=== PATIENT | female | born 1945 | race Caucasian/White ===

== ENCOUNTER 2017-10-28 14:18 | Inpatient (IN) ==
--- NOTE | 2017-10-28 14:34 | Emergency Department Report ---
Abdominal Pain HPI - General Stated Complaint: Abdominal pain Time Seen by Provider: 10/28/17 14:34 Source: patient Mode of arrival: ambulatory Limitations: no limitations - History of Present Illness HPI narrative: Patient is a 72-year-old female, presents from the urgent care for abdominal pain 4 days. Patient originally started having epigastric abdominal pain with radiation up into her chest, has had emesis in the last 24 hours no bowel movement in the last 4 days. Patient denies any fevers or chills, did present to urgent care who called EMS to have patient brought to the ER for evaluation. - Related Data Home Medications Medication Instructions Recorded Confirmed Albuterol HFA Inhaler [Ventolin 2 puff INH Q6H PRN 10/28/17 10/28/17 Hfa 90 mcg/actuation] DiphenhydrAMINE [Benadryl] 25 mg PO Q4H PRN 10/28/17 10/28/17 Losartan [Cozaar] 25 mg PO BID 10/28/17 10/28/17 MethIMAzole [Tapazole] 2.5 mg PO DAILY 10/28/17 10/28/17 Ranitidine [Zantac] 150 mg PO BID 10/28/17 10/28/17 guaiFENesin [Mucinex] 600 mg PO Q12H PRN 10/28/17 10/28/17 Allergies Allergy/AdvReac Type Severity Reaction Status Date / Time clindamycin Allergy Severe Hives Verified 10/28/17 14:37 meperidine [From Demerol] Allergy nausea, Verified 10/28/17 14:37 paranoia Review of Systems Constitutional: Denies: fever, chills, weakness Eyes: Denies: eye pain, eye discharge ENT: Denies: throat pain, dental pain, hearing loss Cardiovascular: Denies: chest pain, palpitations, dyspnea on exertion Respiratory: Denies: cough, dyspnea, wheezes Gastrointestinal: Reports: abdominal pain, nausea, vomiting, constipation Genitourinary: Denies: dysuria, frequency Neurological: Denies: headache Psychiatric: Denies: anxiety, depression Endocrine: Denies: fatigue, heat or cold intolerance Hematological/Lymphatic: Denies: easy bleeding, easy bruising Allergic/Immunologic: Denies: facial swelling, urticaria PFSH Patient Stated Medical History Hearing Loss Yes Other HEENT Yes: WEARS GLASSES Hypertension Yes: R/T RENAL ARTERY BLOCKAGE Gastroesophageal Reflux Yes Disease Clinic Medical History (Last Reviewed 03/21/17 @ 14:33 by VENANCIO Landry ) History of Crohn's disease (Chronic Medical) Anxiety (Chronic Medical) Migraine (Chronic Medical) GERD (gastroesophageal reflux disease) (Chronic Medical) Chronic abdominal pain (Chronic Medical) Dyslipidemia (Chronic Medical) Hypertension (Chronic Medical) Family History: Family History (Last Reviewed 03/21/17 @ 14:33 by VENANCIO Landry) Father No problems noted. Mother No problems noted. - Social History Smoking status: Former smoker Alcohol intake frequency: does not drink Physical Exam - Limitations Limitations: no limitations - General General appearance: alert, in no apparent distress - Head Head exam: normocephalic - ENT ENT exam: Present: normal oropharynx, mucous membranes moist, TM's normal bilaterally - Neck Neck exam: Present: trachea midline. Absent: tenderness - Chest Chest inspection: Present: symmetric chest wall rise. Absent: tenderness, rash - Respiratory Respiratory exam: Present: normal lung sounds bilaterally. Absent: respiratory distress, wheezes, stridor - Cardiovascular Cardiovascular exam: Present: regular rate, normal rhythm, normal heart sounds - Abdominal Exam Abdominal exam: Present: soft, distention, tenderness (mild diffuse tenderness) , diminished bowel sounds. Absent: normal bowel sounds - Back Exam Back exam: Present: full ROM - Skin Skin exam: Present: warm, dry - Neurological Exam Neurological exam: Present: alert, oriented X3 - Psychiatric Psychiatric exam: Present: normal affect, normal mood Abdominal Pain - [facility] Narrative Medical decision making narrative: Discuss case with Dr. Nixon, general surgery, he would recommend hospitalist admit, steroids, antibiotics, consult him if needed Discuss case with Dr. Duckworth, she will admit - Differential Diagnosis Differential diagnosis: Likely: abdominal pain, acute appendicitis, calculus of kidney, constipation, diverticulitis, endometriosis, gastroenteritis, pancreatitis, small bowel obstruction - Medical Records Attestation: I reviewed the patient's medical records. - Lab Data Attestation: I reviewed the patient's lab results. Result diagrams: 10/29/17 04:11 10/29/17 04:11 - Radiology Data Attestation: I reviewed the patient's radiology results. Long segment functional small bowel obstruction due to inflammation, question Crohn's Disposition Clinical Impression: functional bowel obstruction Disposition: 02 To [facility] [place] Condition: Stable - Seen By: physician
[2017-10-28] MEDS ORDERED: NS 1,000 ML IV ONE (14:40)
[2017-10-28] MEDS ORDERED: FentaNYL 100 MCG/2 ML INJECTION IVP ONE (14:40)
[2017-10-28] MEDS ORDERED: ONDANSETRON 4 MG/2 ML INJECTION IVP ONE ×2 (14:40→16:39)
[2017-10-28] MEDS ORDERED: IOHEXOL 300mg/ml 75ml INJECTION ONE (15:42)
[2017-10-28] MEDS ORDERED: SALINE FLUSH 10ml SYRINGE ONE (15:42)
--- NOTE | 2017-10-28 16:11 | CT Scan Report ---
Indication: diffuse abdominal pain tympanic rule out obstruction PROCEDURE: CT abdomen pelvis w con: Encounter: Initial Comparison: 11/09/2014 Findings: There is moderate dilation of the small bowel with a decompressed large bowel suggesting small bowel obstruction. There is moderate thickening and edema of the distal terminal ileum which is circumferential and long segment suggesting Crohn's disease. There is also moderate distal colonic diverticulosis without definite diverticulitis. There is no free perforation or peridiverticular abscess. There is a small amount of free fluid around the liver extending along the right paracolic gutter into the pelvic cul-de-sac. The included portions of the lung bases are mildly emphysematous. No pleural effusion. Heart size is normal. No pericardial effusion. The liver, spleen, kidneys, pancreas, and adrenal glands are normal. Incidental note is made of a retroaortic left renal vein. The gallbladder is thin walled and nondistended, without stones. The abdominal aorta is nonaneurysmal, with dense circumferential calcific atherosclerotic disease. There is no retroperitoneal or mesenteric adenopathy. CT PELVIS: The urinary bladder is not distended. No definite pelvic sidewall adenopathy.. IMPRESSION: Multiple functional small bowel obstruction with long segment circumferential distal small bowel thickening suggesting Crohn's disease or other enteritis. Moderate free fluid which is probably sympathetic. No definite free perforation or abscess. Moderate distal colonic diverticulosis without definite diverticulitis.. .
[2017-10-28] MEDS: METOCLOPRAMIDE 10mg/2ml INJECTION IVP PRN (17:56)
--- NOTE | 2017-10-28 18:15 | History & Physical Report ---
History of Present Illness Date: 10/28/17 Chief complaint: nausea, vomiting, abd pain HPI: "Stfefi" is a 72 yo female patient of MADAI Gage who presents to the ED due to abd pain, n/v. She states her last nl BM was 6 days ago. 3 days ago she started having abd pain which she thought was r/t constipation. She started a "natural" cleansing medication for constipation (not a stimulant laxative) when her abd pain started and took it daily x 3 days resulted in a loose stool yesterday evening. She had an "explosive diarrheal" stool today. She vomited today and noted corn in the emesis which concerned her b/c she ate the corn 4 days ago. In ED, her CT abd showed multiple functional small bowel obstruction with long segment circumferential distal small bowel thickening suggesting Crohn's disease or other enteritis. She does have Crohn's listed on her problem list with her PCP, but she reports she had had multiple colonoscopies (last one was "awhile ago") and never was treated for Crohn's. States she saw a GI doctor who diagnosed her with H. Pylori and this was treated. She had 2 doses of Zofran in the ER w/ little relief. She had Fentanyl with improvement in sxs. She doesn't like narcotics b/c she feels they make her nausea worse. She is declining NG tube at this point, but understands if she isn't improving, it will need to be inserted. Pain is currently 10/10. Last Fentanyl was over several hours ago. Review of Systems All systems PM: 10-point ROS was reviewed, no additional remarkable complaints except (n/v/abd pain) Past Medical History Medical History: Medical History (Last Reviewed 03/21/17 @ 14:33 by VENANCIO Landry) History of Crohn's disease (Chronic) Anxiety (Chronic) Migraine (Chronic) GERD (gastroesophageal reflux disease) (Chronic) Chronic abdominal pain (Chronic) Dyslipidemia (Chronic) Hypertension (Chronic) Medical History Updates: Hyperthyroidism Surgical History: RA iodine ablation for hyperthyroidism 07/18. cataract surgery. breast augmentation. L shoulder surgery. heart cath 2006. hyst Family History: Family History Father No problems noted. Mother No problems noted. Family History: As Above - Social History Smoking status: Former smoker (>50 yrs ago) Substance use type: does not use Alcohol intake frequency: does not drink Housing: house Household members: none Current occupational status: retired Previous occupational history: [employer] Social history: PCP - MADAI Gage Dr - Endo Medications Allergies Allergy/AdvReac Type Severity Reaction Status Date / Time clindamycin Allergy Severe Hives Verified 10/28/17 14:37 meperidine [From Demerol] Allergy nausea, Verified 10/28/17 14:37 paranoia Exam Vital Signs: Temperature 98.7 F 10/28/17 17:24 Pulse Rate 85 10/28/17 17:41 Respiratory Rate 16 10/28/17 17:41 Blood Pressure 162/83 H 10/28/17 17:24 Pulse Oximetry 93 10/28/17 17:41 Height/Weight/BMI: Height 1.55 m Weight 46.9 kg Body Mass Index 19.5 - Constitutional Present: no acute distress, mild distress (in pain, vomiting), well nourished, well developed - Routine HEENT Exam Head: Present: normocephalic, atraumatic Eye: Present: EOMI, PERRL ENT: Present: mucous membranes moist, oropharynx clear - Routine Neck Exam Present: supple. Absent: lymphadenopathy - Routine Respiratory Exam Present: CTA bilaterally. Absent: wheezes - Routine Cardiovascular Exam Present: RRR, no murmur - Routine Abdominal Exam Present: normoactive bowel sounds, tenderness (diffuse), distended - Routine Extremities Exam Present: no edema, normal capillary refill - Routine Skin Exam Present: dry, warm - Routine Neurological Exam Present: alert, oriented X3, CN II-XII intact - Routine Psychiatric Exam Present: normal affect, cooperative Results - Labs CBC & Chem 7: 10/28/17 14:57 10/28/17 14:57 - Imaging and Cardiology CT scan - abdomen Additional comments: IMPRESSION: Multiple functional small bowel obstruction with long segment circumferential distal small bowel thickening suggesting Crohn's disease or other enteritis. Moderate free fluid which is probably sympathetic. No definite free perforation or abscess. Moderate distal colonic diverticulosis without definite diverticulitis.. Assessment and Plan Assessment and Plan: Assessment Abdominal pain, n/v - Crohn's vs other enteritis/SBO (colonoscopy 2010 - diverticular disease, EGD 2014 - gastritis/+H pylori) Leukocytosis - POA Hyponatremia - POA History of Crohn's disease (no definitive dx per pt) Hyperthyroidism - RA iodine ablation 07/18 (Follows with Dr. Bianchi) Anxiety Migraine GERD Dyslipidemia Hypertension Diverticulosis with recurrent diverticulitis H/o gastritis/+h pylori Plan Admit, IP. Stay expected to exceed 2 overnights for tx of enteritis and resolution of SBO. Consult Dr. Nixon. NPO. NG tube. (Pt declines at present. If n/v/pain persists despite current pain/nausea tx, will proceed.) IVF's - 1L bolused in ER. Continue NS at 125cc/hr. This should address her hyponatremia as well. Repeat labs in am to follow blood counts and electrolytes. Protonix IV for GERD and GI ppx. Lovenox for VTE ppx. Full code. PCP - MADAI Gage 10/28/2017-8:10 PM-I examined the patient independently. I reviewed this chart, the patient history, and the DEPORTATION OFFICER's/PA's documented findings as above. We discussed and formulated the assessment and plan as above with the additions below.-Dr. Duckworth The patient was seen earlier this evening in her room. She had vomiting earlier today and again around 6 PM. The vomiting at 6 PM was a small amount. She states she has abdominal distention but it's not as bad as it was earlier today. She has some moderate abdominal pain. She denies any shortness of breath. On exam she is alert and oriented and in no acute distress. Chest is clear to auscultation. Cardiovascular reveals a regular rate and rhythm. Abdomen is distended with positive bowel sounds. Scattered tympany is noted. Abdomen is tender throughout. Extremities are free of edema. CT scan was reviewed with results as above. Impression and plan Small bowel obstruction, possibly secondary to Crohn's versus other enteritis. Reviewed films with Dr. Nixon. The patient was started on Zosyn and IV steroids. We'll make her nothing by mouth. Will give IV fluids. Dr. Nixon was consulted and will see the patient in the morning. NG was attempted, but the patient complained of pain and pushed the nurse away who was attempting to place it. The patient is refusing another attempt at this point. May need a PICC line and initiation of TPN in the next 1-2 days if not improving. Antiemetics for nausea DVT Prophylaxis: Lovenox GI Prophylaxis: Protonix Resuscitation Status: Full Code - Physician Narrative Physician: Madyson Duckworth MD Narrative: Date: 10/28/17 Time: 1753 Hospital Course Summary Disclaimer: The visit summary below is not to be considered part of the above Progress Note. Hospital Course: 10/28/17 Admit, IP. Stay expected to exceed 2 overnights for tx of enteritis and resolution of SBO. Consult Dr. Nixon. NPO. NG tube. (Pt declines at present. If n/v/pain persists despite current pain/nausea tx, will proceed.) IVF's - 1L bolused in ER. Continue NS at 125cc/hr. This should address her hyponatremia as well. Repeat labs in am to follow blood counts and electrolytes. Protonix IV for GERD and GI ppx. Lovenox for VTE ppx. Full code. PCP - MADAI Gage
[2017-10-28] MEDS: METHYLPREDNISOLONE SOD SUCC 40mg/ml INJECTION IVP SCH (18:18)
[2017-10-28] MEDS: FentaNYL 100 MCG/2 ML INJECTION IVP PRN (18:18)
[2017-10-28] MEDS: PIPERACILLIN/TAZOBACTAM 3.375 GM in NS 100 ML IV SCH (18:29)
[2017-10-28] MEDS: NS FLUSH BAG 500ml IV PRN (18:30)
[2017-10-28] MEDS: SALINE FLUSH 10ml SYRINGE IVF PRN (18:31)
[2017-10-28] MEDS ORDERED: MORPHINE SULFATE 4mg INJECTION IVP PRN (18:43)
[2017-10-28] MEDS: PANTOPRAZOLE 40 MG INJECTION IVP SCH (20:56)
[2017-10-28] MEDS: NS 1,000 ML IV SCH (20:57)
[2017-10-29] MEDS: PIPERACILLIN/TAZOBACTAM 3.375 GM in NS 100 ML IV SCH ×4 (00:11→17:50)
[2017-10-29] MEDS: METHYLPREDNISOLONE SOD SUCC 40mg/ml INJECTION IVP SCH ×3 (00:12→17:30)
[2017-10-29] MEDS: SALINE FLUSH 10ml SYRINGE IVF PRN (00:12)
[2017-10-29] MEDS: METOPROLOL 5mg/5ml INJECTION IVP PRN (01:01)
[2017-10-29] MEDS: NS 1,000 ML IV SCH ×4 (06:15→18:48)
[2017-10-29] MEDS: ENOXAPARIN 40 MG/0.4 ML INJECTION SQ SCH (09:26)
[2017-10-29] MEDS: PANTOPRAZOLE 40 MG INJECTION IVP SCH ×2 (09:27→21:26)
--- NOTE | 2017-10-29 12:30 | Progress Note ---
- Date 10/29/17 Subjective: Patient is seen in follow-up of abdominal pain likely to be related to enteritis and possible small bowel obstruction. She reports she is feeling much better today. She has had no further bowel movements since the loose bowel movement that she had prior to admission. She has had no further vomiting since I saw her during admission. She states her pain is now at 4/10. She states she slept very well last night. She is passing some gas. No belching. Attempt was made at inserting the NG tube last evening, but she could not tolerate this. No chest pain, shortness of breath, fever or chills. Objective Vital signs: Temperature 95.2 F L 10/29/17 07:58 Pulse Rate 75 10/29/17 07:58 Respiratory Rate 16 10/29/17 07:58 Blood Pressure 146/82 H 10/29/17 07:58 Pulse Oximetry 91 10/29/17 07:58 Height/Weight/BMI: Height 1.55 m Weight 46.5 kg Body Mass Index 19.5 - Constitutional Present: no acute distress, well nourished, well developed - Routine HEENT Exam Head: Present: normocephalic, atraumatic - Routine Respiratory Exam Present: CTA bilaterally. Absent: wheezes - Routine Cardiovascular Exam Present: RRR, no murmur - Routine Abdominal Exam Present: soft, normoactive bowel sounds, tenderness (mildly tender diffusely), non distended (mild distention) - Routine Extremities Exam Present: no edema, normal capillary refill - Routine Skin Exam Present: dry, warm - Routine Neurological Exam Present: alert, oriented X3 - Routine Lymphatic Exam Lymphatic: Absent: adenopathy - Routine Psychiatric Exam Present: normal affect, cooperative Results - Labs CBC & Chem 7: 10/29/17 04:11 10/29/17 04:11 Assessment and Plan Assessment and Plan: Assessment Abdominal pain, n/v - Crohn's vs other enteritis/SBO (colonoscopy 2010 - diverticular disease, EGD 2014 - gastritis/+H pylori) Leukocytosis - POA-improving Hyponatremia - POA-resolved History of Crohn's disease (no definitive dx per pt) Hyperthyroidism - RA iodine ablation 07/18 (Follows with Dr. Bianchi) Anxiety Migraine GERD Dyslipidemia Hypertension Diverticulosis with recurrent diverticulitis H/o gastritis/+h pylori Plan Patient's pain is less. Leukocytosis improved from 18.7--> 14.5. Continues on Zosyn and Solumedrol. Consider decreasing Solumedrol dose later today. Remains NPO. IVF's running at 125cc's/hr. Electrolytes stable. Hyponatremia resolved 130-->136. Continue IV pain meds and antiemetics PRN. (Hasn't required since 1800 last shereen. ) Continue IV pantoprazole for GI ppx/GERD. 10/29/2017-5:20 PM-I examined the patient independently. I reviewed this chart, the patient history, and the SENIOR GIS ANALYST's/PA's documented findings as above. We discussed and formulated the assessment and plan as above with the additions below.-Dr. Duckworth The patient was seen this afternoon in her room. She states she is feeling at her. She has less abdominal pain and distention. She has been passing some gas today. She had some occasional hiccups. She no longer has any nausea and has not had any vomiting since 6 PM yesterday. She is breathing without difficulties. On exam she is alert and in no acute distress. Chest is clear to auscultation. Cardiovascular reveals a regular rate and rhythm. Abdomen is soft with positive bowel sounds. She has moderate distention but less so than yesterday. She does have some mild tenderness throughout, but not as bad as yesterday. No rebound or guarding. Extremities are free of edema. Skin is warm and dry and without rashes. KUB today on my read shows continued air-filled loops of small bowel Impression and plan Small bowel obstruction, possibly secondary to Crohn's disease-continue nothing by mouth status, Solu-Medrol, Zosyn. Decrease IV fluids. Increase activity as tolerated. IV Tylenol as needed for pain. Patient states there is family history of allergy to morphine and she does not want to try this. The patient appears to be improving despite inability to place NG tube yesterday. We'll reevaluate tomorrow. If not improving, may need TPN. Obtain two-view abdomen x-ray tomorrow with upright DVT Prophylaxis: Lovenox GI Prophylaxis: Protonix Resuscitation Status: Full Code - Physician Narrative Narrative: Date: 10/29/17 Time: 1227 Hospital Course Summary Disclaimer: The visit summary below is not to be considered part of the above Progress Note. Hospital Course: 10/28/17 Admit, IP. Stay expected to exceed 2 overnights for tx of enteritis and resolution of SBO. Consult Dr. Nixon. Zosyn and Solumedrol for tx of enteritis. NPO. NG tube. (Pt declines at present. If n/v/pain persists despite current pain/nausea tx, will proceed.) IVF's - 1L bolused in ER. Continue NS at 125cc/hr. This should address her hyponatremia as well. Repeat labs in am to follow blood counts and electrolytes. Protonix IV for GERD and GI ppx. Lovenox for VTE ppx. Full code. PCP - MADAI Gage 10/29/17 Patient's pain is less. Leukocytosis improved from 18.7--> 14.5. Continues on Zosyn and Solumedrol. Consider decreasing Solumedrol dose later today. Remains NPO. IVF's running at 125cc's/hr. Electrolytes stable. Hyponatremia resolved 130-->136. Continue IV pain meds and antiemetics PRN. (Hasn't required since 1799 last shereen. ) Continue IV pantoprazole for GI ppx/GERD.
[2017-10-29] MEDS: ACETAMINOPHEN IV 1,000 MG/100 ML VIAL IV PRN (16:24)
[2017-10-30] MEDS: NS 1,000 ML IV SCH ×2 (01:01→02:20)
[2017-10-30] MEDS: PIPERACILLIN/TAZOBACTAM 3.375 GM in NS 100 ML IV SCH ×4 (05:29→17:03)
[2017-10-30] MEDS ORDERED: LR 1,000 ML IV SCH (07:30)
[2017-10-30] MEDS: ENOXAPARIN 40 MG/0.4 ML INJECTION SQ SCH (09:27)
[2017-10-30] MEDS: METHYLPREDNISOLONE SOD SUCC 40mg/ml INJECTION IVP SCH ×3 (09:28→16:24)
[2017-10-30] MEDS: PANTOPRAZOLE 40 MG INJECTION IVP SCH ×2 (09:28→22:05)
[2017-10-30] MEDS ORDERED: TPN - PHARMACY CONSULT MC ONE (14:04)
[2017-10-30] MEDS ORDERED: PPN - PHARMACY CONSULT MC ONE (14:07)
--- NOTE | 2017-10-30 14:14 | Progress Note ---
- Date 10/30/17 Subjective: Patient was seen this afternoon in her room. Several of her children were present. She states she had a small bowel movement this morning, and her abdomen feels a little more bloated and uncomfortable since that time. She denies any nausea currently. She has not had any vomiting since the evening of admission. She denies any chest pain or shortness of breath. She thinks she might have had some heartburn last night. She denies any palpitations or lightheadedness. Objective Vital signs: Temperature 96.9 F 10/30/17 07:00 Pulse Rate 75 10/30/17 07:00 Respiratory Rate 18 10/30/17 07:00 Blood Pressure 141/76 H 10/30/17 07:00 Pulse Oximetry 94 10/30/17 07:00 Height/Weight/BMI: Height 1.55 m Weight 47.3 kg Body Mass Index 19.5 Comments: GEN-alert, oriented, no acute distress HEENT-sclera anicteric, oropharynx is moist NECK-supple CV-regular rate and rhythm CHEST-clear to auscultation bilaterally ABD-soft, mild to moderate distention, mild tenderness throughout, no rebound or guarding, positive bowel sounds, positive tympany -no Escobar EXT-no edema NEURO-no focal deficits SKIN-warm and dry Results - Labs CBC & Chem 7: 10/30/17 04:28 10/30/17 04:28 Labs: Calcium, phosphorus, magnesium are all normal - Impressions Abdominal x-rays on my read showed no significant change. She still has dilated loops of small bowel. Some air-fluid levels are present. Assessment and Plan Assessment and Plan: Assessment Abdominal pain, n/v - Crohn's vs other enteritis/SBO (colonoscopy 2010 - diverticular disease, EGD 2014 - gastritis/+H pylori) Leukocytosis - POA Hyponatremia - POA-resolved History of Crohn's disease (no definitive dx per pt) Hyperthyroidism - RA iodine ablation 07/18 (Follows with Dr. Bianchi) Anxiety Migraine GERD Dyslipidemia Hypertension Diverticulosis with recurrent diverticulitis H/o gastritis/+h pylori Mild metabolic acidosis Plan Patient did have a small bowel movement this morning. No significant flatus. Abdomen feels a little more distended, full and uncomfortable today. She appears in no distress and has not required any pain medication since receiving IV acetaminophen yesterday afternoon. She has not had any nausea or vomiting. She does not have an NG in place. NG placement was attempted on the evening of admission but was difficult, and the patient refused further attempts. We'll continue Solu-Medrol for possible Crohn's disease. Continue Zosyn for now. Discussed with Dr. Nixon, he will see the patient later today. Abdominal films look about the same today. We'll start IV nutrition. Discussed with the pharmacist today, we do not have any TPN. Will start PPN today. Will adjust IV fluid rate when PPN started Abdominal films tomorrow a.m. Repeat CBC and renal panel tomorrow. Discussed with patient, her family, her nurse, pharmacy, and Dr. Nixon. DVT Prophylaxis: Lovenox GI Prophylaxis: Protonix Resuscitation Status: Full Code - Physician Narrative Narrative: Date: 10/30/17 Time: 1411 Hospital Course Summary Disclaimer: The visit summary below is not to be considered part of the above Progress Note. Hospital Course: 10/28/17 Admit, IP. Stay expected to exceed 2 overnights for tx of enteritis and resolution of SBO. Consult Dr. Nixon. Zosyn and Solumedrol for tx of enteritis. NPO. NG tube. (Pt declines at present. If n/v/pain persists despite current pain/nausea tx, will proceed.) IVF's - 1L bolused in ER. Continue NS at 125cc/hr. This should address her hyponatremia as well. Repeat labs in am to follow blood counts and electrolytes. Protonix IV for GERD and GI ppx. Lovenox for VTE ppx. Full code. PCP - MADAI Gage 10/29/17 Patient's pain is less. Leukocytosis improved from 18.7--> 14.5. Continues on Zosyn and Solumedrol. Consider decreasing Solumedrol dose later today. Remains NPO. IVF's running at 125cc's/hr. Electrolytes stable. Hyponatremia resolved 130-->136. Continue IV pain meds and antiemetics PRN. (Hasn't required since 1800 last shereen. ) Continue IV pantoprazole for GI ppx/GERD.
--- NOTE | 2017-10-30 14:45 | Pharmacy Consult-TPN/PPN ---
Pharmacy Consult-TPN/PPN - Laboratory Information Chemistry Turbidity < 20 (0-20) 10/30/17 04:28 Sodium 138 MEQ/L (136-146) 10/30/17 04:28 Potassium 3.7 MEQ/L (3.6-5) 10/30/17 04:28 Chloride 110 MEQ/L (98-107) H D 10/30/17 04:28 Carbon Dioxide 20 MEQ/L (22-30) L 10/30/17 04:28 Anion Gap 8 meq/L (5-15) 10/30/17 04:28 BUN 15.0 MG/DL (7-17) D 10/30/17 04:28 Creatinine 0.7 mg/dL (0.7-1.2) 10/30/17 04:28 GFR Calculation 82 10/30/17 04:28 BUN/Creatinine Ratio 21 RATIO (6-26) 10/30/17 04:28 Glucose 97 MG/DL (65-110) 10/30/17 04:28 Calculated Osmolality 267 MOSM/KG (261-280) 10/30/17 04:28 Calcium 8.2 MG/DL (8.4-10.2) L D 10/30/17 04:28 Phosphorus 3.9 MG/DL (2.5-4.5) 10/30/17 04:28 Magnesium 1.9 MG/DL (1.6-2.3) 10/30/17 04:28 Total Bilirubin 1.00 MG/DL (0.20-1.30) 10/28/17 14:57 Icterus Index < 2 (0-7) 10/30/17 04:28 AST 23 U/L (14-36) 10/28/17 14:57 ALT 13 U/L (1-35) 10/28/17 14:57 Alkaline Phosphatase 91 U/L (38-126) 10/28/17 14:57 C-Reactive Protein 162.3 mg/L (0-9) H 10/28/17 14:57 Total Protein 7.8 g/dL (6.3-8.2) 10/28/17 14:57 Albumin 3.2 g/dL (3.5-5.0) L 10/30/17 04:28 Globulin 3.0 G/DL (2.4-3.6) 10/28/17 14:57 Albumin/Globulin Ratio 1.6 RATIO (1.1-2.2) 10/28/17 14:57 Lipase 53 U/L (23-300) 10/28/17 14:57 Specimen Hemolysis < 15 (0-25) 10/30/17 04:28 Intake and Output 10/29/17 10/30/17 10/31/17 06:59 06:59 06:59 Intake Total 1300.000 / 2300.000 2946.667 / 2946.667 433.333 / 433.333 Output Total 950 / 950 500 / 500 200 / 200 Balance 350.000 / 6620.196 6372.667 / 2446.667 233.333 / 233.333 Weight 46.9 kg 46.5 kg 47.3 kg Intake: IV 1300.000 / 9795.296 1008.667 / 2946.667 433.333 / 433.333 Acetaminophen IV 1,000 mg In 100 / 100 100 ml @ 400 mls/hr IV Q8H PRN Rx#:[id number] Ns 1,000 ml @ 100 mls/hr IV . 1000.000 / 1099.629 2735.667 / 2446.667 333.333 / 333.333 Q10H [facility] Rx#:[id number] Piperacillin/Tazobactam 3.375 300 / 300 400 / 400 100 / 100 gm In Ns 100 ml @ 200 mls/hr IV Q6H [facility] Rx#:[id number] Oral 0 / 0 Output: Urine 900 / 900 500 / 500 200 / 200 Emesis 50 / 50 Other: Urine Appearance Clear Clear Clear Urine Color Yellow Yellow Yellow Urine Odor Normal Normal Normal Emesis Description Digested Food PPN DAY 1: Will start PPN via peripheral line this afternoon TRA 100ml/hr. Will dc the LR when PPN is started. Will start with Standard PPN Formula as follows: Amino Acids 8.5% 1000 mL Dextrose 10% 1000 mL Electrolytes: Conc: Total/bag: Sodium 35 mEq/L 70 mEq Potassium 30 mEq/L 60 mEq Magnesium 5 mEq/L 10 mEq Calcium 4.5 mEq/L 9 mEq Acetate 70 mEq/L 140 mEq Chloride 39 mEq/L 78 mEq Phosphate 15 mmol/L 30 mmol Multiple Vitamins 10ml Multi-Trace Elements 1ml Will add Fat Emulsion 20% 500ml, one bag daily, starting tomorrow afternoon, to prevent EFAD and add additional calories. This will give approximately 1400 kcal per day. BMP, Mag ordered for morning. Will watch blood sugars as well. Thank you.
[2017-10-30] MEDS: [UNRECOGNIZED DRUG - OTHER] IV SCH (15:54)
[2017-10-30] MEDS: CLINIMIX E IV SCH (15:54)
[2017-10-30] MEDS: ACETAMINOPHEN IV 1,000 MG/100 ML VIAL IV PRN (16:24)
[2017-10-31] MEDS: PIPERACILLIN/TAZOBACTAM 3.375 GM in NS 100 ML IV SCH ×6 (00:25→23:54)
[2017-10-31] MEDS: METHYLPREDNISOLONE SOD SUCC 40mg/ml INJECTION IVP SCH ×3 (01:11→17:08)
--- NOTE | 2017-10-31 09:43 | Pharmacy Consult-TPN/PPN ---
Pharmacy Consult-TPN/PPN - Laboratory Information Chemistry Turbidity < 20 (0-20) 10/31/17 03:50 Sodium 138 MEQ/L (136-146) 10/31/17 03:50 Potassium 4.0 MEQ/L (3.6-5) 10/31/17 03:50 Chloride 107 MEQ/L (98-107) 10/31/17 03:50 Carbon Dioxide 24 MEQ/L (22-30) 10/31/17 03:50 Anion Gap 7 meq/L (5-15) 10/31/17 03:50 BUN 24.0 MG/DL (7-17) H D 10/31/17 03:50 Creatinine 0.8 mg/dL (0.7-1.2) 10/31/17 03:50 GFR Calculation 71 10/31/17 03:50 BUN/Creatinine Ratio 30 RATIO (6-26) H 10/31/17 03:50 Glucose 111 MG/DL (65-110) H 10/31/17 03:50 Calculated Osmolality 271 MOSM/KG (261-280) 10/31/17 03:50 Calcium 8.3 MG/DL (8.4-10.2) L 10/31/17 03:50 Phosphorus 3.6 MG/DL (2.5-4.5) 10/31/17 03:50 Magnesium 2.1 MG/DL (1.6-2.3) 10/31/17 03:50 Total Bilirubin 1.00 MG/DL (0.20-1.30) 10/28/17 14:57 Icterus Index < 2 (0-7) 10/31/17 03:50 AST 23 U/L (14-36) 10/28/17 14:57 ALT 13 U/L (1-35) 10/28/17 14:57 Alkaline Phosphatase 91 U/L (38-126) 10/28/17 14:57 C-Reactive Protein 162.3 mg/L (0-9) H 10/28/17 14:57 Total Protein 7.8 g/dL (6.3-8.2) 10/28/17 14:57 Albumin 3.2 g/dL (3.5-5.0) L 10/31/17 03:50 Globulin 3.0 G/DL (2.4-3.6) 10/28/17 14:57 Albumin/Globulin Ratio 1.6 RATIO (1.1-2.2) 10/28/17 14:57 Lipase 53 U/L (23-300) 10/28/17 14:57 Specimen Hemolysis < 15 (0-25) 10/31/17 03:50 Intake and Output 10/30/17 10/31/17 11/01/17 06:59 06:59 06:59 Intake Total 2946.667 / 2946.667 1410.000 / 1410.000 Output Total 500 / 500 975 / 975 Balance 2446.667 / 2446.667 435.000 / 435.000 Weight 46.5 kg 47.3 kg 48 kg Intake: IV 2946.667 / 2946.667 1410.000 / 1410.000 Acetaminophen IV 1,000 mg In 100 / 100 100 / 100 100 ml @ 400 mls/hr IV Q8H PRN Rx#:[id number] Lr 1,000 ml @ 100 mls/hr IV . 576.667 / 576.667 Q10H [facility] Rx#:[id number] Ns 1,000 ml @ 100 mls/hr IV . 2446.667 / 2446.667 333.333 / 333.333 Q10H [facility] Rx#:[id number] Piperacillin/Tazobactam 3.375 400 / 400 400 / 400 gm In Ns 100 ml @ 200 mls/hr IV Q6H [facility] Rx#:[id number] Output: Urine 500 / 500 975 / 975 Other: Urine Appearance Clear Clear Urine Color Yellow Yellow Urine Odor Normal Normal Stool Color Brown Stool Consistency Loose Size of Bowel Movement Small # Voids 1 # Bowel Movements 1 DAY 2 PPN: PPN started yesterday afternoon TRA 100ml/hr. Electrolytes continue stable and within reasonable range. Glucose OK. Will continue present formula. Recheck panel in morning. Thank you
[2017-10-31] MEDS: ENOXAPARIN 40 MG/0.4 ML INJECTION SQ SCH (09:49)
[2017-10-31] MEDS: PANTOPRAZOLE 40 MG INJECTION IVP SCH ×2 (09:49→20:20)
[2017-10-31] MEDS: NS FLUSH BAG 500ml IV PRN ×2 (09:50→17:08)
--- NOTE | 2017-10-31 09:56 | Progress Note ---
- Date 10/31/17 Subjective: She was seen this morning in her room. She states she's having more abdominal discomfort today than she did yesterday. She had 2 small bowel movements this morning but is not really passing gas. She denies any nausea or vomiting. She states her abdomen feels a little more distended and she notices it's harder to take a deep breath. She denies any chest pain. She states her hands and feet feel swollen but there is no visible edema. She has some generalized achiness. She think she would feel better if she got up out of bed more often. TPN was ordered yesterday, but none is available due to a shortage. She was then started on PPN and a peripheral IV site and this caused severe burning. She had a midline placed and PPN was restarted without difficulties. Objective Vital signs: Temperature 96.4 F L 10/31/17 07:00 Pulse Rate 70 10/31/17 07:00 Respiratory Rate 16 10/31/17 07:00 Blood Pressure 141/89 H 10/31/17 07:00 Pulse Oximetry 92 10/31/17 07:00 Height/Weight/BMI: Height 1.55 m Weight 48 kg Body Mass Index 19.5 Comments: Afebrile, systolic blood pressures in the 140s, O2 sat 92% on room air, heart rate 70 GEN-alert, oriented, no acute distress HEENT-sclera anicteric, oropharynx is moist NECK-supple CV-regular rate and rhythm CHEST-clear to auscultation bilaterally ABD-soft, distended, positive bowel sounds, tender, especially over the left mid abdomen, no rebound or guarding -no Escobar EXT-no visible edema NEURO-no focal deficits SKIN-warm and dry, no rashes Results - Labs CBC & Chem 7: 10/31/17 03:50 10/31/17 03:50 - Impressions Abdominal x-rays on my read are unchanged from yesterday. Still with dilated loops of small bowel with multiple air-fluid levels on upright Assessment and Plan Assessment and Plan: Assessment Small bowel obstruction Abdominal pain, n/v - Crohn's vs other enteritis/SBO (colonoscopy 2010 - diverticular disease, EGD 2014 - gastritis/+H pylori) Leukocytosis - POA-now likely secondary to steroids Hyponatremia - POA-resolved ?History of Crohn's disease (no definitive dx per pt) Hyperthyroidism - RA iodine ablation 07/18 (Follows with Dr. Bianchi)- methimazole is on hold while she is nothing by mouth Anxiety Migraine GERD Dyslipidemia Hypertension -fair blood pressure control off of losartan while nothing by mouth Diverticulosis with history of recurrent diverticulitis H/o gastritis/+h pylori Mild metabolic acidosis-resolved Plan Patient continues to have abdominal discomfort, distention, and continued dilated loops of small bowel on abdominal x-rays. Pain is tolerable. She had 2 small bowel movements this morning. IV Tylenol does help her pain. Continue with IV Solu-Medrol for suspected Crohn's. Continue Zosyn for now. White count is elevated, at this point likely secondary to steroids. The patient has remained afebrile. Regarding nutrition, TPN is not available due to a shortage, PPN was started yesterday and is being given in the midline since she had pain with infusion in a peripheral site. CBC, CMP, and phosphorus tomorrow Repeat C-reactive protein today We'll discuss today with Dr. Nixon DVT Prophylaxis: Lovenox GI Prophylaxis: Protonix Resuscitation Status: Full Code - Physician Narrative Narrative: Date: 10/31/17 Time: 0952 Hospital Course Summary Disclaimer: The visit summary below is not to be considered part of the above Progress Note. Hospital Course: 10/28/17 Admit, IP. Stay expected to exceed 2 overnights for tx of enteritis and resolution of SBO. Consult Dr. Nixon. Zosyn and Solumedrol for tx of enteritis. NPO. NG tube. (Pt declines at present. If n/v/pain persists despite current pain/nausea tx, will proceed.) IVF's - 1L bolused in ER. Continue NS at 125cc/hr. This should address her hyponatremia as well. Repeat labs in am to follow blood counts and electrolytes. Protonix IV for GERD and GI ppx. Lovenox for VTE ppx. Full code. PCP - MADAI Gage 10/29/17 Patient's pain is less. Leukocytosis improved from 18.7--> 14.5. Continues on Zosyn and Solumedrol. Consider decreasing Solumedrol dose later today. Remains NPO. IVF's running at 125cc's/hr. Electrolytes stable. Hyponatremia resolved 130-->136. Continue IV pain meds and antiemetics PRN. (Hasn't required since 1799 last [facility]. ) Continue IV pantoprazole for GI ppx/GERD.
[2017-10-31] MEDS: ACETAMINOPHEN IV 1,000 MG/100 ML VIAL IV PRN ×2 (10:03→18:27)
--- NOTE | 2017-10-31 11:12 | XRay Report ---
Indication: sbo PROCEDURE: XR abdomen 2V: Encounter: Initial Comparison: CT abdomen dated October 28, 2017 and radiographs dated October 30, 2017 Findings: Gas-filled dilated small bowel loops measuring up to 4.6 cm in diameter with air-fluid levels. The overall degree of small bowel dilatation is not significantly changed. Small pleural effusions. Lower lobe fibrosis or scarring. Scattered areas of colonic gas. Impression: Continued dilatation of small bowel suspicious for small bowel obstruction. .
--- NOTE | 2017-10-31 11:15 | XRay Report ---
Indication: sbo, ?crohns PROCEDURE: XR abdomen 2V: Encounter: Initial Comparison: October 29, 2017 Findings: Dilated small bowel loops in the left abdomen measuring up to 4.5 cm in diameter with air-fluid levels. This is similar to the prior exam. Scattered colonic gas present. Small pleural effusions. No free air identified. Impression: Continued dilatation of small bowel suspicious for a small bowel obstruction. .
--- NOTE | 2017-10-31 11:23 | XRay Report ---
Indication: sbo follow up PROCEDURE: XR KUB: Encounter: Initial Comparison: CT abdomen dated October 28, 2017 Findings: Dilated gas-filled small bowel loops in the left abdomen measuring up to 3.7 cm in diameter with a few scattered foci of colonic gas. Lower lobe pleural effusions. Impression: Continued small bowel dilatation suspicious for a small bowel obstruction. .
[2017-10-31] MEDS: [UNRECOGNIZED DRUG - OTHER] IV SCH (12:46)
[2017-10-31] MEDS: CLINIMIX E IV SCH (12:46)
[2017-10-31] MEDS: FAT EMULSION 20% 500 ML IV SCH (16:01)
[2017-10-31] MEDS: METOPROLOL 5mg/5ml INJECTION IVP PRN (23:54)
[2017-11-01] MEDS: METHYLPREDNISOLONE SOD SUCC 40mg/ml INJECTION IVP SCH ×3 (00:45→17:04)
[2017-11-01] MEDS ORDERED: FUROSEMIDE 20 MG/2 ML INJECTION IVP ONE (03:40)
[2017-11-01] MEDS ORDERED: AMLODIPINE 5 MG TABLET PO ONE (03:41)
[2017-11-01] MEDS: ACETAMINOPHEN IV 1,000 MG/100 ML VIAL IV PRN ×2 (04:10→22:37)
[2017-11-01] MEDS: PIPERACILLIN/TAZOBACTAM 3.375 GM in NS 100 ML IV SCH ×4 (04:47→23:33)
[2017-11-01] MEDS: METOPROLOL 5mg/5ml INJECTION IVP PRN (05:53)
[2017-11-01] MEDS: METOCLOPRAMIDE 10mg/2ml INJECTION IVP PRN (06:46)
[2017-11-01] MEDS: POTASSIUM CHLORIDE PREMIX 10 MEQ/100 ML BAG IV SCH ×2 (07:49→08:51)
--- NOTE | 2017-11-01 08:29 | XRay Report ---
Indication: sbo PROCEDURE: XR abdomen 2V: Encounter: Initial Comparison: October 31, 2017 Findings: Small pleural effusions. Bilateral breast implants. Dilated gas-filled small bowel loops are again seen in the left abdomen measuring up to 4 cm in diameter, decreased from 4.6 cm previously. There is scattered colonic gas present distally to the level of the rectum. Impression: Slight improvement in the obstructive bowel gas pattern. .
[2017-11-01] MEDS: ENOXAPARIN 40 MG/0.4 ML INJECTION SQ SCH (08:33)
[2017-11-01] MEDS: PANTOPRAZOLE 40 MG INJECTION IVP SCH ×2 (08:33→21:19)
[2017-11-01] MEDS: [UNRECOGNIZED DRUG - OTHER] IV SCH (08:52)
[2017-11-01] MEDS: CLINIMIX E IV SCH (08:52)
--- NOTE | 2017-11-01 10:22 | Pharmacy Consult-TPN/PPN ---
Pharmacy Consult-TPN/PPN - Laboratory Information Chemistry Turbidity < 20 (0-20) 11/01/17 03:35 Sodium 138 MEQ/L (136-146) 11/01/17 03:35 Potassium 3.5 MEQ/L (3.6-5) L 11/01/17 03:35 Chloride 100 MEQ/L (98-107) D 11/01/17 03:35 Carbon Dioxide 26 MEQ/L (22-30) 11/01/17 03:35 Anion Gap 12 meq/L (5-15) 11/01/17 03:35 BUN 19.0 MG/DL (7-17) H 11/01/17 03:35 Creatinine 0.7 mg/dL (0.7-1.2) 11/01/17 03:35 GFR Calculation 82 11/01/17 03:35 BUN/Creatinine Ratio 27 RATIO (6-26) H 11/01/17 03:35 Glucose 120 MG/DL (65-110) H 11/01/17 03:35 Calculated Osmolality 269 MOSM/KG (261-280) 11/01/17 03:35 Calcium 8.5 MG/DL (8.4-10.2) 11/01/17 03:35 Phosphorus 2.6 MG/DL (2.5-4.5) 11/01/17 03:35 Magnesium 2.1 MG/DL (1.6-2.3) 10/31/17 03:50 Total Bilirubin 0.50 MG/DL (0.20-1.30) 11/01/17 03:35 Conjugated Bilirubin 0.00 mg/dL (0.00-0.30) 11/01/17 03:35 Unconjugated Bilirubin 0.30 mg/dL (0.00-1.1) 11/01/17 03:35 Icterus Index < 2 (0-7) 11/01/17 03:35 AST 25 U/L (14-36) 11/01/17 03:35 ALT 14 U/L (1-35) 11/01/17 03:35 Alkaline Phosphatase 46 U/L (38-126) 11/01/17 03:35 C-Reactive Protein 34.5 mg/L (0-9) H 10/31/17 03:50 Total Protein 6.5 g/dL (6.3-8.2) 11/01/17 03:35 Albumin 3.9 g/dL (3.5-5.0) 11/01/17 03:35 Globulin 2.6 G/DL (2.4-3.6) 11/01/17 03:35 Albumin/Globulin Ratio 1.5 RATIO (1.1-2.2) 11/01/17 03:35 Lipase 53 U/L (23-300) 10/28/17 14:57 Specimen Hemolysis < 15 (0-25) 11/01/17 03:35 Intake and Output 10/31/17 11/01/17 11/02/17 06:59 06:59 06:59 Intake Total 1410.000 / 6542.924 8544 / 3211 2210 / 2210 Output Total 975 / 975 6275 / 6275 800 / 800 Balance 435.000 / 435.000 -3064 / -3064 1410 / 1410 Weight 47.3 kg 48 kg 47.6 kg Intake: IV 1410.000 / 9293.982 2515 / 3211 2210 / 2210 Acetaminophen IV 1,000 mg In 100 / 100 300 / 300 100 ml @ 400 mls/hr IV Q8H PRN Rx#:[id number] Fat Emulsion 20% 500 ml @ 125 500 / 500 mls/hr IV 1600 [facility] Rx#: [id number] Lr 1,000 ml @ 100 mls/hr IV . 576.667 / 576.667 Q10H [facility] Rx#:[id number] Multi-Vit Infusion 10 ml Multi 2010 -Trace Elements 1 ml In Ppn - Standard Formula 2,000 ml @ 100 mls/hr IV .Q20H7M [facility] Rx#: [id number] Ns 1,000 ml @ 100 mls/hr IV . 333.333 / 333.333 Q10H [facility] Rx#:[id number] Piperacillin/Tazobactam 3.375 400 / 400 400 / 400 gm In Ns 100 ml @ 200 mls/hr IV Q6H [facility] Rx#:[id number] Potassium Chloride Premix 10 200 / 200 meq In 100 ml @ 100 mls/hr IV Q1H [facility] Rx#:[id number] Output: Urine 975 / 975 6275 / 6275 800 / 800 Other: Urine Appearance Clear Clear Clear Urine Color Yellow Pale Yellow Urine Odor Normal Normal Normal Stool Characteristics Seedy Stool Color Brown Brown Green Stool Consistency Soft Soft Size of Bowel Movement Moderate Small # Voids 1 1 # Bowel Movements 1 1 # Unmeasured Emesis Episodes 1 - Consult Information PPN CONSULT: Day 3 72 yr old female 5'1" 47.6 kg admitted with a functional small bowel obstruction. She has been on the Peripheral Parenteral Nutrition Formula 4.25% Amino Acids and 5% Dextrose at a rate of 100 ml/hr with 500 ml 20% Lipids daily. This combination provides her with 1408 non-protein kcal. Today's electrolytes were all within normal limits except her Potassium which had dropped from 4.0 to 3.5. She was bolused this morning with 20 mEq KCL. We will add an additional 20 mEq KCL to her next bag. With the rate running at 100 ml/hr, her total amount of KCL per 24 hours that she will receive will now be 96 mEq. Pharmacy will continue to monitor the PPN and adjust the electrolytes as needed. Thank you. Nita Arteaga, PharmD Documented note in OM.
[2017-11-01] MEDS: ONDANSETRON 4 MG/2 ML INJECTION IVP PRN (10:31)
[2017-11-01] MEDS: SALINE FLUSH 10ml SYRINGE IVF PRN ×4 (11:12→22:39)
[2017-11-01] MEDS: SORE THROAT SPRAY 20ml PO PRN (12:04)
--- NOTE | 2017-11-01 12:31 | XRay Report ---
Indication: VERIFICATION OF NG TUBE PLACEMENT PROCEDURE: XR abdomen 1V: Encounter: Initial Comparison: November 01, 2017 at 0730 Findings/ Impression: New nasogastric tube in place with the tip projecting over the body of the stomach. The side port projects over the cardia region. Small pleural effusions. Dilated small bowel loops are again noted measuring up to 4 cm in diameter. .
[2017-11-01] MEDS: FAT EMULSION 20% 500 ML IV SCH (15:41)
--- NOTE | 2017-11-01 16:21 | Progress Note ---
- Date 11/01/17 Subjective: Steffi has been seen multiple times throughout the day. Earlier she complained of increased abdominal pain and distention and agreed to try and attempt placement of the NG again. She tolerated the procedure much better today after receiving ativan 0.5mg IV x 1 dose and throat spray. The NG was successfully placed and is currently on low suction. She is currently resting in bed and reports that she thinks she is feeling a little better but continues to have pain. She was seen and evaluated by Dr. Nixon at which point she disclosed that her father and 2 of her cousins had all had lymphoma of the ileum. Following her conversation with Dr. Nixon which her family was present for, she is more open to the idea of surgery, possibly tomorrow as she has not been responding to treatment as expected. Labs today revealed slowly trending up WBC (17.1) with 4% bands. She remains afebrile. Mild hypokalemia noted which was corrected with KCl 20 mEq IV. Objective Vital signs: Temperature 97.2 F 11/01/17 07:46 Pulse Rate 75 11/01/17 11:31 Respiratory Rate 16 11/01/17 12:03 Blood Pressure 162/90 H 11/01/17 11:31 Pulse Oximetry 87 L 11/01/17 11:31 Height/Weight/BMI: Height 5 ft 1 in Weight 104 lb 15.04 oz Body Mass Index 19.8 Comments: Patient is resting in bed and in no apparent distress. Awakes easily with soft touch and voice. - Constitutional Present: no acute distress, well nourished, well developed, thin, cooperative - Routine HEENT Exam Head: Present: normocephalic, atraumatic Eye: Present: PERRL. Absent: conjunctival icterus ENT: Present: mucous membranes dry Comments: NG tube in place and actively draining on low suction. - Routine Respiratory Exam Present: CTA bilaterally. Absent: respiratory distress, wheezes - Routine Cardiovascular Exam Present: RRR, S1, S2 - Routine Abdominal Exam Present: soft, tenderness (generalized), distended. Absent: guarding - Routine Extremities Exam Present: no edema, non tender, full ROM, pulses intact - Routine Back/Spine/Pelvis Exam Back/Spine: Present: full ROM. Absent: vertebral tenderness - Routine Musculoskeletal Exam Musculoskeletal: Present: no clubbing or cyanosis, moving extremities well - Routine Skin Exam Present: intact, dry, warm Comments: Afebrile. - Routine Neurological Exam Present: alert, oriented X3, moving all extremities, hearing grossly intact, normal speech - Routine Lymphatic Exam Lymphatic: Absent: lymphedema - Routine Psychiatric Exam Present: cooperative Results - Labs CBC & Chem 7: 11/01/17 03:35 11/01/17 03:35 Assessment and Plan Assessment and Plan: Assessment Small bowel obstruction Abdominal pain, n/v - Crohn's vs other enteritis/SBO (colonoscopy 2010 - diverticular disease, EGD 2014 - gastritis/+H pylori) Leukocytosis - POA-now likely secondary to steroids Hyponatremia - POA-resolved ?History of Crohn's disease (no definitive dx per pt) Hyperthyroidism - RA iodine ablation 07/18 (Follows with Dr. Bianchi)- methimazole is on hold while she is nothing by mouth Anxiety Migraine GERD Dyslipidemia Hypertension -fair blood pressure control off of losartan while nothing by mouth Diverticulosis with history of recurrent diverticulitis H/o gastritis/+h pylori Mild metabolic acidosis-resolved Plan - 11/01/17 Patient continues to have abdominal discomfort, distention, and continued dilated loops of small bowel on abdominal x-rays. Patient agreed to attempt placement of NG tube again which was successful. Will continue NG tube with low suction. Maintain NPO status. Patient disclosed her father and 2 cousins had a history of lymphoma of the ileum while discussing treatment options with Dr. Nixon. Patient is now more open to idea of surgical intervention if needed. Will re- evaluate pain and distention in AM with possible surgery tomorrow afternoon. Will hold lovenox in AM in anticipation of surgery tomorrow, 11/02/17. Continue with IV Solu-Medrol for suspected Crohn's. Continue Zosyn for now. White count is trending up, at this point likely secondary to steroids. The patient has remained afebrile. PPN was started 10/30/17 and is being given in the midline since she had pain with infusion in a peripheral site. CBC, CMP, and phosphorus tomorrow CRP trending down. Discussed with Dr. Nixon, family and Dr. Duckworth. 11/01/2017-8 PM-I examined the patient independently. I reviewed this chart, the patient history, and the DROP PRESS HAND's/PA's documented findings as above. We discussed and formulated the assessment and plan as above with the additions below.-Dr. Duckworth Patient was seen earlier this evening. She was having increasing abdominal pain and nausea earlier today. She did have an NG tube placed and that is relieving her nausea. She continues to have some abdominal pain. She denies any flatus or BM today. On exam she is alert and oriented and in no acute distress. Chest is clear to auscultation. Cardiovascular reveals a regular rate and rhythm. Abdomen is soft , distended, and moderately tender. No rebound or guarding. Bowel sounds are hypoactive. Extremities are free of edema. Impression and plan Small bowel obstruction which does not appear to be improving with medical management. Positive family history of lymphoma and the terminal ileum. Discussed with Dr. Nixon earlier today, he plans for surgery tomorrow unless the patient should improved markedly overnight. Discussed with the patient, and she is in agreement for surgery tomorrow if she has not improved. Regarding elevated blood pressure-when necessary hydralazine is ordered. DVT Prophylaxis: Lovenox Resuscitation Status: Full Code - Time spent with patient Time with patient PN: 35 minutes - Physician Narrative Physician: Madyson Duckworth MD Narrative: Date: 11/01/17 Time: 1615 Hospital Course Summary Disclaimer: The visit summary below is not to be considered part of the above Progress Note. Hospital Course: 10/28/17 Admit, IP. Stay expected to exceed 2 overnights for tx of enteritis and resolution of SBO. Consult Dr. Nixon. Zosyn and Solumedrol for tx of enteritis. NPO. NG tube. (Pt declines at present. If n/v/pain persists despite current pain/nausea tx, will proceed.) IVF's - 1L bolused in ER. Continue NS at 125cc/hr. This should address her hyponatremia as well. Repeat labs in am to follow blood counts and electrolytes. Protonix IV for GERD and GI ppx. Lovenox for VTE ppx. Full code. PCP - MADAI Gage 10/29/17 Patient's pain is less. Leukocytosis improved from 18.7--> 14.5. Continues on Zosyn and Solumedrol. Consider decreasing Solumedrol dose later today. Remains NPO. IVF's running at 125cc's/hr. Electrolytes stable. Hyponatremia resolved 130-->136. Continue IV pain meds and antiemetics PRN. (Hasn't required since 1799 last [facility]. ) Continue IV pantoprazole for GI ppx/GERD. Plan - 11/01/17 Patient continues to have abdominal discomfort, distention, and continued dilated loops of small bowel on abdominal x-rays. Patient agreed to attempt placement of NG tube again which was successful. Will continue NG tube with low suction. Maintain NPO status. Patient disclosed her father and 2 cousins had a history of lymphoma of the ileum while discussing treatment options with Dr. Nixon. Patient is now more open to idea of surgical intervention if needed. Will re- evaluate pain and distention in AM with possible surgery tomorrow afternoon. Will hold lovenox in AM in anticipation of surgery tomorrow, 11/02/17. Continue with IV Solu-Medrol for suspected Crohn's. Continue Zosyn for now. White count is trending up, at this point likely secondary to steroids. The patient has remained afebrile. PPN was started 10/30/17 and is being given in the midline since she had pain with infusion in a peripheral site. CBC, CMP, and phosphorus tomorrow CRP trending down. Discussed with Dr. Nixon, family and Dr. Duckworth.
[2017-11-01] MEDS: HYDRALAZINE 20 MG/ML INJECTION IVP PRN (21:20)
[2017-11-01] MEDS: NS FLUSH BAG 500ml IV PRN (22:43)
[2017-11-02] MEDS: SALINE FLUSH 10ml SYRINGE IVF PRN ×5 (00:44→20:55)
[2017-11-02] MEDS: METHYLPREDNISOLONE SOD SUCC 40mg/ml INJECTION IVP SCH ×3 (00:44→18:36)
[2017-11-02] MEDS: FentaNYL 100 MCG/2 ML INJECTION IVP PRN (01:07)
[2017-11-02] MEDS ORDERED: [UNRECOGNIZED DRUG - OTHER] IV SCH (05:00)
[2017-11-02] MEDS ORDERED: CLINIMIX E IV SCH (05:00)
[2017-11-02] MEDS: CLINIMIX E IV SCH (05:09)
[2017-11-02] MEDS: [UNRECOGNIZED DRUG - OTHER] IV SCH (05:09)
[2017-11-02] MEDS: PIPERACILLIN/TAZOBACTAM 3.375 GM in NS 100 ML IV SCH ×3 (05:10→17:05)
[2017-11-02] MEDS: POTASSIUM CHLORIDE PREMIX 10 MEQ/100 ML BAG IV SCH ×2 (09:18→12:29)
[2017-11-02] MEDS: PANTOPRAZOLE 40 MG INJECTION IVP SCH ×2 (09:19→20:55)
--- NOTE | 2017-11-02 11:06 | Progress Note ---
- Date 11/02/17 Subjective: Steffi is seen today while resting in bed. No family is present on exam. She reports that she is feeling a little better but continues to complain of abdominal distention and some nausea with pain. NG continues to be in place and on suction. She admits to being tired of not feeling well and eager for improvement. She states she has a few very small bowel movements over the night but no significant improvement. She remains afebrile. Blood pressure has been elevated. Leukocytosis trending down today at 12.8 with 6% bands. New hyponatremia (Na 135) with hypokalemia (3.4) and hyperglycemia (Glu 143) and mild hypomagnesium at 2.4. CRP increased from 34.5 on 10/31/17 to 87.4 today. Persistent hypokalemia despite pharmacy making some adjustments to her PPN yesterday and increasing the potassium in addition to the patient receiving an additional KCl 20 mEq IV yesterday morning. Additional KCl 20 mEq IV given again this morning. Anticipate surgical intervention later this afternoon with Dr. Nixon as discussed yesterday if no significant clinical improvement. Objective Vital signs: Temperature 97.8 F 11/02/17 07:27 Pulse Rate 74 11/02/17 07:27 Respiratory Rate 20 11/02/17 07:27 Blood Pressure 152/87 H 11/02/17 07:27 Pulse Oximetry 89 L 11/02/17 07:27 Height/Weight/BMI: Height 5 ft 1 in Weight 105 lb 13.15 oz Body Mass Index 19.8 Comments: Resting in bed, wash cloth on her forehead. - Constitutional Present: no acute distress, well nourished, well developed, cooperative Comments: Appears not to feel well but non-toxic appearing. - Routine HEENT Exam Head: Present: normocephalic, atraumatic Eye: Present: PERRL. Absent: conjunctival icterus ENT: Present: mucous membranes dry Comments: NG in place. - Routine Respiratory Exam Present: decreased breath sounds, CTA bilaterally. Absent: respiratory distress , wheezes - Routine Cardiovascular Exam Present: RRR, S1, S2 - Routine Abdominal Exam Present: soft, normoactive bowel sounds, tenderness, distended - Routine Extremities Exam Present: no edema, full ROM, pulses intact - Routine Back/Spine/Pelvis Exam Back/Spine: Present: full ROM. Absent: vertebral tenderness - Routine Musculoskeletal Exam Musculoskeletal: Present: no clubbing or cyanosis, moving extremities well - Routine Skin Exam Present: intact, dry, warm Comments: Afebrile. - Routine Neurological Exam Present: alert, oriented X3, moving all extremities, hearing grossly intact, normal speech - Routine Lymphatic Exam Lymphatic: Absent: lymphedema - Routine Psychiatric Exam Present: cooperative Results - Labs CBC & Chem 7: 11/02/17 03:55 11/02/17 03:55 Assessment and Plan Assessment and Plan: Assessment Small bowel obstruction Abdominal pain, n/v - Crohn's vs other enteritis/SBO (colonoscopy 2010 - diverticular disease, EGD 2014 - gastritis/+H pylori) Leukocytosis - POA-now likely secondary to steroids Hyponatremia - POA-resolved ?History of Crohn's disease (no definitive dx per pt) Hyperthyroidism - RA iodine ablation 07/18 (Follows with Dr. Bianchi)- methimazole is on hold while she is nothing by mouth Anxiety Migraine GERD Dyslipidemia Hypertension -fair blood pressure control off of losartan while nothing by mouth Diverticulosis with history of recurrent diverticulitis H/o gastritis/+h pylori Mild metabolic acidosis-resolved Plan - 11/02/17 Patient continues to have abdominal discomfort and distention. See by Dr. Nixon yesterday and probable surgical intervention today at 1430. Will continue NG tube with low suction. Maintain NPO status. Lovenox held this morning in preparation for anticipated surgery. Continue with IV Solu-Medrol for suspected Crohn's. Continue Zosyn for now. WBC trending down. Patient remains afebrile. New hyponatremia (Na 135) with hypokalemia (K 3.4). Pharmacy managing PPN. Patient given KCl 20 mEq IV yesterday in addition to additional KCl added to PPN per pharmacy. Will given additional KCl 20 mEq IV today and continue to monitor closely. PPN was started 10/30/17 and is being given in the midline since she had pain with infusion in a peripheral site. Mag slightly decreased at 2.4. Will discuss with pharmacy. CRP trending up - 34.5 on 10/31/17 -->87.4 today. Continue to monitor. Blood pressure remains elevated. Hydralazine IV PRN. Recheck CBC, CMP, and phosphorus in AM. 11/02/2017-9 PM-I examined the patient independently. I reviewed this chart, the patient history, and the [employer] INSTRU[employer]'s/PA's documented findings as above. We discussed and formulated the assessment and plan as above with the additions below.-Dr. Duckworth The patient was seen earlier today prior to surgery. She is continuing to have abdominal pain. She was not passing any flatus. She continued have tympany on exam. Chest was clear to auscultation. Cardiovascular reveals a regular rate and rhythm. Abdomen was soft, moderately distended, tender throughout, hypoactive bowel sounds. Extremities are free of edema. I was with the patient and her family when Dr. Massey discussed with them risks and benefits of proceeding with surgery. The patient did decide for surgery today. Dr. Massey did notified me that she was found to have an incarcerated internal hernia. This was taken down and she did not require a bowel resection. Per Dr. Nixon, no signs of Crohn's disease were seen. He also did not feel any thickening of the bowel as one might expect with lymphoma. Impression and plan Small bowel obstruction secondary to incarcerated internal hernia. The patient did well with surgery. Plan is to have NG to remain in place to low intermittent suction. Continue when necessary hydralazine for elevated blood pressure. Continue PPN for nutrition. Resume home meds when patient able to take by mouth. Potassium 20 mEq IV given for hypokalemia. DVT Prophylaxis: SCD's GI Prophylaxis: Protonix Resuscitation Status: Full Code - Time spent with patient Time with patient PN: 25 minutes - Physician Narrative Physician: Madyson Duckworth MD Narrative: Date: 11/02/17 Time: 1100 Hospital Course Summary Disclaimer: The visit summary below is not to be considered part of the above Progress Note. Hospital Course: 10/28/17 Admit, IP. Stay expected to exceed 2 overnights for tx of enteritis and resolution of SBO. Consult Dr. Nixon. Zosyn and Solumedrol for tx of enteritis. NPO. NG tube. (Pt declines at present. If n/v/pain persists despite current pain/nausea tx, will proceed.) IVF's - 1L bolused in ER. Continue NS at 125cc/hr. This should address her hyponatremia as well. Repeat labs in am to follow blood counts and electrolytes. Protonix IV for GERD and GI ppx. Lovenox for VTE ppx. Full code. PCP - MADAI Gage 10/29/17 Patient's pain is less. Leukocytosis improved from 18.7--> 14.5. Continues on Zosyn and Solumedrol. Consider decreasing Solumedrol dose later today. Remains NPO. IVF's running at 125cc's/hr. Electrolytes stable. Hyponatremia resolved 130-->136. Continue IV pain meds and antiemetics PRN. (Hasn't required since 1799 last shereen. ) Continue IV pantoprazole for GI ppx/GERD. Plan - 11/01/17 Patient continues to have abdominal discomfort, distention, and continued dilated loops of small bowel on abdominal x-rays. Patient agreed to attempt placement of NG tube again which was successful. Will continue NG tube with low suction. Maintain NPO status. Patient disclosed her father and 2 cousins had a history of lymphoma of the ileum while discussing treatment options with Dr. Nixon. Patient is now more open to idea of surgical intervention if needed. Will re- evaluate pain and distention in AM with possible surgery tomorrow afternoon. Will hold lovenox in AM in anticipation of surgery tomorrow, 11/02/17. Continue with IV Solu-Medrol for suspected Crohn's. Continue Zosyn for now. White count is trending up, at this point likely secondary to steroids. The patient has remained afebrile. PPN was started 10/30/17 and is being given in the midline since she had pain with infusion in a peripheral site. CBC, CMP, and phosphorus tomorrow CRP trending down. Discussed with Dr. Nixon, family and Dr. Duckworth. Plan - 11/02/17 Patient continues to have abdominal discomfort and distention. See by Dr. Nixon yesterday and probable surgical intervention today at 1430. Will continue NG tube with low suction. Maintain NPO status. Lovenox held this morning in preparation for anticipated surgery. Continue with IV Solu-Medrol for suspected Crohn's. Continue Zosyn for now. WBC trending down. Patient remains afebrile. New hyponatremia (Na 135) with hypokalemia (K 3.4). Pharmacy managing PPN. Patient given KCl 20 mEq IV yesterday in addition to additional KCl added to PPN per pharmacy. Will given additional KCl 20 mEq IV today and continue to monitor closely. PPN was started 10/30/17 and is being given in the midline since she had pain with infusion in a peripheral site. Mag slightly decreased at 2.4. Will discuss with pharmacy. CRP trending up - 34.5 on 10/31/17 -->87.4 today. Continue to monitor. Blood pressure remains elevated. Hydralazine IV PRN. Recheck CBC, CMP, and phosphorus in AM.
--- NOTE | 2017-11-02 12:46 | XRay Report ---
Indication: post picc insertion check placement PROCEDURE: XR chest post-procedure 1V: Encounter: Initial Comparison: March 21, 2017 Findings: Nasogastric tube in place with the side port projecting over the body of the stomach. New right PICC line in place with the tip projecting over the lower SVC. Bilateral breast implants obscuring portions of the lung bases. Emphysema. No pneumothorax. Possible trace left effusion. No focal pneumonia. Heart size and mediastinal contours are stable. Dilated small bowel loops again noted measuring up to 4.8 cm in diameter. Impression: Tubes and lines as above. .
[2017-11-02] MEDS ORDERED: LIDOCAINE 1% (10mg/ml) 30ml SDV INJ ONE (13:28)
[2017-11-02] MEDS ORDERED: BUPIVACAINE 0.25%/EPI 1:200,000 30ml SDV ONE (13:28)
--- NOTE | 2017-11-02 13:56 | Consultation ---
DATE OF CONSULTATION 10/29/2017 CONSULTING PHYSICIAN Haseeb Nixon MD REQUESTING PHYSICIAN Dr. Madyson Duckworth REASON FOR CONSULTATION Small bowel obstruction, question Crohn's disease. IMPRESSION 1. Terminal ileitis - possibly related to Crohn's based on CT findings of a long segment stricture. 2. Acute small bowel obstruction secondary to #1. RECOMMENDATIONS 1. NG tube decompression had been recommended but the patient had not tolerated placement of the NG tube. 2. IV antibiotics and IV steroids since this is possibly a Crohn's flare. 3. Following discussion of the situation with the patient, she wanted to proceed with conservative management if possible. 4. I explained that given the acute inflammation, I did not feel that current colonoscopy with biopsies of the terminal ileum was indicated due to risk of perforation. She also is not in any condition to tolerate the bowel prep currently. HISTORY OF PRESENT ILLNESS Steffi is a 72-year-old female who was admitted to the hospital yesterday after a CT scan in the ER had shown a small bowel obstruction with a long segment circumferential distal small bowel thickening suggesting Crohn's disease. Her chart indicates a history of Crohn's disease as a diagnosis, however the patient reports that she has not had any treatment for her Crohn's or special monitoring. She has not been having bowel movements like normal. Her last normal bowel movement was about a week ago and she typically has three to four bowel movements a day. About four days ago she developed some abdominal pain and she thought this was related to constipation so she used a "natural colon cleansing medication to see if this would alter any of her situation. After three days of use, she did have some stool and some of her diarrhea was "explosive". She had had some vomiting on the day of admission and had noted corn that she had eaten on Wednesday. The pain was significant enough to go to the emergency department. Her pain was up to 10/10 in severity. She does try to avoid artificial ingredients in her diet. PAST MEDICAL HISTORY 1. Crohn's disease - listed in the EMR but patient denies treatment. 2. Anxiety. 3. Migraine headaches. 4. Gastroesophageal reflux disease. 5. Gastritis with prior H. pylori infection. 6. Chronic abdominal pain. 7. Dyslipidemia. 8. Hypertension. 9. 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 PAST SURGICAL HISTORY 1. Bilateral cataract extractions in December and January of 2017. 2. Breast augmentation 3. Left shoulder surgery with an open repair for a skiing injury. 4. Heart catheterization - 2006. 5. Vaginal hysterectomy with unilateral salpingo-oophorectomy - 1975 (patient retains one ovary). 6. Colonoscopy - 2010 by a fisherman helper in [place]. 7. Esophagogastroduodenoscopy - [address] Jack Gotti. Endoscopy showed gastritis and a positive H. pylori infection. ALLERGIES CLINDAMYCIN and DEMEROL. MEDICATIONS The patient's current medications were reviewed. See the medical record. She is on IV Zosyn and steroids. SOCIAL HISTORY The patient is a former smoker but quit over 50 years ago. She does not drink alcohol or use illicit drugs. She is retired. FAMILY HISTORY Her parents are both but no significant medical problems were noted. REVIEW OF SYSTEMS 10-point review of systems was negative except for History of Present Illness and the following. GENERAL: She reports some chills. HEENT: She reports some blurry vision. NEUROLOGIC: She reports some headaches. RESPIRATORY: She reports a cough. CARDIOVASCULAR: She reports that her heart rate has been irregular since after her thyroid ablation and adjustment of her metoprolol. GASTROINTESTINAL: She denies any blood in her stools. MUSCULOSKELETAL: She reports neck and shoulder pain. ENDOCRINE: She did have hyperthyroidism but had radioactive iodine ablation on 08/15/2017. PHYSICAL EXAMINATION VITAL SIGNS: Temperature 97.9, pulse 67, blood pressure 143/80, respiratory rate 16, oxygen saturation 92% on room air. GENERAL: The patient is awake and alert, in no acute distress. HEENT: Sclerae clear. Extraocular muscles intact. NECK: Supple with a midline trachea. No lymphadenopathy or thyromegaly are noted. HEART: Regular rate and rhythm. LUNGS: Clear to auscultation bilaterally. ABDOMEN: Soft, tender with varying levels of tenderness in different quadrants. Her abdomen is soft and there is no guarding or rebound noted. Her abdomen is slightly distended. No masses are noted. EXTREMITIES: No clubbing, cyanosis or edema. NEURO: Cranial nerves II-XII are grossly intact. PSYCHIATRIC: Normal mood and affect. LABORATORY DATA White blood cell count is 14.5 down from 18.[address] scan of the abdomen and pelvis was personally reviewed with the radiology report. See the EMR. PATIENT EDUCATION The plan for conservative management with IV antibiotics and IV steroids was discussed with the patient. She was in agreement with medical management and wanted to avoid surgery unless it was "life-threatening". ANGELICA
[2017-11-02] MEDS: LR 1,000 ML IV SCH ×2 (14:04→16:25)
--- NOTE | 2017-11-02 14:06 | Anesthesia Preoperative Report ---
Anesthesia Preoperative Record - Date and Time Date: 11/02/17 Preoperative Diagnosis: functional small bowel obstruction NPO Since Date: 11/01/17 NPO Since Time: 00:00 Allergies/Adverse Reactions: Allergies Allergy/AdvReac Type Severity Reaction Status Date / Time clindamycin Allergy Severe Hallucinati Verified 10/29/17 07:43 ng meperidine [From Demerol] Allergy nausea, Verified 10/28/17 14:37 paranoia morphine AdvReac Confusion Verified 10/29/17 07:43 - Vital Signs Vital Signs: Temperature 97.7 F 11/02/17 13:50 Pulse Rate 74 11/02/17 13:52 Respiratory Rate 15 11/02/17 13:50 Blood Pressure 178/96 H 11/02/17 13:50 Pulse Oximetry 91 11/02/17 13:50 Height and Weight: Height 1.55 m Weight 48 kg Body Mass Index 19.8 - Medications Inpatient Medications: Current Medications Enoxaparin Sodium (Lovenox) 40 mg SQ DAILY [facility] Last Admin: 11/01/17 08:33 Dose: 40 mg Fentanyl (Fentanyl) 25 mcg IVP Q30M PRN PRN Reason: Pain Last Admin: 11/02/17 01:07 Dose: 25 mcg Hydralazine HCl (Apresoline) 5 mg IVP Q6H PRN PRN Reason: elevated blood pressure Last Admin: 11/01/17 21:20 Dose: 5 mg Piperacillin Sod/Tazobactam (Sod 3.375 gm/ Sodium Chloride) 100 mls @ 200 mls/ hr IV Q6H [facility] Last Infusion: 11/02/17 13:36 Dose: Infused Acetaminophen (Ofirmev 1 Gm) 1,000 mg in 100 mls @ 400 mls/hr IV Q8H PRN Last Infusion: 11/01/17 23:15 Dose: Infused Fat Emulsion Intravenous (Intralipid 20%) 500 mls @ 125 mls/hr IV 1600 JUDI Last Infusion: 11/01/17 19:41 Dose: Infused Potassium Chloride 20 meq/Multivitamins/Minerals 10 ml/Chromium/Copper/Manganese /Zinc 1 ml/ Amino Acids/Electrolytes/Dextrose 2,021 mls @ 100 mls/hr IV .[id number] [facility] PRN Reason: Protocol Stop: 11/03/17 00:59 Last Infusion: 11/02/17 13:38 Dose: 0 mls/hr Potassium Chloride 40 meq/Multivitamins/Minerals 10 ml/Chromium/Copper/Manganese /Zinc 1 ml/ Amino Acids/Electrolytes/Dextrose 2,031 mls @ 100 mls/hr IV .[id number] JUDI PRN Reason: Protocol Lactated Ringer's (Lactated Ringers) 1,000 mls @ 30 mls/hr IV .Q24H [facility] Last Admin: 11/02/17 14:04 Dose: 30 mls/hr Lorazepam (Ativan Inj) 0.5 mg IVP O PRN Last Admin: 11/01/17 12:03 Dose: 0.5 mg Methylprednisolone Sodium Succinate (Solu-Medrol) 80 mg IVP Q8HR JUDI Last Admin: 11/02/17 09:18 Dose: 80 mg Metoclopramide HCl (Reglan) 10 mg IVP Q6H PRN PRN Reason: Nausea Last Admin: 11/01/17 06:46 Dose: 10 mg Ondansetron HCl (Zofran) 4 mg IVP Q6H PRN PRN Reason: Nausea &/or vomiting Last Admin: 11/01/17 10:31 Dose: 4 mg Pantoprazole Sodium (Protonix Iv) 40 mg IVP BID [facility] Last Admin: 11/02/17 09:19 Dose: 40 mg Sodium Chloride (Iv Flush) 10 - 80 ml IVF PRN PRN PRN Reason: Flushing Last Admin: 11/02/17 13:06 Dose: 20 ml Sodium Chloride (Normal Saline) 500 ml IV PRN PRN PRN Reason: FLUSH Last Admin: 11/01/17 22:43 Dose: 500 ml Throat Lozenges (Chloraseptic Sheldon) 3 spray PO Q2H PRN Last Admin: 11/01/17 12:04 Dose: 3 spray Home Medications: Home Medications Medication Instructions Recorded Confirmed Type Albuterol HFA Inhaler [Ventolin 2 puff INH Q6H PRN 10/28/17 10/28/17 History Hfa 90 mcg/actuation] DiphenhydrAMINE [Benadryl] 25 mg PO Q4H PRN 10/28/17 10/28/17 History Losartan [Cozaar] 25 mg PO BID 10/28/17 10/28/17 History MethIMAzole [Tapazole] 2.5 mg PO DAILY 10/28/17 10/28/17 History Ranitidine [Zantac] 150 mg PO BID 10/28/17 10/28/17 History guaiFENesin [Mucinex] 600 mg PO Q12H PRN 10/28/17 10/28/17 History Is Patient on Beta Ronaldo?: No - Medical History Respiratory: Reports: Pneumonia (july 2016), Other (chronic cough) DENIES: Sleep Apnea Cardiovascular: Reports: Hypertension (R/T RENAL ARTERY BLOCKAGE) Gastrointestional: Reports: Gastroesophageal Reflux Disease, Hiatal Hernia Neuro/Musculoskeletal: Reports: Depression Renal/Endocrine: Reports: Thyroid Disease (thyroid ablation) - Surgical History HEENT Surgeries: Reports: Ear Surgery (cataracts bilateral), Tonsillectomy Cardiac Surgeries/Treatments: Reports: Cardiac Catheterization (2006), Other (r/ t right renal artery blockage) DENIES: Pacemaker GI Surgery/Treatments: Reports: Cholecystectomy Musculoskeletal Surgery/Tx: Reports: Other (L SHOULDER) Reproductive Surgery/Treatment: Reports: Breast Augmentation/Reduction, Hysterectomy DENIES: Mastectomy Anesthesia Reactions: None Hx Family Anesthesia Reaction: No History of Motion Sickness: No - Social History Smoking Status: Former smoker Hx Chewing Tobacco Use: No Second Hand Exposure: No Substance Use Type: does not use Alcohol Intake Frequency: does not drink - Pertinent Findings Laboratory: CBC and BMP 11/02/17 03:55 11/02/17 03:55 BMP 11/02/17 03:55 Sodium 135 L Potassium 3.4 L Chloride 95 L Carbon Dioxide 30 BUN 23.0 H Creatinine 0.5 L D Glucose 143 H Calcium 8.6 Liver Function 11/02/17 Range/Units 03:55 Albumin 3.6 (3.5-5.0) g/dL EKG: Sinus Rhythm - Physical Exam Respiratory Exam: Present: lungs clear, bilateral breath sounds equal Cardiovascular Exam: Present: regular rate and rhythm - Airway Assessment Mallampati Score: II TMD: 3 Fingerbreadths Neck Extension: fair Overall Assessment: no airway concerns - ASA ASA Score: 3 - Plan Anesthesia: General Inhalation Gases - Discussion Discussion: Discussed risks/options/alternatives of anesthesia and questions answered. Patient consents. Nursing pain assessment noted. Present for Discussion: family member Attestation Statement: Prior to the delivery of any anesthetic medication, I examined the patient, developed the plan, obtained the patient's consent and discussed the risk and benefits of the procedure with the patient/guardian. - Additional Information Seen by Anesthesia: Yes
[2017-11-02] MEDS ORDERED: LIDOCAINE 2% (100mg/5mL) 5ml PF SDV ONE (14:11)
[2017-11-02] MEDS ORDERED: SUCCINYLCHOLINE 20mg/mL 10mL INJECTION ONE (14:11)
[2017-11-02] MEDS ORDERED: ROCURONIUM 50 MG/5 ML INJECTION IVP ONE ×2 (14:11→16:06)
[2017-11-02] MEDS ORDERED: PROPOFOL 20 ML ONE (14:11)
[2017-11-02] MEDS ORDERED: FentaNYL 250 MCG/5 ML INJECTION ONE ×2 (14:15→14:59)
[2017-11-02] MEDS ORDERED: ONDANSETRON 4 MG/2 ML INJECTION ONE (14:33)
[2017-11-02] MEDS ORDERED: DEXAMETHASONE 4 MG/ML INJECTION ONE (14:33)
[2017-11-02] MEDS ORDERED: EPHEDRINE 50mg/ml INJECTION ONE (14:36)
[2017-11-02] MEDS ORDERED: SCOPOLAMINE 1mg/3 days PATCH (Eq. 1.5 Patch) TD SCH (15:07)
[2017-11-02] MEDS ORDERED: METOPROLOL 5mg/5ml INJECTION IVP ONE (15:25)
[2017-11-02] MEDS ORDERED: SUGAMMADEX 200mg/2ml INJECTION IVP ONE (16:07)
[2017-11-02] MEDS ORDERED: DiphenhydrAMINE 50 MG/ML INJECTION ONE (16:16)
--- NOTE | 2017-11-02 16:20 | Progress Note ---
DATE OF VISIT 10/30/2017 REASON FOR VISIT Follow abdominal pain and bowel obstruction. SUBJECTIVE Steffi is feeling about the same today but feels like she is a little more bloated and uncomfortable despite having a small bowel movement this morning. She has not had any nausea or vomiting. OBJECTIVE VITAL SIGNS: Temperature 96.7, pulse 66, blood pressure 146/72, respiratory rate 18, oxygen saturation 91% on room air. GENERAL: The patient is awake and alert, in no acute distress. ABDOMEN: Soft, tender mostly in the left upper quadrant with no guarding or rebound noted. Her abdomen is slightly distended. LABORATORY DATA White blood cell count increased slightly to 15.6 with 90% neutrophils and 1% bands. IMPRESSION 1. Small bowel obstruction related to terminal ileitis. 2. Terminal ileitis of uncertain etiology. This could be related to Crohn's disease. PLAN 1. Continue IV steroids and antibiotics. 2. Continue to follow serial abdominal exams. She seems like she is stable at this point in time and could avoid an operation. ANGELICA
--- NOTE | 2017-11-02 16:25 | Progress Note ---
DATE OF VISIT 10/31/2017 REASON FOR VISIT Follow bowel obstruction. SUBJECTIVE Steffi is having progressively more abdominal discomfort. She has gotten some relief with IV Tylenol but is trying to avoid narcotics as much as possible. She did have two small bowel movements but has not passed any significant flatus. She was started on TPN but required placement of a midline. OBJECTIVE VITAL SIGNS: Temperature 96.0, pulse 57, blood pressure 169/92, respiratory rate 20, oxygen saturation 92% on room air. GENERAL: The patient is awake and alert. She is in no acute distress. ABDOMEN: Soft, tender mostly in the left upper quadrant but some diffuse tenderness. She does not have any guarding or rebound. Her abdomen is soft. She is somewhat more distended. LABORATORY DATA White blood cell count is down to 14.9. Differential is stable. IMAGING KUB continues to show dilated small bowel loops throughout the abdomen. Images were personally reviewed by me. IMPRESSION 1. Small bowel obstruction related to stricture of the terminal ileum from unknown ileitis. 2. Terminal ileitis of uncertain etiology. PLAN 1. Continue IV antibiotics and IV steroids. 2. I did discuss with Steffi that an NG tube may help her with any feelings of nausea and might relieve some of her abdominal discomfort. When she is miserable enough she may allow for a repeat attempt at NG tube placement. 3. Continue parenteral nutrition. MTDD
--- NOTE | 2017-11-02 16:44 | General Surgery Procedure Note ---
Date of Procedure: 11/02/17 Surgeon: Tiffani Lube Worker: Alia Anesthesia: General Inhalation Gases ASA Score: 3 Postoperative Diagnosis: Incarcerated internal hernia, SBO secondary to incarcerated internal hernia Procedure: Ex lap, release of incarcerated internal hernia by adhesiolysis
[2017-11-02] MEDS ORDERED: SALINE FLUSH 10ml SYRINGE ONE (16:49)
[2017-11-02] MEDS ORDERED: NALOXONE 0.4 MG/ML INJECTION ONE (16:50)
[2017-11-02] MEDS ORDERED: LABETALOL 100mg/20ml INJECTION IVP ONE (17:06)
--- NOTE | 2017-11-02 17:30 | Anesthesia Procedure Note ---
Peripheral Nerve Blockade - Procedure Physician: Madyson Duckworth MD Date: 11/02/17 Discussion: Discussed risks/options/alternatives of anesthesia and questions answered. Patient consents. Nursing pain assessment noted. Block Start: 17:08 Block Stop: 17:11 Block Employed: Transverse Abdominus Plane-Right Indication: Post-Operative Pain Approach: Right Side Confirmed Position: Supine Patient: Consent, Risks/Benefits Discussed, Informed IV Sedation: No (post anesthetic) Sedation: Awake Initial Vital Signs: Temperature 98.8 F 10/28/17 14:25 Temperature Source Oral 10/28/17 14:25 Sepsis Recent Fever Within 48 Hours No 10/28/17 14:25 Sepsis Suspicion of Infection No 10/28/17 14:25 Sepsis New/Unexplained Change in Mental Status No 10/28/17 14:25 Sepsis Score/Level No Definite Risk 10/28/17 14:25 Sepsis Action Taken by Nursing No Action 10/28/17 14:25 Pulse Rate 95 10/28/17 14:25 Pulse Rhythm 10/28/17 14:25 Respiratory Rate 20 10/28/17 14:25 Blood Pressure 155/66 H 10/28/17 14:25 Blood Pressure Mean 95 10/28/17 14:25 Pulse Oximetry 95 10/28/17 14:25 Oxygen Delivery Method 10/28/17 14:25 Post Vital Signs: Temperature 97.4 F 11/02/17 16:52 Pulse Rate 74 11/02/17 13:52 Respiratory Rate 15 11/02/17 13:50 Blood Pressure 178/96 H 11/02/17 13:50 Pulse Oximetry 91 11/02/17 13:50 Prep: Chlorhexadine/ETOH, Sterile Technique Ultrasound Used?: Yes - Nerve Simulator Paresthesia/Pain: None - Injectate Ropivacaine (%): 0.2 Ropivacaine (mL): 20 Was Epi 1:200,000 Used?: No Injection: Injection made incrementally with constant monitoring and aspiration every 5 ml
--- NOTE | 2017-11-02 17:31 | Anesthesia Procedure Note ---
Peripheral Nerve Blockade - Procedure Physician: Madyson Duckworth MD Date: 11/02/17 Discussion: Discussed risks/options/alternatives of anesthesia and questions answered. Patient consents. Nursing pain assessment noted. Block Start: 17:15 Block Stop: 17:17 Block Employed: Transverse Abdominus Plane-Right Indication: Post-Operative Pain Approach: Left Side Confirmed Position: Supine Patient: Consent, Risks/Benefits Discussed, Informed IV Sedation: No (post anesthetic) Sedation: Awake Initial Vital Signs: Temperature 98.8 F 10/28/17 14:25 Temperature Source Oral 10/28/17 14:25 Sepsis Recent Fever Within 48 Hours No 10/28/17 14:25 Sepsis Suspicion of Infection No 10/28/17 14:25 Sepsis New/Unexplained Change in Mental Status No 10/28/17 14:25 Sepsis Score/Level No Definite Risk 10/28/17 14:25 Sepsis Action Taken by Nursing No Action 10/28/17 14:25 Pulse Rate 95 10/28/17 14:25 Pulse Rhythm 10/28/17 14:25 Respiratory Rate 20 10/28/17 14:25 Blood Pressure 155/66 H 10/28/17 14:25 Blood Pressure Mean 95 10/28/17 14:25 Pulse Oximetry 95 10/28/17 14:25 Oxygen Delivery Method 10/28/17 14:25 Post Vital Signs: Temperature 97.4 F 11/02/17 16:52 Pulse Rate 74 11/02/17 13:52 Respiratory Rate 15 11/02/17 13:50 Blood Pressure 178/96 H 11/02/17 13:50 Pulse Oximetry 91 11/02/17 13:50 Prep: Chlorhexadine/ETOH, Sterile Technique Ultrasound Used?: Yes - Nerve Simulator Muscle Response: No Paresthesia/Pain: None - Injectate Ropivacaine (%): 0.2 Ropivacaine (mL): 20 Was Epi 1:200,000 Used?: No Injection: Injection made incrementally with constant monitoring and aspiration every 5 ml
[2017-11-02] MEDS ORDERED: HYDROMORPHONE 2 MG/ML INJECTION IVP PRN ×2 (17:32→18:35)
--- NOTE | 2017-11-02 17:56 | Progress Note ---
DATE OF VISIT 11/01/2017 REASON FOR VISIT Follow bowel obstruction. LULI Kapadia is continuing to have worsening of her abdominal pain. She had had some vomiting and was miserable enough to request an NG tube placement. Her NG tube has been put in and she has had a little bit of relief from her nausea. Her nausea had previously been uncontrolled despite multiple medications. OBJECTIVE VITAL SIGNS: Afebrile with stable vitals on room air. GENERAL: The patient is awake and alert. She is in mild distress. She did have some dry heaves during evaluation. ABDOMEN: Soft, tender in the upper abdomen more than lower abdomen and more so on the left than on the right. LABORATORY DATA White blood cell count has increased to 17.1. IMAGING KUB and upright shows ongoing distention of dilated gas-filled loops which has decreased from 4.6 cm to 4 cm in diameter. IMPRESSION 1. Small bowel obstruction secondary to terminal ileitis. 2. Terminal ileitis of uncertain etiology - possibly related to Crohn's but the patient also mentioned a family history of lymphoma of the terminal ileum in her father and two cousins. PLAN 1. I did discuss the case with Dr. Cody Vincent briefly by telephone. Given the small bowel obstruction which is not resolving he felt that operative intervention may be required if the patient does not improve clinically in the near future. He also felt that with her more advanced age a surgical intervention even for the diagnosis of Crohn's may be beneficial to eliminate the majority of her disease burden. He explained that even if nonoperative management was successful that she may have a difficult road of medical management to try to get back to appropriate bowel function. 2. I did discuss the situation with the patient, her two sons, and her daughter. I explained the situation and her clinical progression instead of improvement. I explained that we may need to consider operative intervention with resection of the terminal ileum. I told her that this may actually be her quickest road to recovery instead of medical management alone since she has not seen dramatic increase with her steroids. The patient was willing to proceed with an operation tomorrow if she had not had significant clinical improvement. 3. Continue NG tube decompression to see if this will help with her nausea. 4. Continue IV steroids and IV antibiotics. 5. Continue PPN for nutrition. PATIENT EDUCATION An extensive amount of time was spent discussing the diagnosis of potential Crohn's disease. The patient had also mentioned the possibility of lymphoma of the ileum based on her family history in her father and two cousins. The details, risks, benefits, and alternatives of exploratory laparotomy with bowel resection were discussed with the patient and her family. The discussion included but was not limited to bleeding, infection, abscess formation, recurrence of Crohn's, anastomotic leak, possible need for an ostomy, and complications of anesthesia. Seventy minutes of [id number] time were spent with the patient and her family to address their numerous questions, concerns, and details of the procedure. Well over 50% of the time was spent for counseling and coordination of care. ANGELICA
--- NOTE | 2017-11-02 18:35 | Anesthesia Postoperative Note ---
- Date and Time Date: 11/02/17 Time: 18:33 - Status Patient Participated in Evaluation: Patient Participated in Person Vital Signs: Temperature 97.4 F 11/02/17 16:52 Pulse Rate 61 11/02/17 18:20 Respiratory Rate 10 11/02/17 18:20 Blood Pressure 165/89 H 11/02/17 18:20 Pulse Oximetry 95 11/02/17 18:20 Respiratory Function: Airway Patent, Regular Respirations Cardiovascular Function: Regular Pulse Mental Status: Alert and Oriented Pain Intensity: 0 Hydration: IV Infusing Complications During Recover: None Apparent Post Anesthesia Care Notes: Remains on oxygen at 3L/NC with SaO2 > 92%. - Follow-Up Instructions Instructions: Per Surgeon
[2017-11-02] MEDS: FAT EMULSION 20% 500 ML IV SCH (18:53)
[2017-11-03] MEDS: CLINIMIX E IV SCH ×2 (01:44→22:00)
[2017-11-03] MEDS: [UNRECOGNIZED DRUG - OTHER] IV SCH ×2 (01:44→22:00)
[2017-11-03] MEDS: FentaNYL 100 MCG/2 ML INJECTION IVP PRN ×3 (01:53→11:49)
[2017-11-03] MEDS: SALINE FLUSH 10ml SYRINGE IVF PRN ×3 (04:08→22:00)
[2017-11-03] MEDS: ENOXAPARIN 40 MG/0.4 ML INJECTION SQ SCH (09:22)
[2017-11-03] MEDS: PANTOPRAZOLE 40 MG INJECTION IVP SCH ×2 (09:22→20:19)
--- NOTE | 2017-11-03 10:44 | Progress Note ---
- Date 11/03/17 Subjective: Patient is Day #1 s/p exp lap, release of incarcerated internal hernia by adhesiolysis by Dr. Nixon. She c/o being very weak. Her pain in 8-01/10. No nausea. Feels very bloated. Has passed a little gas this am. She is very agitated that she has been in the hospital for this long. Just wants to improve and not have pain. Objective Vital signs: Temperature 97.8 F 11/03/17 07:35 Pulse Rate 82 11/03/17 07:35 Respiratory Rate 18 11/03/17 07:35 Blood Pressure 148/87 H 11/03/17 07:35 Pulse Oximetry 95 11/03/17 10:22 Height/Weight/BMI: Height 1.55 m Weight 49 kg Body Mass Index 19.8 - Constitutional Present: no acute distress, well developed, thin - Routine HEENT Exam Head: Present: normocephalic, atraumatic - Routine Respiratory Exam Present: CTA bilaterally. Absent: wheezes - Routine Cardiovascular Exam Present: RRR, no murmur - Routine Abdominal Exam Present: soft, tenderness (diffusely tender with soft palpation), non distended. Absent: normoactive bowel sounds (hypoactive BS's are present) - Routine Extremities Exam Present: no edema, normal capillary refill - Routine Skin Exam Present: dry, warm - Routine Neurological Exam Present: alert, oriented X3 - Routine Lymphatic Exam Lymphatic: Absent: adenopathy - Routine Psychiatric Exam Present: normal affect, cooperative, agitated Results - Labs CBC & Chem 7: 11/03/17 04:04 11/03/17 04:04 Microbiology Results: Microbiology 11/02/17 15:12 Peritoneal Fluid Gram Stain - Final 11/02/17 15:12 Peritoneal Fluid Body Fluid Culture - Preliminary Culture Initiated - Results Pending Assessment and Plan Assessment and Plan: Assessment Small bowel obstruction - release of incarcerated internal hernia by adhesiolysis by Dr. Bryant 11/02/17 Abdominal pain, n/v secondary to SBO (colonoscopy 2010 -diverticular disease, EGD 2014 - gastritis/+H pylori) Leukocytosis - POA-now likely secondary to steroids/post op Hyponatremia - POA Hyperthyroidism - RA iodine ablation 07/18 (Follows with Dr. Bianchi)- methimazole is on hold while she is nothing by mouth Anxiety Migraine GERD Dyslipidemia Hypertension -fair blood pressure control off of losartan while nothing by mouth Diverticulosis with history of recurrent diverticulitis H/o gastritis/+h pylori Mild metabolic acidosis-resolved Plan - POD #1 S/p release of incarcerated internal hernia by adhesiolysis by Dr. Nixon NG tube with low suction. Continues NPO. IV Solu-Medrol and Zosyn were DC'd yesterday following surgery as there was no evidence of Crohn's. WBC up today - likely post-op elevation. LFT's just slightly elevated. Na 133. Will follow. Continues on PPN (started 10/30/17). Blood noted in llanos - check UA. PT/OT consults DVT Prophylaxis: SCD's, Lovenox GI Prophylaxis: Protonix Resuscitation Status: Full Code - Physician Narrative Physician: Bettie Collins MD Narrative: Date: 11/03/17 Time: 1640 I have independently evaluated and examined this patient. I reviewed the chart, the patient's history, and the CIRCUIT BOARD ASSEMBLER/PA's documented findings as above. We discussed and formulated the assessment and plan as above with additions as below: Mrs. Tafoya was seen with her sons at bedside. She complained of abdominal discomfort but denied dyspnea or fever. Remains on 3 L supplemental oxygen. She expressed concern about pain medications due to prior intolerance of morphine and Demerol. NAD, alert; respirations nonlabored, regular cardiac rhythm Abdomen soft, NG present PICC right upper extremity, midline left upper extremity Peritoneal fluid obtained surgically with moderate growth gram-negative rods, light growth gram-positive cocci and light growth yeast Antibiotics discontinued yesterday-resume ceftriaxone with Diflucan pending identification of organisms. Minor elevation in transaminases noted, monitor. Discussed with Dr. Ramirez. Preop chest x-ray unremarkable by my review. Patient was on methylprednisolone 80 mg IV every 8 hours x 5 days preoperatively , discontinued yesterday. Hospital Course Summary Disclaimer: The visit summary below is not to be considered part of the above Progress Note. Hospital Course: 10/28/17 Admit, IP. Stay expected to exceed 2 overnights for tx of enteritis and resolution of SBO. Consult Dr. Nixon. Zosyn and Solumedrol for tx of enteritis. NPO. NG tube. (Pt declines at present. If n/v/pain persists despite current pain/nausea tx, will proceed.) IVF's - 1L bolused in ER. Continue NS at 125cc/hr. This should address her hyponatremia as well. Repeat labs in am to follow blood counts and electrolytes. Protonix IV for GERD and GI ppx. Lovenox for VTE ppx. Full code. PCP - MADAI Gage 10/29/17 Patient's pain is less. Leukocytosis improved from 18.7--> 14.5. Continues on Zosyn and Solumedrol. Consider decreasing Solumedrol dose later today. Remains NPO. IVF's running at 125cc's/hr. Electrolytes stable. Hyponatremia resolved 130-->136. Continue IV pain meds and antiemetics PRN. (Hasn't required since 1799 last shereen. ) Continue IV pantoprazole for GI ppx/GERD. 10/31/17 Patient continues to have abdominal discomfort, distention, and continued dilated loops of small bowel on abdominal x-rays. Pain is tolerable. She had 2 small bowel movements this morning. IV Tylenol does help her pain. Continue with IV Solu-Medrol for suspected Crohn's. Continue Zosyn for now. White count is elevated, at this point likely secondary to steroids. The patient has remained afebrile. Regarding nutrition, TPN is not available due to a shortage, PPN was started yesterday and is being given in the midline since she had pain with infusion in a peripheral site. CBC, CMP, and phosphorus tomorrow Repeat C-reactive protein today We'll discuss today with Dr. Nixon 11/01/17 Patient continues to have abdominal discomfort, distention, and continued dilated loops of small bowel on abdominal x-rays. Patient agreed to attempt placement of NG tube again which was successful. Will continue NG tube with low suction. Maintain NPO status. Patient disclosed her father and 2 cousins had a history of lymphoma of the ileum while discussing treatment options with Dr. Nixon. Patient is now more open to idea of surgical intervention if needed. Will re- evaluate pain and distention in AM with possible surgery tomorrow afternoon. Will hold lovenox in AM in anticipation of surgery tomorrow, 11/02/17. Continue with IV Solu-Medrol for suspected Crohn's. Continue Zosyn for now. White count is trending up, at this point likely secondary to steroids. The patient has remained afebrile. PPN was started 10/30/17 and is being given in the midline since she had pain with infusion in a peripheral site. CBC, CMP, and phosphorus tomorrow CRP trending down. Discussed with Dr. Nixon, family and Dr. Duckworth. 11/02/17 Patient continues to have abdominal discomfort and distention. See by Dr. Nixon yesterday and probable surgical intervention today at 1430. Will continue NG tube with low suction. Maintain NPO status. Lovenox held this morning in preparation for anticipated surgery. Continue with IV Solu-Medrol for suspected Crohn's. Continue Zosyn for now. WBC trending down. Patient remains afebrile. New hyponatremia (Na 135) with hypokalemia (K 3.4). Pharmacy managing PPN. Patient given KCl 20 mEq IV yesterday in addition to additional KCl added to PPN per pharmacy. Will given additional KCl 20 mEq IV today and continue to monitor closely. PPN was started 10/30/17 and is being given in the midline since she had pain with infusion in a peripheral site. Mag slightly decreased at 2.4. Will discuss with pharmacy. CRP trending up - 34.5 on 10/31/17 -->87.4 today. Continue to monitor. Blood pressure remains elevated. Hydralazine IV PRN. Recheck CBC, CMP, and phosphorus in AM. 11/03/17 POD #1 S/p release of incarcerated internal hernia by adhesiolysis by Dr. Nixon NG tube with low suction. Continues NPO. IV Solu-Medrol and Zosyn were DC'd yesterday following surgery as there was no evidence of Crohn's. WBC up today - likely post-op elevation. LFT's just slightly elevated. Na 133. Will follow. Continues on PPN (started 10/30/17). Blood noted in llanos - check UA. PT/OT consults
[2017-11-03] MEDS: METOCLOPRAMIDE 10mg/2ml INJECTION IVP PRN (12:55)
[2017-11-03] MEDS: KETOROLAC 15 MG/ML INJECTION IVP PRN ×2 (13:20→20:26)
[2017-11-03] MEDS ORDERED: ONDANSETRON 4 MG/2 ML INJECTION IVP PRN (13:34)
--- NOTE | 2017-11-03 14:08 | Progress Note ---
DATE OF SERVICE 11/03/2017 FINDINGS Mrs. Tafoya was seen today on rounds. She was accompanied with her family. The patient was stating that she was having a fair amount of incisional discomfort. Pain was not severe when she "laid still." Pain was made worse with movement. PHYSICAL EXAM VITAL SIGNS: Afebrile, normotensive. Please refer to EMR for detail if needed. CHEST: Clear to auscultation bilaterally. HEART: Regular rate and rhythm. Normal S1 and S2 without gallops, murmurs or clicks. ABDOMEN: Palpation along the left lateral and right lateral abdominal wall did not elicit any discomfort. Palpation along her prior midline incision, of course, did result in a component of discomfort. There was no evidence for involuntary guarding or rebound. Her dressing overlying her incision was clean, dry and intact. LABORATORY/RADIOGRAPHIC EVALUATION The patient had a CBC today and her hemoglobin is stable at 15.2. White count was elevated 21.6, most likely a result of stress from surgery. CMP was obtained and found to be without marked abnormalities. BUN was slightly elevated at 30.0. AST and ALT were slightly elevated at 46 and 42, respectively. ASSESSMENT 72-year-old female with small bowel obstruction secondary to adhesion. Postop day #1 status post exploratory laparotomy with lysis of adhesions. PLAN Will continue with current care. Will go ahead and add Zofran to her antiemetic regimen. I encouraged the patient to ambulate slightly within the room and to try to sit up into a chair today. Will otherwise continue with ongoing care. Hopefully over the next 24 to 48 hours the patient's bowel activity will begin to resume and we can DC her NG and begin her on some enteral nutrition. Hopefully her incisional pain will also begin to improve over the next 24 hours. ANGELICA
[2017-11-03] MEDS: FAT EMULSION 20% 500 ML IV SCH (15:59)
--- NOTE | 2017-11-03 17:10 | Operative Note ---
DATE OF OPERATION 11/02/2017 SURGEON Haseeb Nixon MD NANNY CAREGIVER Amor Rojo MD PREOPERATIVE DIAGNOSIS Small bowel obstruction secondary to possible Crohn's stricture of the ileum. POSTOPERATIVE DIAGNOSES 1. Incarcerated internal hernia due to an omental adhesion to the anterior pelvis. 2. Small bowel obstruction secondary to incarcerated internal hernia. PROCEDURE Exploratory laparotomy with release of incarcerated internal hernia by adhesiolysis. ANESTHESIA General. ASA Class 3 INDICATIONS The patient is a 72-year-old female who was admitted to the hospital on 2017 with a bowel obstruction. CT scan had shown a possible long segment of thickened ileum consistent with Crohn's disease. The patient had been treated with IV antibiotics and IV steroids and was failing to progress. Exploration was recommended to her. FINDINGS The distal end of the terminal ileum was normal and was not inflamed. There appeared to be an internal hernia that had formed from adhesions of the inferior end of the omentum to the anterior pelvis. There was a segment of inflammation involving two bowel loops as well as the serosa of the sigmoid colon and the mesentery. This was in the region of the omental adhesion. The bowel proximal to this was thickened but appeared viable. No palpable mass was noted within the ileum. Contents were able to be milked through the ileum into the ascending colon without difficulty after takedown of the adhesions forming the internal hernia. The transverse colon was quite redundant and the right colon and cecum were highly mobile. There was no gross evidence of perforation of the bowel. Cultures of some of the fluid had been taken and Gram stain showed no organisms. There was no creeping fat of the mesentery of the small bowel to indicate Crohn's disease. DESCRIPTION OF PROCEDURE After informed consent was obtained the patient was taken to the operating room and placed in the supine position. General anesthesia was administered by the anesthesia team. The patient's abdomen was then prepped and draped in the usual sterile fashion. An incision was made in the mid abdomen and curved around to the left of the umbilicus. The subcutaneous tissue was divided with cautery. The base of the umbilicus was divided with cautery. The fascia in the midline was divided using cautery and once a small window in the peritoneum was made a hemostat was inserted originally and overlying fascia was divided with cautery. A finger was then inserted and was used to protect the underlying bowel as the inferior end of the incision was opened with cautery. The abdomen was explored and a large amount of serous but nonpurulent fluid was present in the abdomen. An James O Wound Protector was placed in case of the need of a bowel resection. The abdomen was explored and the adhesion of the omentum to the anterior pelvis in the region of the vaginal cuff was noted. The peritoneum was divided with cautery. The omentum was then divided with clamps and 0-Vicryl ties. Once the omental adhesion was taken down the irritated areas of small bowel and sigmoid colon were noted. Given the appearance of the sigmoid colon, a sample was taken of the fluid in the abdomen and a STAT Gram stain was obtained which was negative for organisms. Small bowel was run from the ligament of Treitz and then back from the ligament of Treitz to the terminal ileum. In the area of inflammation of the terminal ileum the contents of the bowel proximally were milked into the ascending colon without difficulty or evidence of stricture. No mass was noted by palpation. Given that the bowel appeared viable and there was no stricture or evidence of inflammatory bowel disease, it was felt that no bowel resection was necessary. Hemostasis within the pelvis was achieved with electrocautery and 0-Vicryl ties. After hemostasis was assured the pelvis was irrigated and suctioned free of fluid to confirm hemostasis. The colon and small bowel were returned to their usual anatomic position. The patient's NG-tube had been advanced slightly into the stomach. The fascia was then closed with a running #1 PDS suture. The knot of the PDS suture was secured in the subcutaneous layer with a 3-0 Vicryl stitch. The base of the umbilicus was secured to the fascia with a 3-0 Vicryl stitch. Tonya were used to close the skin. The patient tolerated the procedure well. ANGELICA
[2017-11-03] MEDS: CEFTRIAXONE 1 G in NS 100 ML IV SCH (17:43)
[2017-11-03] MEDS: NS FLUSH BAG 500ml IV PRN (17:43)
[2017-11-03] MEDS: FLUCONAZOLE PB 200 MG/100 ML BAG IV SCH (18:18)
[2017-11-03] MEDS ORDERED: MULTI-VIT INFUSION 10 ML, MULTI-TRACE ELEMENTS 1 ML in PPN - STANDARD FORMULA 2,000 ML IV SCH (21:20)
[2017-11-04] MEDS: SALINE FLUSH 10ml SYRINGE IVF PRN ×3 (03:09→18:24)
[2017-11-04] MEDS: KETOROLAC 15 MG/ML INJECTION IVP PRN ×3 (03:09→18:02)
--- NOTE | 2017-11-04 09:34 | Pharmacy Consult-TPN/PPN ---
Pharmacy Consult-TPN/PPN - Laboratory Information Chemistry Turbidity < 20 (0-20) 11/04/17 04:13 Sodium 133 MEQ/L (136-146) L 11/04/17 04:13 Potassium 4.7 MEQ/L (3.6-5) 11/04/17 04:13 Chloride 98 MEQ/L (98-107) 11/04/17 04:13 Carbon Dioxide 29 MEQ/L (22-30) 11/04/17 04:13 Anion Gap 6 meq/L (5-15) 11/04/17 04:13 BUN 24.0 MG/DL (7-17) H 11/04/17 04:13 Creatinine 0.5 mg/dL (0.7-1.2) L 11/04/17 04:13 GFR Calculation 122 11/04/17 04:13 BUN/Creatinine Ratio 48 RATIO (6-26) H 11/04/17 04:13 Glucose 102 MG/DL (65-110) 11/04/17 04:13 Glucometer 110 mg/dL (65-110) 11/02/17 14:05 Calculated Osmolality 260 MOSM/KG (261-280) L 11/04/17 04:13 Calcium 8.1 MG/DL (8.4-10.2) L 11/04/17 04:13 Phosphorus 3.3 MG/DL (2.5-4.5) 11/03/17 04:04 Magnesium 2.3 MG/DL (1.6-2.3) 11/03/17 04:04 Total Bilirubin 0.30 MG/DL (0.20-1.30) 11/04/17 04:13 Conjugated Bilirubin 0.00 mg/dL (0.00-0.30) 11/01/17 03:35 Unconjugated Bilirubin 0.30 mg/dL (0.00-1.1) 11/01/17 03:35 Icterus Index < 2 (0-7) 11/04/17 04:13 AST 28 U/L (14-36) 11/04/17 04:13 ALT 29 U/L (1-35) 11/04/17 04:13 Alkaline Phosphatase 56 U/L (38-126) D 11/04/17 04:13 C-Reactive Protein 87.4 mg/L (0-9) H 11/02/17 03:55 Total Protein 5.2 g/dL (6.3-8.2) L 11/04/17 04:13 Albumin 2.9 g/dL (3.5-5.0) L 11/04/17 04:13 Globulin 2.3 G/DL (2.4-3.6) L 11/04/17 04:13 Albumin/Globulin Ratio 1.3 RATIO (1.1-2.2) 11/04/17 04:13 Lipase 53 U/L (23-300) 10/28/17 14:57 Specimen Hemolysis < 15 (0-25) 11/04/17 04:13 Intake and Output 11/03/17 11/04/17 11/05/17 06:59 06:59 06:59 Intake Total 4033.333 / 4033.333 2803.333 / 2803.333 Output Total 1150 / 1150 1999 / 1999 Balance 2883.333 / 2883.333 803.333 / 803.333 Weight 48 kg 49 kg Intake: IV 4033.333 / 4033.333 2723.333 / 2723.333 Ceftriaxone 1 g In Ns 100 ml @ 100 / 100 200 mls/hr IV Q24H [facility] Rx#: [id number] Fat Emulsion 20% 500 ml @ 125 500 / 500 500 / 500 mls/hr IV 1600 [facility] Rx#: [id number] Fluconazole Pb 200 mg In 100 ml 100 / 100 @ 100 mls/hr IV Q24H [facility] Rx#: [id number] Lr 1,000 ml @ 30 mls/hr IV . 1600 / 1600 Q24H [facility] Rx#:[id number] Piperacillin/Tazobactam 3.375 200 / 200 gm In Ns 100 ml @ 200 mls/hr IV Q6H [facility] Rx#:[id number] Potassium Chloride Inj 40 meq 1533.333 / 2252.761 1397.333 / 2023.333 Multi-Vit Infusion 10 ml Multi -Trace Elements 1 ml In Ppn - Standard Formula 2,000 ml @ 100 mls/hr IV .[id number] [facility] Rx#: [id number] Potassium Chloride Premix 10 200.000 / 200.000 meq In 100 ml @ 100 mls/hr IV Q1H [facility] Rx#:[id number] Oral 80 / 80 Output: Urine 750 / 750 Urine Amount (Catheter) 50 / 50 1750 / 1750 Gastric Drainage 350 / 350 250 / 250 Right Nare 350 / 350 250 / 250 Other: Urine Appearance Cloudy Small Blood Clots Urine Color Dark Yellow Yellow Urine Odor Normal Normal - Consult Information PPN CONSULT: Day 5 72 yr old female 5'1" 49 kg admitted with a functional small bowel obstruction. She has been on the Peripheral Parenteral Nutrition Formula 4.25% Amino Acids and 5% Dextrose at a rate of 100 ml/hr with 500 ml 20% Lipids daily. This combination provided her with 1408 non-protein kcal. Today's electrolytes were all within normal limits except her Sodium level has remained at 133 for the past 2 days which could be due to the amount of fluid she has been receiving. Her Serum Osmolality has decreased to 260 from 263 yesterday. She has been receiving the PPN at 100 ml/hr since October 30. She is also receiving Lipids 20% 500 ml for additional calories. We will decrease her PPN to 82 ml/hr starting with the next bag this afternoon. At 82 ml/hr she will receive 2 liters of PPN. Her total non-protein calories will now be 340 kcal from dextrose and 900 kcal from lipids giving a total of 1240 non-protein kcal/24 hrs. Pharmacy will continue to monitor the PPN and adjust the electrolytes as needed. Thank you. Nita Arteaga, PharmD
[2017-11-04] MEDS: ENOXAPARIN 40 MG/0.4 ML INJECTION SQ SCH (09:51)
[2017-11-04] MEDS: PANTOPRAZOLE 40 MG INJECTION IVP SCH ×2 (09:52→20:25)
--- NOTE | 2017-11-04 11:52 | Progress Note ---
- Date 11/04/17 Subjective: Steffi is seen this morning, POD #2, while resting in bed with her son at the bedside. She appears fatigued but reports that she is feeling better today. Her pain is better controlled and states that it was 4/10 with movement and ambulation. She was able to participate briefly with physical therapy and walked about 6 steps total. She denies any fevers, chills, chest pain, shortness of breath, nausea, vomiting. No bowel movements since surgery. She continues to have the NG with continuous suction and has been requiring oxygen which she does not use at home. WBC trending down and bandemia improving. Persistent mild hyponatremia. LFTs improved. Peritoneal culture revealed E.coli, some gram positive cocci and yeast with sensitives pending. She remains afebrile. Objective Vital signs: Temperature 96.1 F L 11/04/17 08:26 Pulse Rate 72 11/04/17 08:26 Respiratory Rate 16 11/04/17 08:26 Blood Pressure 152/87 H 11/04/17 08:26 Pulse Oximetry 93 11/04/17 10:28 Height/Weight/BMI: Height 5 ft 1 in Weight 108 lb 0.424 oz Body Mass Index 19.8 Comments: Resting in bed with family present. - Constitutional Present: no acute distress, well nourished, well developed, thin, cooperative - Routine HEENT Exam Head: Present: normocephalic, atraumatic Eye: Present: PERRL. Absent: conjunctival icterus ENT: Present: mucous membranes dry - Routine Respiratory Exam Present: decreased breath sounds, crackles. Absent: respiratory distress, wheezes Comments: Bibasilar crackles without respiratory distress, dyspnea or cough. - Routine Cardiovascular Exam Present: RRR, S1, S2 - Routine Abdominal Exam Present: soft, normoactive bowel sounds, tenderness, distended - Routine Extremities Exam Present: no edema, full ROM, pulses intact - Routine Back/Spine/Pelvis Exam Back/Spine: Absent: vertebral tenderness Comments: Limited ROM due to abdominal incisional pain with movement. - Routine Skin Exam Present: dry, warm Comments: Afebrile. Abdominal bandage clean, dry and intact. - Routine Neurological Exam Present: alert, oriented X3, moving all extremities, hearing grossly intact, normal speech - Routine Lymphatic Exam Lymphatic: Absent: lymphedema - Routine Psychiatric Exam Present: cooperative Results - Labs CBC & Chem 7: 11/04/17 04:13 11/04/17 04:13 Microbiology Results: Microbiology 11/02/17 15:12 Peritoneal Fluid Gram Stain - Final 11/02/17 15:12 Peritoneal Fluid Body Fluid Culture - Preliminary Escherichia coli Gram Positive Cocci Yeast Assessment and Plan (1) SBO (small bowel obstruction) Current visit: Yes Status: Acute Assessment and Plan: Assessment Small bowel obstruction - release of incarcerated internal hernia by adhesiolysis by Dr. Bryant 11/02/17 Abdominal pain, n/v secondary to SBO (colonoscopy 2010 -diverticular disease, EGD 2014 - gastritis/+H pylori) Leukocytosis - POA-now likely secondary to steroids/post op Hyponatremia - POA Hyperthyroidism - RA iodine ablation 07/18 (Follows with Dr. Bianchi)- methimazole is on hold while she is nothing by mouth Anxiety Migraine GERD Dyslipidemia Hypertension -fair blood pressure control off of losartan while nothing by mouth Diverticulosis with history of recurrent diverticulitis H/o gastritis/+h pylori Mild metabolic acidosis-resolved Plan - POD #2 S/p release of incarcerated internal hernia by adhesiolysis by Dr. Nixon - 11/02/17. NG tube with low suction. Continues NPO. Hopeful bowels will begin moving and NG can be removed in the near future with slow initiation of oral intake. No BM at time of exam. WBC trending down. Bandemia improving. Remains afebrile. LFTs returned to normal range. Continue to monitor closely. Persistent hyponatremia (Na 133). Continue to monitor. Continues on PPN (started 10/30/17). Hopeful to start oral intake in the near future. Surgery managing. UA unremarkable. Will discontinue Llanos and monitor patient closely. Encourage participation with therapies to build strength and functional mobility. Encourage ambulation as able with assistance. Peritoneal culture revealed E.coli, few gram positive cocci and yeast. Rocephin and Diflucan initiated 11/03/17 for coverage. Monitor sensitivities and adjust therapies as indicated. IV Solu-Medrol and Zosyn were DC'd 11/02/17 following surgery as there was no evidence of Crohn's. Patient was on methylprednisolone 80 mg IV every 8 hours x 5 days preoperatively. Continue supplemental oxygen as needed to maintain SAO2 >90%, weaning as able. Encourage IS. Recheck labs in AM to monitor blood counts, electrolytes and renal function. Continue PPN per pharmacy for nutrition. DVT Prophylaxis: SCD's, Lovenox GI Prophylaxis: Protonix Resuscitation Status: Full Code - Time spent with patient Time with patient PN: 30 minutes - Physician Narrative Physician: Bettie Collins MD Narrative: Date: 11/04/17 Time: 1740 I have independently evaluated and examined this patient. I reviewed the chart, the patient's history, and the [employer]/PA's documented findings as above. We discussed and formulated the assessment and plan as above with additions as below: Mrs. Tafoya was seen with multiple family members at bedside earlier this afternoon. She reported feeling significantly improved and denied nausea, vomiting, or significant abdominal pain today. NG had been clamped for 6 hours at the time of my assessment. Tolerating sips and chips. Patient walked 3 times today and is greatly encouraged by progress she's made in the past 24 hours. NAD, alert, respirations nonlabored Abdomen soft, minimally tender, active bowel sounds present. Liver enzymes improving, persistent leukocytosis although improved. Given good tolerance of having and she clamped will resume losartan and methimazole. Continue ceftriaxone for presence of Escherichia coli in peritoneal fluid. Hospital Course Summary Disclaimer: The visit summary below is not to be considered part of the above Progress Note. Hospital Course: 10/28/17 Admit, IP. Stay expected to exceed 2 overnights for tx of enteritis and resolution of SBO. Consult Dr. Nixon. Zosyn and Solumedrol for tx of enteritis. NPO. NG tube. (Pt declines at present. If n/v/pain persists despite current pain/nausea tx, will proceed.) IVF's - 1L bolused in ER. Continue NS at 125cc/hr. This should address her hyponatremia as well. Repeat labs in am to follow blood counts and electrolytes. Protonix IV for GERD and GI ppx. Lovenox for VTE ppx. Full code. PCP - MADAI Gage 10/29/17 Patient's pain is less. Leukocytosis improved from 18.7--> 14.5. Continues on Zosyn and Solumedrol. Consider decreasing Solumedrol dose later today. Remains NPO. IVF's running at 125cc's/hr. Electrolytes stable. Hyponatremia resolved 130-->136. Continue IV pain meds and antiemetics PRN. (Hasn't required since 1800 last shereen. ) Continue IV pantoprazole for GI ppx/GERD. 10/31/17 Patient continues to have abdominal discomfort, distention, and continued dilated loops of small bowel on abdominal x-rays. Pain is tolerable. She had 2 small bowel movements this morning. IV Tylenol does help her pain. Continue with IV Solu-Medrol for suspected Crohn's. Continue Zosyn for now. White count is elevated, at this point likely secondary to steroids. The patient has remained afebrile. Regarding nutrition, TPN is not available due to a shortage, PPN was started yesterday and is being given in the midline since she had pain with infusion in a peripheral site. CBC, CMP, and phosphorus tomorrow Repeat C-reactive protein today We'll discuss today with Dr. Nixon 11/01/17 Patient continues to have abdominal discomfort, distention, and continued dilated loops of small bowel on abdominal x-rays. Patient agreed to attempt placement of NG tube again which was successful. Will continue NG tube with low suction. Maintain NPO status. Patient disclosed her father and 2 cousins had a history of lymphoma of the ileum while discussing treatment options with Dr. Nixon. Patient is now more open to idea of surgical intervention if needed. Will re- evaluate pain and distention in AM with possible surgery tomorrow afternoon. Will hold lovenox in AM in anticipation of surgery tomorrow, 11/02/17. Continue with IV Solu-Medrol for suspected Crohn's. Continue Zosyn for now. White count is trending up, at this point likely secondary to steroids. The patient has remained afebrile. PPN was started 10/30/17 and is being given in the midline since she had pain with infusion in a peripheral site. CBC, CMP, and phosphorus tomorrow CRP trending down. Discussed with Dr. Nixon, family and Dr. Duckworth. 11/02/17 Patient continues to have abdominal discomfort and distention. See by Dr. Nixon yesterday and probable surgical intervention today at 1430. Will continue NG tube with low suction. Maintain NPO status. Lovenox held this morning in preparation for anticipated surgery. Continue with IV Solu-Medrol for suspected Crohn's. Continue Zosyn for now. WBC trending down. Patient remains afebrile. New hyponatremia (Na 135) with hypokalemia (K 3.4). Pharmacy managing PPN. Patient given KCl 20 mEq IV yesterday in addition to additional KCl added to PPN per pharmacy. Will given additional KCl 20 mEq IV today and continue to monitor closely. PPN was started 10/30/17 and is being given in the midline since she had pain with infusion in a peripheral site. Mag slightly decreased at 2.4. Will discuss with pharmacy. CRP trending up - 34.5 on 10/31/17 -->87.4 today. Continue to monitor. Blood pressure remains elevated. Hydralazine IV PRN. Recheck CBC, CMP, and phosphorus in AM. 11/03/17 POD #1 S/p release of incarcerated internal hernia by adhesiolysis by Dr. Nixon NG tube with low suction. Continues NPO. IV Solu-Medrol and Zosyn were DC'd yesterday following surgery as there was no evidence of Crohn's. WBC up today - likely post-op elevation. LFT's just slightly elevated. Na 133. Will follow. Continues on PPN (started 10/30/17). Blood noted in llanos - check UA. PT/OT consults 11/04/17 POD #2 S/p release of incarcerated internal hernia by adhesiolysis by Dr. Nixon - 11/02/17. NG tube with low suction--> clamps later in the day with good tolerance. Continues NPO. Hopeful bowels will begin moving and NG can be removed in the near future with slow initiation of oral intake. No BM at time of exam. WBC trending down. Bandemia improving. Remains afebrile. LFTs returned to normal range. Continue to monitor closely. Persistent hyponatremia (Na 133). Continue to monitor. Continues on PPN (started 10/30/17). Hopeful to start oral intake in the near future. Surgery managing. UA unremarkable. Will discontinue Llanos and monitor patient closely. Encourage participation with therapies to build strength and functional mobility. Encourage ambulation as able with assistance. Peritoneal culture revealed E.coli, few gram positive cocci and yeast. Rocephin and Diflucan initiated 11/03/17 for coverage. Monitor sensitivities and adjust therapies as indicated. IV Solu-Medrol and Zosyn were DC'd 11/02/17 following surgery as there was no evidence of Crohn's. Patient was on methylprednisolone 80 mg IV every 8 hours x 5 days preoperatively. Continue supplemental oxygen as needed to maintain SAO2 >90%, weaning as able. Encourage IS. Recheck labs in AM to monitor blood counts, electrolytes and renal function. Continue PPN per pharmacy for nutrition.
[2017-11-04] MEDS ORDERED: AMINO ACIDS IV SCH (17:00)
[2017-11-04] MEDS ORDERED: DEXTROSE IV SCH (17:00)
[2017-11-04] MEDS ORDERED: [UNRECOGNIZED DRUG - OTHER] IV SCH (17:00)
[2017-11-04] MEDS: FAT EMULSION 20% 500 ML IV SCH (18:24)
[2017-11-04] MEDS: FLUCONAZOLE PB 200 MG/100 ML BAG IV SCH (18:24)
[2017-11-04] MEDS: CEFTRIAXONE 1 G in NS 100 ML IV SCH (19:38)
--- NOTE | 2017-11-04 20:02 | Progress Note ---
DATE OF SERVICE 11/04/2017 FINDINGS Mrs. Tafoya was seen this evening on rounds. She was sitting up in the chair and states that she is feeling significantly better than yesterday. Her incisional pain is markedly improved. She has had her NG clamped the majority of the afternoon and denies any nausea. PHYSICAL EXAM VITAL SIGNS: Afebrile, normotensive. Please refer to EMR. CHEST: Clear to auscultation bilaterally. HEART: Regular rate and rhythm. Normal S1 and S2 without gallops, murmurs or clicks. ABDOMEN: Palpation of the abdomen reveals it to be soft with only minimal incisional tenderness being present. No evidence for guarding or rebound noted. LABORATORY/RADIOGRAPHIC EVALUATION The patient had a CBC today and her white count has improved slightly to 18, 000. The patient has previously received steroids which could be contributing to her leukocytosis. CMP was obtained today and found to be without marked abnormalities. BUN is improving at 24.0. Creatinine remains stable at 0.5. ASSESSMENT 72-year-old female status post exploratory laparotomy with lysis of adhesions secondary to small-bowel obstruction. Patient doing well. PLAN Will go ahead and discontinue NG. Will begin on clear liquids. I am pleased with the patients progress at this time. Will continue to follow closely. ANGELICA
[2017-11-04] MEDS: HYDRALAZINE 20 MG/ML INJECTION IVP PRN (20:23)
[2017-11-04] MEDS: LOSARTAN 50 MG TABLET PO SCH (20:25)
[2017-11-05] MEDS: ONDANSETRON 4 MG/2 ML INJECTION IVP PRN ×2 (02:55→22:00)
--- NOTE | 2017-11-05 09:24 | Progress Note ---
- Date 11/05/17 Subjective: Patient is seen this am resting in bed. States she received dilaudid overnight and it made her feel nauseous, dizzy and gave her a h/a. She still has some nausea and h/a. Dizziness is better. She has been up to walk this am already. Rates her abd pain 6/10. Feels more bloated. Passing gas and belching. NG tube removed last evening. No CP, SOA, f/c. Requiring less O2. Objective Vital signs: Temperature 96.6 F L 11/05/17 07:38 Pulse Rate 72 11/05/17 07:38 Respiratory Rate 24 11/05/17 07:38 Blood Pressure 158/89 H 11/05/17 07:38 Pulse Oximetry 90 11/05/17 07:42 Height/Weight/BMI: Height 1.55 m Weight 100.4 kg Body Mass Index 19.8 - Constitutional Present: no acute distress, well nourished, well developed - Routine HEENT Exam Head: Present: normocephalic, atraumatic - Routine Respiratory Exam Present: decreased breath sounds, CTA bilaterally (anteriorly). Absent: wheezes - Routine Cardiovascular Exam Present: RRR, no murmur - Routine Abdominal Exam Present: soft, tenderness (diffuse), distended. Absent: normoactive bowel sounds (BS's are hypoactive) - Routine Extremities Exam Present: no edema, normal capillary refill - Routine Skin Exam Present: dry, warm - Routine Neurological Exam Present: alert, oriented X3 - Routine Lymphatic Exam Lymphatic: Absent: adenopathy - Routine Psychiatric Exam Present: normal affect, cooperative, depressed Results - Labs CBC & Chem 7: 11/05/17 07:06 11/05/17 07:06 Microbiology Results: Microbiology 11/02/17 15:12 Peritoneal Fluid Gram Stain - Final 11/02/17 15:12 Peritoneal Fluid Body Fluid Culture - Preliminary Escherichia coli Gram Positive Cocci Yeast Assessment and Plan (1) SBO (small bowel obstruction) Current visit: Yes Status: Acute Assessment and Plan: Assessment Small bowel obstruction - release of incarcerated internal hernia by adhesiolysis by Dr. Bryant 11/02/17 Abdominal pain, n/v secondary to SBO (colonoscopy 2010 -diverticular disease, EGD 2014 - gastritis/+H pylori) Leukocytosis - POA Hyponatremia - POA Hyperthyroidism - RA iodine ablation 07/18 (Follows with Dr. Bianchi) Anxiety Migraine GERD Dyslipidemia Hypertension Diverticulosis with history of recurrent diverticulitis H/o gastritis/+h pylori Mild metabolic acidosis-resolved Plan - POD #3 NG tube removed last night. Advanced to clear liquids -not wanting to take in much po d/t abd bloating/no appetite. Continue PPN per pharmacy for nutrition. Received dilaudid last night and had nausea, headache and dizziness. Headache and nausea persisting. Will give Tylenol po and Reglan now. Use Toradol and/or Tylenol for pain and avoid narcs if possible. Persistent hyponatremia (Na 131). Continue to monitor. 02 requirement down to 1L from 3L. Using IS. Ambulating. Day #3 of Rocephin and Diflucan for peritoneal culture w/ E.coli, few gram positive cocci and yeast. WBC 18.8-->22.4. Afebrile. IV Solu-Medrol and Zosyn were DC'd 11/02/17 following surgery as there was no evidence of Crohn's. Patient was on methylprednisolone 80 mg IV every 8 hours x 5 days preoperatively. Home Losartan and methimazole resumed last night. DVT Prophylaxis: Lovenox GI Prophylaxis: Protonix Resuscitation Status: Full Code - Physician Narrative Physician: Bettie Collins MD Narrative: Date: 11/05/17 Time: 1999 I have independently evaluated and examined this patient. I reviewed the chart, the patient's history, and the PHYSICAL THERAPIST CENTER MANAGER/PA's documented findings as above. We discussed and formulated the assessment and plan as above with additions as below: Mrs. Tafoya reported that her abdomen is uncomfortable but not painful; she is full with very small volume of liquids however has taken in about 650 mL of clear liquids today. NAD, respirations nonlabored with good airflow, clear breath sounds Abdomen is soft him a moderately distended, minimally tender with active bowel sounds present Persistent leukocytosis with slight elevation in white count today. If recurrent fever or further climb in WBC will proceed with CT abdomen/pelvis. Discussed with Dr. Ramirez. No sensitivities available yet for Escherichia coli in peritoneal fluid. Hospital Course Summary Disclaimer: The visit summary below is not to be considered part of the above Progress Note. Hospital Course: 10/28/17 Admit, IP. Stay expected to exceed 2 overnights for tx of enteritis and resolution of SBO. Consult Dr. Nixon. Zosyn and Solumedrol for tx of enteritis. NPO. NG tube. (Pt declines at present. If n/v/pain persists despite current pain/nausea tx, will proceed.) IVF's - 1L bolused in ER. Continue NS at 125cc/hr. This should address her hyponatremia as well. Repeat labs in am to follow blood counts and electrolytes. Protonix IV for GERD and GI ppx. Lovenox for VTE ppx. Full code. PCP - MADAI Gage 10/29/17 Patient's pain is less. Leukocytosis improved from 18.7--> 14.5. Continues on Zosyn and Solumedrol. Consider decreasing Solumedrol dose later today. Remains NPO. IVF's running at 125cc's/hr. Electrolytes stable. Hyponatremia resolved 130-->136. Continue IV pain meds and antiemetics PRN. (Hasn't required since 1799 last [facility]. ) Continue IV pantoprazole for GI ppx/GERD. 10/30/17 Patient did have a small bowel movement this morning. No significant flatus. Abdomen feels a little more distended, full and uncomfortable today. She appears in no distress and has not required any pain medication since receiving IV acetaminophen yesterday afternoon. She has not had any nausea or vomiting. She does not have an NG in place. NG placement was attempted on the evening of admission but was difficult, and the patient refused further attempts. We'll continue Solu-Medrol for possible Crohn's disease. Continue Zosyn for now. Discussed with Dr. Nixon, he will see the patient later today. Abdominal films look about the same today. We'll start IV nutrition. Discussed with the pharmacist today, we do not have any TPN. Will start PPN today. 10/31/17 Patient continues to have abdominal discomfort, distention, and continued dilated loops of small bowel on abdominal x-rays. Pain is tolerable. She had 2 small bowel movements this morning. IV Tylenol does help her pain. Continue with IV Solu-Medrol for suspected Crohn's. Continue Zosyn for now. White count is elevated, at this point likely secondary to steroids. The patient has remained afebrile. Regarding nutrition, TPN is not available due to a shortage, PPN was started yesterday and is being given in the midline since she had pain with infusion in a peripheral site. CBC, CMP, and phosphorus tomorrow Repeat C-reactive protein today We'll discuss today with Dr. Nixon 11/01/17 Patient continues to have abdominal discomfort, distention, and continued dilated loops of small bowel on abdominal x-rays. Patient agreed to attempt placement of NG tube again which was successful. Will continue NG tube with low suction. Maintain NPO status. Patient disclosed her father and 2 cousins had a history of lymphoma of the ileum while discussing treatment options with Dr. Nixon. Patient is now more open to idea of surgical intervention if needed. Will re- evaluate pain and distention in AM with possible surgery tomorrow afternoon. Will hold lovenox in AM in anticipation of surgery tomorrow, 11/02/17. Continue with IV Solu-Medrol for suspected Crohn's. Continue Zosyn for now. White count is trending up, at this point likely secondary to steroids. The patient has remained afebrile. PPN was started 10/30/17 and is being given in the midline since she had pain with infusion in a peripheral site. CBC, CMP, and phosphorus tomorrow CRP trending down. Discussed with Dr. Nixon, family and Dr. Duckworth. 11/02/17 Patient continues to have abdominal discomfort and distention. See by Dr. Nixon yesterday and probable surgical intervention today at 1430. Will continue NG tube with low suction. Maintain NPO status. Lovenox held this morning in preparation for anticipated surgery. Continue with IV Solu-Medrol for suspected Crohn's. Continue Zosyn for now. WBC trending down. Patient remains afebrile. New hyponatremia (Na 135) with hypokalemia (K 3.4). Pharmacy managing PPN. Patient given KCl 20 mEq IV yesterday in addition to additional KCl added to PPN per pharmacy. Will given additional KCl 20 mEq IV today and continue to monitor closely. PPN was started 10/30/17 and is being given in the midline since she had pain with infusion in a peripheral site. Mag slightly decreased at 2.4. Will discuss with pharmacy. CRP trending up - 34.5 on 10/31/17 -->87.4 today. Continue to monitor. 11/03/17 POD #1 S/p release of incarcerated internal hernia by adhesiolysis by Dr. Nixon NG tube with low suction. Continues NPO. IV Solu-Medrol and Zosyn were DC'd yesterday following surgery as there was no evidence of Crohn's. WBC up today - likely post-op elevation. LFT's just slightly elevated. Na 133. Will follow. Continues on PPN (started 10/30/17). Blood noted in llanos - check UA. Peritoneal culture revealed E.coli, few gram positive cocci and yeast. Rocephin and Diflucan initiated. 11/04/17 POD #2 NG tube with low suction--> clamps later in the day with good tolerance. Continues NPO. Hopeful bowels will begin moving and NG can be removed in the near future with slow initiation of oral intake. No BM at time of exam. WBC trending down. Bandemia improving. Remains afebrile. LFTs returned to normal range. Continue to monitor closely. Persistent hyponatremia (Na 133). Continue to monitor. Continues on PPN (started 10/30/17). Hopeful to start oral intake in the near future. Surgery managing. UA unremarkable. Will discontinue Llanos and monitor patient closely. 11/05/17 POD #3 NG tube removed last night. Advanced to clear liquids -not wanting to take in much po d/t abd bloating/no appetite. Continue PPN per pharmacy for nutrition. Received dilaudid last night and had nausea, headache and dizziness. Headache and nausea persisting. Will give Tylenol po and Reglan now. Use Toradol and/or Tylenol for pain and avoid narcs if possible. Persistent hyponatremia (Na 131). Continue to monitor. 02 requirement down to 1L from 3L. Using IS. Ambulating. Day #3 of Rocephin and Diflucan for peritoneal culture w/ E.coli, few gram positive cocci and yeast. WBC 18.8-->22.4. Afebrile. Home Losartan and methimazole resumed last night.
[2017-11-05] MEDS: ENOXAPARIN 40 MG/0.4 ML INJECTION SQ SCH (09:38)
[2017-11-05] MEDS: LOSARTAN 50 MG TABLET PO SCH ×2 (09:38→20:19)
[2017-11-05] MEDS: ACETAMINOPHEN 325 MG TABLET PO PRN ×2 (09:39→18:36)
[2017-11-05] MEDS: METHIMAZOLE 5 MG TABLET PO SCH (09:39)
[2017-11-05] MEDS: PANTOPRAZOLE 40 MG INJECTION IVP SCH ×2 (09:42→20:19)
[2017-11-05] MEDS: KETOROLAC 15 MG/ML INJECTION IVP PRN ×3 (09:43→21:48)
[2017-11-05] MEDS: METOCLOPRAMIDE 10mg/2ml INJECTION IVP PRN (09:43)
[2017-11-05] MEDS ORDERED: BISACODYL 10 MG SUPPOSITORY RECTALLY ONE (10:00)
--- NOTE | 2017-11-05 10:42 | General Surgery Progress Note ---
Subjective Narrative: She had a smear of BM this morning, some nausea during the night and feels that the abd is more tense this morning. Not hungry, she is on clears, NG removed last evening. - Vital Signs Last Vital Signs Temp 96.6 F L 11/05/17 07:38 Pulse 72 11/05/17 07:38 Resp 24 11/05/17 07:38 BP 158/89 H 11/05/17 07:38 Pulse Ox 90 11/05/17 07:42 - Laboratory Result Diagrams: 11/05/17 07:06 11/05/17 07:06 - Microbiogy Microbiology 11/02/17 15:12 Peritoneal Fluid Gram Stain - Final 11/02/17 15:12 Peritoneal Fluid Body Fluid Culture - Preliminary Escherichia coli Gram Positive Cocci Yeast - Abnormal Exam Abdominal: firm (slightly) - Normal Exam General: awake, alert, oriented Cardiovascular: regular rate Respiratory: clear bilaterally, no labored breathing Abdominal: BS normo active x4 (gurgling), appropriately tender, incision(s) ( dressing removed, dried blood on dressing, no oozing, erythema, ecchymosis, karlie in tact.) Psychiatric: normal affect Assessment and Plan (1) SBO (small bowel obstruction) Current Visit: Yes Status: Acute (2) Anxiety Current Visit: No Status: Chronic (3) History of Crohn's disease Current Visit: No Status: Chronic Plan: 11/05/2017 POD #4 lysis of adhesive band causing SBO. Incision is looking good, will dress lightly, hold off on shower for another 2- 3 days. WBC up a little today at 22.4 (18.8 yesterday) She is on Rocephin daily. Barely tolerating clears, some nausea last night, smear of a stool this morning. Will try suppository to encourage bowels, there are gurgling BS. Continue TPN, daily labs Hospital Course Summary Disclaimer: The visit summary below is not to be considered part of the above Progress Note. Hospital Course: 10/28/17 Admit, IP. Stay expected to exceed 2 overnights for tx of enteritis and resolution of SBO. Consult Dr. Nixon. Zosyn and Solumedrol for tx of enteritis. NPO. NG tube. (Pt declines at present. If n/v/pain persists despite current pain/nausea tx, will proceed.) IVF's - 1L bolused in ER. Continue NS at 125cc/hr. This should address her hyponatremia as well. Repeat labs in am to follow blood counts and electrolytes. Protonix IV for GERD and GI ppx. Lovenox for VTE ppx. Full code. PCP - MADAI Gage 10/29/17 Patient's pain is less. Leukocytosis improved from 18.7--> 14.5. Continues on Zosyn and Solumedrol. Consider decreasing Solumedrol dose later today. Remains NPO. IVF's running at 125cc's/hr. Electrolytes stable. Hyponatremia resolved 130-->136. Continue IV pain meds and antiemetics PRN. (Hasn't required since 1799 last [facility]. ) Continue IV pantoprazole for GI ppx/GERD. 10/30/17 Patient did have a small bowel movement this morning. No significant flatus. Abdomen feels a little more distended, full and uncomfortable today. She appears in no distress and has not required any pain medication since receiving IV acetaminophen yesterday afternoon. She has not had any nausea or vomiting. She does not have an NG in place. NG placement was attempted on the evening of admission but was difficult, and the patient refused further attempts. We'll continue Solu-Medrol for possible Crohn's disease. Continue Zosyn for now. Discussed with Dr. Nixon, he will see the patient later today. Abdominal films look about the same today. We'll start IV nutrition. Discussed with the pharmacist today, we do not have any TPN. Will start PPN today. 10/31/17 Patient continues to have abdominal discomfort, distention, and continued dilated loops of small bowel on abdominal x-rays. Pain is tolerable. She had 2 small bowel movements this morning. IV Tylenol does help her pain. Continue with IV Solu-Medrol for suspected Crohn's. Continue Zosyn for now. White count is elevated, at this point likely secondary to steroids. The patient has remained afebrile. Regarding nutrition, TPN is not available due to a shortage, PPN was started yesterday and is being given in the midline since she had pain with infusion in a peripheral site. CBC, CMP, and phosphorus tomorrow Repeat C-reactive protein today We'll discuss today with Dr. Nixon 11/01/17 Patient continues to have abdominal discomfort, distention, and continued dilated loops of small bowel on abdominal x-rays. Patient agreed to attempt placement of NG tube again which was successful. Will continue NG tube with low suction. Maintain NPO status. Patient disclosed her father and 2 cousins had a history of lymphoma of the ileum while discussing treatment options with Dr. Nixno. Patient is now more open to idea of surgical intervention if needed. Will re- evaluate pain and distention in AM with possible surgery tomorrow afternoon. Will hold lovenox in AM in anticipation of surgery tomorrow, 11/02/17. Continue with IV Solu-Medrol for suspected Crohn's. Continue Zosyn for now. White count is trending up, at this point likely secondary to steroids. The patient has remained afebrile. PPN was started 10/30/17 and is being given in the midline since she had pain with infusion in a peripheral site. CBC, CMP, and phosphorus tomorrow CRP trending down. Discussed with Dr. Nixon, family and Dr. Duckworth. 11/02/17 Patient continues to have abdominal discomfort and distention. See by Dr. Nixon yesterday and probable surgical intervention today at 1430. Will continue NG tube with low suction. Maintain NPO status. Lovenox held this morning in preparation for anticipated surgery. Continue with IV Solu-Medrol for suspected Crohn's. Continue Zosyn for now. WBC trending down. Patient remains afebrile. New hyponatremia (Na 135) with hypokalemia (K 3.4). Pharmacy managing PPN. Patient given KCl 20 mEq IV yesterday in addition to additional KCl added to PPN per pharmacy. Will given additional KCl 20 mEq IV today and continue to monitor closely. PPN was started 10/30/17 and is being given in the midline since she had pain with infusion in a peripheral site. Mag slightly decreased at 2.4. Will discuss with pharmacy. CRP trending up - 34.5 on 10/31/17 -->87.4 today. Continue to monitor. 11/03/17 POD #1 S/p release of incarcerated internal hernia by adhesiolysis by Dr. Nixon NG tube with low suction. Continues NPO. IV Solu-Medrol and Zosyn were DC'd yesterday following surgery as there was no evidence of Crohn's. WBC up today - likely post-op elevation. LFT's just slightly elevated. Na 133. Will follow. Continues on PPN (started 10/30/17). Blood noted in llanos - check UA. Peritoneal culture revealed E.coli, few gram positive cocci and yeast. Rocephin and Diflucan initiated. 11/04/17 POD #2 NG tube with low suction--> clamps later in the day with good tolerance. Continues NPO. Hopeful bowels will begin moving and NG can be removed in the near future with slow initiation of oral intake. No BM at time of exam. WBC trending down. Bandemia improving. Remains afebrile. LFTs returned to normal range. Continue to monitor closely. Persistent hyponatremia (Na 133). Continue to monitor. Continues on PPN (started 10/30/17). Hopeful to start oral intake in the near future. Surgery managing. UA unremarkable. Will discontinue Llanos and monitor patient closely. 11/05/17 POD #3 NG tube removed last night. Advanced to clear liquids -not wanting to take in much po d/t abd bloating/no appetite. Continue PPN per pharmacy for nutrition. Received dilaudid last night and had nausea, headache and dizziness. Headache and nausea persisting. Will give Tylenol po and Reglan now. Use Toradol and/or Tylenol for pain and avoid narcs if possible. Persistent hyponatremia (Na 131). Continue to monitor. 02 requirement down to 1L from 3L. Using IS. Ambulating. Day #3 of Rocephin and Diflucan for peritoneal culture w/ E.coli, few gram positive cocci and yeast. WBC 18.8-->22.4. Afebrile. Home Losartan and methimazole resumed last night. 11/05/2017 POD #4 lysis of adhesive band causing SBO. Incision is looking good, will dress lightly, hold off on shower for another 2- 3 days. WBC up a little today at 22.4 (18.8 yesterday) She is on Rocephin Diflucan daily. Barely tolerating clears, some nausea last night, smear of a stool this morning. Will try suppository to encourage bowels, there are gurgling BS. Continue TPN, daily labs
[2017-11-05] MEDS ORDERED: ROPIVACAINE 0.2% (2mg/ml) 20ml INJ SQ ONE (11:09)
[2017-11-05] MEDS ORDERED: SCOPOLAMINE PATCH REMOVAL TD SCH (15:06)
[2017-11-05] MEDS: HYDRALAZINE 20 MG/ML INJECTION IVP PRN ×2 (15:48→23:19)
[2017-11-05] MEDS: SODIUM PHOSPHATE IV SCH (15:58)
[2017-11-05] MEDS: MULTI VIT INFUSION IV SCH (15:58)
[2017-11-05] MEDS: FAT EMULSION 20% 500 ML IV SCH (15:58)
[2017-11-05] MEDS: MULTI TRACE ELEMENTS IV SCH (15:58)
[2017-11-05] MEDS: [UNRECOGNIZED DRUG - OTHER] IV SCH (15:58)
[2017-11-05] MEDS: FLUCONAZOLE PB 200 MG/100 ML BAG IV SCH (17:01)
[2017-11-05] MEDS: SALINE FLUSH 10ml SYRINGE IVF PRN ×3 (17:01→22:00)
[2017-11-05] MEDS: NS FLUSH BAG 500ml IV PRN (17:01)
[2017-11-05] MEDS: CEFTRIAXONE 1 G in NS 100 ML IV SCH (18:32)
--- NOTE | 2017-11-05 18:44 | Progress Note ---
DATE OF SERVICE 11/05/2017 FINDINGS Mrs. Tafoya was seen this afternoon on rounds. The patient states that she is feeling "better than yesterday." She states that she did have a "formed bowel movement this afternoon." She does state that she has been somewhat "belchy" in nature. PHYSICAL EXAM VITAL SIGNS: Afebrile, normotensive. Last recorded vitals include temperature 96.6, pulse 76, respirations 16, blood pressure 171/95. CHEST: Clear to auscultation bilaterally. HEART: Regular rate and rhythm. Normal S1 and S2 without gallops, murmurs or clicks. ABDOMEN: Visualization of the abdomen does not reveal it to be significantly distended in nature. Palpation of the abdomen revealed it to be soft with only minimal incisional tenderness being present. LABORATORY/RADIOGRAPHIC EVALUATION The patient had a CBC today and her white count has increased to 22,000 which is concerning. Does have a slight left shift with 76% neutrophils. Hemoglobin is stable at 13.4. BMP obtained and found to be without marked abnormalities. Sodium is slightly low at 131. Chloride slightly low at 97. ASSESSMENT 72-year-old female status post exploratory laparotomy with lysis of adhesions secondary to small-bowel obstruction. Patient with increasing leukocytosis of unknown etiology. Patient with positive cultures from peritoneal fluid revealing E-coli and Jeimy albicans. PLAN The patient is on current antibiotics which should cover the organisms found within her peritoneal fluid. She is on Diflucan and Rocephin. I am somewhat surprised in the fact that she had a positive culture from her peritoneal cavity as a result of a bowel obstruction from an omental adhesion. Will repeat lab work tomorrow. If it remains have a leukocytosis may proceed with repeat CT scan to rule out possible forming abscess. Clinically the patient is improving. Will keep the patient on clear liquids at this time. Continue to follow closely. ANGELICA
[2017-11-06] MEDS ORDERED: HYDRALAZINE 20 MG/ML INJECTION IVP ONE (00:50)
[2017-11-06] MEDS ORDERED: HYDRALAZINE 20 MG/ML INJECTION IVP PRN (00:52)
[2017-11-06] MEDS: SALINE FLUSH 10ml SYRINGE IVF PRN ×3 (02:03→21:39)
[2017-11-06] MEDS: METOCLOPRAMIDE 10mg/2ml INJECTION IVP PRN ×2 (02:03→21:39)
[2017-11-06] MEDS: KETOROLAC 15 MG/ML INJECTION IVP PRN ×3 (05:06→18:41)
[2017-11-06] MEDS: METHIMAZOLE 5 MG TABLET PO SCH (10:20)
[2017-11-06] MEDS: LOSARTAN 50 MG TABLET PO SCH ×2 (10:20→22:14)
[2017-11-06] MEDS: ENOXAPARIN 40 MG/0.4 ML INJECTION SQ SCH (10:20)
[2017-11-06] MEDS: PANTOPRAZOLE 40 MG INJECTION IVP SCH ×2 (10:21→21:39)
--- NOTE | 2017-11-06 10:25 | Progress Note ---
- Date 11/06/17 Subjective: Steffi is not feeling well. She continues to have abdominal pain and severe indigestion with nausea. Her nausea worsened ever since the NG tube was discontinued. She frequently belches. Her last bowel movement was a small one yesterday. She was unable to sleep last night because of her indigestion. She has noticed increased bloating today. She denies feeling dizzy or particularly weak. She states that her bloating makes it difficult to breathe. She has noticed mottling to her lower extremities. Objective Vital signs: Temperature 98.1 F 11/06/17 08:03 Pulse Rate 88 11/06/17 08:03 Respiratory Rate 16 11/06/17 08:03 Blood Pressure 145/71 H 11/06/17 08:03 Pulse Oximetry 93 11/06/17 08:03 Height/Weight/BMI: Height 1.55 m Weight 50.3 kg Body Mass Index 19.8 - Constitutional Present: no acute distress, well nourished, well developed, thin - Routine HEENT Exam Head: Present: normocephalic Eye: Present: PERRL. Absent: conjunctival icterus, scleral injection ENT: Present: mucous membranes moist, oropharynx clear - Routine Respiratory Exam Present: CTA bilaterally - Routine Cardiovascular Exam Present: RRR, S1, S2 - Routine Abdominal Exam Present: tenderness (mild), distended. Absent: normoactive bowel sounds ( hypoactive) - Routine Extremities Exam Present: edema (trace BLE) - Routine Back/Spine/Pelvis Exam Back/Spine: Present: full ROM - Routine Musculoskeletal Exam Musculoskeletal: Present: moving extremities well - Routine Skin Exam Present: intact, dry, warm Comments: mottling to legs, extending to proximal thighs/inguinal crease Results - Labs CBC & Chem 7: 11/06/17 05:00 11/06/17 05:00 Microbiology Results: Microbiology 11/02/17 15:12 Peritoneal Fluid Gram Stain - Final 11/02/17 15:12 Peritoneal Fluid Body Fluid Culture - Preliminary Escherichia coli Jeimy albicans Assessment and Plan (1) SBO (small bowel obstruction) Current visit: Yes Status: Acute Assessment and Plan: Assessment Small bowel obstruction - release of incarcerated internal hernia by adhesiolysis by Dr. Bryant 11/02/17 Abdominal pain, n/v secondary to SBO (colonoscopy 2010 -diverticular disease, EGD 2015 - gastritis/+H pylori) Leukocytosis - POA Hyponatremia - POA Hyperthyroidism - RA iodine ablation 07/18 (Follows with Dr. Bianchi) Anxiety Migraine GERD Dyslipidemia Hypertension Diverticulosis with history of recurrent diverticulitis H/o gastritis/+h pylori Mild metabolic acidosis-resolved Plan - POD #4 White count continues to trend up, currently at 23.3. Bands have also increased to 9%. She has having increased abdominal symptoms with indigestion, nausea and bloating. Discussed with Dr. Collins. Will obtain CT abdomen and pelvis with IV contrast. Expand Antibiotics to Zosyn. Continue Diflucan. Peritoneal fluid culture showed moderate growth of Escherichia coli and light growth of Jeimy albicans. Continue PPN. Hyponatremia persists, stable at 131. Patient is off oxygen this morning. She is afebrile and hemodynamically stable. DVT Prophylaxis: Lovenox GI Prophylaxis: Protonix Resuscitation Status: Full Code - Physician Narrative Physician: Bettie Collins MD Narrative: Date: 11/06/17 Time: 2149 I have independently evaluated and examined this patient. I reviewed the chart, the patient's history, and the LODGING MANAGER/PA's documented findings as above. We discussed and formulated the assessment and plan as above with additions as below: Mrs. Tafoya reported being uncomfortable with increasing nausea but no emesis ( although dry heaves described overnight) and decreasing flatus compared to yesterday. She remains afebrile but white count has climbed slightly higher to 23.3. Uncomfortable appearing female, no icterus Abdomen is moderately distended, soft, diffusely tender but perhaps greatest in the left upper quadrant sparse bowel sounds Respirations nonlabored, breath sounds clear Late in the day Peritoneal fluid reported out with Pseudomonas in addition to previously described Escherichia coli; antibiotics had been expanded to Zosyn earlier to allow anaerobic coverage and this will also allow Pseudomonas coverage. CT abdomen/pelvis reviewed by myself and discussed with Dr. [id number] levels, no abscess, appendix upper normal size with appendicolith present; bladder appeared distended in some views prompting placement of Llanos catheter with return of approximately 400 mL urine initially. Small pleural effusions on CT with adjacent atelectasis versus infiltrates. Continue to monitor closely; no respiratory symptoms to suggest pneumonia at this time. NG replaced when patient reevaluated this afternoon and results of CT discussed with patient/son because she described increasing nausea and increased generalized discomfort. Hospital Course Summary Disclaimer: The visit summary below is not to be considered part of the above Progress Note. Hospital Course: 10/28/17 Admit, IP. Stay expected to exceed 2 overnights for tx of enteritis and resolution of SBO. Consult Dr. Nixon. Zosyn and Solumedrol for tx of enteritis. NPO. NG tube. (Pt declines at present. If n/v/pain persists despite current pain/nausea tx, will proceed.) IVF's - 1L bolused in ER. Continue NS at 125cc/hr. This should address her hyponatremia as well. Repeat labs in am to follow blood counts and electrolytes. Protonix IV for GERD and GI ppx. Lovenox for VTE ppx. Full code. PCP - MADAI Gage 10/29/17 Patient's pain is less. Leukocytosis improved from 18.7--> 14.5. Continues on Zosyn and Solumedrol. Consider decreasing Solumedrol dose later today. Remains NPO. IVF's running at 125cc's/hr. Electrolytes stable. Hyponatremia resolved 130-->136. Continue IV pain meds and antiemetics PRN. (Hasn't required since 1799 last shereen. ) Continue IV pantoprazole for GI ppx/GERD. 10/30/17 Patient did have a small bowel movement this morning. No significant flatus. Abdomen feels a little more distended, full and uncomfortable today. She appears in no distress and has not required any pain medication since receiving IV acetaminophen yesterday afternoon. She has not had any nausea or vomiting. She does not have an NG in place. NG placement was attempted on the evening of admission but was difficult, and the patient refused further attempts. We'll continue Solu-Medrol for possible Crohn's disease. Continue Zosyn for now. Discussed with Dr. Nixon, he will see the patient later today. Abdominal films look about the same today. We'll start IV nutrition. Discussed with the pharmacist today, we do not have any TPN. Will start PPN today. 10/31/17 Patient continues to have abdominal discomfort, distention, and continued dilated loops of small bowel on abdominal x-rays. Pain is tolerable. She had 2 small bowel movements this morning. IV Tylenol does help her pain. Continue with IV Solu-Medrol for suspected Crohn's. Continue Zosyn for now. White count is elevated, at this point likely secondary to steroids. The patient has remained afebrile. Regarding nutrition, TPN is not available due to a shortage, PPN was started yesterday and is being given in the midline since she had pain with infusion in a peripheral site. CBC, CMP, and phosphorus tomorrow Repeat C-reactive protein today We'll discuss today with Dr. Nixon 11/01/17 Patient continues to have abdominal discomfort, distention, and continued dilated loops of small bowel on abdominal x-rays. Patient agreed to attempt placement of NG tube again which was successful. Will continue NG tube with low suction. Maintain NPO status. Patient disclosed her father and 2 cousins had a history of lymphoma of the ileum while discussing treatment options with Dr. Nixon. Patient is now more open to idea of surgical intervention if needed. Will re- evaluate pain and distention in AM with possible surgery tomorrow afternoon. Will hold lovenox in AM in anticipation of surgery tomorrow, 11/02/17. Continue with IV Solu-Medrol for suspected Crohn's. Continue Zosyn for now. White count is trending up, at this point likely secondary to steroids. The patient has remained afebrile. PPN was started 10/30/17 and is being given in the midline since she had pain with infusion in a peripheral site. CBC, CMP, and phosphorus tomorrow CRP trending down. Discussed with Dr. Nixon, family and Dr. Duckworth. 11/02/17 Patient continues to have abdominal discomfort and distention. See by Dr. Nixon yesterday and probable surgical intervention today at 1430. Will continue NG tube with low suction. Maintain NPO status. Lovenox held this morning in preparation for anticipated surgery. Continue with IV Solu-Medrol for suspected Crohn's. Continue Zosyn for now. WBC trending down. Patient remains afebrile. New hyponatremia (Na 135) with hypokalemia (K 3.4). Pharmacy managing PPN. Patient given KCl 20 mEq IV yesterday in addition to additional KCl added to PPN per pharmacy. Will given additional KCl 20 mEq IV today and continue to monitor closely. PPN was started 10/30/17 and is being given in the midline since she had pain with infusion in a peripheral site. Mag slightly decreased at 2.4. Will discuss with pharmacy. CRP trending up - 34.5 on 10/31/17 -->87.4 today. Continue to monitor. 11/03/17 POD #1 S/p release of incarcerated internal hernia by adhesiolysis by Dr. Nixon NG tube with low suction. Continues NPO. IV Solu-Medrol and Zosyn were DC'd yesterday following surgery as there was no evidence of Crohn's. WBC up today - likely post-op elevation. LFT's just slightly elevated. Na 133. Will follow. Continues on PPN (started 10/30/17). Blood noted in llanos - check UA. Peritoneal culture revealed E.coli, few gram positive cocci and yeast. Rocephin and Diflucan initiated. 11/04/17 POD #2 NG tube with low suction--> clamps later in the day with good tolerance. Continues NPO. Hopeful bowels will begin moving and NG can be removed in the near future with slow initiation of oral intake. No BM at time of exam. WBC trending down. Bandemia improving. Remains afebrile. LFTs returned to normal range. Continue to monitor closely. Persistent hyponatremia (Na 133). Continue to monitor. Continues on PPN (started 10/30/17). Hopeful to start oral intake in the near future. Surgery managing. UA unremarkable. Will discontinue Llanos and monitor patient closely. 11/05/17 POD #3 NG tube removed last night. Advanced to clear liquids -not wanting to take in much po d/t abd bloating/no appetite. Continue PPN per pharmacy for nutrition. Received dilaudid last night and had nausea, headache and dizziness. Headache and nausea persisting. Will give Tylenol po and Reglan now. Use Toradol and/or Tylenol for pain and avoid narcs if possible. Persistent hyponatremia (Na 131). Continue to monitor. 02 requirement down to 1L from 3L. Using IS. Ambulating. Day #3 of Rocephin and Diflucan for peritoneal culture w/ E.coli, few gram positive cocci and yeast. WBC 18.8-->22.4. Afebrile. Home Losartan and methimazole resumed last night. 11/06/17 POD #4 White count continues to trend up, currently at 23.3. Bands have also increased to 9%. She has having increased abdominal symptoms with indigestion, nausea and bloating. Discussed with Dr. Collins. Will obtain CT abdomen and pelvis with IV contrast. Expand Antibiotics to Zosyn. Continue Diflucan. Peritoneal fluid culture showed moderate growth of Escherichia coli and light growth of Jeimy albicans. Continue PPN. Hyponatremia persists, stable at 131. Patient is off oxygen this morning. She is afebrile and hemodynamically stable. NG replaced due to recurrent GI symptoms and CT findings suggesting ileus but no abscess.
[2017-11-06] MEDS ORDERED: IOHEXOL 300mg/ml 100ml INJECTION ONE (10:30)
[2017-11-06] MEDS ORDERED: SALINE FLUSH 10ml SYRINGE ONE (10:42)
[2017-11-06] MEDS: PIPERACILLIN/TAZOBACTAM 3.375 GM in D5W 100 ML IV SCH ×3 (11:31→22:14)
[2017-11-06] MEDS: NS FLUSH BAG 500ml IV PRN (11:32)
--- NOTE | 2017-11-06 11:32 | Progress Note ---
DATE OF SERVICE 11/06/2017 FINDINGS Mrs. Tafoya was seen this morning. She states that she is feeling a little worse. She states that her abdomen is beginning to some "swell up again." She describes a component of some abdominal discomfort radiating in towards her back. She has felt nauseated but has not had emesis. PHYSICAL EXAM VITAL SIGNS: Afebrile, normotensive. Last recorded vitals include temperature 98.1, pulse 88, respirations 16, blood pressure 145/71, SAO2 93% room air. CHEST: Clear to auscultation bilaterally. HEART: Regular rate and rhythm. Normal S1 and S2 without gallops, murmurs or clicks. ABDOMEN: Midline incision is clean, dry and intact. Her abdomen does appear slightly more distended today in nature. Abdomen is tympanic in nature upon percussion. The patient has some slight voluntary guarding with firm palpation but was without evidence for involuntary guarding or rebound tenderness, i.e., she does not have peritoneal signs. LABORATORY/RADIOGRAPHIC EVALUATION The patient had a CBC today and her white count remains elevated at 23,000. Does have now an increasing left shift with 81% neutrophils and 9% bands. BMP obtained and found to be without marked abnormalities. ASSESSMENT 72-year-old female status post exploratory laparotomy with lysis of adhesions secondary to small bowel obstruction. Patient with ongoing leukocytosis and increasing bandemia of uncertain etiology. PLAN Will go ahead and perform CT scan of abdomen and pelvis with IV contrast. Clinically it does appear the patient is suffering from an ileus. May need to replace her NG. Hopefully CT scan does not reveal any evidence for a developing abscess. I also spoke with hospitalist and will broaden antibiotic coverage from Rocephin to Zosyn. Will also continue Diflucan as finding of Jeimy albicans in culture results. Await CT scan results and proceed accordingly. ANGELICA
[2017-11-06] MEDS: ACETAMINOPHEN 325 MG TABLET PO PRN (14:02)
[2017-11-06] MEDS: [UNRECOGNIZED DRUG - OTHER] IV SCH (15:38)
[2017-11-06] MEDS: MULTI VIT INFUSION IV SCH (15:38)
[2017-11-06] MEDS: SODIUM PHOSPHATE IV SCH (15:38)
[2017-11-06] MEDS: MULTI TRACE ELEMENTS IV SCH (15:38)
[2017-11-06] MEDS: FAT EMULSION 20% 500 ML IV SCH (15:45)
[2017-11-06] MEDS: FLUCONAZOLE PB 200 MG/100 ML BAG IV SCH (17:15)
[2017-11-07] MEDS: KETOROLAC 15 MG/ML INJECTION IVP PRN ×4 (02:08→21:33)
[2017-11-07] MEDS: PIPERACILLIN/TAZOBACTAM 3.375 GM in D5W 100 ML IV SCH ×3 (04:20→16:23)
[2017-11-07] MEDS: SALINE FLUSH 10ml SYRINGE IVF PRN ×4 (08:03→21:33)
[2017-11-07] MEDS: METOCLOPRAMIDE 10mg/2ml INJECTION IVP PRN (08:04)
[2017-11-07] MEDS: PANTOPRAZOLE 40 MG INJECTION IVP SCH ×2 (08:05→21:34)
[2017-11-07] MEDS: ENOXAPARIN 40 MG/0.4 ML INJECTION SQ SCH (08:05)
[2017-11-07] MEDS: LOSARTAN 50 MG TABLET PO SCH ×2 (08:05→21:33)
[2017-11-07] MEDS: METHIMAZOLE 5 MG TABLET PO SCH (08:06)
[2017-11-07] MEDS ORDERED: MULTI VIT INFUSION IV SCH ×2 (08:30→16:00)
[2017-11-07] MEDS ORDERED: [UNRECOGNIZED DRUG - OTHER] IV SCH ×2 (08:30→16:00)
[2017-11-07] MEDS ORDERED: MULTI TRACE ELEMENTS IV SCH ×2 (08:30→16:00)
[2017-11-07] MEDS ORDERED: SODIUM CHLORIDE IV SCH ×2 (08:30→16:00)
--- NOTE | 2017-11-07 08:32 | Pharmacy Consult-TPN/PPN ---
Pharmacy Consult-TPN/PPN - Laboratory Information Chemistry Turbidity < 20 (0-20) 11/07/17 04:19 Sodium 131 MEQ/L (136-146) L 11/07/17 04:19 Potassium 4.5 MEQ/L (3.6-5) 11/07/17 04:19 Chloride 96 MEQ/L (98-107) L 11/07/17 04:19 Carbon Dioxide 27 MEQ/L (22-30) 11/07/17 04:19 Anion Gap 8 meq/L (5-15) 11/07/17 04:19 BUN 22.0 MG/DL (7-17) H 11/07/17 04:19 Creatinine 0.6 mg/dL (0.7-1.2) L 11/07/17 04:19 GFR Calculation 99 11/07/17 04:19 BUN/Creatinine Ratio 37 RATIO (6-26) H 11/07/17 04:19 Glucose 92 MG/DL (65-110) 11/07/17 04:19 Glucometer 110 mg/dL (65-110) 11/02/17 14:05 Calculated Osmolality 256 MOSM/KG (261-280) L 11/07/17 04:19 Calcium 8.1 MG/DL (8.4-10.2) L 11/07/17 04:19 Magnesium 2.2 MG/DL (1.6-2.3) 11/05/17 07:06 Phosphorus 3.9 MG/DL (2.5-4.5) 11/07/17 04:19 Total Bilirubin 0.30 MG/DL (0.20-1.30) 11/04/17 04:13 Conjugated Bilirubin 0.00 mg/dL (0.00-0.30) 11/01/17 03:35 Unconjugated Bilirubin 0.30 mg/dL (0.00-1.1) 11/01/17 03:35 AST 28 U/L (14-36) 11/04/17 04:13 Icterus Index < 2 (0-7) 11/07/17 04:19 ALT 29 U/L (1-35) 11/04/17 04:13 Alkaline Phosphatase 56 U/L (38-126) D 11/04/17 04:13 C-Reactive Protein 83.3 mg/L (0-9) H 11/07/17 04:19 Total Protein 5.2 g/dL (6.3-8.2) L 11/04/17 04:13 Albumin 2.9 g/dL (3.5-5.0) L 11/04/17 04:13 Globulin 2.3 G/DL (2.4-3.6) L 11/04/17 04:13 Albumin/Globulin Ratio 1.3 RATIO (1.1-2.2) 11/04/17 04:13 Lipase 53 U/L (23-300) 10/28/17 14:57 Specimen Hemolysis < 15 (0-25) 11/07/17 04:19 Intake and Output 11/06/17 11/07/17 11/08/17 06:59 06:59 06:59 Intake Total 4800.300 / 4800.300 2407.467 / 2407.467 120 / 120 Output Total 1850 / 1850 1825 / 1825 Balance 2950.300 / 2950.300 582.467 / 582.467 120 / 120 Weight 50 kg 50.3 kg 51.6 kg Intake: IV 3500.300 / 3500.300 1907.467 / 1907.467 Ceftriaxone 1 g In Ns 100 ml @ 100 / 100 200 mls/hr IV Q24H [facility] Rx#: [id number] Fat Emulsion 20% 500 ml @ 125 500.000 / 500.000 500 / 500 mls/hr IV 1600 [facility]I Rx#: [id number] Fluconazole Pb 200 mg In 100 ml 100 / 100 100 / 100 @ 100 mls/hr IV Q24H [facility] Rx#: [id number] Multi-Vit Infusion 10 ml Multi 1767.1 / 1767.1 -Trace Elements 1 ml In Ppn - Standard Formula 2,000 ml @ 82 mls/hr IV .Q24H [facility] Rx#: [id number] Multi-Vit Infusion 10 ml Multi 1033.200 / 1033.200 907.467 / 907.467 -Trace Elements 1 ml SODIUM PHOSPHATE (mEq) 20 meq In Ppn - Standard Formula 2,000 ml @ 82 mls/hr IV .Q24H [facility] Rx#: [id number] Piperacillin/Tazobactam 3.375 400 / 400 gm In D5w 100 ml @ 200 mls/hr IV Q6H [facility] Rx#:[id number] Oral 1300 / 1300 500 / 500 120 / 120 Output: Urine 1600 / 1600 Stool 250 / 250 Urine Amount (Catheter) 1625 / 1625 Gastric Drainage 200 / 200 Right Nare 200 / 200 Other: Urine Appearance Clear Clear Cloudy Urine Color Dark Yellow Dark Yellow Urine Odor Normal Normal Stool Color Brown Stool Consistency Soft Formed Size of Bowel Movement Smear # Voids 1 # Bowel Movements 1 - Consult Information We will continue standard PPN with the following changes: remove sodium phosphate from formula, and add 40mEq of NaCl. Noted a significant increase in serum phosphorous while serum sodium and chloride are low. We will continue to monitor. Thanks
--- NOTE | 2017-11-07 10:41 | XRay Report ---
Indication: NG PLACEMENT PROCEDURE: XR KUB: Encounter: Initial Comparison: November 01, 2017 Findings: Nasogastric tube remains in place with the tip projecting over the body of the stomach and the side port near the GE junction. Small left effusion with basilar airspace disease. Midline surgical karlie. There is generalized small and large bowel gas compatible with a postoperative ileus. Impression: Findings as above. .
--- NOTE | 2017-11-07 10:53 | CT Scan Report ---
Indication: r/o abscess PROCEDURE: CT abdomen pelvis w con: Encounter: Initial Comparison: October 28, 2017 Technique: Axial CT images were performed through the abdomen and pelvis after the administration of intravenous contrast. Coronal and sagittal two-dimensional reformats. Automated Exposure Control and Iterative Reconstruction dose reducing techniques were utilized. Contrast: Omnipaque 300 67 mL Findings: Bilateral breast implants. Small pleural effusions with lower lobe compressive atelectasis. Small volume ascites. The liver shows mild periportal edema without focal mass or bile duct dilatation. The spleen, pancreas and adrenal glands are within normal limits. Kidneys are normal. Arterial atherosclerotic plaque. Bladder shows nondependent gas probably related to recent instrumentation. Small amount of free pelvic fluid. Extensive sigmoid diverticulosis without evidence of acute diverticulitis. Persistent small bowel wall thickening in the small bowel in the pelvis, however the fecalization has resolved. Dilated small bowel loops remain up to 3.5 cm in diameter. No free intraperitoneal air identified. The appendix is mildly thickened and fluid-filled the diameter of 8 mm. No rim-enhancing abscess appreciated. Impression: 1. Postoperative changes with evidence of an improving partial small bowel obstruction and a residual postoperative ileus. No rim-enhancing abscess identified. 2. Continued wall thickening and inflammation within the distal ileum raising concern for inflammatory bowel disease versus bowel ischemia or enteritis. 3. Mildly enlarged fluid-filled appendix probably reactive to the postoperative and inflammatory small bowel changes rather than a superimposed acute appendicitis. There is a preliminary report by [employer]. .
[2017-11-07] MEDS: FAT EMULSION 20% 500 ML IV SCH (15:14)
--- NOTE | 2017-11-07 16:22 | Progress Note ---
- Date 11/07/17 Subjective: Mrs. Tafoya reports feeling slightly improved today after and she was placed although she continues to have some nausea and experienced some reflux. She's no longer experiencing dry heaves and has not vomited. She is passing flatus but continues to have abdominal discomfort primarily in the right upper quadrant. She denied dyspnea, chest pain, or palpitations. She is ambulating frequently and has experienced no lightheadedness. Objective Vital signs: Temperature 98.1 F 11/07/17 16:17 Pulse Rate 80 11/07/17 16:17 Respiratory Rate 18 11/07/17 16:17 Blood Pressure 145/84 H 11/07/17 16:17 Pulse Oximetry 90 -RA 11/07/17 16:17 I/O 2407/1825 NAD, alert Conjunctiva clear, sclera anicteric Respirations nonlabored, good airflow, breath sounds clear Regular rhythm, S1-S2 Abdomen soft, moderately distended, mild tenderness to palpation LUQ> LLQ, RLQ, no peritoneal signs, bowel sounds active Extremities without edema, ambulates unassisted Height/Weight/BMI: Height 1.55 m Weight 51.6 kg Body Mass Index 19.8 Results - Labs CBC & Chem 7: 11/07/17 04:19 11/07/17 04:19 Labs: S82 B4 L6 M4 E3 CRP 83.3 Microbiology Results: Microbiology 11/02/17 15:12 Peritoneal Fluid Gram Stain - Final 11/02/17 15:12 Peritoneal Fluid Body Fluid Culture - Preliminary Escherichia coli-pansensitive Jeimy albicans Pseudomonas aeruginosa Assessment and Plan (1) SBO (small bowel obstruction) Current visit: Yes Status: Acute Assessment and Plan: Assessment Small bowel obstruction - release of incarcerated internal hernia by adhesiolysis by Dr. Bryant 11/02/17 Abdominal pain, n/v secondary to SBO (colonoscopy 2010 -diverticular disease, EGD 2014 - gastritis/+H pylori) Leukocytosis - POA Hyponatremia - POA Hyperthyroidism - RA iodine ablation 07/18 (Follows with Dr. Bianchi) Anxiety Migraine GERD Dyslipidemia Hypertension Diverticulosis with history of recurrent diverticulitis H/o gastritis/+h pylori Mild metabolic acidosis-resolved Plan - POD #5 White count remains elevated but slightly lower than yesterday with decreased percent bands. Afebrile. More comfortable overall following replacement of NG; continues to have active bowel sounds and pass gas. Repeat flat/upright KUBs in a.m. Continue Zosyn, serous fluid described intraoperatively in excess of what was anticipated prompting decision to send sample for culture. Continue Diflucan for culture finding of probable Jeimy. Blood pressure stable. Remains on low-dose methimazole after radioactive iodine ablation in July; will clarify with Endo if appropriate to recheck thyroid levels. Hemoglobin stable as are electrolytes although sodium remains borderline low. Discussed with Dr. Ramirez, family updated, x-rays ordered for a.m. DVT Prophylaxis: SCD's, Lovenox GI Prophylaxis: Protonix Resuscitation Status: Full Code - Physician Narrative Narrative: Date: 11/07/17 Time: 1619 Hospital Course Summary Disclaimer: The visit summary below is not to be considered part of the above Progress Note. Hospital Course: 10/28/17 Admit, IP. Stay expected to exceed 2 overnights for tx of enteritis and resolution of SBO. Consult Dr. Nixon. Zosyn and Solumedrol for tx of enteritis. NPO. NG tube. (Pt declines at present. If n/v/pain persists despite current pain/nausea tx, will proceed.) IVF's - 1L bolused in ER. Continue NS at 125cc/hr. This should address her hyponatremia as well. Repeat labs in am to follow blood counts and electrolytes. Protonix IV for GERD and GI ppx. Lovenox for VTE ppx. Full code. PCP - MADAI Gage 10/29/17 Patient's pain is less. Leukocytosis improved from 18.7--> 14.5. Continues on Zosyn and Solumedrol. Consider decreasing Solumedrol dose later today. Remains NPO. IVF's running at 125cc's/hr. Electrolytes stable. Hyponatremia resolved 130-->136. Continue IV pain meds and antiemetics PRN. (Hasn't required since 1799 last [facility]. ) Continue IV pantoprazole for GI ppx/GERD. 10/30/17 Patient did have a small bowel movement this morning. No significant flatus. Abdomen feels a little more distended, full and uncomfortable today. She appears in no distress and has not required any pain medication since receiving IV acetaminophen yesterday afternoon. She has not had any nausea or vomiting. She does not have an NG in place. NG placement was attempted on the evening of admission but was difficult, and the patient refused further attempts. We'll continue Solu-Medrol for possible Crohn's disease. Continue Zosyn for now. Discussed with Dr. Nixon, he will see the patient later today. Abdominal films look about the same today. We'll start IV nutrition. Discussed with the pharmacist today, we do not have any TPN. Will start PPN today. 10/31/17 Patient continues to have abdominal discomfort, distention, and continued dilated loops of small bowel on abdominal x-rays. Pain is tolerable. She had 2 small bowel movements this morning. IV Tylenol does help her pain. Continue with IV Solu-Medrol for suspected Crohn's. Continue Zosyn for now. White count is elevated, at this point likely secondary to steroids. The patient has remained afebrile. Regarding nutrition, TPN is not available due to a shortage, PPN was started yesterday and is being given in the midline since she had pain with infusion in a peripheral site. CBC, CMP, and phosphorus tomorrow Repeat C-reactive protein today We'll discuss today with Dr. Nixon 11/01/17 Patient continues to have abdominal discomfort, distention, and continued dilated loops of small bowel on abdominal x-rays. Patient agreed to attempt placement of NG tube again which was successful. Will continue NG tube with low suction. Maintain NPO status. Patient disclosed her father and 2 cousins had a history of lymphoma of the ileum while discussing treatment options with Dr. Nixon. Patient is now more open to idea of surgical intervention if needed. Will re- evaluate pain and distention in AM with possible surgery tomorrow afternoon. Will hold lovenox in AM in anticipation of surgery tomorrow, 11/02/17. Continue with IV Solu-Medrol for suspected Crohn's. Continue Zosyn for now. White count is trending up, at this point likely secondary to steroids. The patient has remained afebrile. PPN was started 10/30/17 and is being given in the midline since she had pain with infusion in a peripheral site. CBC, CMP, and phosphorus tomorrow CRP trending down. Discussed with Dr. Nixon, family and Dr. Duckworth. 11/02/17 Patient continues to have abdominal discomfort and distention. See by Dr. Nixon yesterday and probable surgical intervention today at 1430. Will continue NG tube with low suction. Maintain NPO status. Lovenox held this morning in preparation for anticipated surgery. Continue with IV Solu-Medrol for suspected Crohn's. Continue Zosyn for now. WBC trending down. Patient remains afebrile. New hyponatremia (Na 135) with hypokalemia (K 3.4). Pharmacy managing PPN. Patient given KCl 20 mEq IV yesterday in addition to additional KCl added to PPN per pharmacy. Will given additional KCl 20 mEq IV today and continue to monitor closely. PPN was started 10/30/17 and is being given in the midline since she had pain with infusion in a peripheral site. Mag slightly decreased at 2.4. Will discuss with pharmacy. CRP trending up - 34.5 on 10/31/17 -->87.4 today. Continue to monitor. 11/03/17 POD #1 S/p release of incarcerated internal hernia by adhesiolysis by Dr. Nixon NG tube with low suction. Continues NPO. IV Solu-Medrol and Zosyn were DC'd yesterday following surgery as there was no evidence of Crohn's. WBC up today - likely post-op elevation. LFT's just slightly elevated. Na 133. Will follow. Continues on PPN (started 10/30/17). Blood noted in llanos - check UA. Peritoneal culture revealed E.coli, few gram positive cocci and yeast. Rocephin and Diflucan initiated. 11/04/17 POD #2 NG tube with low suction--> clamps later in the day with good tolerance. Continues NPO. Hopeful bowels will begin moving and NG can be removed in the near future with slow initiation of oral intake. No BM at time of exam. WBC trending down. Bandemia improving. Remains afebrile. LFTs returned to normal range. Continue to monitor closely. Persistent hyponatremia (Na 133). Continue to monitor. Continues on PPN (started 10/30/17). Hopeful to start oral intake in the near future. Surgery managing. UA unremarkable. Will discontinue Llanos and monitor patient closely. 7/6/18 POD #3 NG tube removed last night. Advanced to clear liquids -not wanting to take in much po d/t abd bloating/no appetite. Continue PPN per pharmacy for nutrition. Received dilaudid last night and had nausea, headache and dizziness. Headache and nausea persisting. Will give Tylenol po and Reglan now. Use Toradol and/or Tylenol for pain and avoid narcs if possible. Persistent hyponatremia (Na 131). Continue to monitor. 02 requirement down to 1L from 3L. Using IS. Ambulating. Day #3 of Rocephin and Diflucan for peritoneal culture w/ E.coli, few gram positive cocci and yeast. WBC 18.8-->22.4. Afebrile. Home Losartan and methimazole resumed last night. 7 POD #4 White count continues to trend up, currently at 23.3. Bands have also increased to 9%. She has having increased abdominal symptoms with indigestion, nausea and bloating. Discussed with Dr. Collins. Will obtain CT abdomen and pelvis with IV contrast. Expand Antibiotics to Zosyn. Continue Diflucan. Peritoneal fluid culture showed moderate growth of Escherichia coli and light growth of Jeimy albicans. Continue PPN. Hyponatremia persists, stable at 131. Patient is off oxygen this morning. She is afebrile and hemodynamically stable. NG replaced due to recurrent GI symptoms and CT findings suggesting ileus but no abscess. 11/07/17 POD #5 White count remains elevated but slightly lower than yesterday with decreased percent bands. Afebrile. More comfortable overall following replacement of NG; continues to have active bowel sounds and pass gas. Repeat flat/upright KUBs in a.m. Continue Zosyn, serous fluid described intraoperatively in excess of what was anticipated prompting decision to send sample for culture. Continue Diflucan for culture finding of probable Jeimy. Blood pressure stable. Remains on low-dose methimazole after radioactive iodine ablation in July; will clarify with Endo if appropriate to recheck thyroid levels. Hemoglobin stable as are electrolytes although sodium remains borderline low.
[2017-11-07] MEDS: ACETAMINOPHEN 325 MG TABLET PO PRN (17:15)
[2017-11-07] MEDS: FLUCONAZOLE PB 200 MG/100 ML BAG IV SCH (17:47)
[2017-11-07] MEDS: FentaNYL 100 MCG/2 ML INJECTION IVP PRN (23:03)
[2017-11-08] MEDS: PIPERACILLIN/TAZOBACTAM 3.375 GM in D5W 100 ML IV SCH ×3 (00:07→10:33)
[2017-11-08] MEDS: LOSARTAN 50 MG TABLET PO SCH ×3 (01:47→20:56)
[2017-11-08] MEDS: KETOROLAC 15 MG/ML INJECTION IVP PRN ×3 (04:16→18:42)
[2017-11-08] MEDS: SALINE FLUSH 10ml SYRINGE IVF PRN (05:20)
--- NOTE | 2017-11-08 08:10 | XRay Report ---
EXAM: XR KUB HISTORY: eval ng tube placement COMPARISON: Prior examination dated 11/06/2017 FINDINGS: An enteric tube has been placed, the enteric tube is folded upon itself in the body of the stomach with the tip in the region of the stomach fundus. There is diffuse gaseous distention of small and large bowel loops all which extends into the region of the rectum. Surgical clips are seen along the abdominal wall midline. There is no evidence of organomegaly or unusual calcifications. The flank margins are clear. The psoas muscle margins are well visualized. The osseous structures show mild to moderate degenerative changes in the lumbar spine. There is artifact from bilateral breast implants over the lower aspect of the thorax. There is a small left pleural effusion with subsegmental atelectasis and/or infiltrate at the left lung base. IMPRESSION: 1. An enteric tube has been placed which is folded upon itself in the body of the stomach, the tip of the enteric tube projected over the stomach fundus. 2. Generalized ileus pattern of gaseous distention of small and large bowel loops which may represent postoperative ileus. 3. Midline surgical skin karlie. 4. Small left pleural effusion with subsegmental atelectasis and/or infiltrate at the left lung base. .
[2017-11-08] MEDS ORDERED: AZITHROMYCIN IV 250 MG in NS 100 ML IV SCH (08:45)
[2017-11-08] MEDS ORDERED: METOCLOPRAMIDE 10mg/2ml INJECTION IVP PRN (08:45)
--- NOTE | 2017-11-08 09:07 | Progress Note ---
- Date 11/08/17 Subjective: Patient is seen sitting up on the side of the bed working with OT this am. She had a rough night - had to have her NG tube removed b/c if wasn't functioning correctly and a new one put down. This morning she reports she is very weak. She is concerned that she won't be able to do the things that everyone wants her to do to be able to go home. She continues to feel very uncomfortable in her abdomen and is very distended. She has not yet had a bowel movement since before surgery. She does fill she's passing gas. No fever or chills, no chest pain or shortness of breath. Objective Vital signs: Temperature 97.0 F 11/08/17 07:19 Pulse Rate 74 11/08/17 07:19 Respiratory Rate 16 11/08/17 07:19 Blood Pressure 150/85 H 11/08/17 07:19 Pulse Oximetry 94 11/08/17 07:19 Height/Weight/BMI: Height 1.55 m Weight 53 kg Body Mass Index 19.8 - Constitutional Present: mild distress, well nourished, well developed - Routine HEENT Exam Head: Present: normocephalic, atraumatic - Routine Respiratory Exam Present: CTA bilaterally. Absent: wheezes - Routine Cardiovascular Exam Present: RRR, no murmur - Routine Abdominal Exam Present: tenderness (diffuse), distended. Absent: normoactive bowel sounds ( hypoactive bowel sounds) - Routine Extremities Exam Present: no edema, normal capillary refill - Routine Skin Exam Present: dry, warm - Routine Neurological Exam Present: alert, oriented X3 - Routine Lymphatic Exam Lymphatic: Absent: adenopathy - Routine Psychiatric Exam Present: normal affect, cooperative Results - Labs CBC & Chem 7: 11/08/17 04:18 11/08/17 04:18 Microbiology Results: Microbiology 11/02/17 15:12 Peritoneal Fluid Gram Stain - Final 11/02/17 15:12 Peritoneal Fluid Body Fluid Culture - Final Escherichia coli Jeimy albicans Pseudomonas aeruginosa Other Tamie Observed Assessment and Plan (1) SBO (small bowel obstruction) Current visit: Yes Status: Acute Assessment and Plan: Assessment Small bowel obstruction - release of incarcerated internal hernia by adhesiolysis by Dr. Bryant 11/02/17 Abdominal pain, n/v secondary to SBO (colonoscopy 2010 -diverticular disease, EGD 2014 - gastritis/+H pylori) Leukocytosis - POA Hyponatremia - POA Hyperthyroidism - RA iodine ablation 07/18 (Follows with Dr. Bianchi) Anxiety Migraine GERD Dyslipidemia Hypertension Diverticulosis with history of recurrent diverticulitis H/o gastritis/+h pylori Mild metabolic acidosis-resolved Plan -POD #6 Replacement of NG overnight; continues to have active bowel sounds and passing gas, no BM since prior to surgery. KUB films pending this am. White count remains elevated. Dc Zosyn and start Meropenem for serous fluid described intraoperatively in excess of what was anticipated. E coli and pseudomonas cultured. DARCIE's are now resulted showing lower DARCIE w/ Meropenem compared to Zosyn. Continue Diflucan for culture finding of probable Jeimy. Blood pressure stable. Remains on low-dose methimazole after radioactive iodine ablation in July. Hemoglobin stable as are electrolytes although sodium remains low 131-->130. Continues on PPN and clear liquids. DVT Prophylaxis: SCD's, Lovenox GI Prophylaxis: Protonix Resuscitation Status: Full Code - Physician Narrative Physician: Bettie Collins MD Narrative: Date: 11/08/17 Time: 1430 I have independently evaluated and examined this patient. I reviewed the chart, the patient's history, and the GUN MECH[employer]IC/PA's documented findings as above. We discussed and formulated the assessment and plan as above with additions as below: Mrs. Tafoya reports increased abdominal distention and pain overnight slightly improved after NG was replaced with standard NG tube; 130 mL out NG yesterday. Decreasing flatus, Dulcolax suppository tried earlier today with no results at the time patient was seen about 2 hours after suppository administered. NAD, alert, discouraged Abdomen soft, moderately distended, mild diffuse tenderness Flat/upright KUB reviewed by myself-multiple air-fluid levels with increased distention compared to film yesterday. White count slightly improved; sensitivities on Pseudomonas noted. Continue supportive care, will discuss with Dr. Ramirez when available. Hospital Course Summary Disclaimer: The visit summary below is not to be considered part of the above Progress Note. Hospital Course: 10/28/17 Admit, IP. Stay expected to exceed 2 overnights for tx of enteritis and resolution of SBO. Consult Dr. Nixon. Zosyn and Solumedrol for tx of enteritis. NPO. NG tube. (Pt declines at present. If n/v/pain persists despite current pain/nausea tx, will proceed.) IVF's - 1L bolused in ER. Continue NS at 125cc/hr. This should address her hyponatremia as well. Repeat labs in am to follow blood counts and electrolytes. Protonix IV for GERD and GI ppx. Lovenox for VTE ppx. Full code. PCP - MADAI Ggae 10/29/17 Patient's pain is less. Leukocytosis improved from 18.7--> 14.5. Continues on Zosyn and Solumedrol. Consider decreasing Solumedrol dose later today. Remains NPO. IVF's running at 125cc's/hr. Electrolytes stable. Hyponatremia resolved 130-->136. Continue IV pain meds and antiemetics PRN. (Hasn't required since 1800 last [facility]. ) Continue IV pantoprazole for GI ppx/GERD. 10/30/17 Patient did have a small bowel movement this morning. No significant flatus. Abdomen feels a little more distended, full and uncomfortable today. She appears in no distress and has not required any pain medication since receiving IV acetaminophen yesterday afternoon. She has not had any nausea or vomiting. She does not have an NG in place. NG placement was attempted on the evening of admission but was difficult, and the patient refused further attempts. We'll continue Solu-Medrol for possible Crohn's disease. Continue Zosyn for now. Discussed with Dr. Nixon, he will see the patient later today. Abdominal films look about the same today. We'll start IV nutrition. Discussed with the pharmacist today, we do not have any TPN. Will start PPN today. 10/31/17 Patient continues to have abdominal discomfort, distention, and continued dilated loops of small bowel on abdominal x-rays. Pain is tolerable. She had 2 small bowel movements this morning. IV Tylenol does help her pain. Continue with IV Solu-Medrol for suspected Crohn's. Continue Zosyn for now. White count is elevated, at this point likely secondary to steroids. The patient has remained afebrile. Regarding nutrition, TPN is not available due to a shortage, PPN was started yesterday and is being given in the midline since she had pain with infusion in a peripheral site. CBC, CMP, and phosphorus tomorrow Repeat C-reactive protein today We'll discuss today with Dr. Nixon 11/01/17 Patient continues to have abdominal discomfort, distention, and continued dilated loops of small bowel on abdominal x-rays. Patient agreed to attempt placement of NG tube again which was successful. Will continue NG tube with low suction. Maintain NPO status. Patient disclosed her father and 2 cousins had a history of lymphoma of the ileum while discussing treatment options with Dr. Nixon. Patient is now more open to idea of surgical intervention if needed. Will re- evaluate pain and distention in AM with possible surgery tomorrow afternoon. Will hold lovenox in AM in anticipation of surgery tomorrow, 11/02/17. Continue with IV Solu-Medrol for suspected Crohn's. Continue Zosyn for now. White count is trending up, at this point likely secondary to steroids. The patient has remained afebrile. PPN was started 10/30/17 and is being given in the midline since she had pain with infusion in a peripheral site. CBC, CMP, and phosphorus tomorrow CRP trending down. Discussed with Dr. Nixon, family and Dr. Duckworth. 11/02/17 Patient continues to have abdominal discomfort and distention. See by Dr. Nixon yesterday and probable surgical intervention today at 1430. Will continue NG tube with low suction. Maintain NPO status. Lovenox held this morning in preparation for anticipated surgery. Continue with IV Solu-Medrol for suspected Crohn's. Continue Zosyn for now. WBC trending down. Patient remains afebrile. New hyponatremia (Na 135) with hypokalemia (K 3.4). Pharmacy managing PPN. Patient given KCl 20 mEq IV yesterday in addition to additional KCl added to PPN per pharmacy. Will given additional KCl 20 mEq IV today and continue to monitor closely. PPN was started 10/30/17 and is being given in the midline since she had pain with infusion in a peripheral site. Mag slightly decreased at 2.4. Will discuss with pharmacy. CRP trending up - 34.5 on 10/31/17 -->87.4 today. Continue to monitor. 11/03/17 POD #1 S/p release of incarcerated internal hernia by adhesiolysis by Dr. Nixon NG tube with low suction. Continues NPO. IV Solu-Medrol and Zosyn were DC'd yesterday following surgery as there was no evidence of Crohn's. WBC up today - likely post-op elevation. LFT's just slightly elevated. Na 133. Will follow. Continues on PPN (started 10/30/17). Blood noted in llanos - check UA. Peritoneal culture revealed E.coli, few gram positive cocci and yeast. Rocephin and Diflucan initiated. 11/04/17 POD #2 NG tube with low suction--> clamps later in the day with good tolerance. Continues NPO. Hopeful bowels will begin moving and NG can be removed in the near future with slow initiation of oral intake. No BM at time of exam. WBC trending down. Bandemia improving. Remains afebrile. LFTs returned to normal range. Continue to monitor closely. Persistent hyponatremia (Na 133). Continue to monitor. Continues on PPN (started 10/30/17). Hopeful to start oral intake in the near future. Surgery managing. UA unremarkable. Will discontinue Llanos and monitor patient closely. 11/05/17 POD #3 NG tube removed last night. Advanced to clear liquids -not wanting to take in much po d/t abd bloating/no appetite. Continue PPN per pharmacy for nutrition. Received dilaudid last night and had nausea, headache and dizziness. Headache and nausea persisting. Will give Tylenol po and Reglan now. Use Toradol and/or Tylenol for pain and avoid narcs if possible. Persistent hyponatremia (Na 131). Continue to monitor. 02 requirement down to 1L from 3L. Using IS. Ambulating. Day #3 of Rocephin and Diflucan for peritoneal culture w/ E.coli, few gram positive cocci and yeast. WBC 18.8-->22.4. Afebrile. Home Losartan and methimazole resumed last night. 11/06/17 POD #4 White count continues to trend up, currently at 23.3. Bands have also increased to 9%. She has having increased abdominal symptoms with indigestion, nausea and bloating. Discussed with Dr. Collins. Will obtain CT abdomen and pelvis with IV contrast. Expand Antibiotics to Zosyn. Continue Diflucan. Peritoneal fluid culture showed moderate growth of Escherichia coli and light growth of Jeimy albicans. Continue PPN. Hyponatremia persists, stable at 131. Patient is off oxygen this morning. She is afebrile and hemodynamically stable. NG replaced due to recurrent GI symptoms and CT findings suggesting ileus but no abscess. 7 POD #5 White count remains elevated but slightly lower than yesterday with decreased percent bands. Afebrile. More comfortable overall following replacement of NG; continues to have active bowel sounds and pass gas. Repeat flat/upright KUBs in a.m. Continue Zosyn, serous fluid described intraoperatively in excess of what was anticipated prompting decision to send sample for culture. Continue Diflucan for culture finding of probable Jeimy. Blood pressure stable. Remains on low-dose methimazole after radioactive iodine ablation in July; will clarify with Endo if appropriate to recheck thyroid levels. Hemoglobin stable as are electrolytes although sodium remains borderline low. 11/08/17 POD #6 Replacement of NG overnight; continues to have active bowel sounds and passing gas, no BM since prior to surgery. KUB films pending this am. White count remains elevated. Dc Zosyn and start Meropenem for serous fluid described intraoperatively in excess of what was anticipated. E coli and pseudomonas cultured. DARCIE's are now resulted showing lower DARCIE w/ Meropenem compared to Zosyn. Continue Diflucan for culture finding of probable Jeimy. Sodium remains low 131-->130. Continues on PPN and clear liquids.
[2017-11-08] MEDS: PANTOPRAZOLE 40 MG INJECTION IVP SCH ×2 (09:10→20:55)
[2017-11-08] MEDS: METHIMAZOLE 5 MG TABLET PO SCH (09:10)
[2017-11-08] MEDS: ENOXAPARIN 40 MG/0.4 ML INJECTION SQ SCH (09:11)
--- NOTE | 2017-11-08 09:29 | Progress Note ---
DATE 11/07/2017 FINDINGS Ms. Tafoya was seen this morning on rounds. She does state the NG was replaced yesterday resulting in some improvement of her abdominal distention and discomfort. Patient denies severe pain this morning but states that she feels a little "uncomfortable" and distended. OBJECTIVE VITALS: Afebrile. Normotensive. Please refer to EMR. ABDOMEN: Visualization of the abdomen does reveal it to be slightly more distended. Her incision is clean, dry and intact. Palpation throughout the entire abdomen did not reveal any distinct localized discomfort. She had some mild discomfort throughout her abdomen but no evidence for guarding or rebound. Firm palpation within the right lower quadrant did not elicit any severe pain. LABORATORY/RADIOGRAPHIC EVALUATION Repeat CBC was obtained today and her white count remains elevated at 22,000. Bandemia is slightly improved from 9% to 4%. Neutrophils are still elevated at 82%. BMP obtained and found to be without marked abnormalities. Still has a component of hypochloremia and hyponatremia. Radiographically, the patient had a CT scan of her abdomen and pelvis. There was no evidence for an intraabdominal abscess. I did review the CT scan personally. One can see a fair amount of air within her colon which I believe is more consistent with that of an ileus than that of mechanical obstruction. There was still some continued wall thickening and inflammation seen within the distal ileum raising concern for inflammatory bowel disease versus bowel ischemia or enteritis. Our radiologist felt that there was not evidence for acute appendicitis but rather some inflammatory changes postoperatively and from the local inflammation from the small bowel. ASSESSMENT 72-year-old female status post exploratory laparotomy secondary to small bowel obstruction from omental adhesion. Patient without acute surgical abdomen from a clinical standpoint, i.e., no evidence for peritonitis. Radiographically has evidence for ileus. PLAN Would recommend continuing ongoing broad-spectrum antibiotics given her positive culture from the peritoneal fluid. I do not feel that we are dealing with an acute surgical emergency. Continue with NG suction for postoperative ileus. Will continue to follow closely. ANGELICA
[2017-11-08] MEDS: METOCLOPRAMIDE 10mg/2ml INJECTION IVP SCH ×3 (09:46→20:55)
[2017-11-08] MEDS: AZITHROMYCIN IV 250 MG in NS 250 ML IV SCH (09:47)
--- NOTE | 2017-11-08 09:55 | XRay Report ---
EXAM: XR KUB w upright HISTORY: SBO/probable postop ileus COMPARISON: Prior examination dated 11/07/2017 FINDINGS: Again visualized is an enteric tube in place, which is no longer folded upon itself, the tip of the enteric two is in the mid body of the stomach. There has been interval worsening of the gaseous dilatation of the small bowel loops now demonstrating a maximum caliber of 5.3 cm (previously maximum small bowel caliber was approximately 3.6 cm). There are associated differential air-fluid levels with associated air-fluid levels involving the dilated small bowel loops on the upright view. A large bowel loops remain normal caliber and gas is seen throughout the colon to the level of the rectum. No free air or free fluid is identified. There is no evidence of organomegaly or unusual calcifications. The psoas muscle margins are well visualized. The osseous structures are stable. Midline surgical skin karlie are again visualized. There is no other significant interval change. IMPRESSION: 1.. Interval worsening of the bowel gas pattern with disproportionate prominence of the caliber of the dilated small bowel loops which are associated with differential air-fluid levels on the upright view. Is concerning for developing small bowel obstruction which may be partial or early complete. Continued close follow-up is recommended. 2. Stable enteric tube in place as described. 3. No free air or free fluid. 4. There is no other significant interval change. .
[2017-11-08] MEDS ORDERED: MEROPENEM 1 GM in NS 100 ML IV SCH (10:45)
[2017-11-08] MEDS: BISACODYL 10 MG SUPPOSITORY RECTALLY SCH ×2 (10:52→20:56)
[2017-11-08] MEDS: MEROPENEM 1 GM in NS 50 ML IV SCH ×2 (11:20→18:42)
[2017-11-08] MEDS ORDERED: [UNRECOGNIZED DRUG - OTHER] IV SCH (16:00)
[2017-11-08] MEDS ORDERED: MULTI TRACE ELEMENTS IV SCH (16:00)
[2017-11-08] MEDS ORDERED: MULTI VIT INFUSION IV SCH (16:00)
[2017-11-08] MEDS ORDERED: SODIUM CHLORIDE IV SCH (16:00)
--- NOTE | 2017-11-08 16:01 | Progress Note ---
DATE 11/08/2017 FINDINGS Mrs. Tafoya was seen earlier this morning on rounds. Apparently she did have somewhat of a "rough evening". She was experiencing increasing abdominal distention. This morning she is feeling a little better but continues to have generalized abdominal discomfort. She states that she did pass gas a couple of times this morning. OBJECTIVE VITALS: Afebrile. Normotensive. Current vitals include temperature 97.0, pulse 74, respirations 16, blood pressure 150/85. HEENT: Normocephalic. Pupils are equally round and react to light and accommodation. ABDOMEN: Visualization of the abdomen reveals it to be still somewhat distended in its overall appearance. Palpation of the abdomen however revealed it to be soft. There was no evidence for involuntary guarding or rebound. The patient did complain of some discomfort with palpation but again there was no evidence to suggest underlying peritoneal signs. LABORATORY/RADIOGRAPHIC EVALUATION Patient had a CBC today and her white count is on somewhat of a downward trend at 19,000. Bandemia has resolved. She still has a left shift with 87% neutrophils. BMP obtained and her sodium was low at 130. BUN and creatinine remain overall stable. Radiographically, the patient had a KUB and upright obtained today. Dictated report states that there is interval worsening of the bowel gas pattern with disproportionate prominence of the caliber of the dilated small bowel loops concerning for possible developing small bowel obstruction. I can see however upon reviewing the film that the patient does have some air within her rectum as well as one can see a fair amount of air within the right colon and the haustral folds of the right colon. I do not feel that we are dealing with that of a complete small bowel obstruction but more of an ileus pattern. I am concerned however with her increasing discomfort and increasing caliber of her small bowel noted radiographically. ASSESSMENT 72-year-old female status post exploratory laparotomy with lysis of adhesions secondary to small bowel obstruction. Patient remains with a component of leukocytosis, generalized abdominal discomfort and radiographic evidence for ileus/possible partial small bowel obstruction. PLAN Continue with ongoing intravenous antibiotics. Will go ahead and add some IV erythromycin or equivalent in conjunction with scheduled Reglan as prokinetic agents. Will begin to give patient some suppositories in an attempt to promote bowel activity. Will repeat KUB and upright tomorrow. Will otherwise continue with current care. Will continue to follow with serial abdominal examinations. I remain concerned with the patient's progress but hopefully we are just dealing with that of an ileus which will resolve on its own behalf in the near future. ANGELICA
[2017-11-08] MEDS: FLUCONAZOLE PB 200 MG/100 ML BAG IV SCH (17:14)
[2017-11-08] MEDS: FAT EMULSION 20% 250 ML IV SCH (17:15)
[2017-11-09] MEDS: MEROPENEM 1 GM in NS 50 ML IV SCH ×3 (00:47→17:14)
[2017-11-09] MEDS: METOCLOPRAMIDE 10mg/2ml INJECTION IVP SCH ×4 (02:07→22:35)
[2017-11-09] MEDS ORDERED: MULTI TRACE ELEMENTS IV SCH (08:00)
[2017-11-09] MEDS ORDERED: [UNRECOGNIZED DRUG - OTHER] IV SCH (08:00)
[2017-11-09] MEDS ORDERED: SODIUM CHLORIDE IV SCH (08:00)
[2017-11-09] MEDS ORDERED: MULTI VIT INFUSION IV SCH (08:00)
--- NOTE | 2017-11-09 08:55 | XRay Report ---
Indication: ileus vs obstruction PROCEDURE: XR KUB w upright: Encounter: Initial Comparison: November 08, 2017 Findings: Nasogastric tube remains in place. Small pleural effusions. No gross free air. Small bowel dilatation is slightly improved with multiple air-fluid levels remaining. Small bowel is dilated up to 4.9 cm in the left abdomen. There is colonic gas in the rectum. Impression: Slight improvement in partial obstruction or ileus. .
--- NOTE | 2017-11-09 08:56 | Pharmacy Consult-TPN/PPN ---
Pharmacy Consult-TPN/PPN - Laboratory Information Chemistry Turbidity < 20 (0-20) 11/09/17 07:54 Sodium 132 MEQ/L (136-146) L 11/09/17 07:54 Potassium 3.8 MEQ/L (3.6-5) 11/09/17 07:54 Chloride 100 MEQ/L (98-107) 11/09/17 07:54 Carbon Dioxide 27 MEQ/L (22-30) 11/09/17 07:54 Anion Gap 5 meq/L (5-15) 11/09/17 07:54 BUN 19.0 MG/DL (7-17) H 11/09/17 07:54 Creatinine 0.5 mg/dL (0.7-1.2) L 11/09/17 07:54 GFR Calculation 122 11/09/17 07:54 BUN/Creatinine Ratio 38 RATIO (6-26) H 11/09/17 07:54 Glucose 104 MG/DL (65-110) 11/09/17 07:54 Glucometer 110 mg/dL (65-110) 11/02/17 14:05 Calculated Osmolality 257 MOSM/KG (261-280) L 11/09/17 07:54 Calcium 8.1 MG/DL (8.4-10.2) L 11/09/17 07:54 Phosphorus 3.9 MG/DL (2.5-4.5) 11/07/17 04:19 Magnesium 2.1 MG/DL (1.6-2.3) 11/08/17 04:18 Total Bilirubin 0.30 MG/DL (0.20-1.30) 11/04/17 04:13 Conjugated Bilirubin 0.00 mg/dL (0.00-0.30) 11/01/17 03:35 Unconjugated Bilirubin 0.30 mg/dL (0.00-1.1) 11/01/17 03:35 AST 28 U/L (14-36) 11/04/17 04:13 Icterus Index < 2 (0-7) 11/09/17 07:54 ALT 29 U/L (1-35) 11/04/17 04:13 Alkaline Phosphatase 56 U/L (38-126) D 11/04/17 04:13 C-Reactive Protein 83.3 mg/L (0-9) H 11/07/17 04:19 Total Protein 5.2 g/dL (6.3-8.2) L 11/04/17 04:13 Albumin 2.9 g/dL (3.5-5.0) L 11/04/17 04:13 Globulin 2.3 G/DL (2.4-3.6) L 11/04/17 04:13 Albumin/Globulin Ratio 1.3 RATIO (1.1-2.2) 11/04/17 04:13 Lipase 53 U/L (23-300) 10/28/17 14:57 Specimen Hemolysis < 15 (0-25) 11/09/17 07:54 - Consult Information I will continue the TPN as currently ordered. The pharmacy will continue to monitor the TPN. Thanks, Baldo Bragg, Pharmacist.
--- NOTE | 2017-11-09 08:57 | Progress Note ---
- Date 11/09/17 Subjective: Patient seen this morning resting in bed. She states she feels much better today. She had a good night sleep. Her pain is less. She's had several small bowel movements and has been passing gas. Wonders when the NG tube can be removed because she is having pain with it. No chest pain, shortness of breath, vomiting, fever or chills. She has just been taking ice chips at this point. Objective Vital signs: Temperature 97.1 F 11/09/17 07:40 Pulse Rate 86 11/09/17 07:40 Respiratory Rate 18 11/09/17 07:40 Blood Pressure 142/82 H 11/09/17 07:40 Pulse Oximetry 90 11/09/17 07:40 Height/Weight/BMI: Height 1.55 m Weight 53.3 kg Body Mass Index 19.8 - Constitutional Present: no acute distress, well nourished, well developed - Routine HEENT Exam Head: Present: normocephalic, atraumatic - Routine Respiratory Exam Present: CTA bilaterally. Absent: wheezes - Routine Cardiovascular Exam Present: RRR, no murmur - Routine Abdominal Exam Present: soft, normoactive bowel sounds, tenderness (diffuse), distended - Routine Extremities Exam Present: no edema, normal capillary refill - Routine Skin Exam Present: dry, warm - Routine Neurological Exam Present: alert, oriented X3 - Routine Lymphatic Exam Lymphatic: Absent: adenopathy - Routine Psychiatric Exam Present: normal affect, cooperative Results - Labs CBC & Chem 7: 11/09/17 07:54 11/09/17 07:54 Microbiology Results: Microbiology 11/02/17 15:12 Peritoneal Fluid Gram Stain - Final 11/02/17 15:12 Peritoneal Fluid Body Fluid Culture - Final Escherichia coli Jordan albicans Pseudomonas aeruginosa Other Tamie Observed Assessment and Plan (1) SBO (small bowel obstruction) Current visit: Yes Status: Acute Assessment and Plan: Assessment Small bowel obstruction - release of incarcerated internal hernia by adhesiolysis by Dr. Bryant 11/02/17 Prolonged postop ileus Abdominal pain, n/v secondary to SBO (colonoscopy 2010 -diverticular disease, EGD 2014 - gastritis/+H pylori) Leukocytosis - POA Hyponatremia - POA Hyperthyroidism - RA iodine ablation 07/18 (Follows with Dr. Bianchi) Anxiety Migraine GERD Dyslipidemia Hypertension Diverticulosis with history of recurrent diverticulitis H/o gastritis/+h pylori Mild metabolic acidosis-resolved Plan -POD #7 Patient looking and feeling much better today. Has had NG tube clamped off and on and has tolerated it well thus far. Patient has passed some stool and continues to pass gas. KUB films pending this am. White count has improved. Day #2 of meropenem (converted from Zosyn (11/02 - 7) due to DARCIE) for e coli and pseudomonas in peritoneal fluid. Day #7 of Diflucan for jordan in peritoneal fluid. Sodium still low but improving 130-->132. Continues on PPN and ice chips. Would like to go to IRU on d/c. DVT Prophylaxis: Lovenox Resuscitation Status: Full Code - Physician Narrative Physician: Bettie Collins MD Narrative: Date: 11/09/17 Time: 2134 I have independently evaluated and examined this patient. I reviewed the chart, the patient's history, and the [employer]/PA's documented findings as above. We discussed and formulated the assessment and plan as above with additions as below: Sariah had several loose stools yesterday and has had multiple liquid stools today; C. difficile negative. NG was clamped for several hours during which she tried clear liquids at lunch but developed increased abdominal discomfort in the low lower abdomen prompting reinitiation of NG suction. Llanos catheter removed this morning-voiding spontaneously. NAD, alert, abdomen soft with mild generalized tenderness; NG to suction at time of my evaluation KUBs reviewed by myself-persistent dilatation of small bowel loops with air- fluid levels, radiology reports minor improvement compared to yesterday. Discussed with Dr. Ramirez-continue conservative management. Azithromycin initiated for gastric motility (IV erythromycin not available) White count improving slowly-on meropenem/Diflucan. Hospital Course Summary Disclaimer: The visit summary below is not to be considered part of the above Progress Note. Hospital Course: 10/28/17 Admit, IP. Stay expected to exceed 2 overnights for tx of enteritis and resolution of SBO. Consult Dr. Nixon. Zosyn and Solumedrol for tx of enteritis. NPO. NG tube. (Pt declines at present. If n/v/pain persists despite current pain/nausea tx, will proceed.) IVF's - 1L bolused in ER. Continue NS at 125cc/hr. This should address her hyponatremia as well. Repeat labs in am to follow blood counts and electrolytes. Protonix IV for GERD and GI ppx. Lovenox for VTE ppx. Full code. PCP - MADAI Gage 10/29/17 Patient's pain is less. Leukocytosis improved from 18.7--> 14.5. Continues on Zosyn and Solumedrol. Consider decreasing Solumedrol dose later today. Remains NPO. IVF's running at 125cc's/hr. Electrolytes stable. Hyponatremia resolved 130-->136. Continue IV pain meds and antiemetics PRN. (Hasn't required since 1799 last shereen. ) Continue IV pantoprazole for GI ppx/GERD. 10/30/17 Patient did have a small bowel movement this morning. No significant flatus. Abdomen feels a little more distended, full and uncomfortable today. She appears in no distress and has not required any pain medication since receiving IV acetaminophen yesterday afternoon. She has not had any nausea or vomiting. She does not have an NG in place. NG placement was attempted on the evening of admission but was difficult, and the patient refused further attempts. We'll continue Solu-Medrol for possible Crohn's disease. Continue Zosyn for now. Discussed with Dr. Nixon, he will see the patient later today. Abdominal films look about the same today. We'll start IV nutrition. Discussed with the pharmacist today, we do not have any TPN. Will start PPN today. 10/31/17 Patient continues to have abdominal discomfort, distention, and continued dilated loops of small bowel on abdominal x-rays. Pain is tolerable. She had 2 small bowel movements this morning. IV Tylenol does help her pain. Continue with IV Solu-Medrol for suspected Crohn's. Continue Zosyn for now. White count is elevated, at this point likely secondary to steroids. The patient has remained afebrile. Regarding nutrition, TPN is not available due to a shortage, PPN was started yesterday and is being given in the midline since she had pain with infusion in a peripheral site. CBC, CMP, and phosphorus tomorrow Repeat C-reactive protein today We'll discuss today with Dr. Nixon 11/01/17 Patient continues to have abdominal discomfort, distention, and continued dilated loops of small bowel on abdominal x-rays. Patient agreed to attempt placement of NG tube again which was successful. Will continue NG tube with low suction. Maintain NPO status. Patient disclosed her father and 2 cousins had a history of lymphoma of the ileum while discussing treatment options with Dr. Nixon. Patient is now more open to idea of surgical intervention if needed. Will re- evaluate pain and distention in AM with possible surgery tomorrow afternoon. Will hold lovenox in AM in anticipation of surgery tomorrow, 11/02/17. Continue with IV Solu-Medrol for suspected Crohn's. Continue Zosyn for now. White count is trending up, at this point likely secondary to steroids. The patient has remained afebrile. PPN was started 10/30/17 and is being given in the midline since she had pain with infusion in a peripheral site. CBC, CMP, and phosphorus tomorrow CRP trending down. Discussed with Dr. Nixon, family and Dr. Duckworth. 11/02/17 Patient continues to have abdominal discomfort and distention. See by Dr. Nixon yesterday and probable surgical intervention today at 1430. Will continue NG tube with low suction. Maintain NPO status. Lovenox held this morning in preparation for anticipated surgery. Continue with IV Solu-Medrol for suspected Crohn's. Continue Zosyn for now. WBC trending down. Patient remains afebrile. New hyponatremia (Na 135) with hypokalemia (K 3.4). Pharmacy managing PPN. Patient given KCl 20 mEq IV yesterday in addition to additional KCl added to PPN per pharmacy. Will given additional KCl 20 mEq IV today and continue to monitor closely. PPN was started 10/30/17 and is being given in the midline since she had pain with infusion in a peripheral site. Mag slightly decreased at 2.4. Will discuss with pharmacy. CRP trending up - 34.5 on 10/31/17 -->87.4 today. Continue to monitor. 11/03/17 POD #1 S/p release of incarcerated internal hernia by adhesiolysis by Dr. Nixon NG tube with low suction. Continues NPO. IV Solu-Medrol and Zosyn were DC'd yesterday following surgery as there was no evidence of Crohn's. WBC up today - likely post-op elevation. LFT's just slightly elevated. Na 133. Will follow. Continues on PPN (started 10/30/17). Blood noted in llanos - check UA. Peritoneal culture revealed E.coli, few gram positive cocci and yeast. Rocephin and Diflucan initiated. 11/04/17 POD #2 NG tube with low suction--> clamps later in the day with good tolerance. Continues NPO. Hopeful bowels will begin moving and NG can be removed in the near future with slow initiation of oral intake. No BM at time of exam. WBC trending down. Bandemia improving. Remains afebrile. LFTs returned to normal range. Continue to monitor closely. Persistent hyponatremia (Na 133). Continue to monitor. Continues on PPN (started 10/30/17). Hopeful to start oral intake in the near future. Surgery managing. UA unremarkable. Will discontinue Llanos and monitor patient closely. 11/05/17 POD #3 NG tube removed last night. Advanced to clear liquids -not wanting to take in much po d/t abd bloating/no appetite. Continue PPN per pharmacy for nutrition. Received dilaudid last night and had nausea, headache and dizziness. Headache and nausea persisting. Will give Tylenol po and Reglan now. Use Toradol and/or Tylenol for pain and avoid narcs if possible. Persistent hyponatremia (Na 131). Continue to monitor. 02 requirement down to 1L from 3L. Using IS. Ambulating. Day #3 of Rocephin and Diflucan for peritoneal culture w/ E.coli, few gram positive cocci and yeast. WBC 18.8-->22.4. Afebrile. Home Losartan and methimazole resumed last night. 11/06/17 POD #4 White count continues to trend up, currently at 23.3. Bands have also increased to 9%. She has having increased abdominal symptoms with indigestion, nausea and bloating. Discussed with Dr. Collins. Will obtain CT abdomen and pelvis with IV contrast. Expand Antibiotics to Zosyn. Continue Diflucan. Peritoneal fluid culture showed moderate growth of Escherichia coli and light growth of Jordan albicans. Continue PPN. Hyponatremia persists, stable at 131. Patient is off oxygen this morning. She is afebrile and hemodynamically stable. NG replaced due to recurrent GI symptoms and CT findings suggesting ileus but no abscess. 7 POD #5 White count remains elevated but slightly lower than yesterday with decreased percent bands. Afebrile. More comfortable overall following replacement of NG; continues to have active bowel sounds and pass gas. Repeat flat/upright KUBs in a.m. Continue Zosyn, serous fluid described intraoperatively in excess of what was anticipated prompting decision to send sample for culture. Continue Diflucan for culture finding of probable Jordan. Blood pressure stable. Remains on low-dose methimazole after radioactive iodine ablation in July; will clarify with Endo if appropriate to recheck thyroid levels. Hemoglobin stable as are electrolytes although sodium remains borderline low. 7 POD #6 Replacement of NG overnight; continues to have active bowel sounds and passing gas, no BM since prior to surgery. KUB films pending this am. White count remains elevated. Dc Zosyn and start Meropenem for serous fluid described intraoperatively in excess of what was anticipated. E coli and pseudomonas cultured. DARCIE's are now resulted showing lower DARCIE w/ Meropenem compared to Zosyn. Continue Diflucan for culture finding of probable Jordan. Sodium remains low 131-->130. Continues on PPN and clear liquids. 11/09/17 POD #7 Patient looking and feeling much better today. Has had NG tube clamped off and on and has tolerated it well thus far. Patient has passed some stool and continues to pass gas. KUB films pending this am. White count has improved. Day #2 of meropenem (converted from Zosyn (11/02 - 11/08) due to DARCIE) for e coli and pseudomonas in peritoneal fluid. Day #7 of Diflucan for jordan in peritoneal fluid. Sodium still low but improving 130-->132. Continues on PPN and ice chips. Would like to go to IRU on d/c
[2017-11-09] MEDS ORDERED: Bisacodyl EC TAB 5 MG TABLET PO ONE (09:27)
--- NOTE | 2017-11-09 09:31 | General Surgery Progress Note ---
Subjective Patient reports: feels better (less distended but abd still quite firm), bowel movement (2 small ones this morning without stimulation of suppository, small BM last evening aftre suppository) Narrative: Denies nausea, NG in place, clamped since KUB at 4am today. - Vital Signs Last Vital Signs Temp 97.1 F 11/09/17 07:40 Pulse 86 11/09/17 07:40 Resp 18 11/09/17 07:40 BP 142/82 H 11/09/17 07:40 Pulse Ox 90 11/09/17 07:40 - Laboratory Result Diagrams: 11/09/17 07:54 11/09/17 07:54 - Microbiogy Microbiology 11/02/17 15:12 Peritoneal Fluid Gram Stain - Final 11/02/17 15:12 Peritoneal Fluid Body Fluid Culture - Final Escherichia coli Jordan albicans Pseudomonas aeruginosa Other Tamie Observed - Radiology KUB upright today: Findings: Nasogastric tube remains in place. Small pleural effusions. No gross free air. Small bowel dilatation is slightly improved with multiple air-fluid levels remaining. Small bowel is dilated up to 4.9 cm in the left abdomen. There is colonic gas in the rectum. Impression: Slight improvement in partial obstruction or ileus. - Abnormal Exam Abdominal: firm, distended (but less than yesterday) - Normal Exam General: awake, alert, oriented Cardiovascular: regular rhythm, regular rate Respiratory: clear bilaterally, no labored breathing Abdominal: BS normo active x4 Psychiatric: normal affect Assessment and Plan (1) SBO (small bowel obstruction) Current Visit: Yes Status: Acute (2) Anxiety Current Visit: No Status: Chronic (3) History of Crohn's disease Current Visit: No Status: Chronic Plan: Ileus pattern improving and clinically she is starting to turn around. Having BM 's x2 today, no nausea although NG has been clamped only since 4am. Continue suppository BID, Azithromycin, Reglan, Duloclax pox1 today. Continue TPN. Start clear liquids. May shower. Hospital Course Summary Disclaimer: The visit summary below is not to be considered part of the above Progress Note. Hospital Course: 10/28/17 Admit, IP. Stay expected to exceed 2 overnights for tx of enteritis and resolution of SBO. Consult Dr. Nixon. Zosyn and Solumedrol for tx of enteritis. NPO. NG tube. (Pt declines at present. If n/v/pain persists despite current pain/nausea tx, will proceed.) IVF's - 1L bolused in ER. Continue NS at 125cc/hr. This should address her hyponatremia as well. Repeat labs in am to follow blood counts and electrolytes. Protonix IV for GERD and GI ppx. Lovenox for VTE ppx. Full code. PCP - MADAI Gage 10/29/17 Patient's pain is less. Leukocytosis improved from 18.7--> 14.5. Continues on Zosyn and Solumedrol. Consider decreasing Solumedrol dose later today. Remains NPO. IVF's running at 125cc's/hr. Electrolytes stable. Hyponatremia resolved 130-->136. Continue IV pain meds and antiemetics PRN. (Hasn't required since 1800 last shereen. ) Continue IV pantoprazole for GI ppx/GERD. 10/30/17 Patient did have a small bowel movement this morning. No significant flatus. Abdomen feels a little more distended, full and uncomfortable today. She appears in no distress and has not required any pain medication since receiving IV acetaminophen yesterday afternoon. She has not had any nausea or vomiting. She does not have an NG in place. NG placement was attempted on the evening of admission but was difficult, and the patient refused further attempts. We'll continue Solu-Medrol for possible Crohn's disease. Continue Zosyn for now. Discussed with Dr. Nixon, he will see the patient later today. Abdominal films look about the same today. We'll start IV nutrition. Discussed with the pharmacist today, we do not have any TPN. Will start PPN today. 10/31/17 Patient continues to have abdominal discomfort, distention, and continued dilated loops of small bowel on abdominal x-rays. Pain is tolerable. She had 2 small bowel movements this morning. IV Tylenol does help her pain. Continue with IV Solu-Medrol for suspected Crohn's. Continue Zosyn for now. White count is elevated, at this point likely secondary to steroids. The patient has remained afebrile. Regarding nutrition, TPN is not available due to a shortage, PPN was started yesterday and is being given in the midline since she had pain with infusion in a peripheral site. CBC, CMP, and phosphorus tomorrow Repeat C-reactive protein today We'll discuss today with Dr. Nixon 11/01/17 Patient continues to have abdominal discomfort, distention, and continued dilated loops of small bowel on abdominal x-rays. Patient agreed to attempt placement of NG tube again which was successful. Will continue NG tube with low suction. Maintain NPO status. Patient disclosed her father and 2 cousins had a history of lymphoma of the ileum while discussing treatment options with Dr. Nixon. Patient is now more open to idea of surgical intervention if needed. Will re- evaluate pain and distention in AM with possible surgery tomorrow afternoon. Will hold lovenox in AM in anticipation of surgery tomorrow, 11/02/17. Continue with IV Solu-Medrol for suspected Crohn's. Continue Zosyn for now. White count is trending up, at this point likely secondary to steroids. The patient has remained afebrile. PPN was started 10/30/17 and is being given in the midline since she had pain with infusion in a peripheral site. CBC, CMP, and phosphorus tomorrow CRP trending down. Discussed with Dr. Nixon, family and Dr. Duckworth. 11/02/17 Patient continues to have abdominal discomfort and distention. See by Dr. Nixon yesterday and probable surgical intervention today at 1430. Will continue NG tube with low suction. Maintain NPO status. Lovenox held this morning in preparation for anticipated surgery. Continue with IV Solu-Medrol for suspected Crohn's. Continue Zosyn for now. WBC trending down. Patient remains afebrile. New hyponatremia (Na 135) with hypokalemia (K 3.4). Pharmacy managing PPN. Patient given KCl 20 mEq IV yesterday in addition to additional KCl added to PPN per pharmacy. Will given additional KCl 20 mEq IV today and continue to monitor closely. PPN was started 10/30/17 and is being given in the midline since she had pain with infusion in a peripheral site. Mag slightly decreased at 2.4. Will discuss with pharmacy. CRP trending up - 34.5 on 10/31/17 -->87.4 today. Continue to monitor. 11/03/17 POD #1 S/p release of incarcerated internal hernia by adhesiolysis by Dr. Nixon NG tube with low suction. Continues NPO. IV Solu-Medrol and Zosyn were DC'd yesterday following surgery as there was no evidence of Crohn's. WBC up today - likely post-op elevation. LFT's just slightly elevated. Na 133. Will follow. Continues on PPN (started 10/30/17). Blood noted in llanos - check UA. Peritoneal culture revealed E.coli, few gram positive cocci and yeast. Rocephin and Diflucan initiated. 11/04/17 POD #2 NG tube with low suction--> clamps later in the day with good tolerance. Continues NPO. Hopeful bowels will begin moving and NG can be removed in the near future with slow initiation of oral intake. No BM at time of exam. WBC trending down. Bandemia improving. Remains afebrile. LFTs returned to normal range. Continue to monitor closely. Persistent hyponatremia (Na 133). Continue to monitor. Continues on PPN (started 10/30/17). Hopeful to start oral intake in the near future. Surgery managing. UA unremarkable. Will discontinue Llanos and monitor patient closely. 11/05/17 POD #3 NG tube removed last night. Advanced to clear liquids -not wanting to take in much po d/t abd bloating/no appetite. Continue PPN per pharmacy for nutrition. Received dilaudid last night and had nausea, headache and dizziness. Headache and nausea persisting. Will give Tylenol po and Reglan now. Use Toradol and/or Tylenol for pain and avoid narcs if possible. Persistent hyponatremia (Na 131). Continue to monitor. 02 requirement down to 1L from 3L. Using IS. Ambulating. Day #3 of Rocephin and Diflucan for peritoneal culture w/ E.coli, few gram positive cocci and yeast. WBC 18.8-->22.4. Afebrile. Home Losartan and methimazole resumed last night. 11/06/17 POD #4 White count continues to trend up, currently at 23.3. Bands have also increased to 9%. She has having increased abdominal symptoms with indigestion, nausea and bloating. Discussed with Dr. Karina. Will obtain CT abdomen and pelvis with IV contrast. Expand Antibiotics to Zosyn. Continue Diflucan. Peritoneal fluid culture showed moderate growth of Escherichia coli and light growth of Jordan albicans. Continue PPN. Hyponatremia persists, stable at 131. Patient is off oxygen this morning. She is afebrile and hemodynamically stable. NG replaced due to recurrent GI symptoms and CT findings suggesting ileus but no abscess. 11/07/17 POD #5 White count remains elevated but slightly lower than yesterday with decreased percent bands. Afebrile. More comfortable overall following replacement of NG; continues to have active bowel sounds and pass gas. Repeat flat/upright KUBs in a.m. Continue Zosyn, serous fluid described intraoperatively in excess of what was anticipated prompting decision to send sample for culture. Continue Diflucan for culture finding of probable Jordan. Blood pressure stable. Remains on low-dose methimazole after radioactive iodine ablation in July; will clarify with Endo if appropriate to recheck thyroid levels. Hemoglobin stable as are electrolytes although sodium remains borderline low. 11/08/17 POD #6 Replacement of NG overnight; continues to have active bowel sounds and passing gas, no BM since prior to surgery. KUB films pending this am. White count remains elevated. Dc Zosyn and start Meropenem for serous fluid described intraoperatively in excess of what was anticipated. E coli and pseudomonas cultured. DARCIE's are now resulted showing lower DARCIE w/ Meropenem compared to Zosyn. Continue Diflucan for culture finding of probable Jordan. Sodium remains low 131-->130. Continues on PPN and clear liquids. 11/09/17 POD #7 Patient looking and feeling much better today. Has had NG tube clamped off and on and has tolerated it well thus far. Patient has passed some stool and continues to pass gas. KUB films pending this am. White count has improved. Day #2 of meropenem (converted from Zosyn (11/02 - 11/08) due to DARCIE) for e coli and pseudomonas in peritoneal fluid. Day #7 of Diflucan for jordan in peritoneal fluid. Sodium still low but improving 130-->132. Continues on PPN and ice chips. Would like to go to IRU on d/c
[2017-11-09] MEDS: ACETAMINOPHEN 325 MG TABLET PO PRN (10:39)
[2017-11-09] MEDS: BISACODYL 10 MG SUPPOSITORY RECTALLY SCH ×2 (10:39→22:03)
[2017-11-09] MEDS: ENOXAPARIN 40 MG/0.4 ML INJECTION SQ SCH (10:39)
[2017-11-09] MEDS: METHIMAZOLE 5 MG TABLET PO SCH (10:39)
[2017-11-09] MEDS: LOSARTAN 50 MG TABLET PO SCH ×2 (10:39→22:35)
[2017-11-09] MEDS: PANTOPRAZOLE 40 MG INJECTION IVP SCH ×2 (10:48→22:33)
[2017-11-09] MEDS: SALINE FLUSH 10ml SYRINGE IVF PRN ×3 (11:09→16:29)
[2017-11-09] MEDS: AZITHROMYCIN IV 250 MG in NS 250 ML IV SCH (12:31)
[2017-11-09] MEDS: FLUCONAZOLE PB 200 MG/100 ML BAG IV SCH (16:22)
[2017-11-09] MEDS: FAT EMULSION 20% 250 ML IV SCH (16:22)
[2017-11-09] MEDS: KETOROLAC 15 MG/ML INJECTION IVP PRN ×2 (17:04→22:33)
--- NOTE | 2017-11-09 19:49 | Progress Note ---
DATE OF SERVICE 11/09/2017 FINDINGS Mrs. Tafoya has been seen a couple of times on rounds today. The patient states that she has had a "good day." She is feeling better. She has had several bowel movements earlier today. The patient states that her stool frequency is beginning to decrease. She was resting comfortably this evening. PHYSICAL EXAM VITAL SIGNS: Afebrile, normotensive. Please refer to EMR. ABDOMEN: Soft. Minimal incisional tenderness present. No evidence for guarding or rebound. LABORATORY/RADIOGRAPHIC EVALUATION The patient had a CBC today and her white count continues on a downward trend at 17,000. Hemoglobin is stable at 11.9. Radiographically, the patient did have a KUB and upright today that did reveal decreasing small bowel distention with some improvement being noted. Given her increased stool frequency today I did elect to go ahead and err on the cautious side and obtain a C. diff toxin. C. diff toxin was negative. ASSESSMENT 72-year-old female status post exploratory laparotomy with lysis of adhesions secondary to small-bowel obstruction. Patient with development of postoperative ileus. Patient improving from a clinical standpoint. PLAN Continue with current care. Perhaps tomorrow we may attempt to clamp her NG and begin her on some clear liquids. Will go ahead and obtain KUB and upright tomorrow and continue to follow the patient with serial abdominal examinations. I am pleased with the patient's progress. ANGELICA
[2017-11-09] MEDS: FentaNYL 100 MCG/2 ML INJECTION IVP PRN ×3 (20:29→22:03)
[2017-11-10] MEDS: MEROPENEM 1 GM in NS 50 ML IV SCH ×4 (01:39→22:19)
[2017-11-10] MEDS: METOCLOPRAMIDE 10mg/2ml INJECTION IVP SCH ×3 (04:44→19:49)
--- NOTE | 2017-11-10 08:15 | General Surgery Progress Note ---
Subjective Narrative: Small liquid brown stool during the night. She showered yesterday. She had increasing abd pain around midnight, received Toradol and Fentanyl around 11pm and NG was advanced and pain subsided but is not gone. Compared to yesterday morning, she states she feels weaker, still distended. Denies nausea this morning. Llanos was removed yesterday. WBC up to 24.3 (17.7 yesterday), T-max 100.3 about 11 pm, normal this am. Sons are here this am and express concern that the NG was not hooked up and working properly during the evening and understandable getting frustrated that mom is not getting better quicker. - Vital Signs Last Vital Signs Temp 100.3 F 11/09/17 23:10 Pulse 97 11/10/17 07:00 Resp 16 11/10/17 07:00 BP 146/71 H 11/10/17 07:00 Pulse Ox 86 L 11/10/17 07:00 - Laboratory Result Diagrams: 11/10/17 04:15 11/10/17 04:15 - Microbiogy Blood culture ordered due to fever and significant increase in WBC - Radiology KUB upright, decrease in small bowel distention, NG has advanced passed the stomach, official report pending. CXR ordered - Abnormal Exam Respiratory: other (oxygen at 2L NC) Abdominal: hypoactive bowel sounds, firm, distended, tender - Normal Exam General: awake, alert, oriented Cardiovascular: regular rate Abdominal: incision(s) (CDI karlie present, no erythema, ecchymosis) Assessment and Plan (1) SBO (small bowel obstruction) Current Visit: Yes Status: Acute (2) Anxiety Current Visit: No Status: Chronic (3) History of Crohn's disease Current Visit: No Status: Chronic (4) Leukocytosis Current Visit: Yes Status: Acute Qualifiers: Leukocytosis type: bandemia Qualified Code(s): D72.825 - Bandemia (5) Fever Current Visit: Yes Status: Acute Qualifiers: Fever type: unspecified Qualified Code(s): R50.9 - Fever, unspecified Plan: She experienced significantly increase in pain late evening, NG advanced and pain meds given, she feel better this am. WBC with increase to 24.3 (17.7 yesterday) with bandemia Llanos removed yesterday Still on oxygen, sat drops to upper 80's on room air Low grade fever of 100.3 during the nite.\ Will further evaluate leukocytosis, fever, weakness with CXR, blood cultures and u/a. Dr. Ramirez eval the patient as well, also getting CT abd/pelvis and serum lactate. Hospital Course Summary Disclaimer: The visit summary below is not to be considered part of the above Progress Note. Hospital Course: 10/28/17 Admit, IP. Stay expected to exceed 2 overnights for tx of enteritis and resolution of SBO. Consult Dr. Nixon. Zosyn and Solumedrol for tx of enteritis. NPO. NG tube. (Pt declines at present. If n/v/pain persists despite current pain/nausea tx, will proceed.) IVF's - 1L bolused in ER. Continue NS at 125cc/hr. This should address her hyponatremia as well. Repeat labs in am to follow blood counts and electrolytes. Protonix IV for GERD and GI ppx. Lovenox for VTE ppx. Full code. PCP - MADAI Gage 10/29/17 Patient's pain is less. Leukocytosis improved from 18.7--> 14.5. Continues on Zosyn and Solumedrol. Consider decreasing Solumedrol dose later today. Remains NPO. IVF's running at 125cc's/hr. Electrolytes stable. Hyponatremia resolved 130-->136. Continue IV pain meds and antiemetics PRN. (Hasn't required since 1800 last [facility]. ) Continue IV pantoprazole for GI ppx/GERD. 10/30/17 Patient did have a small bowel movement this morning. No significant flatus. Abdomen feels a little more distended, full and uncomfortable today. She appears in no distress and has not required any pain medication since receiving IV acetaminophen yesterday afternoon. She has not had any nausea or vomiting. She does not have an NG in place. NG placement was attempted on the evening of admission but was difficult, and the patient refused further attempts. We'll continue Solu-Medrol for possible Crohn's disease. Continue Zosyn for now. Discussed with Dr. Nixon, he will see the patient later today. Abdominal films look about the same today. We'll start IV nutrition. Discussed with the pharmacist today, we do not have any TPN. Will start PPN today. 10/31/17 Patient continues to have abdominal discomfort, distention, and continued dilated loops of small bowel on abdominal x-rays. Pain is tolerable. She had 2 small bowel movements this morning. IV Tylenol does help her pain. Continue with IV Solu-Medrol for suspected Crohn's. Continue Zosyn for now. White count is elevated, at this point likely secondary to steroids. The patient has remained afebrile. Regarding nutrition, TPN is not available due to a shortage, PPN was started yesterday and is being given in the midline since she had pain with infusion in a peripheral site. CBC, CMP, and phosphorus tomorrow Repeat C-reactive protein today We'll discuss today with Dr. Nixon 11/01/17 Patient continues to have abdominal discomfort, distention, and continued dilated loops of small bowel on abdominal x-rays. Patient agreed to attempt placement of NG tube again which was successful. Will continue NG tube with low suction. Maintain NPO status. Patient disclosed her father and 2 cousins had a history of lymphoma of the ileum while discussing treatment options with Dr. Nixon. Patient is now more open to idea of surgical intervention if needed. Will re- evaluate pain and distention in AM with possible surgery tomorrow afternoon. Will hold lovenox in AM in anticipation of surgery tomorrow, 11/02/17. Continue with IV Solu-Medrol for suspected Crohn's. Continue Zosyn for now. White count is trending up, at this point likely secondary to steroids. The patient has remained afebrile. PPN was started 10/30/17 and is being given in the midline since she had pain with infusion in a peripheral site. CBC, CMP, and phosphorus tomorrow CRP trending down. Discussed with Dr. Nixon, family and Dr. Duckworth. 11/02/17 Patient continues to have abdominal discomfort and distention. See by Dr. Nixon yesterday and probable surgical intervention today at 1430. Will continue NG tube with low suction. Maintain NPO status. Lovenox held this morning in preparation for anticipated surgery. Continue with IV Solu-Medrol for suspected Crohn's. Continue Zosyn for now. WBC trending down. Patient remains afebrile. New hyponatremia (Na 135) with hypokalemia (K 3.4). Pharmacy managing PPN. Patient given KCl 20 mEq IV yesterday in addition to additional KCl added to PPN per pharmacy. Will given additional KCl 20 mEq IV today and continue to monitor closely. PPN was started 10/30/17 and is being given in the midline since she had pain with infusion in a peripheral site. Mag slightly decreased at 2.4. Will discuss with pharmacy. CRP trending up - 34.5 on 10/31/17 -->87.4 today. Continue to monitor. 11/03/17 POD #1 S/p release of incarcerated internal hernia by adhesiolysis by Dr. Nixon NG tube with low suction. Continues NPO. IV Solu-Medrol and Zosyn were DC'd yesterday following surgery as there was no evidence of Crohn's. WBC up today - likely post-op elevation. LFT's just slightly elevated. Na 133. Will follow. Continues on PPN (started 10/30/17). Blood noted in llanos - check UA. Peritoneal culture revealed E.coli, few gram positive cocci and yeast. Rocephin and Diflucan initiated. 11/04/17 POD #2 NG tube with low suction--> clamps later in the day with good tolerance. Continues NPO. Hopeful bowels will begin moving and NG can be removed in the near future with slow initiation of oral intake. No BM at time of exam. WBC trending down. Bandemia improving. Remains afebrile. LFTs returned to normal range. Continue to monitor closely. Persistent hyponatremia (Na 133). Continue to monitor. Continues on PPN (started 10/30/17). Hopeful to start oral intake in the near future. Surgery managing. UA unremarkable. Will discontinue Llanos and monitor patient closely. 11/05/17 POD #3 NG tube removed last night. Advanced to clear liquids -not wanting to take in much po d/t abd bloating/no appetite. Continue PPN per pharmacy for nutrition. Received dilaudid last night and had nausea, headache and dizziness. Headache and nausea persisting. Will give Tylenol po and Reglan now. Use Toradol and/or Tylenol for pain and avoid narcs if possible. Persistent hyponatremia (Na 131). Continue to monitor. 02 requirement down to 1L from 3L. Using IS. Ambulating. Day #3 of Rocephin and Diflucan for peritoneal culture w/ E.coli, few gram positive cocci and yeast. WBC 18.8-->22.4. Afebrile. Home Losartan and methimazole resumed last night. 7 POD #4 White count continues to trend up, currently at 23.3. Bands have also increased to 9%. She has having increased abdominal symptoms with indigestion, nausea and bloating. Discussed with Dr. Collins. Will obtain CT abdomen and pelvis with IV contrast. Expand Antibiotics to Zosyn. Continue Diflucan. Peritoneal fluid culture showed moderate growth of Escherichia coli and light growth of Jordan albicans. Continue PPN. Hyponatremia persists, stable at 131. Patient is off oxygen this morning. She is afebrile and hemodynamically stable. NG replaced due to recurrent GI symptoms and CT findings suggesting ileus but no abscess. 11/07/17 POD #5 White count remains elevated but slightly lower than yesterday with decreased percent bands. Afebrile. More comfortable overall following replacement of NG; continues to have active bowel sounds and pass gas. Repeat flat/upright KUBs in a.m. Continue Zosyn, serous fluid described intraoperatively in excess of what was anticipated prompting decision to send sample for culture. Continue Diflucan for culture finding of probable Jordan. Blood pressure stable. Remains on low-dose methimazole after radioactive iodine ablation in July; will clarify with Endo if appropriate to recheck thyroid levels. Hemoglobin stable as are electrolytes although sodium remains borderline low. 11/08/17 POD #6 Replacement of NG overnight; continues to have active bowel sounds and passing gas, no BM since prior to surgery. KUB films pending this am. White count remains elevated. Dc Zosyn and start Meropenem for serous fluid described intraoperatively in excess of what was anticipated. E coli and pseudomonas cultured. DARCIE's are now resulted showing lower DARCIE w/ Meropenem compared to Zosyn. Continue Diflucan for culture finding of probable Jordan. Sodium remains low 131-->130. Continues on PPN and clear liquids. 11/09/17 POD #7 Patient looking and feeling much better today. Has had NG tube clamped off and on and has tolerated it well thus far. Patient has passed some stool and continues to pass gas. KUB films pending this am. White count has improved. Day #2 of meropenem (converted from Zosyn (11/02 - 11/08) due to DARCIE) for e coli and pseudomonas in peritoneal fluid. Day #7 of Diflucan for jordan in peritoneal fluid. Sodium still low but improving 130-->132. Continues on PPN and ice chips. Would like to go to IRU on d/c 11/10/2017 surgery She experienced significantly increase in pain late evening, NG advanced and pain meds given, she feel better this am. WBC with increase to 24.3 (17.7 yesterday) with bandemia Llanos removed yesterday Still on oxygen, sat drops to upper 80's on room air Low grade fever of 100.3 during the nite.\ Will further evaluate leukocytosis, fever, weakness with CXR, blood cultures and u/a. Dr. Ramirez eval the patient as well, also getting CT abd/pelvis and serum lactate.
--- NOTE | 2017-11-10 09:06 | XRay Report ---
INDICATION: leukocytosis, fever, PROCEDURE: CHEST 2-VIEWS UPRIGHT (PA & LAT) Encounter: Initial COMPARISON: November 02, 2017 FINDINGS: Nasogastric tube remains in place. Right PICC line is stable in position. There is increasing airspace opacity in both lower lobes with small bilateral effusions. No pneumothorax. Upper lobes are clear. Heart size and mediastinal contours are stable. Pulmonary vascularity is unchanged. Dilated small bowel loops are again noted below the diaphragm. Impression: Increasing lower lobe atelectasis or pneumonia with small effusions. .
[2017-11-10] MEDS: KETOROLAC 15 MG/ML INJECTION IVP PRN (09:15)
[2017-11-10] MEDS: PANTOPRAZOLE 40 MG INJECTION IVP SCH ×2 (09:18→22:11)
[2017-11-10] MEDS: FentaNYL 100 MCG/2 ML INJECTION IVP PRN (09:43)
[2017-11-10] MEDS: ENOXAPARIN 40 MG/0.4 ML INJECTION SQ SCH (09:45)
--- NOTE | 2017-11-10 09:47 | XRay Report ---
Indication: ileus PROCEDURE: XR KUB w upright: Encounter: Initial Comparison: November 09, 2017 and November 08, 2017 Findings: Nasogastric tube has advanced with the tip now projecting over the second portion of the duodenum. Small pleural effusions. No gross free air. Persistently dilated small bowel in the left upper abdomen measuring up to 4.3 cm in diameter with air-fluid levels. A small amount of colonic gas is present. Midline surgical karlie. Minimal rectal gas is seen. Impression: Continued slight decrease in small bowel distention which may be due to an improving postoperative ileus or decreasing partial small bowel obstruction. .
[2017-11-10] MEDS: BISACODYL 10 MG SUPPOSITORY RECTALLY SCH (10:02)
[2017-11-10] MEDS ORDERED: SALINE FLUSH 10ml SYRINGE ONE (10:34)
[2017-11-10] MEDS ORDERED: IOHEXOL 300mg/ml 75ml INJECTION ONE (10:34)
--- NOTE | 2017-11-10 11:42 | CT Scan Report ---
Indication: worse abd pain, leukocytosis with bandemia PROCEDURE: CT abdomen pelvis w con: Encounter: Initial Comparison: CT abdomen dated November 06, 2017 Technique: Axial CT images were performed through the abdomen and pelvis after the administration of intravenous contrast. Coronal and sagittal two-dimensional reformats. Automated Exposure Control and Iterative Reconstruction dose reducing techniques were utilized. Contrast: Omnipaque 300 100 mL Findings: Increasing small bilateral pleural effusions with lower lobe compressive atelectasis. Slight increase in small to moderate volume ascites with more fluid in the pelvis. Slight increase in hepatic and perisplenic fluid. No liver mass or bile duct dilatation. The spleen is normal in size. Pancreas appears normal. The adrenal glands are stable. Kidneys are normal. Scattered arterial atherosclerotic plaque. Bladder is mildly distended. Sigmoid diverticulosis without focal inflammation to suggest an acute diverticulitis. There is oral contrast within the proximal to mid jejunum. Nasogastric tube is seen extending the tip in the second portion of the duodenum. This is tenting the duodenum. Consider retraction. Proximal small bowel dilatation is slightly improved from the prior study with gas and fluid-filled proximal small bowel loops measuring up to 3.5 cm in diameter. There is new mucosal and wall thickening seen in several left upper quadrant small bowel loops, best appreciated on coronal image #18 near the inferior margin of the spleen. Persistent wall thickening within the distal and terminal ileum as seen on the prior study. No discrete transition point is identified although there is gradual transition from moderately dilated proximal to mid jejunum to normal caliber distal jejunum and ileum. There are 4 tiny punctate foci of free air seen in the right pelvic fluid adjacent to the distal sigmoid colon, seen on axial images 69 and 71. Bony structures are unchanged. Impression: 1. New tiny foci of free air in the pelvis and slight increase in pelvic fluid raising concern for development of a bowel microperforation. The exact site of perforation is not clearly visualized. 2. Persistent small bowel wall thickening in the distal ileum with new areas of wall thickening or inflammation in the left upper quadrant proximal small bowel. This could be due to an infectious or inflammatory enteritis or inflammatory bowel disease. 3. Nasogastric tube tip in the second portion of the duodenum. Recommend retraction. Findings were discussed with Dr. Ramirez at 11:30 on November 10, 2017. .
--- NOTE | 2017-11-10 12:27 | Anesthesia Preoperative Report ---
Anesthesia Preoperative Record - Date and Time Date: 11/10/17 Preoperative Diagnosis: functional small bowel obstruction Proposed Procedure: exploratory laparotomy NPO Since Date: 11/09/17 (on tpn) Allergies/Adverse Reactions: Allergies Allergy/AdvReac Type Severity Reaction Status Date / Time clindamycin Allergy Severe Hallucinati Verified 10/29/17 07:43 ng meperidine [From Demerol] Allergy nausea, Verified 10/28/17 14:37 paranoia morphine AdvReac Confusion Verified 10/29/17 07:43 - Vital Signs Vital Signs: Temperature 100.3 F 11/09/17 23:10 Pulse Rate 97 11/10/17 07:00 Respiratory Rate 16 11/10/17 09:43 Blood Pressure 146/71 H 11/10/17 07:00 Pulse Oximetry 93 11/10/17 09:31 Height and Weight: Height 1.55 m Weight 54.7 kg Body Mass Index 19.8 - Medications Inpatient Medications: Current Medications Acetaminophen (Tylenol) 650 mg PO Q5HR PRN PRN Reason: Pain Last Admin: 11/09/17 10:39 Dose: 650 mg Bisacodyl (Dulcolax) 10 mg RECTALLY BID [facility] Last Admin: 11/10/17 10:02 Dose: Not Given Enoxaparin Sodium (Lovenox) 40 mg SQ DAILY [facility] Last Admin: 11/10/17 09:45 Dose: 40 mg Fentanyl (Fentanyl) 25 mcg IVP Q30M PRN PRN Reason: Pain Last Admin: 11/10/17 09:43 Dose: 25 mcg Hydralazine HCl (Apresoline) 10 mg IVP Q6H PRN PRN Reason: elevated blood pressure Fluconazole (Diflucan 200 Mg Premix) 200 mg in 100 mls @ 100 mls/hr IV Q24H [facility] Last Infusion: 11/09/17 17:14 Dose: Infused Azithromycin 250 mg/ Sodium (Chloride) 250 mls @ 250 mls/hr IV Q24H [facility] Last Infusion: 11/09/17 15:26 Dose: Infused Fat Emulsion Intravenous (Intralipid 20%) 250 mls @ 50 mls/hr IV 1600 [facility] Last Admin: 11/09/17 16:22 Dose: 50 mls/hr Meropenem 1 gm/ Sodium (Chloride) 50 mls @ 100 mls/hr IV Q8HR [facility] Last Admin: 11/10/17 09:22 Dose: 100 mls/hr Multivitamins/Minerals 10 ml/Chromium/Copper/Manganese/Zinc 1 ml/ Sodium Chloride 100 meq / Amino Acids/Electrolytes/Dextrose 2,036 mls @ 82 mls/hr IV .Q24H [facility]; Protocol Stop: 11/10/17 15:59 Last Admin: 11/09/17 16:24 Dose: 82 mls/hr Multivitamins/Minerals 10 ml/Chromium/Copper/Manganese/Zinc 1 ml/ Sodium Chloride 120 meq / Amino Acids/Electrolytes/Dextrose 2,041 mls @ 82 mls/hr IV .Q24H [facility] Ketorolac Tromethamine (Toradol Inj) 15 mg IVP Q6H PRN PRN Reason: Pain Last Admin: 11/10/17 09:15 Dose: 15 mg Lorazepam (Ativan Inj) 0.5 mg IVP O PRN Last Admin: 11/09/17 22:35 Dose: 0.5 mg Losartan Potassium (Cozaar) 25 mg PO BID [facility] Last Admin: 11/09/17 22:35 Dose: Not Given Methimazole (Tapazole) 2.5 mg PO DAILY [facility] Last Admin: 11/09/17 10:39 Dose: 2.5 mg Metoclopramide HCl (Reglan) 10 mg IVP Q6HR [facility] Last Admin: 11/10/17 09:12 Dose: 10 mg Ondansetron HCl (Zofran) 4 mg IVP Q6H PRN PRN Reason: Nausea &/or vomiting Last Admin: 11/05/17 22:00 Dose: 4 mg Ondansetron HCl (Zofran) 4 mg IVP Q6H PRN PRN Reason: Nausea &/or vomiting Pantoprazole Sodium (Protonix Iv) 40 mg IVP BID [facility] Last Admin: 11/10/17 09:18 Dose: 40 mg Sodium Chloride (Iv Flush) 10 - 80 ml IVF PRN PRN PRN Reason: Flushing Last Admin: 11/09/17 16:29 Dose: 60 ml Sodium Chloride (Normal Saline) 500 ml IV PRN PRN PRN Reason: FLUSH Last Admin: 11/06/17 11:32 Dose: 500 ml Throat Lozenges (Chloraseptic [place]) 3 spray PO Q2H PRN Last Admin: 11/01/17 12:04 Dose: 3 spray Home Medications: Home Medications Medication Instructions Recorded Confirmed Type Albuterol HFA Inhaler [Ventolin 2 puff INH Q6H PRN 10/28/17 10/28/17 History Hfa 90 mcg/actuation] DiphenhydrAMINE [Benadryl] 25 mg PO Q4H PRN 10/28/17 10/28/17 History Losartan [Cozaar] 25 mg PO BID 10/28/17 10/28/17 History MethIMAzole [Tapazole] 2.5 mg PO DAILY 10/28/17 10/28/17 History Ranitidine [Zantac] 150 mg PO BID 10/28/17 10/28/17 History guaiFENesin [Mucinex] 600 mg PO Q12H PRN 10/28/17 10/28/17 History Is Patient on Beta Ronaldo?: No - Medical History Respiratory: Reports: Pneumonia (july 2016), Other (chronic cough) DENIES: Sleep Apnea Cardiovascular: Reports: Hypertension (R/T RENAL ARTERY BLOCKAGE) Gastrointestional: Reports: Gastroesophageal Reflux Disease, Hiatal Hernia DENIES: Nausea or Vomiting Present Neuro/Musculoskeletal: Reports: Depression Renal/Endocrine: Reports: Thyroid Disease (thyroid ablation) - Surgical History HEENT Surgeries: Reports: Ear Surgery (cataracts bilateral), Tonsillectomy Cardiac Surgeries/Treatments: Reports: Cardiac Catheterization (2006), Other (r/ t right renal artery blockage) DENIES: Pacemaker GI Surgery/Treatments: Reports: Cholecystectomy Musculoskeletal Surgery/Tx: Reports: Other (L SHOULDER) Reproductive Surgery/Treatment: Reports: Breast Augmentation/Reduction, Hysterectomy DENIES: Mastectomy Anesthesia Reactions: None Hx Family Anesthesia Reaction: No History of Motion Sickness: No - Social History Smoking Status: Former smoker Hx Chewing Tobacco Use: No Second Hand Exposure: No Substance Use Type: does not use Alcohol Intake Frequency: does not drink - Pertinent Findings Laboratory: CBC and BMP 11/10/17 04:15 11/10/17 04:15 BMP 11/10/17 04:15 Sodium 132 L Potassium 3.8 Chloride 101 Carbon Dioxide 25 BUN 22.0 H Creatinine 0.5 L Glucose 89 Calcium 8.0 L Liver Function 11/10/17 Range/Units 04:15 Albumin 2.8 L (3.5-5.0) g/dL EKG: Sinus Rhythm, First Degree AV Block - Physical Exam Respiratory Exam: Present: lungs clear, bilateral breath sounds equal Cardiovascular Exam: Present: regular rate and rhythm - Airway Assessment Mallampati Score: II TMD: 3 Fingerbreadths Neck Extension: fair Overall Assessment: no airway concerns - ASA ASA Score: 3, E - Plan Anesthesia: General Inhalation Gases - Discussion Discussion: Discussed risks/options/alternatives of anesthesia and questions answered. Patient consents. Nursing pain assessment noted. Present for Discussion: family member Attestation Statement: Prior to the delivery of any anesthetic medication, I examined the patient, developed the plan, obtained the patient's consent and discussed the risk and benefits of the procedure with the patient/guardian. - Additional Information Seen by Anesthesia: Yes
[2017-11-10] MEDS ORDERED: LR 1,000 ML IV SCH (12:30)
[2017-11-10] MEDS ORDERED: SUCCINYLCHOLINE 20mg/mL 10mL INJECTION ONE (12:58)
[2017-11-10] MEDS ORDERED: ROCURONIUM 50 MG/5 ML INJECTION IVP ONE ×2 (12:58→14:02)
[2017-11-10] MEDS ORDERED: PROPOFOL 20 ML ONE (12:58)
[2017-11-10] MEDS ORDERED: FentaNYL 250 MCG/5 ML INJECTION ONE (13:15)
[2017-11-10] MEDS: LR 1,000 ML IV SCH ×2 (13:19→17:03)
[2017-11-10] MEDS ORDERED: SUGAMMADEX 200mg/2ml INJECTION IVP ONE (14:44)
[2017-11-10] MEDS: AZITHROMYCIN IV 250 MG in NS 250 ML IV SCH (15:02)
--- NOTE | 2017-11-10 15:24 | General Surgery Procedure Note ---
Date of Procedure: 11/10/17 Surgeon: Ashley Boiler Attendant: Alex Rojo APRN Postoperative Diagnosis: Diverticulitis with microperforation and peritonitis Procedure: Exploratory laparotomy with sigmoid resection and creation of end colostomy with Ramirez's pouch. Estimated Blood Loss: See Anesthesia Record.
[2017-11-10] MEDS ORDERED: FentaNYL 100 MCG/2 ML INJECTION ONE (15:26)
--- NOTE | 2017-11-10 15:31 | Progress Note ---
- Date 11/10/17 Subjective: Patient is seen this morning with 3 of her sons. She had a rough night. She had increasing abdominal pain and felt that her NG tube was not suctioning correctly. Patient and family are very concerned because she seems to have worsened overnight. This morning her white count was up from 17.7-24.3 and she spiked a temp of 100.3 before midnight. Nicolle Ochoa APRN with Dr. Ramirez his already been in to see patient this morning and has ordered lactate, blood cultures 2, chest x-ray, and CT abdomen pelvis for further evaluation. When I arrived to see patient this morning, nursing staff informed me that the family would like to transfer patient to [place], [place] where her son is the INSTRUMENT PROCESSING TECH of a hospital. They have already made arrangements for a doc to doc phone call to facilitate transfer. As patient had already received contrast for her CT, we discussed proceeding with CT scan prior to transfer as, otherwise, she would have to repeat contrast for CT in the [facility]. They did agree to proceed with a CT scan here. Once the results of this were available, Dr. Ramirez discussed options with patient and family as she was found to have new tiny foci of free air in the pelvis and slight increase in pelvic fluid raising the concern for development of a bowel microperforation. Family reports to me that Dr. Ramirez discussed patient's case with the surgeon in [place], [place], and both surgeons agreed that patient would be better off having the surgery here. Dr. Ramirez plans to proceed with surgery as soon as patient can be prepped. Objective Vital signs: Temperature 100 F 11/10/17 12:33 Pulse Rate 90 11/10/17 12:41 Respiratory Rate 16 11/10/17 12:33 Blood Pressure 140/76 H 11/10/17 12:41 Pulse Oximetry 87 L 11/10/17 12:41 Height/Weight/BMI: Height 1.55 m Weight 54.7 kg Body Mass Index 19.8 - Constitutional Present: mild distress, well nourished, well developed - Routine HEENT Exam Head: Present: normocephalic, atraumatic - Routine Respiratory Exam Present: CTA bilaterally (anteriorly). Absent: wheezes - Routine Cardiovascular Exam Present: RRR, no murmur - Routine Abdominal Exam Present: tenderness (diffuse), distended. Absent: normoactive bowel sounds Comments: sluggish - Routine Extremities Exam Present: no edema, normal capillary refill - Routine Skin Exam Present: dry, warm - Routine Neurological Exam Present: alert, oriented X3 - Routine Lymphatic Exam Lymphatic: Absent: adenopathy - Routine Psychiatric Exam Present: normal affect, cooperative, anxious Results - Labs CBC & Chem 7: 11/10/17 04:15 11/10/17 04:15 Microbiology Results: Microbiology 11/10/17 13:17 Peritoneum Gram Stain - Final Not performed 11/10/17 13:17 Peritoneum Surgical Culture - Preliminary Culture Initiated - Results Pending 11/10/17 08:45 Port/Picc Blood Culture - Preliminary Culture Initiated - Results Pending 11/10/17 08:50 Port/Picc Blood Culture - Preliminary Culture Initiated - Results Pending 11/02/17 15:12 Peritoneal Fluid Gram Stain - Final 11/02/17 15:12 Peritoneal Fluid Body Fluid Culture - Final Escherichia coli Jordan albicans Pseudomonas aeruginosa Other Tamie Observed - Imaging and Cardiology CT scan - abdomen Additional comments: Date of Exam: 11/10/17 Indication: worse abd pain, leukocytosis with bandemia PROCEDURE: CT abdomen pelvis w con: Findings: Increasing small bilateral pleural effusions with lower lobe compressive atelectasis. Slight increase in small to moderate volume ascites with more fluid in the pelvis. Slight increase in hepatic and perisplenic fluid. No liver mass or bile duct dilatation. The spleen is normal in size. Pancreas appears normal. The adrenal glands are stable. Kidneys are normal. Scattered arterial atherosclerotic plaque. Bladder is mildly distended. Sigmoid diverticulosis without focal inflammation to suggest an acute diverticulitis. There is oral contrast within the proximal to mid jejunum. Nasogastric tube is seen extending the tip in the second portion of the duodenum. This is tenting the duodenum. Consider retraction. Proximal small bowel dilatation is slightly improved from the prior study with gas and fluid-filled proximal small bowel loops measuring up to 3.5 cm in diameter. There is new mucosal and wall thickening seen in several left upper quadrant small bowel loops, best appreciated on coronal image #18 near the inferior margin of the spleen. Persistent wall thickening within the distal and terminal ileum as seen on the prior study. No discrete transition point is identified although there is gradual transition from moderately dilated proximal to mid jejunum to normal caliber distal jejunum and ileum. There are 4 tiny punctate foci of free air seen in the right pelvic fluid adjacent to the distal sigmoid colon, seen on axial images 69 and 71. Bony structures are unchanged. Impression: 1. New tiny foci of free air in the pelvis and slight increase in pelvic fluid raising concern for development of a bowel microperforation. The exact site of perforation is not clearly visualized. 2. Persistent small bowel wall thickening in the distal ileum with new areas of wall thickening or inflammation in the left upper quadrant proximal small bowel. This could be due to an infectious or inflammatory enteritis or inflammatory bowel disease. 3. Nasogastric tube tip in the second portion of the duodenum. Recommend retraction. Chest x-ray Additional comments: Date of Exam: 11/10/17 INDICATION: leukocytosis, fever, PROCEDURE: CHEST 2-VIEWS UPRIGHT (PA & LAT) FINDINGS: Nasogastric tube remains in place. Right PICC line is stable in position. There is increasing airspace opacity in both lower lobes with small bilateral effusions. No pneumothorax. Upper lobes are clear. Heart size and mediastinal contours are stable. Pulmonary vascularity is unchanged. Dilated small bowel loops are again noted below the diaphragm. Impression: Increasing lower lobe atelectasis or pneumonia with small effusions. KUB/upright Additional comments: Date of Exam: 11/10/17 Indication: ileus PROCEDURE: XR KUB w upright: Findings: Nasogastric tube has advanced with the tip now projecting over the second portion of the duodenum. Small pleural effusions. No gross free air. Persistently dilated small bowel in the left upper abdomen measuring up to 4.3 cm in diameter with air-fluid levels. A small amount of colonic gas is present. Midline surgical karlie. Minimal rectal gas is seen. Impression: Continued slight decrease in small bowel distention which may be due to an improving postoperative ileus or decreasing partial small bowel obstruction. Assessment and Plan (1) SBO (small bowel obstruction) Current visit: Yes Status: Acute Assessment and Plan: Assessment Small bowel obstruction - release of incarcerated internal hernia by adhesiolysis by Dr. Bryant 11/02/17 Prolonged postop ileus Abdominal pain, n/v secondary to SBO (colonoscopy 2010 -diverticular disease, EGD 2014 - gastritis/+H pylori) Leukocytosis - POA Hyponatremia - POA Hyperthyroidism - RA iodine ablation 07/18 (Follows with Dr. Bianchi) Anxiety Migraine GERD Dyslipidemia Hypertension Diverticulosis with history of recurrent diverticulitis H/o gastritis/+h pylori Mild metabolic acidosis-resolved Plan -POD #8. OP day for second surgery due to possible microperforation by Dr. Ramirez. Patient with increasing abdominal pain, abdominal distention, and increase in white count and development of fever. CT abdomen/pelvis resulting in possibility of microperforation leading to emergent surgery with Dr. Ramirez at the present time. Patient continues on meropenem. Today is day #3. (Converted from Zosyn (11/02 - 7/ ) due to DARCIE) for e coli and pseudomonas in peritoneal fluid. Day #8 of Diflucan for jordan in peritoneal fluid. Sodium still low but currently stable 130-->132-->132. Continues on PPN and ice chips. Blood pressure and pulse are stable. Patient is requiring 2 L oxygen. There is question on chest x-ray of lower lobe atelectasis versus pneumonia. Blood cultures are pending. Lactate was normal. Sputum culture has been ordered. Given that she's been on broad coverage antibiotics and she has been breathing shallow due to pain in the abdomen, suspect findings on x-ray are more apt to be atelectasis. Add Acapella and DuoNeb treatments for pulmonary toilet. Patient has been having liquid stools - c diff neg. Will discuss case with Dr. Ramirez following surgery and continue to monitor pt closely. - Physician Narrative Physician: other Narrative: Date: 11/10/17 Time: 1515 patient seen and examined in tandem with MADAI Wright. Agree with above physical exam, findings, labs, assessment and plan. At 10 AM vitals were stable and patient was alert and coherent. Physical exam revealed a globally tender and slightly distended abdomen. Patient appeared in moderate discomfort and anxious. Case discussed with patient and her 3 present sons in the room. Initially prior to CT confirmation, there was some suspicion voiced that the patient had had prior peritoneal infection based upon the positive findings of Pseudomonas, E. coli and candidiasis that would've predated a recent micro perforation secondary to the incarcerated hernia. CT findings appear to corroborate this and Dr. Ramirez's willingness and capacity to surgically managed this patient appears to be timely and most beneficial. Sepsis Assessment - Evaluation SIRS Criteria: WBC < 4,000 Hospital Course Summary Disclaimer: The visit summary below is not to be considered part of the above Progress Note. Hospital Course: 10/28/17 Admit, IP. Stay expected to exceed 2 overnights for tx of enteritis and resolution of SBO. Consult Dr. Nixon. Zosyn and Solumedrol for tx of enteritis. NPO. NG tube. (Pt declines at present. If n/v/pain persists despite current pain/nausea tx, will proceed.) IVF's - 1L bolused in ER. Continue NS at 125cc/hr. This should address her hyponatremia as well. Repeat labs in am to follow blood counts and electrolytes. Protonix IV for GERD and GI ppx. Lovenox for VTE ppx. Full code. PCP - MADAI Gage 10/29/17 Patient's pain is less. Leukocytosis improved from 18.7--> 14.5. Continues on Zosyn and Solumedrol. Consider decreasing Solumedrol dose later today. Remains NPO. IVF's running at 125cc's/hr. Electrolytes stable. Hyponatremia resolved 130-->136. Continue IV pain meds and antiemetics PRN. (Hasn't required since 1800 last shereen. ) Continue IV pantoprazole for GI ppx/GERD. 10/30/17 Patient did have a small bowel movement this morning. No significant flatus. Abdomen feels a little more distended, full and uncomfortable today. She appears in no distress and has not required any pain medication since receiving IV acetaminophen yesterday afternoon. She has not had any nausea or vomiting. She does not have an NG in place. NG placement was attempted on the evening of admission but was difficult, and the patient refused further attempts. We'll continue Solu-Medrol for possible Crohn's disease. Continue Zosyn for now. Discussed with Dr. Nixon, he will see the patient later today. Abdominal films look about the same today. We'll start IV nutrition. Discussed with the pharmacist today, we do not have any TPN. Will start PPN today. 10/31/17 Patient continues to have abdominal discomfort, distention, and continued dilated loops of small bowel on abdominal x-rays. Pain is tolerable. She had 2 small bowel movements this morning. IV Tylenol does help her pain. Continue with IV Solu-Medrol for suspected Crohn's. Continue Zosyn for now. White count is elevated, at this point likely secondary to steroids. The patient has remained afebrile. Regarding nutrition, TPN is not available due to a shortage, PPN was started yesterday and is being given in the midline since she had pain with infusion in a peripheral site. CBC, CMP, and phosphorus tomorrow Repeat C-reactive protein today We'll discuss today with Dr. Nixon 11/01/17 Patient continues to have abdominal discomfort, distention, and continued dilated loops of small bowel on abdominal x-rays. Patient agreed to attempt placement of NG tube again which was successful. Will continue NG tube with low suction. Maintain NPO status. Patient disclosed her father and 2 cousins had a history of lymphoma of the ileum while discussing treatment options with Dr. Nixon. Patient is now more open to idea of surgical intervention if needed. Will re- evaluate pain and distention in AM with possible surgery tomorrow afternoon. Will hold lovenox in AM in anticipation of surgery tomorrow, 11/02/17. Continue with IV Solu-Medrol for suspected Crohn's. Continue Zosyn for now. White count is trending up, at this point likely secondary to steroids. The patient has remained afebrile. PPN was started 10/30/17 and is being given in the midline since she had pain with infusion in a peripheral site. CBC, CMP, and phosphorus tomorrow CRP trending down. Discussed with Dr. Nixon, family and Dr. Duckworth. 11/02/17 Patient continues to have abdominal discomfort and distention. See by Dr. Nixon yesterday and probable surgical intervention today at 1430. Will continue NG tube with low suction. Maintain NPO status. Lovenox held this morning in preparation for anticipated surgery. Continue with IV Solu-Medrol for suspected Crohn's. Continue Zosyn for now. WBC trending down. Patient remains afebrile. New hyponatremia (Na 135) with hypokalemia (K 3.4). Pharmacy managing PPN. Patient given KCl 20 mEq IV yesterday in addition to additional KCl added to PPN per pharmacy. Will given additional KCl 20 mEq IV today and continue to monitor closely. PPN was started 10/30/17 and is being given in the midline since she had pain with infusion in a peripheral site. Mag slightly decreased at 2.4. Will discuss with pharmacy. CRP trending up - 34.5 on 10/31/17 -->87.4 today. Continue to monitor. 11/03/17 POD #1 S/p release of incarcerated internal hernia by adhesiolysis by Dr. Nixon NG tube with low suction. Continues NPO. IV Solu-Medrol and Zosyn were DC'd yesterday following surgery as there was no evidence of Crohn's. WBC up today - likely post-op elevation. LFT's just slightly elevated. Na 133. Will follow. Continues on PPN (started 10/30/17). Blood noted in llanos - check UA. Peritoneal culture revealed E.coli, few gram positive cocci and yeast. Rocephin and Diflucan initiated. 11/04/17 POD #2 NG tube with low suction--> clamps later in the day with good tolerance. Continues NPO. Hopeful bowels will begin moving and NG can be removed in the near future with slow initiation of oral intake. No BM at time of exam. WBC trending down. Bandemia improving. Remains afebrile. LFTs returned to normal range. Continue to monitor closely. Persistent hyponatremia (Na 133). Continue to monitor. Continues on PPN (started 10/30/17). Hopeful to start oral intake in the near future. Surgery managing. UA unremarkable. Will discontinue Llanos and monitor patient closely. 11/05/17 POD #3 NG tube removed last night. Advanced to clear liquids -not wanting to take in much po d/t abd bloating/no appetite. Continue PPN per pharmacy for nutrition. Received dilaudid last night and had nausea, headache and dizziness. Headache and nausea persisting. Will give Tylenol po and Reglan now. Use Toradol and/or Tylenol for pain and avoid narcs if possible. Persistent hyponatremia (Na 131). Continue to monitor. 02 requirement down to 1L from 3L. Using IS. Ambulating. Day #3 of Rocephin and Diflucan for peritoneal culture w/ E.coli, few gram positive cocci and yeast. WBC 18.8-->22.4. Afebrile. Home Losartan and methimazole resumed last night. 7/11/17 POD #4 White count continues to trend up, currently at 23.3. Bands have also increased to 9%. She has having increased abdominal symptoms with indigestion, nausea and bloating. Discussed with Dr. Collins. Will obtain CT abdomen and pelvis with IV contrast. Expand Antibiotics to Zosyn. Continue Diflucan. Peritoneal fluid culture showed moderate growth of Escherichia coli and light growth of Jordan albicans. Continue PPN. Hyponatremia persists, stable at 131. Patient is off oxygen this morning. She is afebrile and hemodynamically stable. NG replaced due to recurrent GI symptoms and CT findings suggesting ileus but no abscess. 7 POD #5 White count remains elevated but slightly lower than yesterday with decreased percent bands. Afebrile. More comfortable overall following replacement of NG; continues to have active bowel sounds and pass gas. Repeat flat/upright KUBs in a.m. Continue Zosyn, serous fluid described intraoperatively in excess of what was anticipated prompting decision to send sample for culture. Continue Diflucan for culture finding of probable Jordan. Blood pressure stable. Remains on low-dose methimazole after radioactive iodine ablation in July; will clarify with Endo if appropriate to recheck thyroid levels. Hemoglobin stable as are electrolytes although sodium remains borderline low. 11/08/17 POD #6 Replacement of NG overnight; continues to have active bowel sounds and passing gas, no BM since prior to surgery. KUB films pending this am. White count remains elevated. Dc Zosyn and start Meropenem for serous fluid described intraoperatively in excess of what was anticipated. E coli and pseudomonas cultured. DARCIE's are now resulted showing lower DARCIE w/ Meropenem compared to Zosyn. Continue Diflucan for culture finding of probable Jordan. Sodium remains low 131-->130. Continues on PPN and clear liquids. 11/09/17 POD #7 Patient looking and feeling much better today. Has had NG tube clamped off and on and has tolerated it well thus far. Patient has passed some stool and continues to pass gas. KUB films pending this am. White count has improved. Day #2 of meropenem (converted from Zosyn (11/02 - 11/08) due to DARCIE) for e coli and pseudomonas in peritoneal fluid. Day #7 of Diflucan for jordan in peritoneal fluid. Sodium still low but improving 130-->132. Continues on PPN and ice chips. Would like to go to IRU on d/c 11/10/2017 surgery She experienced significantly increase in pain late evening, NG advanced and pain meds given, she feel better this am. WBC with increase to 24.3 (17.7 yesterday) with bandemia Llanos removed yesterday Still on oxygen, sat drops to upper 80's on room air Low grade fever of 100.3 during the nite.\ Will further evaluate leukocytosis, fever, weakness with CXR, blood cultures and u/a. Dr. Ramirez eval the patient as well, also getting CT abd/pelvis and serum lactate. 11/10/17-POD #8. OP day for second surgery due to possible microperforation by Dr. Ramirez. Patient with increasing abdominal pain, abdominal distention, and increase in white count and development of fever. CT abdomen/pelvis resulting in possibility of microperforation leading to emergent surgery with Dr. Ramirez at the present time. Patient continues on meropenem. Today is day #3. (Converted from Zosyn (11/02 - 11/08) due to DARCIE) for e coli and pseudomonas in peritoneal fluid. Day #8 of Diflucan for jordan in peritoneal fluid. Sodium still low but currently stable 130-->132-->132. Continues on PPN and ice chips. Blood pressure and pulse are stable. Patient is requiring 2 L oxygen. There is question on chest x-ray of lower lobe atelectasis versus pneumonia. Blood cultures are pending. Lactate was normal. Sputum culture has been ordered. Given that she's been on broad coverage antibiotics and she has been breathing shallow due to pain in the abdomen, suspect findings on x-ray are more apt to be atelectasis. Add Acapella and DuoNeb treatments for pulmonary toilet. Patient has been having liquid stools - c diff neg. Will discuss case with Dr. Ramirez following surgery and continue to monitor pt closely.
[2017-11-10] MEDS ORDERED: ALBUTEROL 2.5mg/3ml (0.083%) NEB AEROSOL ONE (15:48)
[2017-11-10] MEDS ORDERED: SODIUM CHLORIDE IV SCH (16:00)
[2017-11-10] MEDS ORDERED: [UNRECOGNIZED DRUG - OTHER] IV SCH (16:00)
[2017-11-10] MEDS ORDERED: MULTI VIT INFUSION IV SCH (16:00)
[2017-11-10] MEDS ORDERED: MULTI TRACE ELEMENTS IV SCH (16:00)
[2017-11-10] MEDS ORDERED: BUPIVACAINE 0.25%/EPI 1:200,000 30ml SDV ONE (16:12)
[2017-11-10] MEDS: ONDANSETRON 4 MG/2 ML INJECTION IVP PRN (16:25)
--- NOTE | 2017-11-10 16:29 | Anesthesia Procedure Note ---
Peripheral Nerve Blockade - Procedure Physician: Junior Chavarria MD Date: 11/10/17 Surgical Procedure: exploratory laparotomy Discussion: Discussed risks/options/alternatives of anesthesia and questions answered. Patient consents. Nursing pain assessment noted. Block Start: 16:15 Block Stop: 16:24 Block Employed: Transverse Abdominus Plane-Right, Transverse Abdominus Plane- Left Indication: Post-Operative Pain Approach: Bilateral Sides Confirmed Position: Supine Patient: Consent, Risks/Benefits Discussed, Informed, Post Block Act. Discussed IV Sedation: No Initial Vital Signs: Temperature 98.8 F 10/28/17 14:25 Temperature Source Oral 10/28/17 14:25 Sepsis Recent Fever Within 48 Hours No 10/28/17 14:25 Sepsis Suspicion of Infection No 10/28/17 14:25 Sepsis New/Unexplained Change in Mental Status No 10/28/17 14:25 Sepsis Score/Level No Definite Risk 10/28/17 14:25 Sepsis Action Taken by Nursing No Action 10/28/17 14:25 Pulse Rate 95 10/28/17 14:25 Pulse Rhythm 10/28/17 14:25 Respiratory Rate 20 10/28/17 14:25 Blood Pressure 155/66 H 10/28/17 14:25 Blood Pressure Mean 95 10/28/17 14:25 Pulse Oximetry 95 10/28/17 14:25 Oxygen Delivery Method 10/28/17 14:25 Post Vital Signs: Temperature 98.2 F 11/10/17 15:33 Pulse Rate 100 11/10/17 15:33 Respiratory Rate 16 11/10/17 15:44 Blood Pressure 148/67 H 11/10/17 15:33 Pulse Oximetry 92 11/10/17 15:44 Initial Pain Pain Score: 7 Post Block Pain Score: 2 Ultrasound Used?: Yes - Injectate Bupivacaine (%): 0.2 Bupivacaine (mL): 50 Was Epi 1:200,000 Used?: Yes Injection: Injection made incrementally with constant monitoring and aspiration every ml
[2017-11-10] MEDS ORDERED: FentaNYL 100 MCG/2 ML INJECTION IVP PRN (16:37)
--- NOTE | 2017-11-10 16:39 | Progress Note ---
- Date 11/10/17 Objective Vital signs: Temperature 98.2 F 11/10/17 15:33 Pulse Rate 83 11/10/17 16:30 Respiratory Rate 17 11/10/17 16:30 Blood Pressure 135/63 11/10/17 16:30 Pulse Oximetry 94 11/10/17 16:10 Height/Weight/BMI: Height 5 ft 1 in Weight 54.7 kg Body Mass Index 19.8 Results - Labs CBC & Chem 7: 11/10/17 04:15 11/10/17 04:15 Microbiology Results: Microbiology 11/10/17 13:17 Peritoneum Gram Stain - Final 11/10/17 13:17 Peritoneum Surgical Culture - Preliminary Culture Initiated - Results Pending 11/10/17 08:45 Port/Picc Blood Culture - Preliminary Culture Initiated - Results Pending 11/10/17 08:50 Port/Picc Blood Culture - Preliminary Culture Initiated - Results Pending 11/02/17 15:12 Peritoneal Fluid Gram Stain - Final 11/02/17 15:12 Peritoneal Fluid Body Fluid Culture - Final Escherichia coli Jordan albicans Pseudomonas aeruginosa Other Tamie Observed Assessment and Plan (1) SBO (small bowel obstruction) Current visit: Yes Status: Acute Assessment and Plan: Assessment Small bowel obstruction - release of incarcerated internal hernia by adhesiolysis by Dr. Bryant 11/02/17 Prolonged postop ileus Abdominal pain, n/v secondary to SBO (colonoscopy 2010 -diverticular disease, EGD 2014 - gastritis/+H pylori) Leukocytosis - POA Hyponatremia - POA Hyperthyroidism - RA iodine ablation 07/18 (Follows with Dr. Bianchi) Anxiety Migraine GERD Dyslipidemia Hypertension Diverticulosis with history of recurrent diverticulitis H/o gastritis/+h pylori Mild metabolic acidosis-resolved Plan -POD #8. OP day for second surgery due to possible microperforation by Dr. Ramirez. Patient with increasing abdominal pain, abdominal distention, and increase in white count and development of fever. CT abdomen/pelvis resulting in possibility of microperforation leading to emergent surgery with Dr. Ramirez at the present time. Patient continues on meropenem. Today is day #3. (Converted from Zosyn (11/02 - 11/08) due to DARCIE) for e coli and pseudomonas in peritoneal fluid. Day #8 of Diflucan for jordan in peritoneal fluid. Sodium still low but currently stable 130-->132-->132. Continues on PPN and ice chips. Blood pressure and pulse are stable. Patient is requiring 2 L oxygen. There is question on chest x-ray of lower lobe atelectasis versus pneumonia. Blood cultures are pending. Lactate was normal. Sputum culture has been ordered. Given that she's been on broad coverage antibiotics and she has been breathing shallow due to pain in the abdomen, suspect findings on x-ray are more apt to be atelectasis. Add Acapella and DuoNeb treatments for pulmonary toilet. Patient has been having liquid stools - c diff neg. Will discuss case with Dr. Ramirez following surgery and continue to monitor pt closely. - Physician Narrative Narrative: Date: 11/10/17 Time: 1639 Hospital Course Summary Disclaimer: The visit summary below is not to be considered part of the above Progress Note. Hospital Course: 10/28/17 Admit, IP. Stay expected to exceed 2 overnights for tx of enteritis and resolution of SBO. Consult Dr. Nixon. Zosyn and Solumedrol for tx of enteritis. NPO. NG tube. (Pt declines at present. If n/v/pain persists despite current pain/nausea tx, will proceed.) IVF's - 1L bolused in ER. Continue NS at 125cc/hr. This should address her hyponatremia as well. Repeat labs in am to follow blood counts and electrolytes. Protonix IV for GERD and GI ppx. Lovenox for VTE ppx. Full code. PCP - MADAI Gage 10/29/17 Patient's pain is less. Leukocytosis improved from 18.7--> 14.5. Continues on Zosyn and Solumedrol. Consider decreasing Solumedrol dose later today. Remains NPO. IVF's running at 125cc's/hr. Electrolytes stable. Hyponatremia resolved 130-->136. Continue IV pain meds and antiemetics PRN. (Hasn't required since 1799 last [facility]. ) Continue IV pantoprazole for GI ppx/GERD. 10/30/17 Patient did have a small bowel movement this morning. No significant flatus. Abdomen feels a little more distended, full and uncomfortable today. She appears in no distress and has not required any pain medication since receiving IV acetaminophen yesterday afternoon. She has not had any nausea or vomiting. She does not have an NG in place. NG placement was attempted on the evening of admission but was difficult, and the patient refused further attempts. We'll continue Solu-Medrol for possible Crohn's disease. Continue Zosyn for now. Discussed with Dr. Nixon, he will see the patient later today. Abdominal films look about the same today. We'll start IV nutrition. Discussed with the pharmacist today, we do not have any TPN. Will start PPN today. 10/31/17 Patient continues to have abdominal discomfort, distention, and continued dilated loops of small bowel on abdominal x-rays. Pain is tolerable. She had 2 small bowel movements this morning. IV Tylenol does help her pain. Continue with IV Solu-Medrol for suspected Crohn's. Continue Zosyn for now. White count is elevated, at this point likely secondary to steroids. The patient has remained afebrile. Regarding nutrition, TPN is not available due to a shortage, PPN was started yesterday and is being given in the midline since she had pain with infusion in a peripheral site. CBC, CMP, and phosphorus tomorrow Repeat C-reactive protein today We'll discuss today with Dr. Nixon 11/01/17 Patient continues to have abdominal discomfort, distention, and continued dilated loops of small bowel on abdominal x-rays. Patient agreed to attempt placement of NG tube again which was successful. Will continue NG tube with low suction. Maintain NPO status. Patient disclosed her father and 2 cousins had a history of lymphoma of the ileum while discussing treatment options with Dr. Nixon. Patient is now more open to idea of surgical intervention if needed. Will re- evaluate pain and distention in AM with possible surgery tomorrow afternoon. Will hold lovenox in AM in anticipation of surgery tomorrow, 11/02/17. Continue with IV Solu-Medrol for suspected Crohn's. Continue Zosyn for now. White count is trending up, at this point likely secondary to steroids. The patient has remained afebrile. PPN was started 10/30/17 and is being given in the midline since she had pain with infusion in a peripheral site. CBC, CMP, and phosphorus tomorrow CRP trending down. Discussed with Dr. Nixon, family and Dr. Duckworth. 11/02/17 Patient continues to have abdominal discomfort and distention. See by Dr. Nixon yesterday and probable surgical intervention today at 1430. Will continue NG tube with low suction. Maintain NPO status. Lovenox held this morning in preparation for anticipated surgery. Continue with IV Solu-Medrol for suspected Crohn's. Continue Zosyn for now. WBC trending down. Patient remains afebrile. New hyponatremia (Na 135) with hypokalemia (K 3.4). Pharmacy managing PPN. Patient given KCl 20 mEq IV yesterday in addition to additional KCl added to PPN per pharmacy. Will given additional KCl 20 mEq IV today and continue to monitor closely. PPN was started 10/30/17 and is being given in the midline since she had pain with infusion in a peripheral site. Mag slightly decreased at 2.4. Will discuss with pharmacy. CRP trending up - 34.5 on 10/31/17 -->87.4 today. Continue to monitor. 11/03/17 POD #1 S/p release of incarcerated internal hernia by adhesiolysis by Dr. Nixon NG tube with low suction. Continues NPO. IV Solu-Medrol and Zosyn were DC'd yesterday following surgery as there was no evidence of Crohn's. WBC up today - likely post-op elevation. LFT's just slightly elevated. Na 133. Will follow. Continues on PPN (started 10/30/17). Blood noted in llanos - check UA. Peritoneal culture revealed E.coli, few gram positive cocci and yeast. Rocephin and Diflucan initiated. 11/04/17 POD #2 NG tube with low suction--> clamps later in the day with good tolerance. Continues NPO. Hopeful bowels will begin moving and NG can be removed in the near future with slow initiation of oral intake. No BM at time of exam. WBC trending down. Bandemia improving. Remains afebrile. LFTs returned to normal range. Continue to monitor closely. Persistent hyponatremia (Na 133). Continue to monitor. Continues on PPN (started 10/30/17). Hopeful to start oral intake in the near future. Surgery managing. UA unremarkable. Will discontinue Llanos and monitor patient closely. 11/05/17 POD #3 NG tube removed last night. Advanced to clear liquids -not wanting to take in much po d/t abd bloating/no appetite. Continue PPN per pharmacy for nutrition. Received dilaudid last night and had nausea, headache and dizziness. Headache and nausea persisting. Will give Tylenol po and Reglan now. Use Toradol and/or Tylenol for pain and avoid narcs if possible. Persistent hyponatremia (Na 131). Continue to monitor. 02 requirement down to 1L from 3L. Using IS. Ambulating. Day #3 of Rocephin and Diflucan for peritoneal culture w/ E.coli, few gram positive cocci and yeast. WBC 18.8-->22.4. Afebrile. Home Losartan and methimazole resumed last night. 7 POD #4 White count continues to trend up, currently at 23.3. Bands have also increased to 9%. She has having increased abdominal symptoms with indigestion, nausea and bloating. Discussed with Dr. Collins. Will obtain CT abdomen and pelvis with IV contrast. Expand Antibiotics to Zosyn. Continue Diflucan. Peritoneal fluid culture showed moderate growth of Escherichia coli and light growth of Jordan albicans. Continue PPN. Hyponatremia persists, stable at 131. Patient is off oxygen this morning. She is afebrile and hemodynamically stable. NG replaced due to recurrent GI symptoms and CT findings suggesting ileus but no abscess. 11/07/17 POD #5 White count remains elevated but slightly lower than yesterday with decreased percent bands. Afebrile. More comfortable overall following replacement of NG; continues to have active bowel sounds and pass gas. Repeat flat/upright KUBs in a.m. Continue Zosyn, serous fluid described intraoperatively in excess of what was anticipated prompting decision to send sample for culture. Continue Diflucan for culture finding of probable Jordan. Blood pressure stable. Remains on low-dose methimazole after radioactive iodine ablation in July; will clarify with Endo if appropriate to recheck thyroid levels. Hemoglobin stable as are electrolytes although sodium remains borderline low. 11/08/17 POD #6 Replacement of NG overnight; continues to have active bowel sounds and passing gas, no BM since prior to surgery. KUB films pending this am. White count remains elevated. Dc Zosyn and start Meropenem for serous fluid described intraoperatively in excess of what was anticipated. E coli and pseudomonas cultured. DARCIE's are now resulted showing lower DARCIE w/ Meropenem compared to Zosyn. Continue Diflucan for culture finding of probable Jordan. Sodium remains low 131-->130. Continues on PPN and clear liquids. 11/09/17 POD #7 Patient looking and feeling much better today. Has had NG tube clamped off and on and has tolerated it well thus far. Patient has passed some stool and continues to pass gas. KUB films pending this am. White count has improved. Day #2 of meropenem (converted from Zosyn (11/02 - 11/08) due to DARCIE) for e coli and pseudomonas in peritoneal fluid. Day #7 of Diflucan for jordan in peritoneal fluid. Sodium still low but improving 130-->132. Continues on PPN and ice chips. Would like to go to IRU on d/c 11/10/2017 surgery She experienced significantly increase in pain late evening, NG advanced and pain meds given, she feel better this am. WBC with increase to 24.3 (17.7 yesterday) with bandemia Llanos removed yesterday Still on oxygen, sat drops to upper 80's on room air Low grade fever of 100.3 during the nite.\ Will further evaluate leukocytosis, fever, weakness with CXR, blood cultures and u/a. Dr. Ramirez eval the patient as well, also getting CT abd/pelvis and serum lactate. 11/10/17-POD #8. OP day for second surgery due to possible microperforation by Dr. Ramirez. Patient with increasing abdominal pain, abdominal distention, and increase in white count and development of fever. CT abdomen/pelvis resulting in possibility of microperforation leading to emergent surgery with Dr. Ramirez at the present time. Patient continues on meropenem. Today is day #3. (Converted from Zosyn (11/02 - 11/08) due to DARCIE) for e coli and pseudomonas in peritoneal fluid. Day #8 of Diflucan for jordan in peritoneal fluid. Sodium still low but currently stable 130-->132-->132. Continues on PPN and ice chips. Blood pressure and pulse are stable. Patient is requiring 2 L oxygen. There is question on chest x-ray of lower lobe atelectasis versus pneumonia. Blood cultures are pending. Lactate was normal. Sputum culture has been ordered. Given that she's been on broad coverage antibiotics and she has been breathing shallow due to pain in the abdomen, suspect findings on x-ray are more apt to be atelectasis. Add Acapella and DuoNeb treatments for pulmonary toilet. Patient has been having liquid stools - c diff neg. Will discuss case with Dr. Ramirez following surgery and continue to monitor pt closely.
[2017-11-10] MEDS ORDERED: HYDROMORPHONE 2 MG/ML INJECTION IVP PRN (17:48)
[2017-11-10] MEDS: METOCLOPRAMIDE 10mg/2ml INJECTION IVP PRN (17:55)
[2017-11-10] MEDS ORDERED: FLUCONAZOLE PB 400 MG/200 ML BAG IV SCH (18:00)
[2017-11-10] MEDS: D5-1/2NS with KCL 20mEq 1,000 ML IV SCH (18:14)
--- NOTE | 2017-11-10 18:49 | Progress Note ---
DATE OF SERVICE 11/10/2017 FINDINGS Mrs. Tafoya was seen first thing this morning upon my arrival to the hospital. I have not had time to dictate the progress note from earlier today. Upon entering the room family was present. Family was somewhat upset for the patient unfortunately had made a turn for the worse last evening. I was unaware of this situation. Apparently last evening the patient began to complain of increasing abdominal pain. The patient informed me that she had a "horrible night." She states that her pain had significantly increased. PHYSICAL EXAM VITAL SIGNS: Upon reviewing the patient's chart earlier this morning I did see that she had spiked a fever last evening which she has not done since her admission at 100.3. She was not tachycardic and was normotensive. CHEST: Clear to auscultation bilaterally. HEART: Regular rate and rhythm. Normal S1 and S2 without gallops, murmurs or clicks. ABDOMEN: Visualization of the abdomen did reveal it to be still distended in its appearance. Incision was clean, dry and intact with no surrounding erythema. Palpation of the abdomen this morning unfortunately revealed significant abdominal pain which was a new finding for the patient. She did have a component of both voluntary and involuntary guarding within her lower abdomen. Her upper abdomen was soft with only minimal tenderness being present. The patient, however, did display some component of peritoneal signs with palpation within her lower abdomen which was concerning. LABORATORY/RADIOGRAPHIC EVALUATION This morning the patient's lab was reviewed and her white count had gone from 17 ,000 now to 24,000. There was increasing left shift with 91% neutrophils and 7 % bands. As a result of the above circumstances I had recommended to the family that we proceed with CT scan of her abdomen and pelvis for further evaluation. I informed them that it was my clinical intuition that we were dealing with an acute surgical process that would likely require surgical intervention but I would like to go ahead and proceed with a CT scan for further evaluation. CT scan was obtained later in the day. I did review the CT scan personally as well as discuss the CT scan with our radiologist. There was a fair amount of free fluid which I felt had increased in nature upon CT scan. There was persistent wall thickening noted within the small bowel as well as some thickening noted involving the descending colon region. Additionally, Radiology had also noted a few tiny foci of free air within the pelvis that raised concern for possible bowel microperforation. ASSESSMENT 72-year-old female status post exploratory laparotomy with lysis of adhesions secondary to small-bowel obstruction. Patient with increasing abdominal pain, leukocytosis, evidence for peritoneal inflammation upon physical examination and abnormal CT scan revealing evidence for microperforation. PLAN Earlier today I was notified by staff that the patient's sons had requested that the patient be transferred to [place], [place]. I then proceeded from my surgical office over to the hospital to reevaluate the patient and to have discussion with the family. One of the patient's sons is a [employer] of a hospital in [place], [place]. He stated that he had made arrangements for the patient to be transferred to [place], [place] today and that he had arranged ambulance flight and talked to his surgeon at his hospital. I informed the patient and her sons that I would not recommend transfer to another [facility] and that I felt delay in surgical intervention could be detrimental to her outcome. The patient's son had requested that I speak with his surgeon from [place], [place]. I did speak with a Dr. Lucas from [place], [place] in regards to the patient's status. I informed Dr. Lucas that I would not recommend transfer to her facility and if family was requesting transfer that I felt that she would be better served by going to a closer tertiary care facility in [place] than being transferred to [place], [place]. After discussion, Dr. Lucas also concluded that it would be best for the patient not to be transferred to [place], [place]. I then left the family for a period of time so they could have a discussion on how they would like to proceed. I informed them that it would be my recommendation that we would either proceed with exploratory laparotomy or transfer the patient to [place] for further care. I then proceeded back to my office and shortly after my departure family stated that they would like to stay and proceed with surgery. The nurse had informed me initially that one of the family members said that they did not have "any other options". I then requested to speak with one of the sons and informed him that I did not want to proceed with surgery if they felt that they had no other options available to them and that I would be more than happy to transfer the patient to [place] to a larger tertiary care facility if they were unhappy or questioned my ability to take care of the patient. The patient's son stated that this was not the case and that they wished to proceed with surgery. ANGELICA
--- NOTE | 2017-11-10 19:27 | Operative Note ---
DATE OF SERVICE 11/10/2017 SURGEON Haseeb Ramirez MD MARKETING INTELLIGENCE MANAGER Amor Rojo MD PREOPERATIVE DIAGNOSES Surgical abdomen, abnormal CT scan revealing small foci of air raising concern for possible microperforation. POSTOPERATIVE DIAGNOSES Surgical abdomen, abnormal CT scan revealing small foci of air raising concern for possible microperforation, phlegmonous process involving sigmoid colon, rectum with associated developing abscess. PROCEDURE Exploratory laparotomy, sigmoid resection, creation of end colostomy with Julius's pouch, mobilization of splenic flexure. ANESTHESIA General endotracheal anesthesia. EBL/FLUIDS Please see chart. BRIEF HISTORY/INDICATIONS Mrs. Tafoya is a 72-year-old female who unfortunately has been a very complicated case. She did present to our facility on October 28, 2017. There was some thought initially that the patient may have Crohn's disease. She did have some abnormal radiographs raising concern for possible small-bowel obstruction. The patient was treated initially with corticosteroids, thinking that she may have a component of inflammation of her terminal ileum resulting in a partial small-bowel obstruction. Patient did not improve with this empiric treatment and was eventually taken to the operative suite where she was found to have clear evidence for a small-bowel obstruction. She was found to have a loop of bowel which was adhered within the pelvis. There was an omental band covering the small bowel and the small bowel proximal to this was described as dilated with normal bowel distally consistent with that of a typical small-bowel obstruction from adhesion. Adhesiolysis was undertaken. I did assume the patient's care following her original exploratory laparotomy, for Dr. Nixon , the original surgeon, had left on a planned vacation. Patient was seen on a daily basis and initially it was felt that she was suffering from an ileus. She did have an elevated white count initially but was without any element of significant abdominal pain. It was felt initially that her leukocytosis may be a result of the corticosteroids that she had received initially. I did obtain a CT scan earlier on that returned as consistent with that of an ileus. She remained afebrile, non-tachycardic and her serial abdominal examinations were benign in nature with no significant pain being noted. The patient last evening and today unfortunately developed significant abdominal pain. Her physical examination had changed significantly and upon palpation the patient was found to be exquisitely tender within her lower abdomen suggesting underlying peritonitis. Repeat CT scan was obtained that did reveal evidence for a few small foci of air concerning for a microperforation. She also developed increasing leukocytosis, left shift/bandemia and was febrile in nature. As a result of the above indications it was recommended that she undergo exploratory laparotomy. If detail needed, please refer to notes included in the patient's chart. FINDINGS Upon abdominal exploration the small bowel was found to be dilated throughout. There was no transition zone. A portion of the small bowel was adhered to a phlegmonous process involving the pelvis. Small bowel was delivered up out of the pelvis and one could then see carmen purulent material deep within the pelvis associated with this phlegmonous process. Small bowel was carefully evaluated from the ligament of Treitz to the ileocecal valve multiple times. There was no evidence to suggest Crohn's disease. No evidence for mesenteric fat creeping. There was no transition zone present. Small bowel contents were advanced back to the stomach in a retrograde fashion, resulting in collapse of the small bowel. Colon was palpated throughout and the ascending colon, transverse colon and initial descending colon were without abnormalities. However, the distal sigmoid colon and rectum was quite thickened and inflamed in nature. Again, there was a phlegmonous process present with a thick inflammatory exudate covering the sigmoid colon and proximal rectum. I did not see any evidence for an obvious perforation involving the sigmoid colon or rectum. Liver edge was smooth without nodularities. There were some adhesions along the lower edge of the liver as a result of her prior cholecystectomy. As a result of the above findings a sigmoid resection with creation of an end colostomy and Julius's pouch was performed without incident. DESCRIPTION OF PROCEDURE After informed consent was obtained the patient was brought to the operative suite and placed on the table in supine fashion. After establishment of general anesthetic the patient's previously placed karlie were DC'd. Her abdomen was then prepped and draped in sterile fashion. Formal time-out was then completed. Next, her original incision was extended in a cephalad and caudad fashion up into the epigastric region as well as down towards the pubic symphysis. Underlying subcutaneous tissues were then opened. The original sutures that were in place were then grasped and retracted anteriorly and the "knot" was transected and the previously placed suture closing the fascia was removed. The peritoneum was then opened along the cephalad and caudad aspect where the incision had been extended. Upon entering the abdominal cavity there was a fair amount of peritoneal fluid. Fluid was transudative but was somewhat "discolored" in nature. Fluid was somewhat "brown" in nature but did not contain any evidence for feces or gross contamination. This fluid was suctioned. One could then see that the small bowel was significantly dilated throughout. There were some inner loop adhesions as a result of her prior surgery with some small bowel also adhered within the pelvis. Small bowel was then begun to be dissected away from the colon as well as from within the pelvis. Upon entering into the pelvis one could then see what appeared to be that of a developing abscess. Small bowel had walled off an area where there was definitely some purulent material present. Furthermore, one could then begin to see a significant phlegmonous process involving the pelvis, proximal rectum and descending colon region. Small bowel was delivered up out of the pelvis. There was some white exudate covering a portion of the small bowel that was adhered within the pelvis. The inner loop adhesions were then taken down bluntly with finger dissection. Small bowel was then carefully inspected multiple times from the ligament of Treitz to the ileocecal valve region. As stated above, there was no evidence for Crohn's, i.e., no evidence for mesenteric fat creeping. Small bowel was without palpable abnormalities throughout. There was no transition zone present. Small bowel contents were advanced back into the stomach in a retrograde fashion to provide better exposure and to collapse the small bowel. NG was palpated and found to be within the stomach. Stomach was without palpable abnormalities. NG was within the corpus of the stomach. Liver edge was smooth without nodularities. There were some adhesions between the lower edge of the right lobe of the liver and the adjacent colon omentum from her prior cholecystectomy. These adhesions were not taken down. Colon was palpated throughout and no additional palpable abnormalities were noted within the ascending colon, transverse colon or initial descending colon. After thorough abdominal exploration I focused my attention to the sigmoid colon. As stated above, there was a significant inflammatory/phlegmonous process present involving the sigmoid colon and rectum. I did not see any evidence for an obvious perforation. As a result of the above intraoperative findings I elected at this time to proceed with sigmoid resection, creation of end colostomy and Julius's pouch. I did not feel that it would be in the patient's best interest to perform a primary anastomosis in midst of the above findings. A point about 5 cm proximal to the phlegmonous mass was ascertained upon the descending colon. A small opening was then created within mesentery at this location and a GIA75 stapler was then placed across the colon at this location and fired. White line of Toldt along the left pericolic gutter was then incised with electrocautery and the left colon was then mobilized medially. Left ureter was identified and preserved in its entirety. White line of Toldt was continued to be incised up to the splenic flexure. The splenic flexure was then also mobilized to provide further length. Renocolic and splenocolic ligaments as well as the gastrocolic ligament were then divided resulting in complete mobilization of the splenic flexure. Attention was then focused back to this phlegmonous process. The phlegmonous sigmoid colon was retracted anteriorly and the mesentery was then begun to be divided fairly close to the sigmoid colon to avoid injury to the ureter. The left ureter, however, was under direct visualization. Mesentery of the sigmoid colon was sequentially divided between right angle clamps with 0- Vicryl and 3-0 Vicryl ties. Dissection was then carried down to the sacral promontory to the mesorectum. The peritoneum at this location was quite thickened as a result of the phlegmonous process. Peritoneum along the lateral aspect of the mesorectum was then incised. Dissection was carried out fairly close medially to avoid potential injury to the right ureter. I did go ahead and open the peritoneum and visualized the right ureter out further laterally. Mesorectum was then divided sequentially just anterior to the presacral space sequentially between right angle clamps and the avascular portion was opened with cautery. Dissection was then carried down to the proximal rectum. One could see a few diverticula of the sigmoid colon just above the rectum. It was somewhat difficult to see the splaying out of the tenia coli as a result of the inflammatory changes that were present but I did dissect down to the rectum beyond the sigmoid colon. A Contour stapler was then placed across the rectum just below the rectosigmoid junction and fired. I did place two figure-of- eight sutures of 2-0 Prolene along the edges of the staple line upon the rectum to facilitate identification of the rectal stump at a later time if her colostomy was to be taken down in the future. Prolene sutures were left long so they were 2-3 inches in length to provide again easier identification of the staple line upon the remaining rectal stump. The proximal rectum and sigmoid colon that was resected was then passed off the table as a surgical specimen. Prior areas of dissection were inspected and found to be hemostatic in nature. Peritoneal cavity was then copiously irrigated with saline. Next, I elected to place a couple of 19-Thai ALEX drains. Drains were allowed to exit within the right midabdomen/right upper quadrant. One drain was placed within the pelvis along the right pericolic gutter as well. Second drain was then placed within the upper abdomen and a portion of the drain was allowed to lie along the left pericolic gutter. Attention was directed towards identification of the best site for her colostomy. Two [facility] clamps were then placed upon the fascia upon the left side of the incision. Fascia was then returned back towards midline. One could then palpate the left anterior iliac spine and the umbilicus. About one-third the distance between the umbilicus and the left anterior iliac spine an [facility] clamp was placed upon the skin and retracted anteriorly. A small circular incision was then made just beneath the [facility] clamp. Underlying subcutaneous tissue was then excised with electrocautery. A small cruciate incision was then made overlying the anterior rectus sheath overlying the rectus muscle. One could see the longitudinal muscles of the rectus muscle. Hemostat was then introduced into the midportion of the rectus muscle along the longitudinal fibers and gently spread. Hemostat was then advanced through the posterior rectus sheath and into the peritoneal cavity. The colostomy site was then dilated up to about two to three fingers. Ashley clamp was then placed through the colostomy site and placed upon the staple line upon the descending colon. Descending colon was then brought forth up through the colostomy site so that about 4-5 cm of colon extended above the adjacent epidermis. Colon was then secured intraperitoneally by placing a few simple interrupted sutures of 3-0 Vicryl in a triangulated fashion. First, a small purchase of the posterior rectus sheath and peritoneum was obtained followed by a seromuscular purchase of the colon. Care was taken to make sure that the colon was not twisted as it was brought forth up into the colostomy site. Next, attention was directed towards closure. Instrument, sponge and needle counts were performed and found to be correct. New gowns, gloves and instruments were then obtained. Fascia was closed in a running fashion with #1 PDS suture. Telfa strips were then placed within the subcutaneous tissues and the skin incision was closed about every 2 cm with karlie. Sterile towel was then placed overlying the midline incision that had now been closed. Attention was directed towards maturation of the colostomy. Staple line was then transected. Colon bled easily, indicative of adequate blood supply. Colostomy was matured by first placing four simple interrupted sutures at the 12 o'clock, 3 o'clock, 6 o'clock and 9 o'clock positions. Sutures were placed by obtaining first a full thickness of the end of the transected colon followed by a seromuscular purchase of the colon about 3-4 cm proximal to the transected end of the colon followed by a small subcuticular purchase of the adjacent skin edge. Each suture was then tied sequentially, resulting in a nice everted colostomy. Each suture was then bisected by placing a single interrupted suture of 3-0 Vicryl by obtaining a full purchase of the transected end of the colon followed by a small subcuticular purchase of the adjacent skin edge. Colostomy appliance was then applied. The patient was then sent back to the recovery room once she was deemed in stable condition. Once again, instrument, sponge and needle count was again performed and found to be correct. Additionally it should be noted that Dr. Amor Rojo was present from initial skin incision until creation of the colostomy and did play a pivotal role in providing assistance and exposure during the course the procedure. ANGELICA
[2017-11-10] MEDS: LOSARTAN 50 MG TABLET PO SCH ×2 (19:28→21:40)
[2017-11-10] MEDS: FAT EMULSION 20% 250 ML IV SCH (19:38)
[2017-11-10] MEDS: METHIMAZOLE 5 MG TABLET PO SCH (19:38)
[2017-11-10] MEDS: FLUCONAZOLE PB 200 MG/100 ML BAG IV SCH (19:50)
[2017-11-10] MEDS ORDERED: NS FLUSH BAG 500ml IV ONE (21:27)
[2017-11-10] MEDS: ALBUTEROL/IPRATROPIUM 2.5mg-0.5mg/3ml NEB AEROSOL SCH (21:39)
[2017-11-11] MEDS ORDERED: ALBUMIN HUMAN 25gm 25 G in CONTAINER,EMPTY 0 ML IV ONE (01:01)
[2017-11-11] MEDS: MEROPENEM 1 GM in NS 50 ML IV SCH ×3 (01:02→15:30)
[2017-11-11] MEDS ORDERED: ALBUMIN HUMAN IV ONE ×2 (01:17→02:18)
[2017-11-11] MEDS ORDERED: CONTAINER EMPTY IV ONE ×2 (01:17→02:18)
[2017-11-11] MEDS: D5-1/2NS with KCL 20mEq 1,000 ML IV SCH (05:46)
[2017-11-11] MEDS: MORPHINE SULFATE 4mg INJECTION IVP PRN ×3 (07:27→21:23)
[2017-11-11] MEDS: KETOROLAC 15 MG/ML INJECTION IVP PRN ×2 (07:28→16:40)
[2017-11-11] MEDS ORDERED: TPN - PHARMACY CONSULT MC ONE (07:44)
[2017-11-11] MEDS: ALBUTEROL/IPRATROPIUM 2.5mg-0.5mg/3ml NEB AEROSOL SCH ×4 (08:22→20:58)
--- NOTE | 2017-11-11 08:26 | Pharmacy Consult-TPN/PPN ---
Pharmacy Consult-TPN/PPN - Laboratory Information Chemistry Turbidity < 20 (0-20) 11/11/17 04:38 Sodium 134 MEQ/L (136-146) L 11/11/17 04:38 Potassium 4.6 MEQ/L (3.6-5) D 11/11/17 04:38 Chloride 102 MEQ/L (98-107) 11/11/17 04:38 Carbon Dioxide 25 MEQ/L (22-30) 11/11/17 04:38 Anion Gap 7 meq/L (5-15) 11/11/17 04:38 BUN 17.0 MG/DL (7-17) 11/11/17 04:38 Creatinine 0.6 mg/dL (0.7-1.2) L 11/11/17 04:38 GFR Calculation 99 11/11/17 04:38 BUN/Creatinine Ratio 28 RATIO (6-26) H 11/11/17 04:38 Glucose 94 MG/DL (65-110) 11/11/17 04:38 Glucometer 97 mg/dL (65-110) 11/10/17 16:04 Calculated Osmolality 260 MOSM/KG (261-280) L 11/11/17 04:38 Calcium 7.6 MG/DL (8.4-10.2) L 11/11/17 04:38 Phosphorus 2.6 MG/DL (2.5-4.5) 11/10/17 04:15 Magnesium 2.1 MG/DL (1.6-2.3) 11/10/17 04:15 Total Bilirubin 0.30 MG/DL (0.20-1.30) 11/04/17 04:13 Conjugated Bilirubin 0.00 mg/dL (0.00-0.30) 11/01/17 03:35 Unconjugated Bilirubin 0.30 mg/dL (0.00-1.1) 11/01/17 03:35 AST 28 U/L (14-36) 11/04/17 04:13 Icterus Index < 2 (0-7) 11/11/17 04:38 ALT 29 U/L (1-35) 11/04/17 04:13 Alkaline Phosphatase 56 U/L (38-126) D 11/04/17 04:13 Troponin I < 0.012 ng/ml (0-0.12) 11/11/17 04:38 C-Reactive Protein 83.3 mg/L (0-9) H 11/07/17 04:19 Total Protein 5.2 g/dL (6.3-8.2) L 11/04/17 04:13 Globulin 2.3 G/DL (2.4-3.6) L 11/04/17 04:13 Albumin/Globulin Ratio 1.3 RATIO (1.1-2.2) 11/04/17 04:13 Albumin 2.8 g/dL (3.5-5.0) L 11/10/17 04:15 Lipase 53 U/L (23-300) 10/28/17 14:57 Plasma Lactate 1.0 MMOL/L (0.6-2.2) 11/10/17 08:50 Specimen Hemolysis < 15 (0-25) 11/11/17 04:38 Intake and Output 11/10/17 11/11/17 11/12/17 06:59 06:59 06:59 Intake Total 2648.3 / 2648.3 6271.417 / 6271.417 50 / 50 Output Total 900 / 900 1582 / 1582 300 / 300 Balance 1748.3 / 1748.3 4689.417 / 4689.417 -250 / -250 Weight 53.3 kg 54.7 kg Intake: IV 2398.3 / 2398.3 6271.417 / 6271.417 50 / 50 ALBUMIN HUMAN 12.5gm 12.5 g In 100 / 100 Container,Empty 0 ml @ 50 mls/ hr IV O ONE Rx#:[id number] Azithromycin IV 250 mg In NS 250 / 250 250 / 250 250ml 250 ml @ 250 mls/hr IV Q24H [facility] Rx#:[id number] D5-1/2NS with KCL 20mEq 1,000 1135.417 / 1135.417 0 / 0 ml @ 125 mls/hr IV .Q8H [facility] Rx# :[id number] Fat Emulsion 20% 250 ml @ 50 250 / 250 mls/hr IV 1600 [facility] Rx#: [id number] Fluconazole Pb 200 mg In 100 ml 100 / 100 @ 100 mls/hr IV Q24H [facility] Rx#: [id number] Fluconazole Pb 400 mg In 200 ml 200 / 200 @ 100 mls/hr IV Q24H [facility] Rx#: [id number] Lr 1,000 ml @ As Directed IV . 2200 / 2200 Q0M [facility] Rx#:[id number] Meropenem 1 gm In Ns 50 ml @ 150 / 150 100 / 100 50 / 50 100 mls/hr IV Q8H [facility] Rx#: [id number] Multi-Vit Infusion 10 ml Multi 1898.3 / 1898.3 2035 / 2035 -Trace Elements 1 ml Sodium Chloride Conc 100 meq In Ppn - Standard Formula 2,000 ml @ 82 mls/hr IV .Q24H [facility] Rx#: [id number] Oral 250 / 250 Output: Urine 700 / 700 230 / 230 Urine Amount (Catheter) 200 / 200 1062 / 1062 Urethral 500 / 500 Gastric Drainage 50 / 50 300 / 300 Left Nare 50 / 50 300 / 300 Wound Drainage 240 / 240 Right Lower Lateral Abdomen 100 / 100 Right Upper Lateral Abdomen 140 / 140 Other: Urine Appearance Clear Clear Urethral Clear Urine Color Light [place] Yellow Urethral Dark [place] Urine Odor Normal Normal Stool Color Green Green Stool Consistency Liquid Watery Size of Bowel Movement Moderate Small Drain Type Right Lower Lateral Abdomen Bulb [place] Right Upper Lateral Abdomen Bulb [place] # Bowel Movements 1 - Consult Information We will continue same TPN formula as yesterday at the rate of 82mL per hour. I have ordered a phosphorous for a.m. Thanks
[2017-11-11] MEDS: PANTOPRAZOLE 40 MG INJECTION IVP SCH ×2 (08:30→22:02)
[2017-11-11] MEDS ORDERED: SODIUM CHLORIDE IV SCH (10:00)
[2017-11-11] MEDS ORDERED: MULTI TRACE ELEMENTS IV SCH (10:00)
[2017-11-11] MEDS ORDERED: [UNRECOGNIZED DRUG - OTHER] IV SCH (10:00)
[2017-11-11] MEDS ORDERED: MULTI VIT INFUSION IV SCH (10:00)
--- NOTE | 2017-11-11 11:16 | Cardiology Consult Note ---
<Melony Quezada - Last Filed: 11/12/17 12:03> History of Present Illness Consult date: 11/11/17 Requesting physician: Junior Chavarria Chief complaint: Bradycardia, pauses History of present illness: "Steffi" is a 72 year old female patient of MADAI Gage who presents to the ED due to abdominal pain, n/v. On 11/02/17 she had an incarcerated internal hernia, SBO secondary to incarcerated internal hernia and underwent an Exploratory lap with release of incarcerated internal hernia by adhesiolysis. Yesterday she had a diverticulitis with microperforation and peritonitis and underwent an exploratory laparotomy with sigmoid resection and creation of end colostomy with Ramirez's pouch. She has been given Azithromycin, Fluconazole and Ondansetron this hospitalization. Earlier this morning she she became bradycardic with 3.7 and 2.9 second pauses followed by junctional bradycardia. I was contacted for consultation with Dr. Huertas for further evaluation. She is examined in her room in CCU. She reports abdominal pain due to recent surgical procedure. She states that this am she felt dizzy and nausea and could feel her heart was not beating as usual but denies chest pain, pressure, tightness, dyspnea. Review of Systems - Constitutional Constitutional: Absent: chills, fever(s) - EENMT Eyes: Absent: change in vision Balance: Absent: vertigo Mouth/Throat: Absent: sore throat - Cardiovascular Cardiovascular: Present: heart murmur (as a child). Absent: chest pain, palpitations, syncope, dyspnea on exertion, orthopnea, edema Vascular: Absent: pedal edema - Respiratory Respiratory: Absent: cough, dyspnea, dyspnea on exertion - Gastrointestinal Gastrointestinal: Present: abdominal pain, nausea, vomiting - Genitourinary Genitourinary: Absent: dysuria - Integumentary/Breasts Integumentary: Absent: rash - Neurological Neurological: Present: dizziness - Endocrine Endocrine: Absent: palpitations PFSH Patient Stated Medical History Hearing Loss Yes: bilateral Other HEENT Yes: WEARS GLASSES Hypertension Yes: R/T RENAL ARTERY BLOCKAGE Pneumonia Yes: july 2016 Sleep Apnea No Other Respiratory Yes: chronic cough Gastroesophageal Reflux Yes Disease Hiatal Hernia Yes Hx Renal Disease No Hx Urinary Tract Infection Yes Chlamydia Yes: 1985 Depression Yes Clinic Medical History (Last Reviewed 03/21/17 @ 14:33 by VENANCIO Landry ) History of Crohn's disease (Chronic Medical) Anxiety (Chronic Medical) Migraine (Chronic Medical) GERD (gastroesophageal reflux disease) (Chronic Medical) Chronic abdominal pain (Chronic Medical) Dyslipidemia (Chronic Medical) Hypertension (Chronic Medical) Medical History Updates: Hyperthyroidism Surgical History: RA iodine ablation for hyperthyroidism 07/18. cataract surgery. breast augmentation. L shoulder surgery. heart cath 2006. hyst Family History: Family History (Last Reviewed 03/21/17 @ 14:33 by VENANCIO Landry) Father No problems noted. Mother No problems noted. - Social History Smoking status: Former smoker second hand exposure: No Substance use type: does not use Alcohol intake frequency: does not drink Housing: house Household members: none Current occupational status: retired Previous occupational history: [employer] Does patient use chewing tobacco?: No Current residence: Apartment/Private Home Medications Home Medications Medication Instructions Recorded Confirmed Type Albuterol HFA Inhaler [Ventolin 2 puff INH Q6H PRN 10/28/17 10/28/17 History Hfa 90 mcg/actuation] DiphenhydrAMINE [Benadryl] 25 mg PO Q4H PRN 10/28/17 10/28/17 History Losartan [Cozaar] 25 mg PO BID 10/28/17 10/28/17 History MethIMAzole [Tapazole] 2.5 mg PO DAILY 10/28/17 10/28/17 History Ranitidine [Zantac] 150 mg PO BID 10/28/17 10/28/17 History guaiFENesin [Mucinex] 600 mg PO Q12H PRN 10/28/17 10/28/17 History Allergies Allergy/AdvReac Type Severity Reaction Status Date / Time clindamycin Allergy Severe Hallucinati Verified 10/29/17 07:43 ng meperidine [From Demerol] Allergy nausea, Verified 10/28/17 14:37 paranoia Exam Vital signs: Temperature 97.2 F 11/11/17 04:00 Pulse Rate 73 11/11/17 07:15 Respiratory Rate 12 11/11/17 08:35 Blood Pressure 107/58 11/11/17 07:15 Pulse Oximetry 95 11/11/17 08:35 - Constitutional no acute distress, well nourished, thin, cooperative - Routine HEENT Exam Head: Present: normocephalic ENT: Present: mucous membranes dry Nose: other (NG in place) - Routine Neck Exam Absent: JVD, carotid bruit - Routine Chest/Breast/Axilla Exam Chest wall: Absent: tenderness - Routine Respiratory Exam Present: CTA bilaterally. Absent: dyspnea, rales, wheezes - Routine Cardiovascular Exam Present: RRR, S1, S2, no murmur - Routine Abdominal Exam Present: soft, tenderness - Routine Extremities Exam Present: no edema - Routine Skin Exam Present: intact, dry, warm - Routine Neurological Exam Present: alert, oriented X3 - Routine Psychiatric Exam Present: normal affect, normal thought process Results 11/12/17 05:22 11/12/17 05:22 Cardiac Enzymes 11/11/17 Range/Units 04:38 Troponin I < 0.012 (0-0.12) ng/ml CBC 11/11/17 Range/Units 04:38 WBC 22.9 H (4.5-11.0) T/MM3 RBC 2.96 L (4.00-5.20) M/MM3 Hgb 8.9 L D (12-16) GM/DL Hct 28.0 L D (36-46) % Plt Count 416 H (130-400) T/MM3 Neut # (Auto) Not performed Lymph # (Auto) Not performed [place] # (Auto) Not performed Eos # (Auto) Not performed Baso # (Auto) Not performed Comprehensive Metabolic Panel 11/11/17 Range/Units 04:38 Sodium 134 L (136-146) MEQ/L Potassium 4.6 D (3.6-5) MEQ/L Chloride 102 (98-107) MEQ/L Carbon Dioxide 25 (22-30) MEQ/L BUN 17.0 (7-17) MG/DL Creatinine 0.6 L (0.7-1.2) mg/dL Glucose 94 (65-110) MG/DL Calcium 7.6 L (8.4-10.2) MG/DL Intake and Output 11/10/17 11/11/17 11/11/17 22:59 06:59 14:59 Intake Total 3045.833 / 3045.833 3175.584 / 3175.584 50 / 50 Output Total 1068 / 1068 284 / 284 300 / 300 Balance 1977.833 / 9085.683 1828.584 / 2891.584 -250 / -250 Intake: IV 3045.833 / 3045.833 3175.584 / 3175.584 50 / 50 ALBUMIN HUMAN 12.5gm 12.5 g In 100 / 100 Container,Empty 0 ml @ 50 mls/ hr IV O ONE Rx#:[id number] Azithromycin IV 250 mg In NS 250 / 250 250ml 250 ml @ 250 mls/hr IV Q24H [facility] Rx#:[id number] D5-1/2NS with KCL 20mEq 1,000 95.833 / 95.833 1039.584 / 1039.584 0 / 0 ml @ 125 mls/hr IV .Q8H [facility] Rx# :[id number] Fat Emulsion 20% 250 ml @ 50 250 / 250 mls/hr IV 1600 JUDI Rx#: [id number] Fluconazole Pb 400 mg In 200 ml 200 / 200 @ 100 mls/hr IV Q24H [facility] Rx#: [id number] Lr 1,000 ml @ As Directed IV . 2200 / 2200 Q0M [facility] Rx#:[id number] Meropenem 1 gm In Ns 50 ml @ 50 / 50 50 / 50 100 mls/hr IV Q8H [facility] Rx#: [id number] Multi-Vit Infusion 10 ml Multi 2035 / 2035 -Trace Elements 1 ml Sodium Chloride Conc 100 meq In Ppn - Standard Formula 2,000 ml @ 82 mls/hr IV .Q24H [facility] Rx#: [id number] Output: Urine Amount (Catheter) 858 / 858 204 / 204 Urethral 500 / 500 Gastric Drainage 50 / 50 300 / 300 Left Nare 50 / 50 300 / 300 Wound Drainage 160 / 160 80 / 80 Right Lower Lateral Abdomen 70 / 70 30 / 30 Right Upper Lateral Abdomen 90 / 90 50 / 50 Other: Urine Appearance Clear Urine Color Yellow Drain Type Right Lower Lateral Abdomen Bulb [place] Bulb [place] Right Upper Lateral Abdomen Bulb [place] Bulb [place] - Imaging and Cardiology Imaging & Cardiology Narrative: Date of Exam: 11/10/17 Ordering Provider: Nicolle Ochoa APRN Type of Exam(s): XR chest 2V Reason for Exam(s): leukocytosis, fever, INDICATION: leukocytosis, fever, PROCEDURE: CHEST 2-VIEWS UPRIGHT (PA & LAT) Encounter: Initial COMPARISON: November 02, 2017 FINDINGS: Nasogastric tube remains in place. Right PICC line is stable in position. There is increasing airspace opacity in both lower lobes with small bilateral effusions. No pneumothorax. Upper lobes are clear. Heart size and mediastinal contours are stable. Pulmonary vascularity is unchanged. Dilated small bowel loops are again noted below the diaphragm. Impression: Increasing lower lobe atelectasis or pneumonia with small effusions. . 11/11/17 11:45 11/11/17 11:46 Date of Exam: 11/10/17 Ordering Provider: Nicolle Ochoa APRN Type of Exam(s): XR KUB w upright Reason for Exam(s): ileus Indication: ileus PROCEDURE: XR KUB w upright: Encounter: Initial Comparison: November 09, 2017 and November 08, 2017 Findings: Nasogastric tube has advanced with the tip now projecting over the second portion of the duodenum. Small pleural effusions. No gross free air. Persistently dilated small bowel in the left upper abdomen measuring up to 4.3 cm in diameter with air-fluid levels. A small amount of colonic gas is present. Midline surgical karlie. Minimal rectal gas is seen. Impression: Continued slight decrease in small bowel distention which may be due to an improving postoperative ileus or decreasing partial small bowel obstruction. 11/11/17 11:47 Date of Exam: 11/10/17 Ordering Provider: Nicolle Ochoa APRN Type of Exam(s): CT abdomen pelvis w con Reason for Exam(s): worse abd pain, leukocytosis with bandemia Indication: worse abd pain, leukocytosis with bandemia PROCEDURE: CT abdomen pelvis w con: Encounter: Initial Comparison: CT abdomen dated November 06, 2017 Technique: Axial CT images were performed through the abdomen and pelvis after the administration of intravenous contrast. Coronal and sagittal two-dimensional reformats. Automated Exposure Control and Iterative Reconstruction dose reducing techniques were utilized. Contrast: Omnipaque 300 100 mL Findings: Increasing small bilateral pleural effusions with lower lobe compressive atelectasis. Slight increase in small to moderate volume ascites with more fluid in the pelvis. Slight increase in hepatic and perisplenic fluid. No liver mass or bile duct dilatation. The spleen is normal in size. Pancreas appears normal. The adrenal glands are stable. Kidneys are normal. Scattered arterial atherosclerotic plaque. Bladder is mildly distended. Sigmoid diverticulosis without focal inflammation to suggest an acute diverticulitis. There is oral contrast within the proximal to mid jejunum. Nasogastric tube is seen extending the tip in the second portion of the duodenum. This is tenting the duodenum. Consider retraction. Proximal small bowel dilatation is slightly improved from the prior study with gas and fluid-filled proximal small bowel loops measuring up to 3.5 cm in diameter. There is new mucosal and wall thickening seen in several left upper quadrant small bowel loops, best appreciated on coronal image #18 near the inferior margin of the spleen. Persistent wall thickening within the distal and terminal ileum as seen on the prior study. No discrete transition point is identified although there is gradual transition from moderately dilated proximal to mid jejunum to normal caliber distal jejunum and ileum. There are 4 tiny punctate foci of free air seen in the right pelvic fluid adjacent to the distal sigmoid colon, seen on axial images 69 and 71. Bony structures are unchanged. Impression: 1. New tiny foci of free air in the pelvis and slight increase in pelvic fluid raising concern for development of a bowel microperforation. The exact site of perforation is not clearly visualized. 2. Persistent small bowel wall thickening in the distal ileum with new areas of wall thickening or inflammation in the left upper quadrant proximal small bowel. This could be due to an infectious or inflammatory enteritis or inflammatory bowel disease. 3. Nasogastric tube tip in the second portion of the duodenum. Recommend retraction. Findings were discussed with Dr. Ramirez at 11:30 on November 10, 2017. . 11/12/17 12:03 Date of Exam: 11/11/17 Type of Exam(s): US echo doppler complete DATE OF PROCEDURE: November 11, 2017 This is a two-dimensional echo with spectral Doppler, color-flow and M-mode. It was obtained in a patient with arrhythmias. Left atrial dimension is normal. Left ventricle end-diastolic dimension is normal. Left ventricle wall thickness is normal. LV systolic function is normal with ejection fraction of about 65%. Right atrium is normal. Right ventricle is normal. Aortic root dimension is normal. Mitral valve is morphologically normal with mild mitral regurgitation. Aortic valve appears to be normal. Tricuspid valve shows mild tricuspid regurgitation with mild pulmonary hypertension with estimated pulmonary artery systolic pressure of 36. Pulmonary valve shows trace of pulmonary insufficiency. There is no pericardial effusion. IMPRESSION 1. Normal LV systolic function with ejection fraction of 65%. 2. Mild mitral regurgitation. 3. Trace of pulmonary insufficiency. 4. Mild tricuspid regurgitation with mild pulmonary hypertension with estimated pulmonary artery systolic pressure of 36. EKG interpretations - EKG EKG results cardiology: sinus rhythm (arrhythmia) Assessment and Plan - Assessment and Plan (1) Dyslipidemia Current visit: No Status: Chronic currently NPO, home meds are held (2) Hypertension Current visit: No Status: Chronic BP stable, has had hypotension - currently NPO, home meds are held (3) Bradycardia Current visit: Yes Status: Acute 3.7 and 2.9 second pauses followed by junctional bradycardia. - felt dizzy and nausea and could feel her heart was not beating as usual - denies chest pain, pressure, tightness, dyspnea. - Has a history of syncope - currently SR, HR 80s - EKG SR, sinus arrhythmia, possible RV conduction delay - Azithromycin, Fluconazole and Ondansetron are discontinued - Continue to monitor cardiac telemetry - 2D echo - Probably will need PPM in future once current illness is resolved - Will continue to watch closely Hospital Course Summary Disclaimer: The visit summary below is not to be considered part of the above Progress Note. Hospital Course: 10/28/17 Admit, IP. Stay expected to exceed 2 overnights for tx of enteritis and resolution of SBO. Consult Dr. Nixon. Zosyn and Solumedrol for tx of enteritis. NPO. NG tube. (Pt declines at present. If n/v/pain persists despite current pain/nausea tx, will proceed.) IVF's - 1L bolused in ER. Continue NS at 125cc/hr. This should address her hyponatremia as well. Repeat labs in am to follow blood counts and electrolytes. Protonix IV for GERD and GI ppx. Lovenox for VTE ppx. Full code. PCP - MADAI Gage 10/29/17 Patient's pain is less. Leukocytosis improved from 18.7--> 14.5. Continues on Zosyn and Solumedrol. Consider decreasing Solumedrol dose later today. Remains NPO. IVF's running at 125cc's/hr. Electrolytes stable. Hyponatremia resolved 130-->136. Continue IV pain meds and antiemetics PRN. (Hasn't required since 1800 last shereen. ) Continue IV pantoprazole for GI ppx/GERD. 10/30/17 Patient did have a small bowel movement this morning. No significant flatus. Abdomen feels a little more distended, full and uncomfortable today. She appears in no distress and has not required any pain medication since receiving IV acetaminophen yesterday afternoon. She has not had any nausea or vomiting. She does not have an NG in place. NG placement was attempted on the evening of admission but was difficult, and the patient refused further attempts. We'll continue Solu-Medrol for possible Crohn's disease. Continue Zosyn for now. Discussed with Dr. Nixon, he will see the patient later today. Abdominal films look about the same today. We'll start IV nutrition. Discussed with the pharmacist today, we do not have any TPN. Will start PPN today. 10/31/17 Patient continues to have abdominal discomfort, distention, and continued dilated loops of small bowel on abdominal x-rays. Pain is tolerable. She had 2 small bowel movements this morning. IV Tylenol does help her pain. Continue with IV Solu-Medrol for suspected Crohn's. Continue Zosyn for now. White count is elevated, at this point likely secondary to steroids. The patient has remained afebrile. Regarding nutrition, TPN is not available due to a shortage, PPN was started yesterday and is being given in the midline since she had pain with infusion in a peripheral site. CBC, CMP, and phosphorus tomorrow Repeat C-reactive protein today We'll discuss today with Dr. Nixon 11/01/17 Patient continues to have abdominal discomfort, distention, and continued dilated loops of small bowel on abdominal x-rays. Patient agreed to attempt placement of NG tube again which was successful. Will continue NG tube with low suction. Maintain NPO status. Patient disclosed her father and 2 cousins had a history of lymphoma of the ileum while discussing treatment options with Dr. Nixon. Patient is now more open to idea of surgical intervention if needed. Will re- evaluate pain and distention in AM with possible surgery tomorrow afternoon. Will hold lovenox in AM in anticipation of surgery tomorrow, 11/02/17. Continue with IV Solu-Medrol for suspected Crohn's. Continue Zosyn for now. White count is trending up, at this point likely secondary to steroids. The patient has remained afebrile. PPN was started 10/30/17 and is being given in the midline since she had pain with infusion in a peripheral site. CBC, CMP, and phosphorus tomorrow CRP trending down. Discussed with Dr. Nixon, family and Dr. Duckworth. 11/02/17 Patient continues to have abdominal discomfort and distention. See by Dr. Nixon yesterday and probable surgical intervention today at 1430. Will continue NG tube with low suction. Maintain NPO status. Lovenox held this morning in preparation for anticipated surgery. Continue with IV Solu-Medrol for suspected Crohn's. Continue Zosyn for now. WBC trending down. Patient remains afebrile. New hyponatremia (Na 135) with hypokalemia (K 3.4). Pharmacy managing PPN. Patient given KCl 20 mEq IV yesterday in addition to additional KCl added to PPN per pharmacy. Will given additional KCl 20 mEq IV today and continue to monitor closely. PPN was started 10/30/17 and is being given in the midline since she had pain with infusion in a peripheral site. Mag slightly decreased at 2.4. Will discuss with pharmacy. CRP trending up - 34.5 on 10/31/17 -->87.4 today. Continue to monitor. 11/03/17 POD #1 S/p release of incarcerated internal hernia by adhesiolysis by Dr. Nixon NG tube with low suction. Continues NPO. IV Solu-Medrol and Zosyn were DC'd yesterday following surgery as there was no evidence of Crohn's. WBC up today - likely post-op elevation. LFT's just slightly elevated. Na 133. Will follow. Continues on PPN (started 10/30/17). Blood noted in llanos - check UA. Peritoneal culture revealed E.coli, few gram positive cocci and yeast. Rocephin and Diflucan initiated. 11/04/17 POD #2 NG tube with low suction--> clamps later in the day with good tolerance. Continues NPO. Hopeful bowels will begin moving and NG can be removed in the near future with slow initiation of oral intake. No BM at time of exam. WBC trending down. Bandemia improving. Remains afebrile. LFTs returned to normal range. Continue to monitor closely. Persistent hyponatremia (Na 133). Continue to monitor. Continues on PPN (started 10/30/17). Hopeful to start oral intake in the near future. Surgery managing. UA unremarkable. Will discontinue Llanos and monitor patient closely. 11/05/17 POD #3 NG tube removed last night. Advanced to clear liquids -not wanting to take in much po d/t abd bloating/no appetite. Continue PPN per pharmacy for nutrition. Received dilaudid last night and had nausea, headache and dizziness. Headache and nausea persisting. Will give Tylenol po and Reglan now. Use Toradol and/or Tylenol for pain and avoid narcs if possible. Persistent hyponatremia (Na 131). Continue to monitor. 02 requirement down to 1L from 3L. Using IS. Ambulating. Day #3 of Rocephin and Diflucan for peritoneal culture w/ E.coli, few gram positive cocci and yeast. WBC 18.8-->22.4. Afebrile. Home Losartan and methimazole resumed last night. 11/06/17 POD #4 White count continues to trend up, currently at 23.3. Bands have also increased to 9%. She has having increased abdominal symptoms with indigestion, nausea and bloating. Discussed with Dr. Collins. Will obtain CT abdomen and pelvis with IV contrast. Expand Antibiotics to Zosyn. Continue Diflucan. Peritoneal fluid culture showed moderate growth of Escherichia coli and light growth of Jordan albicans. Continue PPN. Hyponatremia persists, stable at 131. Patient is off oxygen this morning. She is afebrile and hemodynamically stable. NG replaced due to recurrent GI symptoms and CT findings suggesting ileus but no abscess. 11/07/17 POD #5 White count remains elevated but slightly lower than yesterday with decreased percent bands. Afebrile. More comfortable overall following replacement of NG; continues to have active bowel sounds and pass gas. Repeat flat/upright KUBs in a.m. Continue Zosyn, serous fluid described intraoperatively in excess of what was anticipated prompting decision to send sample for culture. Continue Diflucan for culture finding of probable Jordan. Blood pressure stable. Remains on low-dose methimazole after radioactive iodine ablation in July; will clarify with Endo if appropriate to recheck thyroid levels. Hemoglobin stable as are electrolytes although sodium remains borderline low. 11/08/17 POD #6 Replacement of NG overnight; continues to have active bowel sounds and passing gas, no BM since prior to surgery. KUB films pending this am. White count remains elevated. Dc Zosyn and start Meropenem for serous fluid described intraoperatively in excess of what was anticipated. E coli and pseudomonas cultured. DARCIE's are now resulted showing lower DARCIE w/ Meropenem compared to Zosyn. Continue Diflucan for culture finding of probable Jordan. Sodium remains low 131-->130. Continues on PPN and clear liquids. 11/09/17 POD #7 Patient looking and feeling much better today. Has had NG tube clamped off and on and has tolerated it well thus far. Patient has passed some stool and continues to pass gas. KUB films pending this am. White count has improved. Day #2 of meropenem (converted from Zosyn (11/02 - 11/08) due to DARCIE) for e coli and pseudomonas in peritoneal fluid. Day #7 of Diflucan for jordan in peritoneal fluid. Sodium still low but improving 130-->132. Continues on PPN and ice chips. Would like to go to IRU on d/c 11/10/2017 surgery She experienced significantly increase in pain late evening, NG advanced and pain meds given, she feel better this am. WBC with increase to 24.3 (17.7 yesterday) with bandemia Llanos removed yesterday Still on oxygen, sat drops to upper 80's on room air Low grade fever of 100.3 during the nite.\\ Will further evaluate leukocytosis, fever, weakness with CXR, blood cultures and u/a. Dr. Ramirez eval the patient as well, also getting CT abd/pelvis and serum lactate. 11/10/17-POD #8. OP day for second surgery due to possible microperforation by Dr. Ramirez. Patient with increasing abdominal pain, abdominal distention, and increase in white count and development of fever. CT abdomen/pelvis resulting in possibility of microperforation leading to emergent surgery with Dr. Ramirez at the present time. Patient continues on meropenem. Today is day #3. (Converted from Zosyn (11/02 - 11/08) due to DARCIE) for e coli and pseudomonas in peritoneal fluid. Day #8 of Diflucan for jordan in peritoneal fluid. Sodium still low but currently stable 130-->132-->132. Continues on PPN and ice chips. Blood pressure and pulse are stable. Patient is requiring 2 L oxygen. There is question on chest x-ray of lower lobe atelectasis versus pneumonia. Blood cultures are pending. Lactate was normal. Sputum culture has been ordered. Given that she's been on broad coverage antibiotics and she has been breathing shallow due to pain in the abdomen, suspect findings on x-ray are more apt to be atelectasis. Add Acapella and DuoNeb treatments for pulmonary toilet. Patient has been having liquid stools - c diff neg. Will discuss case with Dr. Ramirez following surgery and continue to monitor pt closely. <Brendan Huertas - Last Filed: 11/19/17 09:49> [facility] Patient Stated Medical History Hearing Loss Yes: bilateral Other HEENT Yes: WEARS GLASSES Hypertension Yes: R/T RENAL ARTERY BLOCKAGE Pneumonia Yes: july 2016 Sleep Apnea No Other Respiratory Yes: chronic cough Gastroesophageal Reflux Yes Disease Hiatal Hernia Yes Hx Renal Disease No Hx Urinary Tract Infection Yes Chlamydia Yes: 1985 Depression Yes Clinic Medical History (Last Reviewed 03/21/17 @ 14:33 by VENANCIO Landry ) History of Crohn's disease (Chronic Medical) Anxiety (Chronic Medical) Migraine (Chronic Medical) GERD (gastroesophageal reflux disease) (Chronic Medical) Chronic abdominal pain (Chronic Medical) Dyslipidemia (Chronic Medical) Hypertension (Chronic Medical) Family History: Family History (Last Reviewed 03/21/17 @ 14:33 by VENANCIO Landry) Father No problems noted. Mother No problems noted. Exam Vital signs: Temperature 98.4 F 11/19/17 08:00 Pulse Rate 88 11/19/17 08:45 Respiratory Rate 25 H 11/19/17 08:45 Blood Pressure 119/64 11/19/17 08:00 Pulse Oximetry 91 11/19/17 08:45 Results 11/19/17 04:03 11/19/17 04:03 CBC 11/19/17 Range/Units 04:03 WBC 12.2 H (4.5-11.0) T/MM3 RBC 2.94 L (4.00-5.20) M/MM3 Hgb 8.9 L (12-16) GM/DL Hct 27.8 L (36-46) % Plt Count 455 H (130-400) T/MM3 Neut # (Auto) Not performed Lymph # (Auto) Not performed [place] # (Auto) Not performed Eos # (Auto) Not performed Baso # (Auto) Not performed Comprehensive Metabolic Panel 11/19/17 Range/Units 04:03 Sodium 132 L (136-146) MEQ/L Potassium 4.8 (3.6-5) MEQ/L Chloride 103 (98-107) MEQ/L Carbon Dioxide 22 (22-30) MEQ/L BUN 20.0 H (7-17) MG/DL Creatinine 0.6 L (0.7-1.2) mg/dL Glucose 65 (65-110) MG/DL Calcium 8.1 L (8.4-10.2) MG/DL Intake and Output 11/18/17 11/19/17 11/19/17 22:59 06:59 14:59 Intake Total 1106.000 / 1106.000 742.333 / 742.333 182 / 182 Output Total 1395 / 1395 285 / 285 250 / 250 Balance -289.000 / -289.000 457.333 / 457.333 -68 / -68 Intake: IV 1106.000 / 1106.000 742.333 / 742.333 182 / 182 Fat Emulsion 20% 250 ml @ 50 250.000 / 250.000 mls/hr IV 1600 JUDI Rx#: [id number] Micafungin 100 mg In Ns 100 ml 100 / 100 @ 100 mls/hr IV 1600 JUDI Rx#: [id number] Piperacillin/Tazobactam 3.375 100 / 100 100 / 100 100 / 100 gm In D5w 100 ml @ 200 mls/hr IV Q6H [facility] Rx#:[id number] Sodium Chloride Conc 140 meq 656.000 / 656.000 642.333 / 642.333 82 / 82 Potassium Chloride Inj 80 meq POTASSIUM PHOSPHATE (mEq) 40 meq Magnesium Sulfate Inj 16 meq Calcium Chloride 13 meq Multi-Vit Infusion 10 ml Multi -Trace Elements 1 ml In TPN - Custom Formula 2,000 ml @ 82 mls/hr IV .Q24H [facility] Rx#: [id number] Output: Urine 1200 / 1200 150 / 150 250 / 250 Stool 50 / 50 85 / 85 Wound Drainage 145 / 145 50 / 50 Right Lower Lateral Abdomen 70 / 70 20 / 20 Right Upper Lateral Abdomen 75 / 75 30 / 30 Other: Urine Appearance Clear Clear Clear Urine Color Yellow Bright Yellow Dark Yellow Stool Characteristics Mucoid Stool Color Green Green Stool Consistency Liquid Liquid Drain Type Right Lower Lateral Abdomen Bulb [place] Bulb [place] Right Upper Lateral Abdomen Bulb [place] Bulb [place] # Voids 1 1 Weight 46.9 kg Assessment and Plan - Attestation Attestation Narrative: 11/19/17 09:49 Recommendation After examining the patient I agree with the above assessment. I am involved in the formulation of the patient's plan of care. - Assessment and Plan (1) Dyslipidemia Current visit: No Status: Chronic (2) Hypertension Current visit: No Status: Chronic (3) Bradycardia Current visit: Yes Status: Acute Hospital Course Summary Disclaimer: The visit summary below is not to be considered part of the above Progress Note.
[2017-11-11] MEDS: ENOXAPARIN 40 MG/0.4 ML INJECTION SQ SCH (11:37)
--- NOTE | 2017-11-11 15:18 | Progress Note ---
- Date 11/11/17 Subjective: Mrs. Tafoya claims to be feeling better. Her abdomen feels less bloated swollen and she feels less malaise. She has handled sips of water without incident. Nursing reports that overnight she had some pauses and issues with some unsustained ectopic activity. Objective Vital signs: Temperature 98.2 F 11/11/17 12:08 Pulse Rate 84 11/11/17 15:00 Respiratory Rate 7 L 11/11/17 15:00 Blood Pressure 104/59 11/11/17 15:00 Pulse Oximetry 97 11/11/17 15:00 Height/Weight/BMI: Height 5 ft 1 in Weight 55.1 kg Body Mass Index 19.8 - Constitutional Present: no acute distress, well nourished, well developed, cooperative - Routine HEENT Exam Head: Present: normocephalic, atraumatic Eye: Present: EOMI ENT: Present: mucous membranes moist, dentition normal - Routine Respiratory Exam Present: CTA bilaterally. Absent: wheezes - Routine Cardiovascular Exam Present: RRR. Absent: murmur - Routine Abdominal Exam Present: tenderness, non distended, surgical scars, ostomy - Routine Extremities Exam Present: normal capillary refill - Routine Skin Exam Present: dry, warm - Routine Neurological Exam Present: alert, oriented X3, CN II-XII intact - Routine Lymphatic Exam Lymphatic: Absent: adenopathy - Routine Psychiatric Exam Present: normal affect Results - Labs CBC & Chem 7: 11/11/17 04:38 11/11/17 04:38 Microbiology Results: Microbiology 11/10/17 13:17 Peritoneum Gram Stain - Final 11/10/17 13:17 Peritoneum Surgical Culture - Preliminary No Growth After 1 Day 11/10/17 08:50 Port/Picc Blood Culture - Preliminary No Growth After 1 Day 11/10/17 08:45 Port/Picc Blood Culture - Preliminary No Growth After 1 Day 11/02/17 15:12 Peritoneal Fluid Gram Stain - Final 11/02/17 15:12 Peritoneal Fluid Body Fluid Culture - Final Escherichia coli Jordan albicans Pseudomonas aeruginosa Other Tamie Observed Assessment and Plan (1) Peritonitis, spontaneous bacterial Current visit: Yes Status: Acute (2) SBO (small bowel obstruction) Current visit: Yes Status: Acute Assessment and Plan: Assessment peritonitis diverticulitis with microperforations Small bowel obstruction - release of incarcerated internal hernia by adhesiolysis by Dr. Bryant 11/02/17 cardiac arrhythmias Abdominal pain, n/v Leukocytosis - POA Hyponatremia - POA Hyperthyroidism - RA iodine ablation 07/18 (Follows with Dr. Bianchi) Anxiety Migraine GERD Dyslipidemia Hypertension Diverticulosis with history of recurrent diverticulitis H/o gastritis/+h pylori Mild metabolic acidosis-resolved Plan -POD #1 for partial colostomy and #9 for lysis of adhesions. Cardiology is seeing for cardiac arrhythmias. She shows clinical improvement after surgery yesterday for the peritonitis secondary to what is presumptively leaky diverticuli and a developing phlegmon. White blood cell count has yet to fall significantly but lactate does not have a significant climb despite the stress of surgery. I would disregard the raise in C-reactive protein on the surgical circumstances alone. Patient continues on meropenem. Today is day #4. (Converted from Zosyn (11/02 - 11/08) due to DARCIE) for e coli and pseudomonas in peritoneal fluid. Diflucan was stopped with last night's dose at day number 8 and after conversation with Dr. Rios and infectious disease the patient is being switched Micafungin Continues on PPN and ice chips. Blood pressure and pulse are stable. Patient is requiring 2 L oxygen. continue to monitor pt closely. - Physician Narrative Narrative: Date: 11/11/17 Time: 1514 Hospital Course Summary Disclaimer: The visit summary below is not to be considered part of the above Progress Note. Hospital Course: 10/28/17 Admit, IP. Stay expected to exceed 2 overnights for tx of enteritis and resolution of SBO. Consult Dr. Nixon. Zosyn and Solumedrol for tx of enteritis. NPO. NG tube. (Pt declines at present. If n/v/pain persists despite current pain/nausea tx, will proceed.) IVF's - 1L bolused in ER. Continue NS at 125cc/hr. This should address her hyponatremia as well. Repeat labs in am to follow blood counts and electrolytes. Protonix IV for GERD and GI ppx. Lovenox for VTE ppx. Full code. PCP - MADAI Gage 10/29/17 Patient's pain is less. Leukocytosis improved from 18.7--> 14.5. Continues on Zosyn and Solumedrol. Consider decreasing Solumedrol dose later today. Remains NPO. IVF's running at 125cc's/hr. Electrolytes stable. Hyponatremia resolved 130-->136. Continue IV pain meds and antiemetics PRN. (Hasn't required since 1800 last shereen. ) Continue IV pantoprazole for GI ppx/GERD. 10/30/17 Patient did have a small bowel movement this morning. No significant flatus. Abdomen feels a little more distended, full and uncomfortable today. She appears in no distress and has not required any pain medication since receiving IV acetaminophen yesterday afternoon. She has not had any nausea or vomiting. She does not have an NG in place. NG placement was attempted on the evening of admission but was difficult, and the patient refused further attempts. We'll continue Solu-Medrol for possible Crohn's disease. Continue Zosyn for now. Discussed with Dr. Nixon, he will see the patient later today. Abdominal films look about the same today. We'll start IV nutrition. Discussed with the pharmacist today, we do not have any TPN. Will start PPN today. 10/31/17 Patient continues to have abdominal discomfort, distention, and continued dilated loops of small bowel on abdominal x-rays. Pain is tolerable. She had 2 small bowel movements this morning. IV Tylenol does help her pain. Continue with IV Solu-Medrol for suspected Crohn's. Continue Zosyn for now. White count is elevated, at this point likely secondary to steroids. The patient has remained afebrile. Regarding nutrition, TPN is not available due to a shortage, PPN was started yesterday and is being given in the midline since she had pain with infusion in a peripheral site. CBC, CMP, and phosphorus tomorrow Repeat C-reactive protein today We'll discuss today with Dr. Nixon 11/01/17 Patient continues to have abdominal discomfort, distention, and continued dilated loops of small bowel on abdominal x-rays. Patient agreed to attempt placement of NG tube again which was successful. Will continue NG tube with low suction. Maintain NPO status. Patient disclosed her father and 2 cousins had a history of lymphoma of the ileum while discussing treatment options with Dr. Nixon. Patient is now more open to idea of surgical intervention if needed. Will re- evaluate pain and distention in AM with possible surgery tomorrow afternoon. Will hold lovenox in AM in anticipation of surgery tomorrow, 11/02/17. Continue with IV Solu-Medrol for suspected Crohn's. Continue Zosyn for now. White count is trending up, at this point likely secondary to steroids. The patient has remained afebrile. PPN was started 10/30/17 and is being given in the midline since she had pain with infusion in a peripheral site. CBC, CMP, and phosphorus tomorrow CRP trending down. Discussed with Dr. Nixon, family and Dr. Duckworth. 11/02/17 Patient continues to have abdominal discomfort and distention. See by Dr. Nixon yesterday and probable surgical intervention today at 1430. Will continue NG tube with low suction. Maintain NPO status. Lovenox held this morning in preparation for anticipated surgery. Continue with IV Solu-Medrol for suspected Crohn's. Continue Zosyn for now. WBC trending down. Patient remains afebrile. New hyponatremia (Na 135) with hypokalemia (K 3.4). Pharmacy managing PPN. Patient given KCl 20 mEq IV yesterday in addition to additional KCl added to PPN per pharmacy. Will given additional KCl 20 mEq IV today and continue to monitor closely. PPN was started 10/30/17 and is being given in the midline since she had pain with infusion in a peripheral site. Mag slightly decreased at 2.4. Will discuss with pharmacy. CRP trending up - 34.5 on 10/31/17 -->87.4 today. Continue to monitor. 11/03/17 POD #1 S/p release of incarcerated internal hernia by adhesiolysis by Dr. Nixon NG tube with low suction. Continues NPO. IV Solu-Medrol and Zosyn were DC'd yesterday following surgery as there was no evidence of Crohn's. WBC up today - likely post-op elevation. LFT's just slightly elevated. Na 133. Will follow. Continues on PPN (started 10/30/17). Blood noted in llanos - check UA. Peritoneal culture revealed E.coli, few gram positive cocci and yeast. Rocephin and Diflucan initiated. 11/04/17 POD #2 NG tube with low suction--> clamps later in the day with good tolerance. Continues NPO. Hopeful bowels will begin moving and NG can be removed in the near future with slow initiation of oral intake. No BM at time of exam. WBC trending down. Bandemia improving. Remains afebrile. LFTs returned to normal range. Continue to monitor closely. Persistent hyponatremia (Na 133). Continue to monitor. Continues on PPN (started 10/30/17). Hopeful to start oral intake in the near future. Surgery managing. UA unremarkable. Will discontinue Llanos and monitor patient closely. 11/05/17 POD #3 NG tube removed last night. Advanced to clear liquids -not wanting to take in much po d/t abd bloating/no appetite. Continue PPN per pharmacy for nutrition. Received dilaudid last night and had nausea, headache and dizziness. Headache and nausea persisting. Will give Tylenol po and Reglan now. Use Toradol and/or Tylenol for pain and avoid narcs if possible. Persistent hyponatremia (Na 131). Continue to monitor. 02 requirement down to 1L from 3L. Using IS. Ambulating. Day #3 of Rocephin and Diflucan for peritoneal culture w/ E.coli, few gram positive cocci and yeast. WBC 18.8-->22.4. Afebrile. Home Losartan and methimazole resumed last night. 11/06/17 POD #4 White count continues to trend up, currently at 23.3. Bands have also increased to 9%. She has having increased abdominal symptoms with indigestion, nausea and bloating. Discussed with Dr. Collins. Will obtain CT abdomen and pelvis with IV contrast. Expand Antibiotics to Zosyn. Continue Diflucan. Peritoneal fluid culture showed moderate growth of Escherichia coli and light growth of Jordan albicans. Continue PPN. Hyponatremia persists, stable at 131. Patient is off oxygen this morning. She is afebrile and hemodynamically stable. NG replaced due to recurrent GI symptoms and CT findings suggesting ileus but no abscess. 11/07/17 POD #5 White count remains elevated but slightly lower than yesterday with decreased percent bands. Afebrile. More comfortable overall following replacement of NG; continues to have active bowel sounds and pass gas. Repeat flat/upright KUBs in a.m. Continue Zosyn, serous fluid described intraoperatively in excess of what was anticipated prompting decision to send sample for culture. Continue Diflucan for culture finding of probable Jordan. Blood pressure stable. Remains on low-dose methimazole after radioactive iodine ablation in July; will clarify with Endo if appropriate to recheck thyroid levels. Hemoglobin stable as are electrolytes although sodium remains borderline low. 11/08/17 POD #6 Replacement of NG overnight; continues to have active bowel sounds and passing gas, no BM since prior to surgery. KUB films pending this am. White count remains elevated. Dc Zosyn and start Meropenem for serous fluid described intraoperatively in excess of what was anticipated. E coli and pseudomonas cultured. DARCIE's are now resulted showing lower DARCIE w/ Meropenem compared to Zosyn. Continue Diflucan for culture finding of probable Jordan. Sodium remains low 131-->130. Continues on PPN and clear liquids. 11/09/17 POD #7 Patient looking and feeling much better today. Has had NG tube clamped off and on and has tolerated it well thus far. Patient has passed some stool and continues to pass gas. KUB films pending this am. White count has improved. Day #2 of meropenem (converted from Zosyn (11/02 - 11/08) due to DARCIE) for e coli and pseudomonas in peritoneal fluid. Day #7 of Diflucan for jordan in peritoneal fluid. Sodium still low but improving 130-->132. Continues on PPN and ice chips. Would like to go to IRU on d/c 11/10/2017 surgery She experienced significantly increase in pain late evening, NG advanced and pain meds given, she feel better this am. WBC with increase to 24.3 (17.7 yesterday) with bandemia Llanos removed yesterday Still on oxygen, sat drops to upper 80's on room air Low grade fever of 100.3 during the nite.\ Will further evaluate leukocytosis, fever, weakness with CXR, blood cultures and u/a. Dr. Ramirez eval the patient as well, also getting CT abd/pelvis and serum lactate. 11/10/17-POD #8. OP day for second surgery due to possible microperforation by Dr. Ramirez. Patient with increasing abdominal pain, abdominal distention, and increase in white count and development of fever. CT abdomen/pelvis resulting in possibility of microperforation leading to emergent surgery with Dr. Ramirez at the present time. Patient continues on meropenem. Today is day #3. (Converted from Zosyn (11/02 - 7) due to DARCIE) for e coli and pseudomonas in peritoneal fluid. Day #8 of Diflucan for jordan in peritoneal fluid. Sodium still low but currently stable 130-->132-->132. Continues on PPN and ice chips. Blood pressure and pulse are stable. Patient is requiring 2 L oxygen. There is question on chest x-ray of lower lobe atelectasis versus pneumonia. Blood cultures are pending. Lactate was normal. Sputum culture has been ordered. Given that she's been on broad coverage antibiotics and she has been breathing shallow due to pain in the abdomen, suspect findings on x-ray are more apt to be atelectasis. Add Acapella and DuoNeb treatments for pulmonary toilet. Patient has been having liquid stools - c diff neg. Will discuss case with Dr. Ramirez following surgery and continue to monitor pt closely.
[2017-11-11] MEDS: FAT EMULSION 20% 250 ML IV SCH (16:26)
[2017-11-11] MEDS: LOSARTAN 50 MG TABLET PO SCH (16:27)
[2017-11-11] MEDS: METHIMAZOLE 5 MG TABLET PO SCH (16:27)
--- NOTE | 2017-11-11 16:33 | Progress Note ---
DATE 11/11/2017 FINDINGS Mrs. Tafoya has been seen a couple of times throughout today. Patient was in good spirits this morning. She was complaining of incisional discomfort as one would expect. OBJECTIVE VITALS: Afebrile. Normotensive. Please refer to EMR. CHEST: Clear to auscultation bilaterally. HEART: Regular rate and rhythm. Normal S1, S2, without gallops, murmurs or clicks. ABDOMEN: Palpation of reveals some minimal incisional tenderness. There was no evidence for guarding or rebound. LABORATORY/RADIOGRAPHIC EVALUATION Patient had a CBC today and her white count remains elevated at 22,000. I would not expect her white count to be on a downward trend on postop day #1. Hemoglobin has drifted down slightly at 8.9. BMP obtained and found to be without marked abnormalities. CRP was obtained today and found be elevated at 267.3. Plasma lactate level was normal at 1.2. Procalcitonin level was elevated at 2.08. ASSESSMENT 72-year-old female status post exploratory laparotomy with lysis of adhesions secondary to small bowel obstruction. Status post repeat exploratory laparotomy with sigmoid resection and creation of end colostomy with Julius's pouch secondary to phlegmonous process involving sigmoid colon most likely secondary to diverticulitis. Overall patient doing well on postop day #1. PLAN This morning I was informed that the patient was having some junctional rhythms with associated pauses. I did request that Pharmacy review her medication list and give forth recommendations of any medications that could be contributing to her junctional rhythm. Appropriate changes have been made with discontinuation of the diflucan and Zofran. Cardiology consult was obtained as a result of the arrhythmias. I have spoken with Infectious Disease yesterday in regards to this patient. The hospitalist system was to speak as well with the Infectious Disease physician for additional recommendations. Will continue otherwise with current care. ANGELICA
[2017-11-11] MEDS ORDERED: MICAFUNGIN IV SCH (20:00)
[2017-11-11] MEDS ORDERED: NS IV SCH (20:00)
[2017-11-12] MEDS: LOSARTAN 50 MG TABLET PO SCH ×3 (02:11→20:18)
[2017-11-12] MEDS: MEROPENEM 1 GM in NS 50 ML IV SCH ×2 (02:13→07:51)
[2017-11-12] MEDS: MORPHINE SULFATE 4mg INJECTION IVP PRN ×2 (04:15→11:11)
[2017-11-12] MEDS: ALBUTEROL/IPRATROPIUM 2.5mg-0.5mg/3ml NEB AEROSOL SCH ×4 (06:56→18:45)
--- NOTE | 2017-11-12 07:33 | Pharmacy Consult-TPN/PPN ---
Pharmacy Consult-TPN/PPN - Laboratory Information Chemistry Turbidity < 20 (0-20) 11/12/17 05:22 Sodium 133 MEQ/L (136-146) L 11/12/17 05:22 Potassium 4.7 MEQ/L (3.6-5) 11/12/17 05:22 Chloride 102 MEQ/L (98-107) 11/12/17 05:22 Carbon Dioxide 27 MEQ/L (22-30) 11/12/17 05:22 Anion Gap 4 meq/L (5-15) L 11/12/17 05:22 BUN 21.0 MG/DL (7-17) H 11/12/17 05:22 Creatinine 0.9 mg/dL (0.7-1.2) D 11/12/17 05:22 GFR Calculation 62 11/12/17 05:22 BUN/Creatinine Ratio 23 RATIO (6-26) 11/12/17 05:22 Glucose 95 MG/DL (65-110) 11/12/17 05:22 Glucometer 97 mg/dL (65-110) 11/10/17 16:04 Calculated Osmolality 259 MOSM/KG (261-280) L 11/12/17 05:22 Calcium 7.7 MG/DL (8.4-10.2) L 11/12/17 05:22 Phosphorus 2.5 MG/DL (2.5-4.5) 11/12/17 05:22 Magnesium 2.1 MG/DL (1.6-2.3) 11/10/17 04:15 Total Bilirubin 0.30 MG/DL (0.20-1.30) 11/04/17 04:13 Conjugated Bilirubin 0.00 mg/dL (0.00-0.30) 11/01/17 03:35 Unconjugated Bilirubin 0.30 mg/dL (0.00-1.1) 11/01/17 03:35 AST 28 U/L (14-36) 11/04/17 04:13 Icterus Index < 2 (0-7) 11/12/17 05:22 ALT 29 U/L (1-35) 11/04/17 04:13 Alkaline Phosphatase 56 U/L (38-126) D 11/04/17 04:13 Troponin I < 0.012 ng/ml (0-0.12) 11/11/17 04:38 C-Reactive Protein 267.3 mg/L (0-9) H D 11/11/17 09:24 Total Protein 5.2 g/dL (6.3-8.2) L 11/04/17 04:13 Globulin 2.3 G/DL (2.4-3.6) L 11/04/17 04:13 Albumin/Globulin Ratio 1.3 RATIO (1.1-2.2) 11/04/17 04:13 Albumin 2.8 g/dL (3.5-5.0) L 11/10/17 04:15 Lipase 53 U/L (23-300) 10/28/17 14:57 Plasma Lactate 1.2 MMOL/L (0.6-2.2) 11/11/17 09:24 Procalcitonin 2.08 NG/ML H* 11/11/17 09:24 TSH 31.90 mIU/L (0.47-4.68) H 11/10/17 08:43 Free T4 0.09 ng/dL (0.78-2.19) L 11/10/17 08:43 Specimen Hemolysis < 15 (0-25) 11/12/17 05:22 - Consult Information TPN CONSULT: Day 21 No changes in the patient's electrolytes so will continue the TPN as currently ordered. Thanks, Baldo Bragg, Pharmacist.
--- NOTE | 2017-11-12 07:47 | Echocardiogram ---
DATE OF PROCEDURE: November 11, 2017 This is a two-dimensional echo with spectral Doppler, color-flow and M-mode. It was obtained in a patient with arrhythmias. Left atrial dimension is normal. Left ventricle end-diastolic dimension is normal. Left ventricle wall thickness is normal. LV systolic function is normal with ejection fraction of about 65%. Right atrium is normal. Right ventricle is normal. Aortic root dimension is normal. Mitral valve is morphologically normal with mild mitral regurgitation. Aortic valve appears to be normal. Tricuspid valve shows mild tricuspid regurgitation with mild pulmonary hypertension with estimated pulmonary artery systolic pressure of 36. Pulmonary valve shows trace of pulmonary insufficiency. There is no pericardial effusion. IMPRESSION 1. Normal LV systolic function with ejection fraction of 65%. 2. Mild mitral regurgitation. 3. Trace of pulmonary insufficiency. 4. Mild tricuspid regurgitation with mild pulmonary hypertension with estimated pulmonary artery systolic pressure of 36. MTDD
[2017-11-12] MEDS: [UNRECOGNIZED DRUG - OTHER] IV SCH ×2 (07:50→10:29)
[2017-11-12] MEDS: MULTI VIT INFUSION IV SCH ×2 (07:50→10:29)
[2017-11-12] MEDS: MULTI TRACE ELEMENTS IV SCH ×2 (07:50→10:29)
[2017-11-12] MEDS: SODIUM CHLORIDE IV SCH ×2 (07:50→10:29)
[2017-11-12] MEDS: KETOROLAC 15 MG/ML INJECTION IVP PRN ×3 (08:28→20:20)
[2017-11-12] MEDS: METHIMAZOLE 5 MG TABLET PO SCH (08:32)
--- NOTE | 2017-11-12 08:54 | Infectious Disease Consult ---
Infectious Disease Consult Date of Consultation: 11/12/17 Requesting Physician: Haseeb Ramirez Reason for Consultation: antibiotic recs History of Present Illness: Ms. Tafoya is a 72 y/o woman who was admitted here on October 28 with abdominal pain and nausea and vomiting. She had not had a normal bowel movement for 6 days prior to admission. She took a "natural" cleansing medication for constipation for 3 days which resulted in an episode of explosive diarrhea on the day of admission. A CT of her abdomen showed multiple functional small bowel obstruction with long segment of circumferential distal small bowel thickening suggestive of Crohn's disease or some other enteritis. He also was noted to have Crohn's disease listed on her problem list however per records she has had multiple colonoscopies and was never treated for Crohn's. Dr. Nixon was consulted on October 29. NG tube decompression was recommended but she did not tolerate placement of the NG tube. She was treated with IV steroids and IV Zosyn thinking that this represented a flare of Crohn's disease. She was taken to surgery by Dr. Nixon on November 02 for exploratory laparoscopy and release of incarcerated internal hernia. There was no gross evidence of perforation of the bowel. Cultures of some abdominal fluid were taken during that surgery, and grew Escherichia coli Jeimy albicans Pseudomonas and some other lilliana. The predominant organisms were Escherichia coli and Jeimy. The Escherichia coli was pansensitive and the Pseudomonas was sensitive to all agents listed and intermediate to gentamicin. The Gram stain had no organisms seen. On November 03 her antibiotics were changed to Rocephin and Diflucan. Steroids were stopped following her surgery since there was no evidence of Crohn's disease. Dr. Ramirez assumed the surgical care of this patient on November [address] Nixon was on vacation. The patient reports that she has had a persistent headache for many days although this has been relieved just in the last couple of days. Records indicate her NG tube was removed November 05. Her white blood cell count continued to increase and a repeat CT of the abdomen was obtained on November 06. Her antibiotics were expanded on November [address] scan on the showed postoperative changes improving partial small bowel obstruction, continued wall thickening and inflammation within the distal ileum , mildly enlarged fluid-filled appendix thought to be postoperative and some inflammatory small bowel changes. Overnight on November 09 to November 10 patient apparently became clinically worse. She had increased abdominal pain. She was noted to have some peritoneal signs on exam. Her white count was increasing. There was some discussion about transferring her to the hospital in [facility] where her son works as a [employer]. It was determined that it was in the patient's best interest to stay here for repeat CT imaging and probable surgery. She appeared to have an acute surgical abdomen on exam that day. CT scan on November 10 showed some free air in the pelvis concerning for perforation. He was taken urgently to the operating room that day for exploratory laparotomy and underwent sigmoid resection and creation of end colostomy with Cherelle's pouch and mobilization of splenic flexure. There was carmen purulent material deep within the pelvis and this was cultured. There were no organisms seen on Gram stain and so for that culture is negative. She also had blood cultures obtained November 10 which are no growth to date. On November 09 the Zosyn was changed to meropenem. On November 10 after surgery I discussed this patient's care with Dr. Ramirez and I suggested increasing her fluconazole to 400 mg daily. Yesterday , November 11 she was noted to have some pauses on her telemetry and she was symptomatic with some nausea and slight dizziness. The fluconazole was stopped and she was started on micafungin yesterday. This morning she reports that her pain is improving and her headache is gone. She again has an NG tube in place. That her breathing has improved although she remains on oxygen. She is on TPN. Medications Home Medications Medication Instructions Recorded Confirmed Type Albuterol HFA Inhaler [Ventolin 2 puff INH Q6H PRN 10/28/17 10/28/17 History Hfa 90 mcg/actuation] DiphenhydrAMINE [Benadryl] 25 mg PO Q4H PRN 10/28/17 10/28/17 History Losartan [Cozaar] 25 mg PO BID 10/28/17 10/28/17 History MethIMAzole [Tapazole] 2.5 mg PO DAILY 10/28/17 10/28/17 History Ranitidine [Zantac] 150 mg PO BID 10/28/17 10/28/17 History guaiFENesin [Mucinex] 600 mg PO Q12H PRN 10/28/17 10/28/17 History Allergies Allergy/AdvReac Type Severity Reaction Status Date / Time clindamycin Allergy Severe Hallucinati Verified 10/29/17 07:43 ng meperidine [From Demerol] Allergy nausea, Verified 10/28/17 14:37 paranoia morphine AdvReac Confusion Verified 10/29/17 07:43 PFS Patient Stated Medical History Hearing Loss Yes: bilateral Other HEENT Yes: WEARS GLASSES Hypertension Yes: R/T RENAL ARTERY BLOCKAGE Pneumonia Yes: july 2016 Sleep Apnea No Other Respiratory Yes: chronic cough Gastroesophageal Reflux Yes Disease Hiatal Hernia Yes Hx Renal Disease No Hx Urinary Tract Infection Yes Chlamydia Yes: 1985 Depression Yes Clinic Medical History (Last Reviewed 03/21/17 @ 14:33 by VENANCIO Landry ) History of Crohn's disease (Chronic Medical) Anxiety (Chronic Medical) Migraine (Chronic Medical) GERD (gastroesophageal reflux disease) (Chronic Medical) Chronic abdominal pain (Chronic Medical) Dyslipidemia (Chronic Medical) Hypertension (Chronic Medical) Medical History Updates: Hyperthyroidism Surgical History: RA iodine ablation for hyperthyroidism 07/18. cataract surgery. breast augmentation. L shoulder surgery. heart cath 2006. hyst. Laparotomy with CECILLE 11/02/17. Laparotomy, sigmoid resection, creation of end colostomy with cherelle's pouch 11/10/17 Family History: Family History (Last Reviewed 03/21/17 @ 14:33 by VENANCIO Landry) Father No problems noted. Mother No problems noted. 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 Absent: vomiting Gastrointestinal Comments: no flatus - Integumentary/Breasts Integumentary: Absent: rash - Neurological Neurological: Absent: confusion Exam Vital Signs: Temperature 96.4 F L 11/12/17 04:23 Pulse Rate 91 11/12/17 08:15 Respiratory Rate 19 11/12/17 08:15 Blood Pressure 143/68 H 11/12/17 08:00 Pulse Oximetry 96 11/12/17 08:15 Height/Weight/BMI: Height 1.55 m Weight 54.8 kg Body Mass Index 19.8 - Constitutional Present: no acute distress, well nourished, well developed - Routine HEENT Exam Head: Present: normocephalic, atraumatic Eye: Present: EOMI, PERRL ENT: Present: mucous membranes moist, dentition normal Comments: thrush on tongue. NGT in place - Routine Neck Exam Present: supple - Routine Respiratory Exam Present: CTA bilaterally Comments: on O2 - Routine Cardiovascular Exam Present: RRR - Routine Abdominal Exam Present: soft, distended, ostomy Comments: incision covered with large dressing, drain in place. No bowel sounds heard - Routine Exam Comments: llanos in place - Routine Extremities Exam Absent: cyanosis, clubbing, edema, joint swelling - Routine Skin Exam Present: intact. Absent: rash Comments: PICC site ok - Routine Neurological Exam Present: alert, oriented X3, CN II-XII intact, normal speech. Absent: motor deficit - Routine Psychiatric Exam Present: normal affect, normal thought process Results - Labs CBC & Chem 7: 11/12/17 05:22 11/12/17 05:22 Microbiology Results: Microbiology 11/10/17 13:17 Peritoneum Gram Stain - Final 11/10/17 13:17 Peritoneum Surgical Culture - Preliminary No Growth After 1 Day 11/10/17 08:50 Port/Picc Blood Culture - Preliminary No Growth After 1 Day 11/10/17 08:45 Port/Picc Blood Culture - Preliminary No Growth After 1 Day 11/02/17 15:12 Peritoneal Fluid Gram Stain - Final 11/02/17 15:12 Peritoneal Fluid Body Fluid Culture - Final Escherichia coli Jeimy albicans Pseudomonas aeruginosa Other Lilliana Observed Impression: Sepsis secondary to GI source Pelvic abscess associated with sigmoid inflammation, s/p sigmoid resection, creation of end colostomy with Cherelle's pouch, drainage of abscess 11/10/17. Surgical cultures negative so far. S/p exploratory laparoscopy with CECILLE on 11/02/17, with peritoneal fluid cultures growing isaac-sensitive E. coli, Pseudomonas aeruginosa, C. albicans, and small amounts of other lilliana Leukocytosis Bradycardia with 2-3 second pauses 11/11/17 HTN Recommendation: I recommend changing the Merrem to Zosyn. This would still have activity against the agents isolated in her first surgical culture. I would continue her on micafungin for now. I would recommend treating her for at least 2 weeks after her most recent surgery. Once she improves and is taking things orally, I think the oral fluconazole could be attempted again to see if she tolerates it. Since her weight is only 55 kg, I think she could be treated with 200 mg daily. In fact, she could potentially be changed to oral cipro 500mg po BID and flagyl 500mg po BID to finish out her course, if she's improved enough to be discharged. She might need a repeat CT scan to make sure that everything has resolved. I will be out next week on vacation. Dr. Argueta will be available by phone if questions arise.
[2017-11-12] MEDS: ENOXAPARIN 40 MG/0.4 ML INJECTION SQ SCH (08:56)
[2017-11-12] MEDS: PANTOPRAZOLE 40 MG INJECTION IVP SCH ×2 (08:57→20:19)
[2017-11-12] MEDS ORDERED: MICAFUNGIN IV SCH (09:00)
[2017-11-12] MEDS ORDERED: NS IV SCH (09:00)
[2017-11-12] MEDS ORDERED: PIPERACILLIN/TAZOBACTAM 3.375 GM in D5W 100 ML IV SCH (10:00)
--- NOTE | 2017-11-12 10:44 | Progress Note ---
DATE 11/12/2017 FINDINGS Mrs. Tafoya was in good spirits this morning. She was without complaints. She was very appreciative of her care. OBJECTIVE VITALS: Afebrile. Normotensive. Please refer to EMR. CHEST: Clear to auscultation bilaterally. HEART: Regular rate and rhythm. Normal S1, S2, without gallops, murmurs or clicks. ABDOMEN: Abdomen soft. Minimal incisional tenderness. Dressing was removed. Ayaz between karlie remained to be in place. No surrounding periwound erythema. Colostomy was present in the left lower quadrant. Colostomy was "pink"/viable. No evidence for vascular compromise. No significant air or stool in ostomy appliance at this time. LABORATORY/RADIOGRAPHIC EVALUATION Patient's white count is on a downward trend fortunately to 16.3 today. Hemoglobin is stable at 8.8. No bandemia. Slightly increased neutrophils at 89 %. BMP obtained and found to be essentially within normal limits. BUN elevated slightly at 21.0. ASSESSMENT 72-year-old female status post exploratory laparotomy with lysis of adhesions secondary to small bowel obstruction. Status post repeat exploratory laparotomy with sigmoid resection and creation of end colostomy and Julius's pouch secondary to phlegmonous process involving sigmoid colon most likely felt to be secondary to diverticulitis with associated developing abscess. Patient showing good improvement. PLAN Continue with ongoing broad-spectrum antibiotics. Continue with hyperalimentation. Continue to follow closely. I am pleased with the patient' s progress at this time. MTDD
[2017-11-12] MEDS: METOCLOPRAMIDE 10mg/2ml INJECTION IVP PRN (11:38)
[2017-11-12] MEDS: SALINE FLUSH 10ml SYRINGE IVF PRN (11:41)
--- NOTE | 2017-11-12 13:35 | Cardiology Progress Note ---
<Melony Quezada M - Last Filed: 11/12/17 18:07> Subjective Principal diagnosis: bradycardia Interval history: Steffi is seen in follow up for bradycardia. Telemetry is reviewed and no further pauses have been seen. Many family are at the bedside and she is up in the chair. She states that she is feeling well today. She denies chest pain, palpitations, dyspnea or dizziness. Exam Vital signs: Temperature 96.4 F L 11/12/17 04:23 Pulse Rate 70 11/12/17 12:00 Respiratory Rate 16 11/12/17 10:28 Blood Pressure 143/68 H 11/12/17 08:00 Pulse Oximetry 95 11/12/17 10:28 Inpatient Medications: Generic Name Dose Route Start Last Admin Trade Name Freq PRN Reason Stop Dose Admin Albuterol/Ipratropium 3 ml 11/10/17 19:00 11/12/17 10:28 Duoneb AEROSOL 3 ml RTQID JUDI Administration Enoxaparin Sodium 40 mg 10/29/17 09:00 11/12/17 08:56 Lovenox SQ 40 mg DAILY JUDI Administration Fat Emulsion Intravenous 250 mls @ 50 mls/hr 11/08/17 16:00 11/11/17 21:30 Intralipid 20% IV Infused 1600 JUDI Infusion Multivitamins/Minerals 10 ml/ 2,041 mls @ 82 mls/hr 11/12/17 10:00 11/12/17 10:29 Chromium/Copper/Manganese/Zinc IV Not Given 1 ml/ Sodium Chloride 120 meq .Q24H JUDI / Amino Acids/Electrolytes/ Dextrose Protocol Micafungin Sodium 100 mg/ 100 mls @ 100 mls/hr 11/12/17 16:00 Sodium Chloride IV 1600 JUDI Piperacillin Sod/Tazobactam 100 mls @ 200 mls/hr 11/12/17 18:00 Sod 3.375 gm/ Dextrose IV Q6H JUDI Ketorolac Tromethamine 15 mg 11/02/17 18:35 11/12/17 08:28 Toradol Inj IVP 15 mg Q6H PRN Administration Pain Lorazepam 0.5 mg 11/01/17 11:53 11/09/17 22:35 Ativan Inj IVP 0.5 mg O PRN Administration Losartan Potassium 25 mg 11/04/17 21:00 11/12/17 08:32 Cozaar PO Not Given BID JUDI Methimazole 2.5 mg 11/05/17 09:00 11/12/17 08:32 Tapazole PO Not Given DAILY [facility] Metoclopramide HCl 10 mg 11/10/17 17:48 11/12/17 11:38 Reglan IVP 10 mg Q6H PRN Administration Morphine Sulfate 1 - 4 mg 11/10/17 22:16 11/12/17 11:11 Morphine Sulfate Inj IVP 4 mg Q1H PRN Administration Pain Pantoprazole Sodium 40 mg 10/28/17 21:00 11/12/17 08:57 Protonix Iv IVP 40 mg BID JUDI Administration Sodium Chloride 10 - 80 ml 10/28/17 14:40 11/12/17 11:41 Iv Flush IVF 80 ml PRN PRN Administration Flushing Sodium Chloride 500 ml 10/28/17 18:29 11/06/17 11:32 Normal Saline IV 500 ml PRN PRN Administration FLUSH Throat Lozenges 3 spray 11/01/17 11:52 11/01/17 12:04 Chloraseptic [place] PO 3 spray Q2H PRN Administration Discontinued Medications Generic Name Dose Route Start Last Admin Trade Name Freq PRN Reason Stop Dose Admin Acetaminophen 650 mg 11/05/17 09:18 11/09/17 10:39 Tylenol PO 650 mg Q5HR PRN Administration Pain Albuterol Sulfate 2.5 mg 11/10/17 15:48 11/10/17 15:44 Proventil Neb (0.083%) AEROSOL 11/10/17 15:49 2.5 mg ONE TIME ONE Administration Amino Acids 1 each 10/30/17 14:07 10/30/17 16:41 Pharmacy Consult - Ppn 10/30/17 14:08 Not Given O ONE Amino Acids/Electrolytes/Dextrose 1 each 10/30/17 14:04 Pharmacy Consult - Tpn 10/30/17 14:05 O ONE Amino Acids/Electrolytes/Dextrose 1 each 11/11/17 07:44 11/11/17 11:06 Pharmacy Consult - Tpn 11/11/17 07:45 1 each O ONE Administration Amlodipine Besylate 5 mg 11/01/17 03:41 11/01/17 03:44 Norvasc PO 11/01/17 03:42 5 mg DAILY ONE Administration Bisacodyl 10 mg 11/05/17 10:00 11/05/17 11:20 Dulcolax RECTALLY 11/05/17 10:01 10 mg O ONE Administration Bisacodyl 10 mg 11/08/17 10:00 11/10/17 10:02 Dulcolax RECTALLY Not Given BID JUDI Bisacodyl 10 mg 11/09/17 09:27 11/09/17 10:40 Dulcolax PO 11/09/17 09:28 10 mg O ONE Administration Fentanyl 25 mcg 10/28/17 14:40 10/28/17 15:18 Fentanyl IVP 10/28/17 14:41 25 mcg O ONE Administration Fentanyl 25 mcg 10/28/17 18:02 11/10/17 09:43 Fentanyl IVP 25 mcg Q30M PRN Administration Pain Fentanyl 0 mcg 11/10/17 16:37 11/10/17 16:40 Fentanyl IVP 25 mcg Q5M PRN Administration Furosemide 20 mg 11/01/17 03:40 11/01/17 03:44 Lasix 20 Mg/2 Ml IVP 11/01/17 03:41 20 mg ONCE ONE Administration Hydralazine HCl 5 mg 11/01/17 07:06 11/05/17 23:19 Apresoline IVP 5 mg Q6H PRN Administration elevated blood pressure Hydralazine HCl 10 mg 11/06/17 00:50 11/06/17 00:56 Apresoline IVP 11/06/17 00:51 10 mg O ONE Administration Hydralazine HCl 10 mg 11/06/17 00:52 Apresoline IVP Q6H PRN elevated blood pressure Hydromorphone HCl 0 mg 11/02/17 17:32 11/02/17 17:37 Dilaudid IVP 0.5 mg Q10M PRN Administration Hydromorphone HCl 0.2 - 1 mg 11/02/17 18:35 11/04/17 21:18 Dilaudid IVP 1 mg Q2H PRN Administration Pain Hydromorphone HCl 0.5 - 1 mg 11/10/17 17:48 11/10/17 17:59 Dilaudid IVP 1 mg Q2H PRN Administration Pain Sodium Chloride 1,000 mls @ 1,000 mls/hr 10/28/17 14:40 10/28/17 16:24 Normal Saline IV 10/28/17 15:39 Infused .Q1H ONE Infusion Piperacillin Sod/Tazobactam 100 mls @ 200 mls/hr 10/28/17 17:45 11/02/17 17: 35 Sod 3.375 gm/ Sodium Chloride IV Infused Q6H JUDI Infusion Sodium Chloride 1,000 mls @ 100 mls/hr 10/28/17 19:15 10/30/17 09:19 Normal Saline IV Infused .Q10H JUDI Infusion Acetaminophen 1,000 mg in 100 mls @ 400 mls/hr 10/29/17 15:52 11/01/17 23:15 Ofirmev 1 Gm IV Infused Q8H PRN Infusion Lactated Ringer's 1,000 mls @ 100 mls/hr 10/30/17 07:30 10/30/17 15:05 Lactated Ringers IV 10/30/17 16:00 Infused .Q10H JUDI Infusion Multivitamins/Minerals 10 ml/ 2,011 mls @ 100 mls/hr 10/30/17 16:00 11/02/17 05:10 Chromium/Copper/Manganese/Zinc IV 11/02/17 04:59 Infused 1 ml/ Amino Acids/ .Q20H7M JUDI Infusion Electrolytes/Dextrose Protocol Fat Emulsion Intravenous 500 mls @ 125 mls/hr 10/31/17 16:00 11/07/17 19:14 Intralipid 20% IV Infused 1600 JUDI Infusion Potassium Chloride 10 meq in 100 mls @ 100 mls/hr 11/01/17 07:30 11/01/17 09: 52 Potassium Chloride Premix IV 11/01/17 09:29 Infused Q1H JUDI Infusion Potassium Chloride 20 meq/ 2,021 mls @ 100 mls/hr 11/02/17 05:00 11/03/17 01: 44 Multivitamins/Minerals 10 ml/ IV 11/03/17 00:59 Infused Chromium/Copper/Manganese/Zinc .[id number] JUDI Infusion 1 ml/ Amino Acids/ Electrolytes/Dextrose Protocol Potassium Chloride 10 meq in 100 mls @ 100 mls/hr 11/02/17 08:00 11/02/17 13: 29 Potassium Chloride Premix IV 11/02/17 09:59 Infused Q1H JUDI Infusion Potassium Chloride 40 meq/ 2,031 mls @ 100 mls/hr 11/03/17 01:00 11/03/17 22: 49 Multivitamins/Minerals 10 ml/ IV 11/03/17 21:19 Infused Chromium/Copper/Manganese/Zinc .[id number] JUDI Infusion 1 ml/ Amino Acids/ Electrolytes/Dextrose Protocol Lactated Ringer's 1,000 mls @ 30 mls/hr 11/02/17 14:00 11/02/17 18:53 Lactated Ringers IV Infused .Q24H JUDI Infusion Multivitamins/Minerals 10 ml/ 2,011 mls @ 100 mls/hr 11/03/17 21:20 11/04/17 18:25 Chromium/Copper/Manganese/Zinc IV 11/04/17 16:59 Infused 1 ml/ Amino Acids/ .Q20H7M JUDI Infusion Electrolytes/Dextrose Protocol Ceftriaxone Sodium 1 g/ Sodium 100 mls @ 200 mls/hr 11/03/17 17:00 11/05/17 19:03 Chloride IV Infused Q24H JUDI Infusion Fluconazole 200 mg in 100 mls @ 100 mls/hr 11/03/17 17:00 11/10/17 19:50 Diflucan 200 Mg Premix IV Not Given Q24H JUDI Multivitamins/Minerals 10 ml/ 2,011 mls @ 82 mls/hr 11/04/17 17:00 11/05/17 15:58 Chromium/Copper/Manganese/Zinc IV 11/05/17 16:59 Infused 1 ml/ Amino Acids/ .Q24H JUDI Infusion Electrolytes/Dextrose Protocol Multivitamins/Minerals 10 ml/ 2,015.5455 mls @ 82 mls/hr 11/05/17 15:30 11/07 16:22 Chromium/Copper/Manganese/Zinc IV 11/07/17 15:29 Infused 1 ml/ Sodium Phosphate 20 meq .Q24H JUDI Infusion / Amino Acids/Electrolytes/ Dextrose Protocol Piperacillin Sod/Tazobactam 100 mls @ 200 mls/hr 11/06/17 10:30 11/08/17 10: 33 Sod 3.375 gm/ Dextrose IV Not Given Q6H JUDI Multivitamins/Minerals 10 ml/ 2,021 mls @ 82 mls/hr 11/07/17 08:30 Chromium/Copper/Manganese/Zinc IV 1 ml/ Sodium Chloride 40 meq/ .Q24H JUDI Amino Acids/Electrolytes/ Dextrose Protocol Multivitamins/Minerals 10 ml/ 2,021 mls @ 82 mls/hr 11/07/17 16:00 11/08/17 17:14 Chromium/Copper/Manganese/Zinc IV 11/08/17 15:59 Infused 1 ml/ Sodium Chloride 40 meq/ .Q24H JUDI Infusion Amino Acids/Electrolytes/ Dextrose Protocol Azithromycin 250 mg/ Sodium 100 mls @ 100 mls/hr 11/08/17 08:45 11/08/17 09: 06 Chloride IV Not Given Q24H JUDI Azithromycin 250 mg/ Sodium 250 mls @ 250 mls/hr 11/08/17 10:00 11/10/17 16: 02 Chloride IV Infused Q24H JUDI Infusion Multivitamins/Minerals 10 ml/ 2,031 mls @ 82 mls/hr 11/08/17 16:00 11/09/17 16:24 Chromium/Copper/Manganese/Zinc IV 11/09/17 15:59 Infused 1 ml/ Sodium Chloride 80 meq/ .Q24H JUDI Infusion Amino Acids/Electrolytes/ Dextrose Protocol Meropenem 1 gm/ Sodium 100 mls @ 200 mls/hr 11/08/17 10:45 11/08/17 12:46 Chloride IV Not Given Q8HR JUDI Meropenem 1 gm/ Sodium 50 mls @ 100 mls/hr 11/08/17 11:15 11/11/17 01:02 Chloride IV Not Given Q8HR JUDI Multivitamins/Minerals 10 ml/ 2,036 mls @ 82 mls/hr 11/09/17 08:00 11/10/17 23:31 Chromium/Copper/Manganese/Zinc IV 11/10/17 15:59 Infused 1 ml/ Sodium Chloride 100 meq .Q24H JUDI Infusion / Amino Acids/Electrolytes/ Dextrose Protocol Multivitamins/Minerals 10 ml/ 2,041 mls @ 82 mls/hr 11/10/17 16:00 11/10/17 19:49 Chromium/Copper/Manganese/Zinc IV Not Given 1 ml/ Sodium Chloride 120 meq .Q24H JUDI / Amino Acids/Electrolytes/ Dextrose Lactated Ringer's 1,000 mls @ 50 mls/hr 11/10/17 12:30 11/10/17 15:35 Lactated Ringers IV Infused .Q20H JUDI Infusion Lactated Ringer's 1,000 mls @ 0 mls/hr 11/10/17 13:19 11/10/17 17:30 Lactated Ringers IV 50 mls/hr .Q0M JUDI Infusion As Directed Potassium Chloride/Dextrose/Sod Cl 1,000 mls @ 125 mls/hr 11/10/17 17:48 04/19 08:45 D5-1/2ns With Kcl 20meq Premix IV Infused .Q8H JUDI Infusion Fluconazole 400 mg in 200 mls @ 100 mls/hr 11/10/17 18:00 11/10/17 21:35 Diflucan 400 Mg Premix IV Infused Q24H JUDI Infusion Albumin Human 25 g/ IV 100 mls @ 50 mls/hr 11/11/17 01:01 11/11/17 01:26 Solution IV 11/11/17 03:00 Not Given O ONE Albumin Human 12.5 g/ IV 50 mls @ 50 mls/hr 11/11/17 02:18 11/11/17 02:49 Solution IV 11/11/17 03:17 Infused O ONE Infusion Albumin Human 12.5 g/ IV 50 mls @ 50 mls/hr 11/11/17 01:17 11/11/17 03:56 Solution IV 11/11/17 02:16 Infused O ONE Infusion Meropenem 1 gm/ Sodium 50 mls @ 100 mls/hr 11/11/17 07:00 11/12/17 09:00 Chloride IV Infused Q8H JUDI Infusion Multivitamins/Minerals 10 ml/ 2,041 mls @ 82 mls/hr 11/11/17 10:00 11/12/17 02:24 Chromium/Copper/Manganese/Zinc IV 11/12/17 09:59 82 mls/hr 1 ml/ Sodium Chloride 120 meq .Q24H JUDI Infusion / Amino Acids/Electrolytes/ Dextrose Protocol Micafungin Sodium 100 mg/ 100 mls @ 100 mls/hr 11/12/17 09:00 Sodium Chloride IV DAILY JUDI Micafungin Sodium 100 mg/ 100 mls @ 100 mls/hr 11/11/17 20:00 11/11/17 21:20 Sodium Chloride IV Infused 2000 JUDI Infusion Piperacillin Sod/Tazobactam 100 mls @ 200 mls/hr 11/12/17 10:00 11/12/17 11: 26 Sod 3.375 gm/ Dextrose IV 11/12/17 12:30 200 mls/hr Q6H JUDI Administration Labetalol HCl 10 mg 11/02/17 17:06 11/02/17 17:09 Trandate IVP 11/02/17 17:07 10 mg O ONE Administration Methylprednisolone Sodium Succinate 80 mg 10/28/17 17:45 11/02/17 18:36 Solu-Medrol IVP Not Given Q8HR JUDI Metoclopramide HCl 10 mg 10/28/17 17:39 11/07/17 08:04 Reglan IVP 10 mg Q6H PRN Administration Nausea Metoclopramide HCl 10 mg 11/08/17 08:45 Reglan IVP Q6H PRN Metoclopramide HCl 10 mg 11/08/17 09:25 11/10/17 19:49 Reglan IVP Not Given Q6HR JUDI Metoprolol Tartrate 5 mg 10/29/17 00:33 11/01/17 05:53 Lopressor IVP 5 mg Q6H PRN Administration Hypertension Morphine Sulfate 2 mg 10/28/17 18:43 Morphine Sulfate Inj IVP Q2HR PRN Pain Ondansetron HCl 4 mg 10/28/17 14:40 10/28/17 15:04 Zofran IVP 10/28/17 14:41 4 mg O ONE Administration Ondansetron HCl 4 mg 10/28/17 16:39 10/28/17 16:40 Zofran IVP 10/28/17 16:40 4 mg O ONE Administration Ondansetron HCl 4 mg 10/28/17 18:44 11/10/17 16:25 Zofran IVP 4 mg Q6H PRN Administration Nausea &/or vomiting Ondansetron HCl 4 mg 11/03/17 13:34 11/11/17 06:00 Zofran IVP 4 mg Q6H PRN Administration Nausea &/or vomiting Scopolamine 1 mg 11/02/17 15:07 11/02/17 14:08 Transderm-Scop Patch TD 11/05/17 15:06 1 mg Q3D JUDI Administration Scopolamine 1 removal 11/05/17 15:06 11/05/17 15:41 Transderm-Scop Patch Removal TD 11/05/17 15:07 1 removal Q3D JUDI Administration Sodium Chloride 500 ml 11/10/17 21:27 07/11/18 21:29 Normal Saline IV 11/10/17 21:28 500 ml PRN ONE Administration - Constitutional no acute distress, well nourished, cooperative - Routine HEENT Exam Head: Present: normocephalic ENT: Present: mucous membranes moist - Routine Neck Exam Absent: JVD, carotid bruit - Routine Chest/Breast/Axilla Exam Chest wall: Absent: tenderness - Routine Respiratory Exam Present: CTA bilaterally. Absent: dyspnea, rales, wheezes - Routine Cardiovascular Exam Present: RRR, no murmur - Routine Abdominal Exam Present: soft, tenderness - Routine Extremities Exam Present: no edema - Routine Skin Exam Present: intact, dry, warm - Routine Neurological Exam Present: alert, oriented X3 - Routine Psychiatric Exam Present: normal affect - Urinary Catheter Management Urethral Cath placed during this visit: yes, but has since been removed by the nurse Insertion date: 11/10/17 Insertion time: 13:00 Removal date: 11/09/17 Removal time: 09:51 Results 11/12/17 05:22 11/12/17 05:22 CBC 11/12/17 Range/Units 05:22 WBC 16.3 H (4.5-11.0) T/MM3 RBC 2.95 L (4.00-5.20) M/MM3 Hgb 8.8 L (12-16) GM/DL Hct 28.0 L (36-46) % Plt Count 449 H (130-400) T/MM3 Neut # (Auto) Not performed Lymph # (Auto) Not performed Dougherty # (Auto) Not performed Eos # (Auto) Not performed Baso # (Auto) Not performed Comprehensive Metabolic Panel 11/12/17 Range/Units 05:22 Sodium 133 L (136-146) MEQ/L Potassium 4.7 (3.6-5) MEQ/L Chloride 102 (98-107) MEQ/L Carbon Dioxide 27 (22-30) MEQ/L BUN 21.0 H (7-17) MG/DL Creatinine 0.9 D (0.7-1.2) mg/dL Glucose 95 (65-110) MG/DL Calcium 7.7 L (8.4-10.2) MG/DL Intake and Output 11/11/17 11/12/17 11/12/17 22:59 06:59 14:59 Intake Total 1076.000 / 1076.000 701.2 / 701.2 227.667 / 227.667 Output Total 250 / 250 1056 / 1056 410 / 410 Balance 826.000 / 826.000 -354.8 / -354.8 -182.333 / -182.333 Intake: IV 1016.000 / 1016.000 701.2 / 701.2 227.667 / 227.667 Fat Emulsion 20% 250 ml @ 50 250.000 / 250.000 mls/hr IV 1600 JUDI Rx#: [id number] Meropenem 1 gm In Ns 50 ml @ 50 / 50 50 / 50 50 / 50 100 mls/hr IV Q8H JUDI Rx#: [id number] Micafungin 100 mg In Ns 100 ml 100 / 100 @ 100 mls/hr IV 2000 JUDI Rx#: [id number] Multi-Vit Infusion 10 ml Multi 616 / 616 651.2 / 651.2 177.667 / 177.667 -Trace Elements 1 ml Sodium Chloride Conc 120 meq In TPN - Standard Formula 2,000 ml @ 82 mls/hr IV .Q24H JUDI Rx#: [id number] Oral 60 / 60 Output: Urine Amount (Catheter) 250 / 250 346 / 346 280 / 280 Gastric Drainage 550 / 550 Left Nare 550 / 550 Wound Drainage 160 / 160 130 / 130 Right Lower Lateral Abdomen 10 / 10 60 / 60 Right Upper Lateral Abdomen 150 / 150 70 / 70 Other: Urine Appearance Clear Clear Urine Color Yellow Pale Yellow Urine Odor Normal Drain Type Right Lower Lateral Abdomen Bulb [place] Bulb [place]lyn Right Upper Lateral Abdomen Bulb [place] Bulb [place] Weight 120 lb 13.013 oz Patient Weight 11/13/17 06:59 Weight 120 lb 13.013 oz - Imaging and Cardiology Imaging & Cardiology Narrative: Date of Exam: 11/11/17 Type of Exam(s): US echo doppler complete DATE OF PROCEDURE: November 11, 2017 This is a two-dimensional echo with spectral Doppler, color-flow and M-mode. It was obtained in a patient with arrhythmias. Left atrial dimension is normal. Left ventricle end-diastolic dimension is normal. Left ventricle wall thickness is normal. LV systolic function is normal with ejection fraction of about 65%. Right atrium is normal. Right ventricle is normal. Aortic root dimension is normal. Mitral valve is morphologically normal with mild mitral regurgitation. Aortic valve appears to be normal. Tricuspid valve shows mild tricuspid regurgitation with mild pulmonary hypertension with estimated pulmonary artery systolic pressure of 36. Pulmonary valve shows trace of pulmonary insufficiency. There is no pericardial effusion. IMPRESSION 1. Normal LV systolic function with ejection fraction of 65%. 2. Mild mitral regurgitation. 3. Trace of pulmonary insufficiency. 4. Mild tricuspid regurgitation with mild pulmonary hypertension with estimated pulmonary artery systolic pressure of 36. 11/12/17 18:09 Assessment and Plan - Assessment and Plan (1) Dyslipidemia Current visit: No Status: Chronic (2) Hypertension Current visit: No Status: Chronic (3) Bradycardia Current visit: Yes Status: Acute - Assessment and Plan 11/11/17 Bradycardia Current visit: Yes Status: Acute - 3.7 and 2.9 second pauses followed by junctional bradycardia. - felt dizzy and nausea and could feel her heart was not beating as usual - denies chest pain, pressure, tightness, dyspnea. - Has a history of syncope - currently SR, HR 80s - EKG SR, sinus arrhythmia, possible RV conduction delay - Azithromycin, Fluconazole and Ondansetron are discontinued - Continue to monitor cardiac telemetry - 2D echo - Probably will need PPM in future once current illness is resolved - Will continue to watch closely Dyslipidemia Current visit: No Status: Chronic - currently NPO, home meds are held Hypertension Current visit: No Status: Chronic - BP stable, has had hypotension - currently NPO, home meds are held Thank you for allowing us to participate in the care of this patient 11/12/17 No further pauses seen on telemetry. Continue to monitor telemetry. Hospital Course Summary Disclaimer: The visit summary below is not to be considered part of the above Progress Note. Hospital Course: 10/28/17 Admit, IP. Stay expected to exceed 2 overnights for tx of enteritis and resolution of SBO. Consult Dr. Nixon. Zosyn and Solumedrol for tx of enteritis. NPO. NG tube. (Pt declines at present. If n/v/pain persists despite current pain/nausea tx, will proceed.) IVF's - 1L bolused in ER. Continue NS at 125cc/hr. This should address her hyponatremia as well. Repeat labs in am to follow blood counts and electrolytes. Protonix IV for GERD and GI ppx. Lovenox for VTE ppx. Full code. PCP - MADAI Gage 10/29/17 Patient's pain is less. Leukocytosis improved from 18.7--> 14.5. Continues on Zosyn and Solumedrol. Consider decreasing Solumedrol dose later today. Remains NPO. IVF's running at 125cc's/hr. Electrolytes stable. Hyponatremia resolved 130-->136. Continue IV pain meds and antiemetics PRN. (Hasn't required since 1799 last shereen. ) Continue IV pantoprazole for GI ppx/GERD. 10/30/17 Patient did have a small bowel movement this morning. No significant flatus. Abdomen feels a little more distended, full and uncomfortable today. She appears in no distress and has not required any pain medication since receiving IV acetaminophen yesterday afternoon. She has not had any nausea or vomiting. She does not have an NG in place. NG placement was attempted on the evening of admission but was difficult, and the patient refused further attempts. We'll continue Solu-Medrol for possible Crohn's disease. Continue Zosyn for now. Discussed with Dr. Nixon, he will see the patient later today. Abdominal films look about the same today. We'll start IV nutrition. Discussed with the pharmacist today, we do not have any TPN. Will start PPN today. 10/31/17 Patient continues to have abdominal discomfort, distention, and continued dilated loops of small bowel on abdominal x-rays. Pain is tolerable. She had 2 small bowel movements this morning. IV Tylenol does help her pain. Continue with IV Solu-Medrol for suspected Crohn's. Continue Zosyn for now. White count is elevated, at this point likely secondary to steroids. The patient has remained afebrile. Regarding nutrition, TPN is not available due to a shortage, PPN was started yesterday and is being given in the midline since she had pain with infusion in a peripheral site. CBC, CMP, and phosphorus tomorrow Repeat C-reactive protein today We'll discuss today with Dr. Nixon 11/01/17 Patient continues to have abdominal discomfort, distention, and continued dilated loops of small bowel on abdominal x-rays. Patient agreed to attempt placement of NG tube again which was successful. Will continue NG tube with low suction. Maintain NPO status. Patient disclosed her father and 2 cousins had a history of lymphoma of the ileum while discussing treatment options with Dr. Nixon. Patient is now more open to idea of surgical intervention if needed. Will re- evaluate pain and distention in AM with possible surgery tomorrow afternoon. Will hold lovenox in AM in anticipation of surgery tomorrow, 11/02/17. Continue with IV Solu-Medrol for suspected Crohn's. Continue Zosyn for now. White count is trending up, at this point likely secondary to steroids. The patient has remained afebrile. PPN was started 10/30/17 and is being given in the midline since she had pain with infusion in a peripheral site. CBC, CMP, and phosphorus tomorrow CRP trending down. Discussed with Dr. Nixon, family and Dr. Duckworth. 11/02/17 Patient continues to have abdominal discomfort and distention. See by Dr. Nixon yesterday and probable surgical intervention today at 1430. Will continue NG tube with low suction. Maintain NPO status. Lovenox held this morning in preparation for anticipated surgery. Continue with IV Solu-Medrol for suspected Crohn's. Continue Zosyn for now. WBC trending down. Patient remains afebrile. New hyponatremia (Na 135) with hypokalemia (K 3.4). Pharmacy managing PPN. Patient given KCl 20 mEq IV yesterday in addition to additional KCl added to PPN per pharmacy. Will given additional KCl 20 mEq IV today and continue to monitor closely. PPN was started 10/30/17 and is being given in the midline since she had pain with infusion in a peripheral site. Mag slightly decreased at 2.4. Will discuss with pharmacy. CRP trending up - 34.5 on 10/31/17 -->87.4 today. Continue to monitor. 11/03/17 POD #1 S/p release of incarcerated internal hernia by adhesiolysis by Dr. Nixon NG tube with low suction. Continues NPO. IV Solu-Medrol and Zosyn were DC'd yesterday following surgery as there was no evidence of Crohn's. WBC up today - likely post-op elevation. LFT's just slightly elevated. Na 133. Will follow. Continues on PPN (started 10/30/17). Blood noted in llanos - check UA. Peritoneal culture revealed E.coli, few gram positive cocci and yeast. Rocephin and Diflucan initiated. 11/04/17 POD #2 NG tube with low suction--> clamps later in the day with good tolerance. Continues NPO. Hopeful bowels will begin moving and NG can be removed in the near future with slow initiation of oral intake. No BM at time of exam. WBC trending down. Bandemia improving. Remains afebrile. LFTs returned to normal range. Continue to monitor closely. Persistent hyponatremia (Na 133). Continue to monitor. Continues on PPN (started 10/30/17). Hopeful to start oral intake in the near future. Surgery managing. UA unremarkable. Will discontinue Llanos and monitor patient closely. 7 POD #3 NG tube removed last night. Advanced to clear liquids -not wanting to take in much po d/t abd bloating/no appetite. Continue PPN per pharmacy for nutrition. Received dilaudid last night and had nausea, headache and dizziness. Headache and nausea persisting. Will give Tylenol po and Reglan now. Use Toradol and/or Tylenol for pain and avoid narcs if possible. Persistent hyponatremia (Na 131). Continue to monitor. 02 requirement down to 1L from 3L. Using IS. Ambulating. Day #3 of Rocephin and Diflucan for peritoneal culture w/ E.coli, few gram positive cocci and yeast. WBC 18.8-->22.4. Afebrile. Home Losartan and methimazole resumed last night. 11/06/17 POD #4 White count continues to trend up, currently at 23.3. Bands have also increased to 9%. She has having increased abdominal symptoms with indigestion, nausea and bloating. Discussed with Dr. Collins. Will obtain CT abdomen and pelvis with IV contrast. Expand Antibiotics to Zosyn. Continue Diflucan. Peritoneal fluid culture showed moderate growth of Escherichia coli and light growth of Jordan albicans. Continue PPN. Hyponatremia persists, stable at 131. Patient is off oxygen this morning. She is afebrile and hemodynamically stable. NG replaced due to recurrent GI symptoms and CT findings suggesting ileus but no abscess. 11/07/17 POD #5 White count remains elevated but slightly lower than yesterday with decreased percent bands. Afebrile. More comfortable overall following replacement of NG; continues to have active bowel sounds and pass gas. Repeat flat/upright KUBs in a.m. Continue Zosyn, serous fluid described intraoperatively in excess of what was anticipated prompting decision to send sample for culture. Continue Diflucan for culture finding of probable Jordan. Blood pressure stable. Remains on low-dose methimazole after radioactive iodine ablation in July; will clarify with Endo if appropriate to recheck thyroid levels. Hemoglobin stable as are electrolytes although sodium remains borderline low. 11/08/17 POD #6 Replacement of NG overnight; continues to have active bowel sounds and passing gas, no BM since prior to surgery. KUB films pending this am. White count remains elevated. Dc Zosyn and start Meropenem for serous fluid described intraoperatively in excess of what was anticipated. E coli and pseudomonas cultured. DARCIE's are now resulted showing lower DARCIE w/ Meropenem compared to Zosyn. Continue Diflucan for culture finding of probable Jordan. Sodium remains low 131-->130. Continues on PPN and clear liquids. 11/09/17 POD #7 Patient looking and feeling much better today. Has had NG tube clamped off and on and has tolerated it well thus far. Patient has passed some stool and continues to pass gas. KUB films pending this am. White count has improved. Day #2 of meropenem (converted from Zosyn (11/02 - 11/08) due to DARCIE) for e coli and pseudomonas in peritoneal fluid. Day #7 of Diflucan for jordan in peritoneal fluid. Sodium still low but improving 130-->132. Continues on PPN and ice chips. Would like to go to IRU on d/c 11/10/2017 surgery She experienced significantly increase in pain late evening, NG advanced and pain meds given, she feel better this am. WBC with increase to 24.3 (17.7 yesterday) with bandemia Llanos removed yesterday Still on oxygen, sat drops to upper 80's on room air Low grade fever of 100.3 during the nite.\ Will further evaluate leukocytosis, fever, weakness with CXR, blood cultures and u/a. Dr. Ramirez eval the patient as well, also getting CT abd/pelvis and serum lactate. 11/10/17-POD #8. OP day for second surgery due to possible microperforation by Dr. Ramirez. Patient with increasing abdominal pain, abdominal distention, and increase in white count and development of fever. CT abdomen/pelvis resulting in possibility of microperforation leading to emergent surgery with Dr. Ramirez at the present time. Patient continues on meropenem. Today is day #3. (Converted from Zosyn (11/02 - 11/08) due to DARCIE) for e coli and pseudomonas in peritoneal fluid. Day #8 of Diflucan for jordan in peritoneal fluid. Sodium still low but currently stable 130-->132-->132. Continues on PPN and ice chips. Blood pressure and pulse are stable. Patient is requiring 2 L oxygen. There is question on chest x-ray of lower lobe atelectasis versus pneumonia. Blood cultures are pending. Lactate was normal. Sputum culture has been ordered. Given that she's been on broad coverage antibiotics and she has been breathing shallow due to pain in the abdomen, suspect findings on x-ray are more apt to be atelectasis. Add Acapella and DuoNeb treatments for pulmonary toilet. Patient has been having liquid stools - c diff neg. Will discuss case with Dr. Ramirez following surgery and continue to monitor pt closely. <Brendan Huertas - Last Filed: 11/19/17 10:05> Exam Vital signs: Temperature 98.4 F 11/19/17 08:00 Pulse Rate 88 11/19/17 08:45 Respiratory Rate 25 H 11/19/17 08:45 Blood Pressure 119/64 11/19/17 08:00 Pulse Oximetry 91 11/19/17 08:45 Inpatient Medications: Generic Name Dose Route Start Last Admin Trade Name Freq PRN Reason Stop Dose Admin Acetaminophen 500 - 1,000 mg 11/16/17 13:59 11/18/17 22:04 Tylenol PO 1,000 mg Q6H PRN Administration Discomfort Albuterol/Ipratropium 3 ml 11/10/17 19:00 11/19/17 07:15 Duoneb AEROSOL 3 ml RTQID JUDI Administration Bisacodyl 10 mg 11/16/17 21:00 07/20/18 08:32 Dulcolax PO 10 mg BID JUDI Administration Cyclobenzaprine HCl 5 mg 11/18/17 14:29 11/18/17 15:39 Flexeril PO 5 mg TID PRN Administration Muscle spasm Enoxaparin Sodium 40 mg 10/29/17 09:00 11/19/17 08:28 Lovenox SQ 40 mg DAILY JUDI Administration Fat Emulsion Intravenous 250 mls @ 50 mls/hr 11/08/17 16:00 11/18/17 21:00 Intralipid 20% IV Infused 1600 JUDI Infusion Micafungin Sodium 100 mg/ 100 mls @ 100 mls/hr 11/12/17 16:00 11/18/17 16:31 Sodium Chloride IV Infused 1600 JUDI Infusion Piperacillin Sod/Tazobactam 100 mls @ 200 mls/hr 11/12/17 18:00 11/19/17 07: 00 Sod 3.375 gm/ Dextrose IV Infused Q6H JUDI Infusion Sodium Chloride 140 meq/ 2,108.6497 mls @ 82 mls/hr 11/15/17 09:00 11/19/17 07:00 Potassium Chloride 80 meq/ IV 11/19/17 12:00 82 mls/hr Potassium Phosphate 40 meq/ .Q24H JUDI Infusion Magnesium Sulfate 16 meq/ Calcium Chloride 13 meq/ Multivitamins/Minerals 10 ml/ Protocol Chromium/Copper/Manganese/Zinc 1 ml/ Amino Acids/ Electrolytes Acetaminophen 1,000 mg in 100 mls @ 400 mls/hr 11/17/17 21:00 11/17/17 17:00 Ofirmev 1 Gm IV Infused BID PRN Infusion Sodium Chloride 140 meq/ 2,088.6497 mls @ 82 mls/hr 11/19/17 12:01 Potassium Chloride 40 meq/ IV Potassium Phosphate 40 meq/ .Q24H JUDI Magnesium Sulfate 16 meq/ Calcium Chloride 13 meq/ Multivitamins/Minerals 10 ml/ Protocol Chromium/Copper/Manganese/Zinc 1 ml/ Amino Acids/ Electrolytes Levothyroxine Sodium 50 mcg 11/18/17 06:30 11/19/17 05:30 Synthroid PO Not Given ACB JUDI Lorazepam 0.5 mg 11/01/17 11:53 11/18/17 22:05 Ativan Inj IVP 0.5 mg O PRN Administration Losartan Potassium 50 mg 11/18/17 09:00 11/19/17 08:29 Cozaar PO 50 mg DAILY JUDI Administration Metoclopramide HCl 10 mg 11/10/17 17:48 11/18/17 15:48 Reglan IVP 10 mg Q6H PRN Administration Morphine Sulfate 1 - 4 mg 11/10/17 22:16 11/16/17 21:29 Morphine Sulfate Inj IVP 2 mg Q1H PRN Administration Pain Pantoprazole Sodium 40 mg 10/28/17 21:00 11/19/17 08:28 Protonix Iv IVP 40 mg BID JUDI Administration Sodium Chloride 10 - 80 ml 10/28/17 14:40 11/18/17 18:27 Iv Flush IVF 80 ml PRN PRN Administration Flushing Sodium Chloride 500 ml 10/28/17 18:29 11/18/17 13:34 Normal Saline IV 500 ml PRN PRN Administration FLUSH Throat Lozenges 3 spray 11/01/17 11:52 11/18/17 13:34 Chloraseptic [place] PO 3 spray Q2H PRN Administration Tramadol HCl 25 - 50 mg 11/18/17 13:05 11/18/17 13:31 Ultram PO 50 mg Q4H PRN Administration Pain Discontinued Medications Generic Name Dose Route Start Last Admin Trade Name Freq PRN Reason Stop Dose Admin Acetaminophen 650 mg 11/05/17 09:18 11/09/17 10:39 Tylenol PO 650 mg Q5HR PRN Administration Pain Albuterol Sulfate 2.5 mg 11/10/17 15:48 11/10/17 15:44 Proventil Neb (0.083%) AEROSOL 11/10/17 15:49 2.5 mg ONE TIME ONE Administration Amino Acids 1 each 10/30/17 14:07 10/30/17 16:41 Pharmacy Consult - Ppn 10/30/17 14:08 Not Given O ONE Amino Acids/Electrolytes/Dextrose 1 each 10/30/17 14:04 Pharmacy Consult - Tpn 10/30/17 14:05 O ONE Amino Acids/Electrolytes/Dextrose 1 each 11/11/17 07:44 11/11/17 11:06 Pharmacy Consult - Tpn 11/11/17 07:45 1 each O ONE Administration Amlodipine Besylate 5 mg 11/01/17 03:41 11/01/17 03:44 Norvasc PO 11/01/17 03:42 5 mg DAILY ONE Administration Bisacodyl 10 mg 11/05/17 10:00 11/05/17 11:20 Dulcolax RECTALLY 11/05/17 10:01 10 mg O ONE Administration Bisacodyl 10 mg 11/08/17 10:00 11/10/17 10:02 Dulcolax RECTALLY Not Given BID JUDI Bisacodyl 10 mg 11/09/17 09:27 11/09/17 10:40 Dulcolax PO 11/09/17 09:28 10 mg O ONE Administration Bisacodyl 10 mg 11/15/17 20:12 11/15/17 20:28 Dulcolax PO 11/15/17 20:13 10 mg O ONE Administration Fentanyl 25 mcg 10/28/17 14:40 10/28/17 15:18 Fentanyl IVP 10/28/17 14:41 25 mcg O ONE Administration Fentanyl 25 mcg 10/28/17 18:02 11/10/17 09:43 Fentanyl IVP 25 mcg Q30M PRN Administration Pain Fentanyl 0 mcg 11/10/17 16:37 11/10/17 16:40 Fentanyl IVP 25 mcg Q5M PRN Administration Furosemide 20 mg 11/01/17 03:40 11/01/17 03:44 Lasix 20 Mg/2 Ml IVP 11/01/17 03:41 20 mg ONCE ONE Administration Furosemide 40 mg 11/13/17 10:06 11/13/17 20:22 Lasix 40 Mg/4 Ml IVP 11/13/17 21:01 40 mg Q12HR JUDI Administration Furosemide 40 mg 11/14/17 19:15 11/14/17 19:50 Lasix 40 Mg/4 Ml IVP 11/14/17 19:16 40 mg ONE TIME JUDI Administration Hydralazine HCl 5 mg 11/01/17 07:06 11/05/17 23:19 Apresoline IVP 5 mg Q6H PRN Administration elevated blood pressure Hydralazine HCl 10 mg 11/06/17 00:50 11/06/17 00:56 Apresoline IVP 11/06/17 00:51 10 mg O ONE Administration Hydralazine HCl 10 mg 11/06/17 00:52 Apresoline IVP Q6H PRN elevated blood pressure Hydromorphone HCl 0 mg 11/02/17 17:32 11/02/17 17:37 Dilaudid IVP 0.5 mg Q10M PRN Administration Hydromorphone HCl 0.2 - 1 mg 11/02/17 18:35 11/04/17 21:18 Dilaudid IVP 1 mg Q2H PRN Administration Pain Hydromorphone HCl 0.5 - 1 mg 11/10/17 17:48 11/10/17 17:59 Dilaudid IVP 1 mg Q2H PRN Administration Pain Sodium Chloride 1,000 mls @ 1,000 mls/hr 10/28/17 14:40 10/28/17 16:24 Normal Saline IV 10/28/17 15:39 Infused .Q1H ONE Infusion Piperacillin Sod/Tazobactam 100 mls @ 200 mls/hr 10/28/17 17:45 11/02/17 17: 35 Sod 3.375 gm/ Sodium Chloride IV Infused Q6H JUDI Infusion Sodium Chloride 1,000 mls @ 100 mls/hr 10/28/17 19:15 10/30/17 09:19 Normal Saline IV Infused .Q10H JUDI Infusion Acetaminophen 1,000 mg in 100 mls @ 400 mls/hr 10/29/17 15:52 11/01/17 23:15 Ofirmev 1 Gm IV Infused Q8H PRN Infusion Lactated Ringer's 1,000 mls @ 100 mls/hr 10/30/17 07:30 10/30/17 15:05 Lactated Ringers IV 10/30/17 16:00 Infused .Q10H JUDI Infusion Multivitamins/Minerals 10 ml/ 2,011 mls @ 100 mls/hr 10/30/17 16:00 11/02/17 05:10 Chromium/Copper/Manganese/Zinc IV 11/02/17 04:59 Infused 1 ml/ Amino Acids/ .Q20H7M JUDI Infusion Electrolytes/Dextrose Protocol Fat Emulsion Intravenous 500 mls @ 125 mls/hr 10/31/17 16:00 11/07/17 19:14 Intralipid 20% IV Infused 1600 JUDI Infusion Potassium Chloride 10 meq in 100 mls @ 100 mls/hr 11/01/17 07:30 11/01/17 09: 52 Potassium Chloride Premix IV 11/01/17 09:29 Infused Q1H JUDI Infusion Potassium Chloride 20 meq/ 2,021 mls @ 100 mls/hr 11/02/17 05:00 11/03/17 01: 44 Multivitamins/Minerals 10 ml/ IV 11/03/17 00:59 Infused Chromium/Copper/Manganese/Zinc .[id number] JUDI Infusion 1 ml/ Amino Acids/ Electrolytes/Dextrose Protocol Potassium Chloride 10 meq in 100 mls @ 100 mls/hr 11/02/17 08:00 11/02/17 13: 29 Potassium Chloride Premix IV 11/02/17 09:59 Infused Q1H JUDI Infusion Potassium Chloride 40 meq/ 2,031 mls @ 100 mls/hr 11/03/17 01:00 11/03/17 22: 49 Multivitamins/Minerals 10 ml/ IV 11/03/17 21:19 Infused Chromium/Copper/Manganese/Zinc .[id number] JUDI Infusion 1 ml/ Amino Acids/ Electrolytes/Dextrose Protocol Lactated Ringer's 1,000 mls @ 30 mls/hr 11/02/17 14:00 11/02/17 18:53 Lactated Ringers IV Infused .Q24H JUDI Infusion Multivitamins/Minerals 10 ml/ 2,011 mls @ 100 mls/hr 11/03/17 21:20 11/04/17 18:25 Chromium/Copper/Manganese/Zinc IV 11/04/17 16:59 Infused 1 ml/ Amino Acids/ .Q20H7M JUDI Infusion Electrolytes/Dextrose Protocol Ceftriaxone Sodium 1 g/ Sodium 100 mls @ 200 mls/hr 11/03/17 17:00 11/05/17 19:03 Chloride IV Infused Q24H JUDI Infusion Fluconazole 200 mg in 100 mls @ 100 mls/hr 11/03/17 17:00 11/10/17 19:50 Diflucan 200 Mg Premix IV Not Given Q24H JUDI Multivitamins/Minerals 10 ml/ 2,011 mls @ 82 mls/hr 11/04/17 17:00 11/05/17 15:58 Chromium/Copper/Manganese/Zinc IV 11/05/17 16:59 Infused 1 ml/ Amino Acids/ .Q24H JUDI Infusion Electrolytes/Dextrose Protocol Multivitamins/Minerals 10 ml/ 2,015.5455 mls @ 82 mls/hr 11/05/17 15:30 11/07 16:22 Chromium/Copper/Manganese/Zinc IV 11/07/17 15:29 Infused 1 ml/ Sodium Phosphate 20 meq .Q24H JUDI Infusion / Amino Acids/Electrolytes/ Dextrose Protocol Piperacillin Sod/Tazobactam 100 mls @ 200 mls/hr 11/06/17 10:30 11/08/17 10: 33 Sod 3.375 gm/ Dextrose IV Not Given Q6H JUDI Multivitamins/Minerals 10 ml/ 2,021 mls @ 82 mls/hr 11/07/17 08:30 Chromium/Copper/Manganese/Zinc IV 1 ml/ Sodium Chloride 40 meq/ .Q24H JUDI Amino Acids/Electrolytes/ Dextrose Protocol Multivitamins/Minerals 10 ml/ 2,021 mls @ 82 mls/hr 11/07/17 16:00 11/08/17 17:14 Chromium/Copper/Manganese/Zinc IV 11/08/17 15:59 Infused 1 ml/ Sodium Chloride 40 meq/ .Q24H JUDI Infusion Amino Acids/Electrolytes/ Dextrose Protocol Azithromycin 250 mg/ Sodium 100 mls @ 100 mls/hr 11/08/17 08:45 11/08/17 09: 06 Chloride IV Not Given Q24H [facility] Azithromycin 250 mg/ Sodium 250 mls @ 250 mls/hr 11/08/17 10:00 11/10/17 16: 02 Chloride IV Infused Q24H JUDI Infusion Multivitamins/Minerals 10 ml/ 2,031 mls @ 82 mls/hr 11/08/17 16:00 11/09/17 16:24 Chromium/Copper/Manganese/Zinc IV 11/09/17 15:59 Infused 1 ml/ Sodium Chloride 80 meq/ .Q24H JUDI Infusion Amino Acids/Electrolytes/ Dextrose Protocol Meropenem 1 gm/ Sodium 100 mls @ 200 mls/hr 11/08/17 10:45 11/08/17 12:46 Chloride IV Not Given Q8HR JUDI Meropenem 1 gm/ Sodium 50 mls @ 100 mls/hr 11/08/17 11:15 11/11/17 01:02 Chloride IV Not Given Q8HR [facility] Multivitamins/Minerals 10 ml/ 2,036 mls @ 82 mls/hr 11/09/17 08:00 11/10/17 23:31 Chromium/Copper/Manganese/Zinc IV 11/10/17 15:59 Infused 1 ml/ Sodium Chloride 100 meq .Q24H JUDI Infusion / Amino Acids/Electrolytes/ Dextrose Protocol Multivitamins/Minerals 10 ml/ 2,041 mls @ 82 mls/hr 11/10/17 16:00 11/10/17 19:49 Chromium/Copper/Manganese/Zinc IV Not Given 1 ml/ Sodium Chloride 120 meq .Q24H JUDI / Amino Acids/Electrolytes/ Dextrose Lactated Ringer's 1,000 mls @ 50 mls/hr 11/10/17 12:30 11/10/17 15:35 Lactated Ringers IV Infused .Q20H JUDI Infusion Lactated Ringer's 1,000 mls @ 0 mls/hr 11/10/17 13:19 11/16/17 07:26 Lactated Ringers IV Infused .Q0M JUDI Infusion As Directed Potassium Chloride/Dextrose/Sod Cl 1,000 mls @ 125 mls/hr 11/10/17 17:48 07:25 D5-1/2ns With Kcl 20meq Premix IV Not Given .Q8H JUDI Fluconazole 400 mg in 200 mls @ 100 mls/hr 11/10/17 18:00 11/10/17 21:35 Diflucan 400 Mg Premix IV Infused Q24H JUDI Infusion Albumin Human 25 g/ IV 100 mls @ 50 mls/hr 11/11/17 01:01 11/11/17 01:26 Solution IV 11/11/17 03:00 Not Given O ONE Albumin Human 12.5 g/ IV 50 mls @ 50 mls/hr 11/11/17 02:18 11/11/17 02:49 Solution IV 11/11/17 03:17 Infused O ONE Infusion Albumin Human 12.5 g/ IV 50 mls @ 50 mls/hr 11/11/17 01:17 11/11/17 03:56 Solution IV 11/11/17 02:16 Infused O ONE Infusion Meropenem 1 gm/ Sodium 50 mls @ 100 mls/hr 11/11/17 07:00 11/12/17 09:00 Chloride IV Infused Q8H JUDI Infusion Multivitamins/Minerals 10 ml/ 2,041 mls @ 82 mls/hr 11/11/17 10:00 11/12/17 07:50 Chromium/Copper/Manganese/Zinc IV 11/12/17 09:59 Infused 1 ml/ Sodium Chloride 120 meq .Q24H JUDI Infusion / Amino Acids/Electrolytes/ Dextrose Protocol Micafungin Sodium 100 mg/ 100 mls @ 100 mls/hr 11/12/17 09:00 Sodium Chloride IV DAILY JUDI Multivitamins/Minerals 10 ml/ 2,041 mls @ 82 mls/hr 11/12/17 10:00 11/14/17 08:26 Chromium/Copper/Manganese/Zinc IV 11/14/17 09:00 Infused 1 ml/ Sodium Chloride 120 meq .Q24H JUDI Infusion / Amino Acids/Electrolytes/ Dextrose Protocol Micafungin Sodium 100 mg/ 100 mls @ 100 mls/hr 11/11/17 20:00 11/11/17 21:20 Sodium Chloride IV Infused 2000 JUDI Infusion Piperacillin Sod/Tazobactam 100 mls @ 200 mls/hr 11/12/17 10:00 11/12/17 12: 06 Sod 3.375 gm/ Dextrose IV 11/12/17 12:30 Infused Q6H JUDI Infusion Multivitamins/Minerals 10 ml/ 2,041 mls @ 82 mls/hr 11/14/17 09:00 11/15/17 09:53 Chromium/Copper/Manganese/Zinc IV 11/15/17 08:59 Infused 1 ml/ Sodium Chloride 80 meq/ .Q24H JUDI Infusion Potassium Acetate 20 meq/ Amino Acids/Electrolytes/ Dextrose Protocol Potassium Chloride 10 meq in 100 mls @ 100 mls/hr 11/15/17 05:40 11/15/17 08: 15 Potassium Chloride Premix IV 11/15/17 06:39 Infused O ONE Infusion Potassium Chloride 10 meq in 100 mls @ 100 mls/hr 11/15/17 05:40 11/15/17 06: 57 Potassium Chloride Premix IV 11/15/17 06:39 Infused O ONE Infusion Ketorolac Tromethamine 15 mg 11/02/17 18:35 11/17/17 07:22 Toradol Inj IVP 15 mg Q6H PRN Administration Pain Labetalol HCl 10 mg 11/02/17 17:06 11/02/17 17:09 Trandate IVP 11/02/17 17:07 10 mg O ONE Administration Losartan Potassium 25 mg 11/04/17 21:00 11/17/17 21:24 Cozaar PO 11/17/17 23:00 25 mg BID JUDI Administration Methimazole 2.5 mg 11/05/17 09:00 11/17/17 08:53 Tapazole PO 2.5 mg DAILY JUDI Administration Methylprednisolone Sodium Succinate 80 mg 10/28/17 17:45 11/02/17 18:36 Solu-Medrol IVP Not Given Q8HR JUDI Metoclopramide HCl 10 mg 10/28/17 17:39 11/07/17 08:04 Reglan IVP 10 mg Q6H PRN Administration Nausea Metoclopramide HCl 10 mg 11/08/17 08:45 Reglan IVP Q6H PRN Metoclopramide HCl 10 mg 11/08/17 09:25 11/10/17 19:49 Reglan IVP Not Given Q6HR JUDI Metoprolol Tartrate 5 mg 10/29/17 00:33 11/01/17 05:53 Lopressor IVP 5 mg Q6H PRN Administration Hypertension Morphine Sulfate 2 mg 10/28/17 18:43 Morphine Sulfate Inj IVP Q2HR PRN Pain Ondansetron HCl 4 mg 10/28/17 14:40 10/28/17 15:04 Zofran IVP 10/28/17 14:41 4 mg O ONE Administration Ondansetron HCl 4 mg 10/28/17 16:39 10/28/17 16:40 Zofran IVP 10/28/17 16:40 4 mg O ONE Administration Ondansetron HCl 4 mg 10/28/17 18:44 11/10/17 16:25 Zofran IVP 4 mg Q6H PRN Administration Nausea &/or vomiting Ondansetron HCl 4 mg 11/03/17 13:34 11/11/17 06:00 Zofran IVP 4 mg Q6H PRN Administration Nausea &/or vomiting Scopolamine 1 mg 11/02/17 15:07 11/02/17 14:08 Transderm-Scop Patch TD 11/05/17 15:06 1 mg Q3D JUDI Administration Scopolamine 1 removal 11/05/17 15:06 11/05/17 15:41 Transderm-Scop Patch Removal TD 11/05/17 15:07 1 removal Q3D JUDI Administration Sodium Chloride 500 ml 11/10/17 21:27 11/10/17 21:29 Normal Saline IV 11/10/17 21:28 500 ml PRN ONE Administration - Urinary Catheter Management Urethral Cath placed during this visit: no Results 11/19/17 04:03 11/19/17 04:03 CBC 11/19/17 Range/Units 04:03 WBC 12.2 H (4.5-11.0) T/MM3 RBC 2.94 L (4.00-5.20) M/MM3 Hgb 8.9 L (12-16) GM/DL Hct 27.8 L (36-46) % Plt Count 455 H (130-400) T/MM3 Neut # (Auto) Not performed Lymph # (Auto) Not performed Dougherty # (Auto) Not performed Eos # (Auto) Not performed Baso # (Auto) Not performed Comprehensive Metabolic Panel 11/19/17 Range/Units 04:03 Sodium 132 L (136-146) MEQ/L Potassium 4.8 (3.6-5) MEQ/L Chloride 103 (98-107) MEQ/L Carbon Dioxide 22 (22-30) MEQ/L BUN 20.0 H (7-17) MG/DL Creatinine 0.6 L (0.7-1.2) mg/dL Glucose 65 (65-110) MG/DL Calcium 8.1 L (8.4-10.2) MG/DL Intake and Output 11/18/17 11/19/17 11/19/17 22:59 06:59 14:59 Intake Total 1106.000 / 1106.000 742.333 / 742.333 182 / 182 Output Total 1395 / 1395 285 / 285 250 / 250 Balance -289.000 / -289.000 457.333 / 457.333 -68 / -68 Intake: IV 1106.000 / 1106.000 742.333 / 742.333 182 / 182 Fat Emulsion 20% 250 ml @ 50 250.000 / 250.000 mls/hr IV 1600 JUDI Rx#: [id number] Micafungin 100 mg In Ns 100 ml 100 / 100 @ 100 mls/hr IV 1600 JUDI Rx#: [id number] Piperacillin/Tazobactam 3.375 100 / 100 100 / 100 100 / 100 gm In D5w 100 ml @ 200 mls/hr IV Q6H JUDI Rx#:[id number] Sodium Chloride Conc 140 meq 656.000 / 656.000 642.333 / 642.333 82 / 82 Potassium Chloride Inj 80 meq POTASSIUM PHOSPHATE (mEq) 40 meq Magnesium Sulfate Inj 16 meq Calcium Chloride 13 meq Multi-Vit Infusion 10 ml Multi -Trace Elements 1 ml In TPN - Custom Formula 2,000 ml @ 82 mls/hr IV .Q24H [facility] Rx#: [id number] Output: Urine 1200 / 1200 150 / 150 250 / 250 Stool 50 / 50 85 / 85 Wound Drainage 145 / 145 50 / 50 Right Lower Lateral Abdomen 70 / 70 20 / 20 Right Upper Lateral Abdomen 75 / 75 30 / 30 Other: Urine Appearance Clear Clear Clear Urine Color Yellow Bright Yellow Dark Yellow Stool Characteristics Mucoid Stool Color Green Green Stool Consistency Liquid Liquid Drain Type Right Lower Lateral Abdomen Bulb [place] Bulb [place]lyn Right Upper Lateral Abdomen Bulb [place] Bulb [place] # Voids 1 1 Weight 46.9 kg Assessment and Plan - Assessment and Plan (1) Dyslipidemia Current visit: No Status: Chronic (2) Hypertension Current visit: No Status: Chronic (3) Bradycardia Current visit: Yes Status: Acute - Attestation Attestation Narrative: 11/19/17 10:05 Recommendation After examining the patient I agree with the above assessment. I am involved in the formulation of the patient's plan of care. Hospital Course Summary Disclaimer: The visit summary below is not to be considered part of the above Progress Note.
--- NOTE | 2017-11-12 14:06 | Wound Care Progress Note ---
Wound Center Progress Note: Stopped by to see pt, she was sleeping but awoke easily with verbal stimuli. At this time introduced myself and explained that I was leaving some reading material for her ostomy. Explained that we would be back on Wednesday for more training.
--- NOTE | 2017-11-12 14:48 | Progress Note ---
- Date 11/12/17 Subjective: Patient states she is feeling better with resolving malaise and less weakness and abdominal distention. She does state that she feels more tired than when she had been postoperative for the previous procedure however Objective Vital signs: Temperature 96.4 F L 11/12/17 04:23 Pulse Rate 70 11/12/17 12:00 Respiratory Rate 16 11/12/17 10:28 Blood Pressure 143/68 H 11/12/17 08:00 Pulse Oximetry 95 11/12/17 10:28 Rhythm: Normal Sinus Rhythm Height/Weight/BMI: Height 5 ft 1 in Weight 54.8 kg Body Mass Index 19.8 - Constitutional Present: well nourished, well developed - Routine HEENT Exam Eye: Present: EOMI ENT: Present: mucous membranes moist, dentition normal - Routine Respiratory Exam Present: CTA bilaterally. Absent: wheezes - Routine Cardiovascular Exam Present: RRR. Absent: murmur - Routine Abdominal Exam Present: soft, normoactive bowel sounds, non distended. Absent: tenderness - Routine Extremities Exam Present: normal capillary refill - Routine Skin Exam Present: dry, warm - Routine Neurological Exam Present: alert, oriented X3, CN II-XII intact - Routine Lymphatic Exam Lymphatic: Absent: adenopathy - Routine Psychiatric Exam Present: normal affect Results - Labs CBC & Chem 7: 11/12/17 05:22 11/12/17 05:22 Microbiology Results: Microbiology 11/10/17 13:17 Peritoneum Gram Stain - Final 11/10/17 13:17 Peritoneum Surgical Culture - Preliminary No Growth After 2 Days 11/10/17 08:50 Port/Picc Blood Culture - Preliminary No Growth After 2 Days 11/10/17 08:45 Port/Picc Blood Culture - Preliminary No Growth After 2 Days 11/02/17 15:12 Peritoneal Fluid Gram Stain - Final 11/02/17 15:12 Peritoneal Fluid Body Fluid Culture - Final Escherichia coli Jordan albicans Pseudomonas aeruginosa Other Tamie Observed Assessment and Plan (1) Peritonitis, spontaneous bacterial Current visit: Yes Status: Acute (2) SBO (small bowel obstruction) Current visit: Yes Status: Acute Assessment and Plan: Assessment peritonitis diverticulitis with microperforations Small bowel obstruction - release of incarcerated internal hernia by adhesiolysis by Dr. Bryant 11/02/17 cardiac arrhythmias Abdominal pain, n/v Leukocytosis - POA Hyponatremia - POA Hyperthyroidism - RA iodine ablation 07/18 (Follows with Dr. Bianchi) Anxiety Migraine GERD Dyslipidemia Hypertension Diverticulosis with history of recurrent diverticulitis H/o gastritis/+h pylori Mild metabolic acidosis-resolved Plan -POD #2 for partial colostomy and #10 for lysis of adhesions. Patient has been seen by infectious disease as well as cardiology. My appreciation to both teams. Patient appears to be clinically improving as well as showing improvement in lab values (falling WBCs and neutrophils, resolving fevers). Dr. Rios has de-escalated the antibiotics from codependence to Zosyn with recommendation of additional ciprofloxacin orally at discharge. No further cardiac arrhythmias have been seen. Lactate was not significantly elevated yesterday (1.2) and the family's request we will rerun that. Diflucan had been converted to Micafungin yesterday. Would not be averse to patient returning to regular medical floor but think this would be easier to achieve tomorrow after discussion with Dr. Ramirez Patient is requiring 2 L oxygen. continue to monitor pt closely. - Physician Narrative Narrative: Date: 11/12/17 Time: 1441 Hospital Course Summary Disclaimer: The visit summary below is not to be considered part of the above Progress Note. Hospital Course: 10/28/17 Admit, IP. Stay expected to exceed 2 overnights for tx of enteritis and resolution of SBO. Consult Dr. Nixon. Zosyn and Solumedrol for tx of enteritis. NPO. NG tube. (Pt declines at present. If n/v/pain persists despite current pain/nausea tx, will proceed.) IVF's - 1L bolused in ER. Continue NS at 125cc/hr. This should address her hyponatremia as well. Repeat labs in am to follow blood counts and electrolytes. Protonix IV for GERD and GI ppx. Lovenox for VTE ppx. Full code. PCP - MADAI Gage 10/29/17 Patient's pain is less. Leukocytosis improved from 18.7--> 14.5. Continues on Zosyn and Solumedrol. Consider decreasing Solumedrol dose later today. Remains NPO. IVF's running at 125cc's/hr. Electrolytes stable. Hyponatremia resolved 130-->136. Continue IV pain meds and antiemetics PRN. (Hasn't required since 1800 last shereen. ) Continue IV pantoprazole for GI ppx/GERD. 10/30/17 Patient did have a small bowel movement this morning. No significant flatus. Abdomen feels a little more distended, full and uncomfortable today. She appears in no distress and has not required any pain medication since receiving IV acetaminophen yesterday afternoon. She has not had any nausea or vomiting. She does not have an NG in place. NG placement was attempted on the evening of admission but was difficult, and the patient refused further attempts. We'll continue Solu-Medrol for possible Crohn's disease. Continue Zosyn for now. Discussed with Dr. Nixon, he will see the patient later today. Abdominal films look about the same today. We'll start IV nutrition. Discussed with the pharmacist today, we do not have any TPN. Will start PPN today. 10/31/17 Patient continues to have abdominal discomfort, distention, and continued dilated loops of small bowel on abdominal x-rays. Pain is tolerable. She had 2 small bowel movements this morning. IV Tylenol does help her pain. Continue with IV Solu-Medrol for suspected Crohn's. Continue Zosyn for now. White count is elevated, at this point likely secondary to steroids. The patient has remained afebrile. Regarding nutrition, TPN is not available due to a shortage, PPN was started yesterday and is being given in the midline since she had pain with infusion in a peripheral site. CBC, CMP, and phosphorus tomorrow Repeat C-reactive protein today We'll discuss today with Dr. Nixon 11/01/17 Patient continues to have abdominal discomfort, distention, and continued dilated loops of small bowel on abdominal x-rays. Patient agreed to attempt placement of NG tube again which was successful. Will continue NG tube with low suction. Maintain NPO status. Patient disclosed her father and 2 cousins had a history of lymphoma of the ileum while discussing treatment options with Dr. Nixon. Patient is now more open to idea of surgical intervention if needed. Will re- evaluate pain and distention in AM with possible surgery tomorrow afternoon. Will hold lovenox in AM in anticipation of surgery tomorrow, 11/02/17. Continue with IV Solu-Medrol for suspected Crohn's. Continue Zosyn for now. White count is trending up, at this point likely secondary to steroids. The patient has remained afebrile. PPN was started 10/30/17 and is being given in the midline since she had pain with infusion in a peripheral site. CBC, CMP, and phosphorus tomorrow CRP trending down. Discussed with Dr. Nixon, family and Dr. Duckworth. 11/02/17 Patient continues to have abdominal discomfort and distention. See by Dr. Nixon yesterday and probable surgical intervention today at 1430. Will continue NG tube with low suction. Maintain NPO status. Lovenox held this morning in preparation for anticipated surgery. Continue with IV Solu-Medrol for suspected Crohn's. Continue Zosyn for now. WBC trending down. Patient remains afebrile. New hyponatremia (Na 135) with hypokalemia (K 3.4). Pharmacy managing PPN. Patient given KCl 20 mEq IV yesterday in addition to additional KCl added to PPN per pharmacy. Will given additional KCl 20 mEq IV today and continue to monitor closely. PPN was started 10/30/17 and is being given in the midline since she had pain with infusion in a peripheral site. Mag slightly decreased at 2.4. Will discuss with pharmacy. CRP trending up - 34.5 on 10/31/17 -->87.4 today. Continue to monitor. 11/03/17 POD #1 S/p release of incarcerated internal hernia by adhesiolysis by Dr. Nixon NG tube with low suction. Continues NPO. IV Solu-Medrol and Zosyn were DC'd yesterday following surgery as there was no evidence of Crohn's. WBC up today - likely post-op elevation. LFT's just slightly elevated. Na 133. Will follow. Continues on PPN (started 10/30/17). Blood noted in llanos - check UA. Peritoneal culture revealed E.coli, few gram positive cocci and yeast. Rocephin and Diflucan initiated. 11/04/17 POD #2 NG tube with low suction--> clamps later in the day with good tolerance. Continues NPO. Hopeful bowels will begin moving and NG can be removed in the near future with slow initiation of oral intake. No BM at time of exam. WBC trending down. Bandemia improving. Remains afebrile. LFTs returned to normal range. Continue to monitor closely. Persistent hyponatremia (Na 133). Continue to monitor. Continues on PPN (started 10/30/17). Hopeful to start oral intake in the near future. Surgery managing. UA unremarkable. Will discontinue Llanos and monitor patient closely. 11/05/17 POD #3 NG tube removed last night. Advanced to clear liquids -not wanting to take in much po d/t abd bloating/no appetite. Continue PPN per pharmacy for nutrition. Received dilaudid last night and had nausea, headache and dizziness. Headache and nausea persisting. Will give Tylenol po and Reglan now. Use Toradol and/or Tylenol for pain and avoid narcs if possible. Persistent hyponatremia (Na 131). Continue to monitor. 02 requirement down to 1L from 3L. Using IS. Ambulating. Day #3 of Rocephin and Diflucan for peritoneal culture w/ E.coli, few gram positive cocci and yeast. WBC 18.8-->22.4. Afebrile. Home Losartan and methimazole resumed last night. 11/06/17 POD #4 White count continues to trend up, currently at 23.3. Bands have also increased to 9%. She has having increased abdominal symptoms with indigestion, nausea and bloating. Discussed with Dr. Collins. Will obtain CT abdomen and pelvis with IV contrast. Expand Antibiotics to Zosyn. Continue Diflucan. Peritoneal fluid culture showed moderate growth of Escherichia coli and light growth of Jordan albicans. Continue PPN. Hyponatremia persists, stable at 131. Patient is off oxygen this morning. She is afebrile and hemodynamically stable. NG replaced due to recurrent GI symptoms and CT findings suggesting ileus but no abscess. 11/07/17 POD #5 White count remains elevated but slightly lower than yesterday with decreased percent bands. Afebrile. More comfortable overall following replacement of NG; continues to have active bowel sounds and pass gas. Repeat flat/upright KUBs in a.m. Continue Zosyn, serous fluid described intraoperatively in excess of what was anticipated prompting decision to send sample for culture. Continue Diflucan for culture finding of probable Jordan. Blood pressure stable. Remains on low-dose methimazole after radioactive iodine ablation in July; will clarify with Endo if appropriate to recheck thyroid levels. Hemoglobin stable as are electrolytes although sodium remains borderline low. 11/08/17 POD #6 Replacement of NG overnight; continues to have active bowel sounds and passing gas, no BM since prior to surgery. KUB films pending this am. White count remains elevated. Dc Zosyn and start Meropenem for serous fluid described intraoperatively in excess of what was anticipated. E coli and pseudomonas cultured. DARCIE's are now resulted showing lower DARCIE w/ Meropenem compared to Zosyn. Continue Diflucan for culture finding of probable Jordan. Sodium remains low 131-->130. Continues on PPN and clear liquids. 11/09/17 POD #7 Patient looking and feeling much better today. Has had NG tube clamped off and on and has tolerated it well thus far. Patient has passed some stool and continues to pass gas. KUB films pending this am. White count has improved. Day #2 of meropenem (converted from Zosyn (11/02 - 11/08) due to DARCIE) for e coli and pseudomonas in peritoneal fluid. Day #7 of Diflucan for jordan in peritoneal fluid. Sodium still low but improving 130-->132. Continues on PPN and ice chips. Would like to go to IRU on d/c 11/10/2017 surgery She experienced significantly increase in pain late evening, NG advanced and pain meds given, she feel better this am. WBC with increase to 24.3 (17.7 yesterday) with bandemia Llanos removed yesterday Still on oxygen, sat drops to upper 80's on room air Low grade fever of 100.3 during the nite.\ Will further evaluate leukocytosis, fever, weakness with CXR, blood cultures and u/a. Dr. Ramirez eval the patient as well, also getting CT abd/pelvis and serum lactate. 11/10/17-POD #8. OP day for second surgery due to possible microperforation by Dr. Ramirez. Patient with increasing abdominal pain, abdominal distention, and increase in white count and development of fever. CT abdomen/pelvis resulting in possibility of microperforation leading to emergent surgery with Dr. Ramirez at the present time. Patient continues on meropenem. Today is day #3. (Converted from Zosyn (11/02 - 7) due to DARCIE) for e coli and pseudomonas in peritoneal fluid. Day #8 of Diflucan for jordan in peritoneal fluid. Sodium still low but currently stable 130-->132-->132. Continues on PPN and ice chips. Blood pressure and pulse are stable. Patient is requiring 2 L oxygen. There is question on chest x-ray of lower lobe atelectasis versus pneumonia. Blood cultures are pending. Lactate was normal. Sputum culture has been ordered. Given that she's been on broad coverage antibiotics and she has been breathing shallow due to pain in the abdomen, suspect findings on x-ray are more apt to be atelectasis. Add Acapella and DuoNeb treatments for pulmonary toilet. Patient has been having liquid stools - c diff neg. Will discuss case with Dr. Ramirez following surgery and continue to monitor pt closely. Plan -POD #1 for partial colostomy and #9 for lysis of adhesions. Cardiology is seeing for cardiac arrhythmias. She shows clinical improvement after surgery yesterday for the peritonitis secondary to what is presumptively leaky diverticuli and a developing phlegmon. White blood cell count has yet to fall significantly but lactate does not have a significant climb despite the stress of surgery. I would disregard the raise in C-reactive protein on the surgical circumstances alone. Patient continues on meropenem. Today is day #4. (Converted from Zosyn (11/02 - 7) due to DARCIE) for e coli and pseudomonas in peritoneal fluid. Diflucan was stopped with last night's dose at day number 8 and after conversation with Dr. Rios and infectious disease the patient is being switched Micafungin Continues on PPN and ice chips. Blood pressure and pulse are stable. Patient is requiring 2 L oxygen. continue to monitor pt closely.
[2017-11-12] MEDS: FAT EMULSION 20% 250 ML IV SCH (15:33)
[2017-11-12] MEDS: MICAFUNGIN IV SCH (15:34)
[2017-11-12] MEDS: NS IV SCH (15:34)
[2017-11-12] MEDS: PIPERACILLIN/TAZOBACTAM 3.375 GM in D5W 100 ML IV SCH (18:17)
[2017-11-13] MEDS: PIPERACILLIN/TAZOBACTAM 3.375 GM in D5W 100 ML IV SCH ×4 (00:02→18:16)
[2017-11-13] MEDS: MORPHINE SULFATE 4mg INJECTION IVP PRN ×3 (01:25→12:49)
[2017-11-13] MEDS: NS FLUSH BAG 500ml IV PRN (06:01)
[2017-11-13] MEDS: ALBUTEROL/IPRATROPIUM 2.5mg-0.5mg/3ml NEB AEROSOL SCH ×4 (07:41→18:48)
[2017-11-13] MEDS: KETOROLAC 15 MG/ML INJECTION IVP PRN ×3 (08:06→20:22)
[2017-11-13] MEDS: METOCLOPRAMIDE 10mg/2ml INJECTION IVP PRN ×2 (09:05→20:36)
[2017-11-13] MEDS: ENOXAPARIN 40 MG/0.4 ML INJECTION SQ SCH (09:09)
[2017-11-13] MEDS: PANTOPRAZOLE 40 MG INJECTION IVP SCH ×2 (09:10→20:22)
[2017-11-13] MEDS: [UNRECOGNIZED DRUG - OTHER] IV SCH (10:18)
[2017-11-13] MEDS: MULTI TRACE ELEMENTS IV SCH (10:18)
[2017-11-13] MEDS: FUROSEMIDE 40 MG/4 ML INJECTION IVP SCH ×2 (10:18→20:22)
[2017-11-13] MEDS: MULTI VIT INFUSION IV SCH (10:18)
[2017-11-13] MEDS: SODIUM CHLORIDE IV SCH (10:18)
[2017-11-13] MEDS: LOSARTAN 50 MG TABLET PO SCH ×2 (10:31→20:22)
[2017-11-13] MEDS: METHIMAZOLE 5 MG TABLET PO SCH (10:34)
--- NOTE | 2017-11-13 13:31 | Progress Note ---
DATE 11/13/2017 FINDINGS Mrs. Tafoya was seen this morning on rounds. She states that overall she is doing perhaps a little worse. She states she has been having leg discomfort. Specifically her right calf is painful in nature. She believes that her legs are swelling as a result of fluid. She also has been having a component of some increasing discomfort within her abdomen. She states that she has been having some intermittent "sharp pains" within her left upper quadrant. OBJECTIVE VITALS: Afebrile. Normotensive. Please refer to EMR if detail needed. I's and O's reviewed. CHEST: Clear to auscultation bilaterally. HEART: Regular rate and rhythm. Normal S1, S2, without gallops, murmurs or clicks. ABDOMEN: Dressing is in place and intact. No drainage present. ALEX drainage is minimal and serosanguineous in nature. Colostomy is viable. There is no air or stool within the ostomy appliance. Palpation of her abdomen reveals some mild incisional tenderness but there was no evidence for guarding as noted prior to surgery. Her abdominal exam remains benign. EXTREMITIES: Patient does not have significant pretibial edema. Negative Homans' sign. Right calf is slightly tender upon palpation. LABORATORY/RADIOGRAPHIC EVALUATION Patient had a CBC today and her hemoglobin is stable at 8.8. Overall her white count is stable/slightly decreased at 15.7. BMP obtained and found to be essentially within normal limits. 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 Overall patient showing slow improvement. PLAN Given her complaint of right calf pain, will go ahead and obtain a venous duplex scan to rule out potential DVT. I do believe that she is likely a little "fluid up" as a result of the significant crystalloid that was given to her postoperatively and has likely third spaced. I did discuss this with the hospitalist system who is going to provide some diuresis today. I do not feel that her abdominal discomfort is the result of a significant intraabdominal process, but typical postoperative discomfort. Will continue to follow closely. I have reviewed Infectious Disease note from yesterday. Will otherwise continue with current care at this time. ANGELICA
--- NOTE | 2017-11-13 14:06 | Pharmacy Consult-TPN/PPN ---
Pharmacy Consult-TPN/PPN - Laboratory Information Chemistry Turbidity < 20 (0-20) 11/13/17 03:47 Sodium 136 MEQ/L (136-146) 11/13/17 03:47 Potassium 3.7 MEQ/L (3.6-5) D 11/13/17 03:47 Chloride 103 MEQ/L (98-107) 11/13/17 03:47 Carbon Dioxide 27 MEQ/L (22-30) 11/13/17 03:47 Anion Gap 6 meq/L (5-15) 11/13/17 03:47 BUN 20.0 MG/DL (7-17) H 11/13/17 03:47 Creatinine 0.5 mg/dL (0.7-1.2) L D 11/13/17 03:47 GFR Calculation 122 11/13/17 03:47 BUN/Creatinine Ratio 40 RATIO (6-26) H 11/13/17 03:47 Glucose 102 MG/DL (65-110) 11/13/17 03:47 Glucometer 97 mg/dL (65-110) 11/10/17 16:04 Calculated Osmolality 265 MOSM/KG (261-280) 11/13/17 03:47 Calcium 7.4 MG/DL (8.4-10.2) L 11/13/17 03:47 Phosphorus 2.5 MG/DL (2.5-4.5) 11/12/17 05:22 Magnesium 2.1 MG/DL (1.6-2.3) 11/10/17 04:15 Total Bilirubin 0.30 MG/DL (0.20-1.30) 11/04/17 04:13 Conjugated Bilirubin 0.00 mg/dL (0.00-0.30) 11/01/17 03:35 Unconjugated Bilirubin 0.30 mg/dL (0.00-1.1) 11/01/17 03:35 AST 28 U/L (14-36) 11/04/17 04:13 Icterus Index < 2 (0-7) 11/13/17 03:47 ALT 29 U/L (1-35) 11/04/17 04:13 Alkaline Phosphatase 56 U/L (38-126) D 11/04/17 04:13 Troponin I < 0.012 ng/ml (0-0.12) 11/11/17 04:38 C-Reactive Protein 267.3 mg/L (0-9) H D 11/11/17 09:24 Total Protein 5.2 g/dL (6.3-8.2) L 11/04/17 04:13 Globulin 2.3 G/DL (2.4-3.6) L 11/04/17 04:13 Albumin/Globulin Ratio 1.3 RATIO (1.1-2.2) 11/04/17 04:13 Albumin 2.8 g/dL (3.5-5.0) L 11/10/17 04:15 Lipase 53 U/L (23-300) 10/28/17 14:57 Plasma Lactate 1.0 MMOL/L (0.6-2.2) 11/12/17 11:19 Procalcitonin 0.55 NG/ML 11/13/17 03:47 TSH 31.90 mIU/L (0.47-4.68) H 11/10/17 08:43 Free T4 0.09 ng/dL (0.78-2.19) L 11/10/17 08:43 Specimen Hemolysis < 15 (0-25) 11/13/17 03:47 Intake and Output 11/12/17 11/13/17 11/14/17 06:59 06:59 06:59 Intake Total 2327.200 / 2327.200 2973.200 / 2973.200 618.100 / 618.100 Output Total 1774 / 1774 2723 / 2723 1575 / 1575 Balance 553.200 / 553.200 250.200 / 250.200 -956.900 / -956.900 Weight 55.1 kg 54.8 kg 56.4 kg Intake: IV 2267.200 / 2267.200 2973.200 / 2973.200 618.100 / 618.100 D5-1/2NS with KCL 20mEq 1,000 175 / 175 ml @ 125 mls/hr IV .Q8H [facility] Rx# :[id number] Fat Emulsion 20% 250 ml @ 50 250.000 / 250.000 250.000 / 250.000 mls/hr IV 1600 [facility] Rx#: [id number] Meropenem 1 gm In Ns 50 ml @ 150 / 150 50 / 50 100 mls/hr IV Q8H [facility] Rx#: [id number] Micafungin 100 mg In Ns 100 ml 100 / 100 100 / 100 @ 100 mls/hr IV 1600 ON LICENSE OF [facility] Rx#: [id number] Multi-Vit Infusion 10 ml Multi 1592.2 / 1592.2 2263.200 / 2263.200 528.100 / 528.100 -Trace Elements 1 ml Sodium Chloride Conc 120 meq In TPN - Standard Formula 2,000 ml @ 82 mls/hr IV .Q24H ON LICENSE OF [facility] Rx#: [id number] Piperacillin/Tazobactam 3.375 310 / 310 90 / 90 gm In D5w 100 ml @ 200 mls/hr IV Q6H ON LICENSE OF [facility] Rx#:[id number] Oral 60 / 60 Output: Urine Amount (Catheter) 764 / 764 1213 / 1213 1575 / 1575 Gastric Drainage 850 / 850 850 / 850 Left Nare 850 / 850 850 / 850 Wound Drainage 160 / 160 660 / 660 Right Lower Lateral Abdomen 10 / 10 320 / 320 Right Upper Lateral Abdomen 150 / 150 340 / 340 Other: Urine Appearance Clear Clear Clear Urine Color Yellow Pale Pale Yellow Yellow Urine Odor Normal Drain Type Right Lower Lateral Abdomen Bulb [place] Bulb [place] Right Upper Lateral Abdomen Bulb [place] Bulb [place] - Consult Information TPN CONSULT: DAY 22 Patient currently on the Clinimix 5%/20%-E TPN at 82 ml/hr. Sodium and Potassium were adjusted. Thank you. Nita Arteaga, PharmD
--- NOTE | 2017-11-13 15:22 | Progress Note ---
- Date 11/13/17 Subjective: Patient overall feels she is improving healthwise however her legs are sore and in the last 12 hours she is feeling more and more swollen in the lower extremities. She denies breathlessness. Despite not having her SCD's on when I came into the room she stated that she had only had them off briefly as she just had a bath Objective Vital signs: Temperature 98.3 F 11/13/17 12:00 Pulse Rate 85 11/13/17 14:30 Respiratory Rate 28 H 11/13/17 14:38 Blood Pressure 149/74 H 11/13/17 14:00 Pulse Oximetry 93 11/13/17 14:30 Rhythm: Normal Sinus Rhythm Height/Weight/BMI: Height 5 ft 1 in Weight 56.4 kg Body Mass Index 19.8 - Constitutional Present: well nourished, well developed - Routine HEENT Exam Head: Present: normocephalic, atraumatic Eye: Present: EOMI ENT: Present: mucous membranes moist, dentition normal - Routine Respiratory Exam Present: CTA bilaterally. Absent: wheezes - Routine Cardiovascular Exam Present: RRR, S1, S2. Absent: murmur - Routine Abdominal Exam Present: soft, normoactive bowel sounds, non distended, surgical scars, ostomy. Absent: tenderness - Routine Extremities Exam Present: normal capillary refill - Routine Skin Exam Present: dry, warm - Routine Neurological Exam Present: alert, oriented X3, CN II-XII intact - Routine Lymphatic Exam Lymphatic: Absent: adenopathy - Routine Psychiatric Exam Present: normal affect Results - Labs CBC & Chem 7: 11/13/17 03:47 11/13/17 03:47 Microbiology Results: Microbiology 11/10/17 13:17 Peritoneum Gram Stain - Final 11/10/17 13:17 Peritoneum Surgical Culture - Preliminary Jordan albicans 11/10/17 08:45 Port/Picc Blood Culture - Preliminary No Growth After 3 Days 11/10/17 08:50 Port/Picc Blood Culture - Preliminary No Growth After 3 Days 11/02/17 15:12 Peritoneal Fluid Gram Stain - Final 11/02/17 15:12 Peritoneal Fluid Body Fluid Culture - Final Escherichia coli Jordan albicans Pseudomonas aeruginosa Other Tamie Observed Assessment and Plan (1) Peritonitis, spontaneous bacterial Current visit: Yes Status: Acute (2) SBO (small bowel obstruction) Current visit: Yes Status: Acute Assessment and Plan: Assessment peritonitis diverticulitis with microperforations Small bowel obstruction - release of incarcerated internal hernia by adhesiolysis by Dr. Bryant 11/02/17 cardiac arrhythmias Abdominal pain, n/v Leukocytosis - POA Hyponatremia - POA Hyperthyroidism - RA iodine ablation 07/18 (Follows with Dr. Bianchi) Anxiety Migraine GERD Dyslipidemia Hypertension Diverticulosis with history of recurrent diverticulitis H/o gastritis/+h pylori Mild metabolic acidosis-resolved Plan -POD #3 for partial colostomy and #11 for lysis of adhesions. Patient continues to make small steady improvement. White blood cell count continues to fall. Sepsis markers are reassuring. Continue antibiotics and antifungal. No further cardiac arrhythmias seen. Patient was 48 kg on arrival and is currently 56. How much of this was dehydration is uncertain but she is mildly fluid overloaded and is uncomfortable enough to be vocal of this. States that pain is in both legs and diffuse. Unlikely as she has been in SCD's but a Doppler of both lower extremities was ordered and the preliminary report by virtual radiology is negative in both legs Patient will remain in the ICU through the weekend most likely but I am not adverse to her movement to the medical floor Patient is requiring 2 L oxygen. continue to monitor pt closely. - Time spent with patient Time with patient PN: 35 minutes - Physician Narrative Narrative: Date: 11/13/17 Time: 151 Hospital Course Summary Disclaimer: The visit summary below is not to be considered part of the above Progress Note. Hospital Course: 10/28/17 Admit, IP. Stay expected to exceed 2 overnights for tx of enteritis and resolution of SBO. Consult Dr. Nixon. Zosyn and Solumedrol for tx of enteritis. NPO. NG tube. (Pt declines at present. If n/v/pain persists despite current pain/nausea tx, will proceed.) IVF's - 1L bolused in ER. Continue NS at 125cc/hr. This should address her hyponatremia as well. Repeat labs in am to follow blood counts and electrolytes. Protonix IV for GERD and GI ppx. Lovenox for VTE ppx. Full code. PCP - MADAI Gage 10/29/17 Patient's pain is less. Leukocytosis improved from 18.7--> 14.5. Continues on Zosyn and Solumedrol. Consider decreasing Solumedrol dose later today. Remains NPO. IVF's running at 125cc's/hr. Electrolytes stable. Hyponatremia resolved 130-->136. Continue IV pain meds and antiemetics PRN. (Hasn't required since 1799 last shereen. ) Continue IV pantoprazole for GI ppx/GERD. 10/30/17 Patient did have a small bowel movement this morning. No significant flatus. Abdomen feels a little more distended, full and uncomfortable today. She appears in no distress and has not required any pain medication since receiving IV acetaminophen yesterday afternoon. She has not had any nausea or vomiting. She does not have an NG in place. NG placement was attempted on the evening of admission but was difficult, and the patient refused further attempts. We'll continue Solu-Medrol for possible Crohn's disease. Continue Zosyn for now. Discussed with Dr. Nixon, he will see the patient later today. Abdominal films look about the same today. We'll start IV nutrition. Discussed with the pharmacist today, we do not have any TPN. Will start PPN today. 10/31/17 Patient continues to have abdominal discomfort, distention, and continued dilated loops of small bowel on abdominal x-rays. Pain is tolerable. She had 2 small bowel movements this morning. IV Tylenol does help her pain. Continue with IV Solu-Medrol for suspected Crohn's. Continue Zosyn for now. White count is elevated, at this point likely secondary to steroids. The patient has remained afebrile. Regarding nutrition, TPN is not available due to a shortage, PPN was started yesterday and is being given in the midline since she had pain with infusion in a peripheral site. CBC, CMP, and phosphorus tomorrow Repeat C-reactive protein today We'll discuss today with Dr. Nixon 11/01/17 Patient continues to have abdominal discomfort, distention, and continued dilated loops of small bowel on abdominal x-rays. Patient agreed to attempt placement of NG tube again which was successful. Will continue NG tube with low suction. Maintain NPO status. Patient disclosed her father and 2 cousins had a history of lymphoma of the ileum while discussing treatment options with Dr. Nixon. Patient is now more open to idea of surgical intervention if needed. Will re- evaluate pain and distention in AM with possible surgery tomorrow afternoon. Will hold lovenox in AM in anticipation of surgery tomorrow, 11/02/17. Continue with IV Solu-Medrol for suspected Crohn's. Continue Zosyn for now. White count is trending up, at this point likely secondary to steroids. The patient has remained afebrile. PPN was started 10/30/17 and is being given in the midline since she had pain with infusion in a peripheral site. CBC, CMP, and phosphorus tomorrow CRP trending down. Discussed with Dr. Nixon, family and Dr. Duckworth. 11/02/17 Patient continues to have abdominal discomfort and distention. See by Dr. Nixon yesterday and probable surgical intervention today at 1430. Will continue NG tube with low suction. Maintain NPO status. Lovenox held this morning in preparation for anticipated surgery. Continue with IV Solu-Medrol for suspected Crohn's. Continue Zosyn for now. WBC trending down. Patient remains afebrile. New hyponatremia (Na 135) with hypokalemia (K 3.4). Pharmacy managing PPN. Patient given KCl 20 mEq IV yesterday in addition to additional KCl added to PPN per pharmacy. Will given additional KCl 20 mEq IV today and continue to monitor closely. PPN was started 10/30/17 and is being given in the midline since she had pain with infusion in a peripheral site. Mag slightly decreased at 2.4. Will discuss with pharmacy. CRP trending up - 34.5 on 10/31/17 -->87.4 today. Continue to monitor. 11/03/17 POD #1 S/p release of incarcerated internal hernia by adhesiolysis by Dr. Nixon NG tube with low suction. Continues NPO. IV Solu-Medrol and Zosyn were DC'd yesterday following surgery as there was no evidence of Crohn's. WBC up today - likely post-op elevation. LFT's just slightly elevated. Na 133. Will follow. Continues on PPN (started 10/30/17). Blood noted in llanos - check UA. Peritoneal culture revealed E.coli, few gram positive cocci and yeast. Rocephin and Diflucan initiated. 11/04/17 POD #2 NG tube with low suction--> clamps later in the day with good tolerance. Continues NPO. Hopeful bowels will begin moving and NG can be removed in the near future with slow initiation of oral intake. No BM at time of exam. WBC trending down. Bandemia improving. Remains afebrile. LFTs returned to normal range. Continue to monitor closely. Persistent hyponatremia (Na 133). Continue to monitor. Continues on PPN (started 10/30/17). Hopeful to start oral intake in the near future. Surgery managing. UA unremarkable. Will discontinue Llanos and monitor patient closely. 11/05/17 POD #3 NG tube removed last night. Advanced to clear liquids -not wanting to take in much po d/t abd bloating/no appetite. Continue PPN per pharmacy for nutrition. Received dilaudid last night and had nausea, headache and dizziness. Headache and nausea persisting. Will give Tylenol po and Reglan now. Use Toradol and/or Tylenol for pain and avoid narcs if possible. Persistent hyponatremia (Na 131). Continue to monitor. 02 requirement down to 1L from 3L. Using IS. Ambulating. Day #3 of Rocephin and Diflucan for peritoneal culture w/ E.coli, few gram positive cocci and yeast. WBC 18.8-->22.4. Afebrile. Home Losartan and methimazole resumed last night. 11/06/17 POD #4 White count continues to trend up, currently at 23.3. Bands have also increased to 9%. She has having increased abdominal symptoms with indigestion, nausea and bloating. Discussed with Dr. Collins. Will obtain CT abdomen and pelvis with IV contrast. Expand Antibiotics to Zosyn. Continue Diflucan. Peritoneal fluid culture showed moderate growth of Escherichia coli and light growth of Jordan albicans. Continue PPN. Hyponatremia persists, stable at 131. Patient is off oxygen this morning. She is afebrile and hemodynamically stable. NG replaced due to recurrent GI symptoms and CT findings suggesting ileus but no abscess. 11/07/17 POD #5 White count remains elevated but slightly lower than yesterday with decreased percent bands. Afebrile. More comfortable overall following replacement of NG; continues to have active bowel sounds and pass gas. Repeat flat/upright KUBs in a.m. Continue Zosyn, serous fluid described intraoperatively in excess of what was anticipated prompting decision to send sample for culture. Continue Diflucan for culture finding of probable Jordan. Blood pressure stable. Remains on low-dose methimazole after radioactive iodine ablation in July; will clarify with Endo if appropriate to recheck thyroid levels. Hemoglobin stable as are electrolytes although sodium remains borderline low. 11/08/17 POD #6 Replacement of NG overnight; continues to have active bowel sounds and passing gas, no BM since prior to surgery. KUB films pending this am. White count remains elevated. Dc Zosyn and start Meropenem for serous fluid described intraoperatively in excess of what was anticipated. E coli and pseudomonas cultured. DARCIE's are now resulted showing lower DARCIE w/ Meropenem compared to Zosyn. Continue Diflucan for culture finding of probable Jordan. Sodium remains low 131-->130. Continues on PPN and clear liquids. 11/09/17 POD #7 Patient looking and feeling much better today. Has had NG tube clamped off and on and has tolerated it well thus far. Patient has passed some stool and continues to pass gas. KUB films pending this am. White count has improved. Day #2 of meropenem (converted from Zosyn (11/02 - 11/08) due to DARCIE) for e coli and pseudomonas in peritoneal fluid. Day #7 of Diflucan for jordan in peritoneal fluid. Sodium still low but improving 130-->132. Continues on PPN and ice chips. Would like to go to IRU on d/c 11/10/2017 surgery She experienced significantly increase in pain late evening, NG advanced and pain meds given, she feel better this am. WBC with increase to 24.3 (17.7 yesterday) with bandemia Llanos removed yesterday Still on oxygen, sat drops to upper 80's on room air Low grade fever of 100.3 during the nite.\ Will further evaluate leukocytosis, fever, weakness with CXR, blood cultures and u/a. Dr. Ramirez eval the patient as well, also getting CT abd/pelvis and serum lactate. 11/10/17-POD #8. OP day for second surgery due to possible microperforation by Dr. Ramirez. Patient with increasing abdominal pain, abdominal distention, and increase in white count and development of fever. CT abdomen/pelvis resulting in possibility of microperforation leading to emergent surgery with Dr. Ramirez at the present time. Patient continues on meropenem. Today is day #3. (Converted from Zosyn (11/02 - 7) due to DARCIE) for e coli and pseudomonas in peritoneal fluid. Day #8 of Diflucan for jordan in peritoneal fluid. Sodium still low but currently stable 130-->132-->132. Continues on PPN and ice chips. Blood pressure and pulse are stable. Patient is requiring 2 L oxygen. There is question on chest x-ray of lower lobe atelectasis versus pneumonia. Blood cultures are pending. Lactate was normal. Sputum culture has been ordered. Given that she's been on broad coverage antibiotics and she has been breathing shallow due to pain in the abdomen, suspect findings on x-ray are more apt to be atelectasis. Add Acapella and DuoNeb treatments for pulmonary toilet. Patient has been having liquid stools - c diff neg. Will discuss case with Dr. Ramirez following surgery and continue to monitor pt closely.
[2017-11-13] MEDS: NS IV SCH (16:30)
[2017-11-13] MEDS: MICAFUNGIN IV SCH (16:30)
[2017-11-13] MEDS: FAT EMULSION 20% 250 ML IV SCH (16:31)
[2017-11-14] MEDS: PIPERACILLIN/TAZOBACTAM 3.375 GM in D5W 100 ML IV SCH ×4 (00:11→17:51)
[2017-11-14] MEDS: KETOROLAC 15 MG/ML INJECTION IVP PRN ×3 (04:35→21:05)
[2017-11-14] MEDS: MORPHINE SULFATE 4mg INJECTION IVP PRN ×2 (07:02→15:46)
[2017-11-14] MEDS: METOCLOPRAMIDE 10mg/2ml INJECTION IVP PRN (07:02)
[2017-11-14] MEDS: SALINE FLUSH 10ml SYRINGE IVF PRN ×5 (07:07→16:28)
[2017-11-14] MEDS: PANTOPRAZOLE 40 MG INJECTION IVP SCH ×2 (08:24→20:09)
[2017-11-14] MEDS: ENOXAPARIN 40 MG/0.4 ML INJECTION SQ SCH (08:24)
[2017-11-14] MEDS: ALBUTEROL/IPRATROPIUM 2.5mg-0.5mg/3ml NEB AEROSOL SCH ×4 (08:39→21:58)
[2017-11-14] MEDS ORDERED: [UNRECOGNIZED DRUG - OTHER] IV SCH (09:00)
[2017-11-14] MEDS ORDERED: MULTI TRACE ELEMENTS IV SCH (09:00)
[2017-11-14] MEDS ORDERED: SODIUM CHLORIDE IV SCH (09:00)
[2017-11-14] MEDS ORDERED: MULTI VIT INFUSION IV SCH (09:00)
[2017-11-14] MEDS: METHIMAZOLE 5 MG TABLET PO SCH (09:03)
[2017-11-14] MEDS: LOSARTAN 50 MG TABLET PO SCH ×2 (09:03→20:04)
--- NOTE | 2017-11-14 09:54 | Ultrasound Report ---
Indication: calf pain. PROCEDURE: US venous doppler LE BI: Encounter: Initial Comparison: None Technique: Color Doppler duplex and grayscale sonographic imaging of both lower extremities was performed. Findings: There is no evidence for acute deep venous thrombosis in either thigh. Specifically, serial graded compression was performed from the inguinal ligament to the popliteal bifurcation, bilaterally, demonstrating appropriate compressibility of the deep venous system. In addition, color and pulsed Doppler demonstrate appropriate spontaneous flow, variation with respiration, and augmentation with calf compression. At the ankle, normal flow is identified in the posterior tibial veins; these vessels are also normal in caliber. Impression: No evidence of acute DVT in either lower limb. There is a preliminary report by [employer] [facility] radiologic. .
--- NOTE | 2017-11-14 11:24 | Pharmacy Consult-TPN/PPN ---
Pharmacy Consult-TPN/PPN - Laboratory Information Chemistry Turbidity < 20 (0-20) 11/14/17 04:33 Sodium 136 MEQ/L (136-146) 11/14/17 04:33 Potassium 3.6 MEQ/L (3.6-5) 11/14/17 04:33 Chloride 97 MEQ/L (98-107) L 11/14/17 04:33 Carbon Dioxide 33 MEQ/L (22-30) H 11/14/17 04:33 Anion Gap 6 meq/L (5-15) 11/14/17 04:33 BUN 21.0 MG/DL (7-17) H 11/14/17 04:33 Creatinine 0.5 mg/dL (0.7-1.2) L 11/14/17 04:33 GFR Calculation 122 11/14/17 04:33 BUN/Creatinine Ratio 42 RATIO (6-26) H 11/14/17 04:33 Glucose 77 MG/DL (65-110) 11/14/17 04:33 Glucometer 97 mg/dL (65-110) 11/10/17 16:04 Calculated Osmolality 264 MOSM/KG (261-280) 11/14/17 04:33 Calcium 7.7 MG/DL (8.4-10.2) L 11/14/17 04:33 Phosphorus 2.5 MG/DL (2.5-4.5) 11/12/17 05:22 Magnesium 2.1 MG/DL (1.6-2.3) 11/10/17 04:15 Total Bilirubin 0.30 MG/DL (0.20-1.30) 11/04/17 04:13 Conjugated Bilirubin 0.00 mg/dL (0.00-0.30) 11/01/17 03:35 Unconjugated Bilirubin 0.30 mg/dL (0.00-1.1) 11/01/17 03:35 AST 28 U/L (14-36) 11/04/17 04:13 Icterus Index < 2 (0-7) 11/14/17 04:33 ALT 29 U/L (1-35) 11/04/17 04:13 Alkaline Phosphatase 56 U/L (38-126) D 11/04/17 04:13 Troponin I < 0.012 ng/ml (0-0.12) 11/11/17 04:38 C-Reactive Protein 267.3 mg/L (0-9) H D 11/11/17 09:24 Total Protein 5.2 g/dL (6.3-8.2) L 11/04/17 04:13 Globulin 2.3 G/DL (2.4-3.6) L 11/04/17 04:13 Albumin/Globulin Ratio 1.3 RATIO (1.1-2.2) 11/04/17 04:13 Albumin 2.8 g/dL (3.5-5.0) L 11/10/17 04:15 Lipase 53 U/L (23-300) 10/28/17 14:57 Plasma Lactate 1.0 MMOL/L (0.6-2.2) 11/12/17 11:19 Procalcitonin 0.55 NG/ML 11/13/17 03:47 TSH 31.90 mIU/L (0.47-4.68) H 11/10/17 08:43 Free T4 0.09 ng/dL (0.78-2.19) L 11/10/17 08:43 Specimen Hemolysis < 15 (0-25) 11/14/17 04:33 Intake and Output 11/13/17 11/14/17 11/15/17 06:59 06:59 06:59 Intake Total 2973.200 / 2973.200 2684.201 / 2684.201 334.834 / 334.834 Output Total 2723 / 2723 5470 / 5470 159 / 159 Balance 250.200 / 250.200 -2785.799 / -2785.799 175.834 / 175.834 Weight 54.8 kg 56.4 kg 52.6 kg Intake: IV 2973.200 / 2973.200 2684.201 / 2684.201 334.834 / 334.834 Fat Emulsion 20% 250 ml @ 50 250.000 / 250.000 250.000 / 250.000 mls/hr IV 1600 [facility] Rx#: [id number] Meropenem 1 gm In Ns 50 ml @ 50 / 50 100 mls/hr IV Q8H [facility] Rx#: [id number] Micafungin 100 mg In Ns 100 ml 100 / 100 100 / 100 @ 100 mls/hr IV 1600 [facility] Rx#: [id number] Multi-Vit Infusion 10 ml Multi 2263.200 / 2263.200 1844.201 / 1844.201 194.067 / 194.067 -Trace Elements 1 ml Sodium Chloride Conc 120 meq In TPN - Standard Formula 2,000 ml @ 82 mls/hr IV .Q24H [facility] Rx#: [id number] Multi-Vit Infusion 10 ml Multi 140.767 / 140.767 -Trace Elements 1 ml Sodium Chloride Conc 80 meq Potassium Acetate Inj 20 meq In TPN - Standard Formula 2,000 ml @ 82 mls/hr IV .Q24H [facility] Rx#: [id number] Piperacillin/Tazobactam 3.375 310 / 310 490 / 490 gm In D5w 100 ml @ 200 mls/hr IV Q6H [facility] Rx#:[id number] Output: Stool 50 / 50 Urine Amount (Catheter) 1213 / 1213 4450 / 4450 159 / 159 Gastric Drainage 850 / 850 350 / 350 Left Nare 850 / 850 350 / 350 Wound Drainage 660 / 660 620 / 620 Right Lower Lateral Abdomen 320 / 320 290 / 290 Right Upper Lateral Abdomen 340 / 340 330 / 330 Other: Urine Appearance Clear Clear Clear Urine Color Pale Pale Yellow Yellow Yellow Urine Odor Normal Stool Color Dark Red Blood Stool Consistency Liquid Size of Bowel Movement Small Drain Type Right Lower Lateral Abdomen Bulb Forman Bulb Forman Right Upper Lateral Abdomen Bulb Forman Bulb Forman - Consult Information TPN CONSULT: DAY Patient currently on the Clinimix 5%/20%-E TPN at 82 ml/hr. Sodium and Potassium were adjusted. Patient's TPN schedule over time (23 days) has gradually moved into the morning bours. Labs ordered for Wednesday and a Custom TPN bag will be made instead of the Premixed electrolye TPN bag if patient's labs require it to be changed. Thank you. Nita Arteaga, CindyD
[2017-11-14] MEDS: SORE THROAT SPRAY 20ml PO PRN ×3 (12:04→20:09)
[2017-11-14] MEDS: NS IV SCH (16:26)
[2017-11-14] MEDS: MICAFUNGIN IV SCH (16:26)
[2017-11-14] MEDS: FAT EMULSION 20% 250 ML IV SCH (16:27)
[2017-11-14] MEDS: NS FLUSH BAG 500ml IV PRN (17:57)
[2017-11-14] MEDS ORDERED: FUROSEMIDE 40 MG/4 ML INJECTION IVP SCH (19:15)
--- NOTE | 2017-11-14 19:24 | Progress Note ---
- Date 11/14/17 Subjective: Patient sleeping comfortably Objective Vital signs: Temperature 98.2 F 11/14/17 12:00 Pulse Rate 83 11/14/17 19:00 Respiratory Rate 11 11/14/17 19:00 Blood Pressure 169/86 H 11/14/17 18:00 Pulse Oximetry 96 11/14/17 19:00 Rhythm: Normal Sinus Rhythm Height/Weight/BMI: Height 5 ft 1 in Weight 52.6 kg Body Mass Index 19.8 - Constitutional Present: well nourished, well developed - Routine HEENT Exam Head: Present: normocephalic, atraumatic Eye: Present: EOMI ENT: Present: mucous membranes moist, dentition normal - Routine Respiratory Exam Present: rhonchi. Absent: respiratory distress - Routine Cardiovascular Exam Present: RRR. Absent: murmur - Routine Abdominal Exam Present: normoactive bowel sounds, non distended, surgical scars, ostomy - Routine Extremities Exam Present: normal capillary refill - Routine Skin Exam Present: dry, warm - Routine Neurological Exam Present: moving all extremities - Routine Lymphatic Exam Lymphatic: Absent: adenopathy - Routine Psychiatric Exam Present: unable to assess Results - Labs CBC & Chem 7: 11/14/17 04:33 11/14/17 04:33 Microbiology Results: Microbiology 11/13/17 21:07 Sputum, Expectorated Gram Stain - Final 11/13/17 21:07 Sputum, Expectorated Sputum Culture - Preliminary Early growth 11/10/17 13:17 Peritoneum Gram Stain - Final 11/10/17 13:17 Peritoneum Surgical Culture - Final Jordan albicans Streptococcus viridans group 11/10/17 08:45 Port/Picc Blood Culture - Preliminary No Growth After 4 Days 11/10/17 08:50 Port/Picc Blood Culture - Preliminary No Growth After 4 Days 11/02/17 15:12 Peritoneal Fluid Gram Stain - Final 11/02/17 15:12 Peritoneal Fluid Body Fluid Culture - Final Escherichia coli Jordan albicans Pseudomonas aeruginosa Other Tamie Observed Assessment and Plan (1) Peritonitis, spontaneous bacterial Current visit: Yes Status: Acute (2) SBO (small bowel obstruction) Current visit: Yes Status: Acute Assessment and Plan: Assessment peritonitis diverticulitis with microperforations Small bowel obstruction - release of incarcerated internal hernia by adhesiolysis by Dr. Bryant 11/02/17 cardiac arrhythmias Abdominal pain, n/v Leukocytosis - POA Hyponatremia - POA Hyperthyroidism - RA iodine ablation 07/18 (Follows with Dr. Bianchi) Anxiety Migraine GERD Dyslipidemia Hypertension Diverticulosis with history of recurrent diverticulitis H/o gastritis/+h pylori Mild metabolic acidosis-resolved Plan -POD #4 for partial colostomy and #12 for lysis of adhesions. Patient down to 1 L of oxygen and have given orders to further wean. She maybe is still slightly fluid overloaded based upon auscultation of Her respiratory status while at rest. I've ordered a chest x-ray and is uninspiring fluid overload. Thus I will give a single additional dose of Lasix as she is still 4 kg above her base weight on arrival and sounds coarse in her chest. White count continues to fall in patient is on broad-spectrum antibiotics. Clinically she appears improved enough to transfer to regular medical floor Yesterday I attempted to contact the patient's consultant in ergonomics and safety regarding the current hypothyroid values while she is on the methimazole. No response back yet but will try again Wednesday when his office is open - Physician Narrative Narrative: Date: 11/14/17 Time: 1913 Hospital Course Summary Disclaimer: The visit summary below is not to be considered part of the above Progress Note. Hospital Course: 10/28/17 Admit, IP. Stay expected to exceed 2 overnights for tx of enteritis and resolution of SBO. Consult Dr. Nixon. Zosyn and Solumedrol for tx of enteritis. NPO. NG tube. (Pt declines at present. If n/v/pain persists despite current pain/nausea tx, will proceed.) IVF's - 1L bolused in ER. Continue NS at 125cc/hr. This should address her hyponatremia as well. Repeat labs in am to follow blood counts and electrolytes. Protonix IV for GERD and GI ppx. Lovenox for VTE ppx. Full code. PCP - MADAI Gage 10/29/17 Patient's pain is less. Leukocytosis improved from 18.7--> 14.5. Continues on Zosyn and Solumedrol. Consider decreasing Solumedrol dose later today. Remains NPO. IVF's running at 125cc's/hr. Electrolytes stable. Hyponatremia resolved 130-->136. Continue IV pain meds and antiemetics PRN. (Hasn't required since 1800 last shereen. ) Continue IV pantoprazole for GI ppx/GERD. 10/30/17 Patient did have a small bowel movement this morning. No significant flatus. Abdomen feels a little more distended, full and uncomfortable today. She appears in no distress and has not required any pain medication since receiving IV acetaminophen yesterday afternoon. She has not had any nausea or vomiting. She does not have an NG in place. NG placement was attempted on the evening of admission but was difficult, and the patient refused further attempts. We'll continue Solu-Medrol for possible Crohn's disease. Continue Zosyn for now. Discussed with Dr. Nixon, he will see the patient later today. Abdominal films look about the same today. We'll start IV nutrition. Discussed with the pharmacist today, we do not have any TPN. Will start PPN today. 10/31/17 Patient continues to have abdominal discomfort, distention, and continued dilated loops of small bowel on abdominal x-rays. Pain is tolerable. She had 2 small bowel movements this morning. IV Tylenol does help her pain. Continue with IV Solu-Medrol for suspected Crohn's. Continue Zosyn for now. White count is elevated, at this point likely secondary to steroids. The patient has remained afebrile. Regarding nutrition, TPN is not available due to a shortage, PPN was started yesterday and is being given in the midline since she had pain with infusion in a peripheral site. CBC, CMP, and phosphorus tomorrow Repeat C-reactive protein today We'll discuss today with Dr. Nixon 11/01/17 Patient continues to have abdominal discomfort, distention, and continued dilated loops of small bowel on abdominal x-rays. Patient agreed to attempt placement of NG tube again which was successful. Will continue NG tube with low suction. Maintain NPO status. Patient disclosed her father and 2 cousins had a history of lymphoma of the ileum while discussing treatment options with Dr. Nixon. Patient is now more open to idea of surgical intervention if needed. Will re- evaluate pain and distention in AM with possible surgery tomorrow afternoon. Will hold lovenox in AM in anticipation of surgery tomorrow, 11/02/17. Continue with IV Solu-Medrol for suspected Crohn's. Continue Zosyn for now. White count is trending up, at this point likely secondary to steroids. The patient has remained afebrile. PPN was started 10/30/17 and is being given in the midline since she had pain with infusion in a peripheral site. CBC, CMP, and phosphorus tomorrow CRP trending down. Discussed with Dr. Nixon, family and Dr. Duckworth. 11/02/17 Patient continues to have abdominal discomfort and distention. See by Dr. Nixon yesterday and probable surgical intervention today at 1430. Will continue NG tube with low suction. Maintain NPO status. Lovenox held this morning in preparation for anticipated surgery. Continue with IV Solu-Medrol for suspected Crohn's. Continue Zosyn for now. WBC trending down. Patient remains afebrile. New hyponatremia (Na 135) with hypokalemia (K 3.4). Pharmacy managing PPN. Patient given KCl 20 mEq IV yesterday in addition to additional KCl added to PPN per pharmacy. Will given additional KCl 20 mEq IV today and continue to monitor closely. PPN was started 10/30/17 and is being given in the midline since she had pain with infusion in a peripheral site. Mag slightly decreased at 2.4. Will discuss with pharmacy. CRP trending up - 34.5 on 10/31/17 -->87.4 today. Continue to monitor. 11/03/17 POD #1 S/p release of incarcerated internal hernia by adhesiolysis by Dr. Nixon NG tube with low suction. Continues NPO. IV Solu-Medrol and Zosyn were DC'd yesterday following surgery as there was no evidence of Crohn's. WBC up today - likely post-op elevation. LFT's just slightly elevated. Na 133. Will follow. Continues on PPN (started 10/30/17). Blood noted in llanos - check UA. Peritoneal culture revealed E.coli, few gram positive cocci and yeast. Rocephin and Diflucan initiated. 11/04/17 POD #2 NG tube with low suction--> clamps later in the day with good tolerance. Continues NPO. Hopeful bowels will begin moving and NG can be removed in the near future with slow initiation of oral intake. No BM at time of exam. WBC trending down. Bandemia improving. Remains afebrile. LFTs returned to normal range. Continue to monitor closely. Persistent hyponatremia (Na 133). Continue to monitor. Continues on PPN (started 10/30/17). Hopeful to start oral intake in the near future. Surgery managing. UA unremarkable. Will discontinue Llanos and monitor patient closely. 11/05/17 POD #3 NG tube removed last night. Advanced to clear liquids -not wanting to take in much po d/t abd bloating/no appetite. Continue PPN per pharmacy for nutrition. Received dilaudid last night and had nausea, headache and dizziness. Headache and nausea persisting. Will give Tylenol po and Reglan now. Use Toradol and/or Tylenol for pain and avoid narcs if possible. Persistent hyponatremia (Na 131). Continue to monitor. 02 requirement down to 1L from 3L. Using IS. Ambulating. Day #3 of Rocephin and Diflucan for peritoneal culture w/ E.coli, few gram positive cocci and yeast. WBC 18.8-->22.4. Afebrile. Home Losartan and methimazole resumed last night. 11/06/17 POD #4 White count continues to trend up, currently at 23.3. Bands have also increased to 9%. She has having increased abdominal symptoms with indigestion, nausea and bloating. Discussed with Dr. Collins. Will obtain CT abdomen and pelvis with IV contrast. Expand Antibiotics to Zosyn. Continue Diflucan. Peritoneal fluid culture showed moderate growth of Escherichia coli and light growth of Jordan albicans. Continue PPN. Hyponatremia persists, stable at 131. Patient is off oxygen this morning. She is afebrile and hemodynamically stable. NG replaced due to recurrent GI symptoms and CT findings suggesting ileus but no abscess. 11/07/17 POD #5 White count remains elevated but slightly lower than yesterday with decreased percent bands. Afebrile. More comfortable overall following replacement of NG; continues to have active bowel sounds and pass gas. Repeat flat/upright KUBs in a.m. Continue Zosyn, serous fluid described intraoperatively in excess of what was anticipated prompting decision to send sample for culture. Continue Diflucan for culture finding of probable Jordan. Blood pressure stable. Remains on low-dose methimazole after radioactive iodine ablation in July; will clarify with Endo if appropriate to recheck thyroid levels. Hemoglobin stable as are electrolytes although sodium remains borderline low. 11/08/17 POD #6 Replacement of NG overnight; continues to have active bowel sounds and passing gas, no BM since prior to surgery. KUB films pending this am. White count remains elevated. Dc Zosyn and start Meropenem for serous fluid described intraoperatively in excess of what was anticipated. E coli and pseudomonas cultured. DARCIE's are now resulted showing lower DARCIE w/ Meropenem compared to Zosyn. Continue Diflucan for culture finding of probable Jordan. Sodium remains low 131-->130. Continues on PPN and clear liquids. 11/09/17 POD #7 Patient looking and feeling much better today. Has had NG tube clamped off and on and has tolerated it well thus far. Patient has passed some stool and continues to pass gas. KUB films pending this am. White count has improved. Day #2 of meropenem (converted from Zosyn (11/02 - 11/08) due to DARCIE) for e coli and pseudomonas in peritoneal fluid. Day #7 of Diflucan for jordan in peritoneal fluid. Sodium still low but improving 130-->132. Continues on PPN and ice chips. Would like to go to IRU on d/c 11/10/2017 surgery She experienced significantly increase in pain late evening, NG advanced and pain meds given, she feel better this am. WBC with increase to 24.3 (17.7 yesterday) with bandemia Llanos removed yesterday Still on oxygen, sat drops to upper 80's on room air Low grade fever of 100.3 during the nite.\ Will further evaluate leukocytosis, fever, weakness with CXR, blood cultures and u/a. Dr. Ramirez eval the patient as well, also getting CT abd/pelvis and serum lactate. 11/10/17-POD #8. OP day for second surgery due to possible microperforation by Dr. Ramirez. Patient with increasing abdominal pain, abdominal distention, and increase in white count and development of fever. CT abdomen/pelvis resulting in possibility of microperforation leading to emergent surgery with Dr. Ramirez at the present time. Patient continues on meropenem. Today is day #3. (Converted from Zosyn (11/02 - 7/ ) due to DARCIE) for e coli and pseudomonas in peritoneal fluid. Day #8 of Diflucan for jordan in peritoneal fluid. Sodium still low but currently stable 130-->132-->132. Continues on PPN and ice chips. Blood pressure and pulse are stable. Patient is requiring 2 L oxygen. There is question on chest x-ray of lower lobe atelectasis versus pneumonia. Blood cultures are pending. Lactate was normal. Sputum culture has been ordered. Given that she's been on broad coverage antibiotics and she has been breathing shallow due to pain in the abdomen, suspect findings on x-ray are more apt to be atelectasis. Add Acapella and DuoNeb treatments for pulmonary toilet. Patient has been having liquid stools - c diff neg. Will discuss case with Dr. Ramirez following surgery and continue to monitor pt closely.
[2017-11-15] MEDS: PIPERACILLIN/TAZOBACTAM 3.375 GM in D5W 100 ML IV SCH ×4 (02:47→18:21)
[2017-11-15] MEDS: METOCLOPRAMIDE 10mg/2ml INJECTION IVP PRN ×2 (02:47→10:44)
[2017-11-15] MEDS ORDERED: POTASSIUM CHLORIDE PREMIX 10 MEQ/100 ML BAG IV ONE ×2 (05:40)
[2017-11-15] MEDS: ALBUTEROL/IPRATROPIUM 2.5mg-0.5mg/3ml NEB AEROSOL SCH ×4 (06:45→19:53)
--- NOTE | 2017-11-15 07:17 | XRay Report ---
Indication: congestion and fluid overloaded XR chest 1V: Comparison: 11/10/2017 Technique: Single portable upright chest Findings: Since previous examination heart size is similar with continued bibasilar increased density which has perhaps increased slightly particularly on the right side. Bilateral pleural effusions are suspected. Patient shows an NG tube in place. Midline abdominal karlie are identified. Impression: 1. Stable heart size with continued bilateral pleural effusions and bibasilar infiltrate and/or atelectasis which seems slightly worse on the right on the current study. 2. NG tube in place with midline abdominal karlie. .
--- NOTE | 2017-11-15 07:39 | Pharmacy Consult-TPN/PPN ---
Pharmacy Consult-TPN/PPN - Laboratory Information Chemistry Turbidity < 20 (0-20) 11/15/17 04:18 Sodium 136 MEQ/L (136-146) 11/15/17 04:18 Potassium 3.2 MEQ/L (3.6-5) L 11/15/17 04:18 Chloride 96 MEQ/L (98-107) L 11/15/17 04:18 Carbon Dioxide 34 MEQ/L (22-30) H 11/15/17 04:18 Anion Gap 6 meq/L (5-15) 11/15/17 04:18 BUN 21.0 MG/DL (7-17) H 11/15/17 04:18 Creatinine 0.5 mg/dL (0.7-1.2) L 11/15/17 04:18 GFR Calculation 122 11/15/17 04:18 BUN/Creatinine Ratio 42 RATIO (6-26) H 11/15/17 04:18 Glucose 78 MG/DL (65-110) 11/15/17 04:18 Glucometer 97 mg/dL (65-110) 11/10/17 16:04 Calculated Osmolality 264 MOSM/KG (261-280) 11/15/17 04:18 Calcium 7.7 MG/DL (8.4-10.2) L 11/15/17 04:18 Phosphorus 2.5 MG/DL (2.5-4.5) 11/15/17 04:18 Magnesium 1.8 MG/DL (1.6-2.3) 11/15/17 04:18 Total Bilirubin 0.30 MG/DL (0.20-1.30) 11/04/17 04:13 Conjugated Bilirubin 0.00 mg/dL (0.00-0.30) 11/01/17 03:35 Unconjugated Bilirubin 0.30 mg/dL (0.00-1.1) 11/01/17 03:35 AST 28 U/L (14-36) 11/04/17 04:13 Icterus Index < 2 (0-7) 11/15/17 04:18 ALT 29 U/L (1-35) 11/04/17 04:13 Alkaline Phosphatase 56 U/L (38-126) D 11/04/17 04:13 Troponin I < 0.012 ng/ml (0-0.12) 11/11/17 04:38 C-Reactive Protein 267.3 mg/L (0-9) H D 11/11/17 09:24 Total Protein 5.2 g/dL (6.3-8.2) L 11/04/17 04:13 Globulin 2.3 G/DL (2.4-3.6) L 11/04/17 04:13 Albumin/Globulin Ratio 1.3 RATIO (1.1-2.2) 11/04/17 04:13 Albumin 2.8 g/dL (3.5-5.0) L 11/10/17 04:15 Lipase 53 U/L (23-300) 10/28/17 14:57 Plasma Lactate 1.0 MMOL/L (0.6-2.2) 11/12/17 11:19 Procalcitonin 0.55 NG/ML 11/13/17 03:47 TSH 31.90 mIU/L (0.47-4.68) H 11/10/17 08:43 Free T4 0.09 ng/dL (0.78-2.19) L 11/10/17 08:43 Specimen Hemolysis < 15 (0-25) 11/15/17 04:18 Intake and Output 11/14/17 11/15/17 11/16/17 06:59 06:59 06:59 Intake Total 2684.201 / 2684.201 2746.935 / 2746.935 Output Total 5470 / 5470 3801 / 3801 160 / 160 Balance -2785.799 / -2785.799 -1054.065 / -1054.065 -160 / -160 Weight 56.4 kg 52.6 kg Intake: IV 2684.201 / 2684.201 2746.935 / 2746.935 Fat Emulsion 20% 250 ml @ 50 250.000 / 250.000 250.000 / 250.000 mls/hr IV 1600 [facility]I Rx#: [id number] Micafungin 100 mg In Ns 100 ml 100 / 100 100 / 100 @ 100 mls/hr IV 1600 [facility]I Rx#: [id number] Multi-Vit Infusion 10 ml Multi 1844.201 / 1844.201 194.067 / 194.067 -Trace Elements 1 ml Sodium Chloride Conc 120 meq In TPN - Standard Formula 2,000 ml @ 82 mls/hr IV .Q24H [facility] Rx#: [id number] Multi-Vit Infusion 10 ml Multi 1702.868 / 1702.868 -Trace Elements 1 ml Sodium Chloride Conc 80 meq Potassium Acetate Inj 20 meq In TPN - Standard Formula 2,000 ml @ 82 mls/hr IV .Q24H [facility] Rx#: [id number] Piperacillin/Tazobactam 3.375 490 / 490 400 / 400 gm In D5w 100 ml @ 200 mls/hr IV Q6H [facility] Rx#:[id number] Potassium Chloride Premix 10 100 / 100 meq In 100 ml @ 100 mls/hr IV O [facility] Rx#:[id number] Output: Stool 50 / 50 Urine Amount (Catheter) 4450 / 4450 3131 / 3131 100 / 100 Gastric Drainage 350 / 350 350 / 350 Left Nare 350 / 350 350 / 350 Wound Drainage 620 / 620 320 / 320 60 / 60 Right Lower Lateral Abdomen 290 / 290 150 / 150 30 / 30 Right Upper Lateral Abdomen 330 / 330 170 / 170 30 / 30 Other: Urine Appearance Clear Clear Clear Urine Color Pale Pale Yellow Yellow Yellow Stool Color Dark Red Blood Stool Consistency Liquid Size of Bowel Movement Small Drain Type Right Lower Lateral Abdomen Bulb [place] Bulb [place] Bulb [place] Right Upper Lateral Abdomen Bulb [place] Bulb [place] Bulb [place] - Consult Information TPN switched to custom formula this morning. Acetate was removed and substituted with chloride. Extra sodium, potassium and calcium are in formula. Will continue to follow. Thank you.
--- NOTE | 2017-11-15 08:06 | Progress Note ---
DATE: 11/14/2017 FINDINGS Mrs. Tafoya was seen this morning on rounds. She did appear overall improved. There was a fair amount family present with her this morning. VITALS: Afebrile. Normotensive. Last recorded vitals were temperature 98.6, pulse 84, blood pressure 147/70, SAO2 95% on 1 liter per nasal cannula. CHEST: Clear to auscultation bilaterally. HEART: Regular rate and rhythm. Normal S1 and S2 without gallops, murmurs or clicks. ABDOMEN: Visualization of her colostomy still does not reveal any evidence for air or stool. Palpation of her abdomen reveals some incisional tenderness. No evidence for guarding or rebound. LABORATORY/RADIOGRAPHIC EVALUATION The patient's white count remains elevated but stable at 15,000. Hemoglobin is stable at 9.9. The patient does have a slight left shift with 85% neutrophils and 7% bands. BMP obtained and found without marked abnormalities. ASSESSMENT 72-year-old female status post exploratory laparotomies x 2 with lysis of adhesions secondary to small bowel obstruction and sigmoid resection with creation of end colostomy and Julius's pouch secondary to phlegmonous process involving sigmoid colon. Overall patient making improvement. PLAN The patient's venous Doppler yesterday fortunately was negative. No evidence for DVT. Pathology report did return revealing diverticular disease of colon with evidence for rupture and focal abscess formation. Inflammatory process did extend to the serosal surface. Both resection margins were viable. Will continue with ongoing broad-spectrum antibiotics. Continue with current care. Hopefully over the next couple of days her bowel activity will resume and her diet will be able to be advanced and NG DC'd. Again, overall pleased with the patient's progress. Will continue to watch closely. ANGELICA
[2017-11-15] MEDS: KETOROLAC 15 MG/ML INJECTION IVP PRN ×3 (08:13→22:49)
[2017-11-15] MEDS: ENOXAPARIN 40 MG/0.4 ML INJECTION SQ SCH (09:08)
[2017-11-15] MEDS: PANTOPRAZOLE 40 MG INJECTION IVP SCH ×2 (09:08→20:27)
[2017-11-15] MEDS: METHIMAZOLE 5 MG TABLET PO SCH (09:08)
[2017-11-15] MEDS: LOSARTAN 50 MG TABLET PO SCH ×2 (09:08→20:27)
[2017-11-15] MEDS: SORE THROAT SPRAY 20ml PO PRN ×3 (09:13→16:28)
[2017-11-15] MEDS: [UNRECOGNIZED DRUG - OTHER] IV SCH (09:53)
[2017-11-15] MEDS: POTASSIUM CHLORIDE IV SCH (09:53)
[2017-11-15] MEDS: SODIUM CHLORIDE IV SCH (09:53)
--- NOTE | 2017-11-15 10:16 | Progress Note ---
- Date 11/15/17 Subjective: Mrs. Tafoya is alert conversant and denying any new problems. She has been able to walk the length of the ICU with physical therapy yesterday. Her breathing has improved after diuresis yesterday and overnight. Nursing reports very minimal output from the ostomy. She is not expressing any particular interest in food as yet but does seem to like the idea of getting the Llanos removed whenever possible Objective Vital signs: Temperature 98.4 F 11/15/17 04:00 Pulse Rate 81 11/15/17 08:00 Respiratory Rate 22 11/15/17 08:00 Blood Pressure 174/84 H 11/15/17 08:00 Pulse Oximetry 96 11/15/17 08:00 Rhythm: Normal Sinus Rhythm Height/Weight/BMI: Height 5 ft 1 in Weight 52.6 kg Body Mass Index 19.8 - Constitutional Present: well nourished, well developed, cooperative - Routine HEENT Exam Head: Present: normocephalic, atraumatic Eye: Present: EOMI ENT: Present: mucous membranes moist, dentition normal - Routine Respiratory Exam Present: CTA bilaterally. Absent: wheezes - Routine Cardiovascular Exam Present: RRR. Absent: murmur - Routine Abdominal Exam Present: soft, normoactive bowel sounds, non distended, ostomy. Absent: tenderness - Routine Extremities Exam Present: normal capillary refill - Routine Skin Exam Present: dry, warm - Routine Neurological Exam Present: alert, oriented X3, CN II-XII intact - Routine Lymphatic Exam Lymphatic: Absent: adenopathy - Routine Psychiatric Exam Present: normal affect Results - Labs CBC & Chem 7: 11/15/17 04:18 11/15/17 04:18 Microbiology Results: Microbiology 11/10/17 08:45 Port/Picc Blood Culture - Final No Growth After 5 Days 11/10/17 08:50 Port/Picc Blood Culture - Final No Growth After 5 Days 11/13/17 21:07 Sputum, Expectorated Gram Stain - Final 11/13/17 21:07 Sputum, Expectorated Sputum Culture - Preliminary Normal Respiratory Tamie 11/10/17 13:17 Peritoneum Gram Stain - Final 11/10/17 13:17 Peritoneum Surgical Culture - Final Jordan albicans Streptococcus viridans group 11/02/17 15:12 Peritoneal Fluid Gram Stain - Final 11/02/17 15:12 Peritoneal Fluid Body Fluid Culture - Final Escherichia coli Jordan albicans Pseudomonas aeruginosa Other Tamie Observed Assessment and Plan (1) Peritonitis, spontaneous bacterial Current visit: Yes Status: Acute (2) SBO (small bowel obstruction) Current visit: Yes Status: Acute Assessment and Plan: Assessment peritonitis diverticulitis with microperforations Small bowel obstruction - release of incarcerated internal hernia by adhesiolysis by Dr. Bryant 11/02/17 cardiac arrhythmias Abdominal pain, n/v Leukocytosis - POA Hyponatremia - POA Hyperthyroidism - RA iodine ablation 07/18 (Follows with Dr. Bianchi) Anxiety Migraine GERD Dyslipidemia Hypertension Diverticulosis with history of recurrent diverticulitis H/o gastritis/+h pylori Mild metabolic acidosis-resolved Plan -POD #5 for partial colostomy and #13 for lysis of adhesions. White blood cell count continues to fall albeit very slowly, however this is while there is significant leukocyte migration secondary to diuresis. Overall infection appears to be improving. Last sepsis markers were negative, no fevers for 5 days now. No word yet back from the pulpwood buyer regarding any changes he might want on her thyroid medications. Patient states that she will call Dr. Bianchi's office Not yet conversed with Dr. Ramirez, but from clinical standpoint I would endorse patient moving to the floor and would consider discontinuing the Llanos catheter. Focus on physical therapy and patients ambulation at this time as well as developing independent skills for maintaining her own ostomy. DVT Prophylaxis: Lovenox Resuscitation Status: Full Code - Physician Narrative Physician: other Narrative: Date: 11/15/17 Time: 1009 Hospital Course Summary Disclaimer: The visit summary below is not to be considered part of the above Progress Note. Hospital Course: 10/28/17 Admit, IP. Stay expected to exceed 2 overnights for tx of enteritis and resolution of SBO. Consult Dr. Nixon. Zosyn and Solumedrol for tx of enteritis. NPO. NG tube. (Pt declines at present. If n/v/pain persists despite current pain/nausea tx, will proceed.) IVF's - 1L bolused in ER. Continue NS at 125cc/hr. This should address her hyponatremia as well. Repeat labs in am to follow blood counts and electrolytes. Protonix IV for GERD and GI ppx. Lovenox for VTE ppx. Full code. PCP - MADAI Gage 10/29/17 Patient's pain is less. Leukocytosis improved from 18.7--> 14.5. Continues on Zosyn and Solumedrol. Consider decreasing Solumedrol dose later today. Remains NPO. IVF's running at 125cc's/hr. Electrolytes stable. Hyponatremia resolved 130-->136. Continue IV pain meds and antiemetics PRN. (Hasn't required since 1799 last shereen. ) Continue IV pantoprazole for GI ppx/GERD. 10/30/17 Patient did have a small bowel movement this morning. No significant flatus. Abdomen feels a little more distended, full and uncomfortable today. She appears in no distress and has not required any pain medication since receiving IV acetaminophen yesterday afternoon. She has not had any nausea or vomiting. She does not have an NG in place. NG placement was attempted on the evening of admission but was difficult, and the patient refused further attempts. We'll continue Solu-Medrol for possible Crohn's disease. Continue Zosyn for now. Discussed with Dr. Nixon, he will see the patient later today. Abdominal films look about the same today. We'll start IV nutrition. Discussed with the pharmacist today, we do not have any TPN. Will start PPN today. 10/31/17 Patient continues to have abdominal discomfort, distention, and continued dilated loops of small bowel on abdominal x-rays. Pain is tolerable. She had 2 small bowel movements this morning. IV Tylenol does help her pain. Continue with IV Solu-Medrol for suspected Crohn's. Continue Zosyn for now. White count is elevated, at this point likely secondary to steroids. The patient has remained afebrile. Regarding nutrition, TPN is not available due to a shortage, PPN was started yesterday and is being given in the midline since she had pain with infusion in a peripheral site. CBC, CMP, and phosphorus tomorrow Repeat C-reactive protein today We'll discuss today with Dr. Nixon 11/01/17 Patient continues to have abdominal discomfort, distention, and continued dilated loops of small bowel on abdominal x-rays. Patient agreed to attempt placement of NG tube again which was successful. Will continue NG tube with low suction. Maintain NPO status. Patient disclosed her father and 2 cousins had a history of lymphoma of the ileum while discussing treatment options with Dr. Nixon. Patient is now more open to idea of surgical intervention if needed. Will re- evaluate pain and distention in AM with possible surgery tomorrow afternoon. Will hold lovenox in AM in anticipation of surgery tomorrow, 11/02/17. Continue with IV Solu-Medrol for suspected Crohn's. Continue Zosyn for now. White count is trending up, at this point likely secondary to steroids. The patient has remained afebrile. PPN was started 10/30/17 and is being given in the midline since she had pain with infusion in a peripheral site. CBC, CMP, and phosphorus tomorrow CRP trending down. Discussed with Dr. Nixon, family and Dr. Duckworth. 11/02/17 Patient continues to have abdominal discomfort and distention. See by Dr. Nixon yesterday and probable surgical intervention today at 1430. Will continue NG tube with low suction. Maintain NPO status. Lovenox held this morning in preparation for anticipated surgery. Continue with IV Solu-Medrol for suspected Crohn's. Continue Zosyn for now. WBC trending down. Patient remains afebrile. New hyponatremia (Na 135) with hypokalemia (K 3.4). Pharmacy managing PPN. Patient given KCl 20 mEq IV yesterday in addition to additional KCl added to PPN per pharmacy. Will given additional KCl 20 mEq IV today and continue to monitor closely. PPN was started 10/30/17 and is being given in the midline since she had pain with infusion in a peripheral site. Mag slightly decreased at 2.4. Will discuss with pharmacy. CRP trending up - 34.5 on 10/31/17 -->87.4 today. Continue to monitor. 11/03/17 POD #1 S/p release of incarcerated internal hernia by adhesiolysis by Dr. Nixon NG tube with low suction. Continues NPO. IV Solu-Medrol and Zosyn were DC'd yesterday following surgery as there was no evidence of Crohn's. WBC up today - likely post-op elevation. LFT's just slightly elevated. Na 133. Will follow. Continues on PPN (started 10/30/17). Blood noted in llanos - check UA. Peritoneal culture revealed E.coli, few gram positive cocci and yeast. Rocephin and Diflucan initiated. 11/04/17 POD #2 NG tube with low suction--> clamps later in the day with good tolerance. Continues NPO. Hopeful bowels will begin moving and NG can be removed in the near future with slow initiation of oral intake. No BM at time of exam. WBC trending down. Bandemia improving. Remains afebrile. LFTs returned to normal range. Continue to monitor closely. Persistent hyponatremia (Na 133). Continue to monitor. Continues on PPN (started 10/30/17). Hopeful to start oral intake in the near future. Surgery managing. UA unremarkable. Will discontinue Llanos and monitor patient closely. 7 POD #3 NG tube removed last night. Advanced to clear liquids -not wanting to take in much po d/t abd bloating/no appetite. Continue PPN per pharmacy for nutrition. Received dilaudid last night and had nausea, headache and dizziness. Headache and nausea persisting. Will give Tylenol po and Reglan now. Use Toradol and/or Tylenol for pain and avoid narcs if possible. Persistent hyponatremia (Na 131). Continue to monitor. 02 requirement down to 1L from 3L. Using IS. Ambulating. Day #3 of Rocephin and Diflucan for peritoneal culture w/ E.coli, few gram positive cocci and yeast. WBC 18.8-->22.4. Afebrile. Home Losartan and methimazole resumed last night. 7 POD #4 White count continues to trend up, currently at 23.3. Bands have also increased to 9%. She has having increased abdominal symptoms with indigestion, nausea and bloating. Discussed with Dr. Collins. Will obtain CT abdomen and pelvis with IV contrast. Expand Antibiotics to Zosyn. Continue Diflucan. Peritoneal fluid culture showed moderate growth of Escherichia coli and light growth of Jordan albicans. Continue PPN. Hyponatremia persists, stable at 131. Patient is off oxygen this morning. She is afebrile and hemodynamically stable. NG replaced due to recurrent GI symptoms and CT findings suggesting ileus but no abscess. 11/07/17 POD #5 White count remains elevated but slightly lower than yesterday with decreased percent bands. Afebrile. More comfortable overall following replacement of NG; continues to have active bowel sounds and pass gas. Repeat flat/upright KUBs in a.m. Continue Zosyn, serous fluid described intraoperatively in excess of what was anticipated prompting decision to send sample for culture. Continue Diflucan for culture finding of probable Jordan. Blood pressure stable. Remains on low-dose methimazole after radioactive iodine ablation in July; will clarify with Endo if appropriate to recheck thyroid levels. Hemoglobin stable as are electrolytes although sodium remains borderline low. 11/08/17 POD #6 Replacement of NG overnight; continues to have active bowel sounds and passing gas, no BM since prior to surgery. KUB films pending this am. White count remains elevated. Dc Zosyn and start Meropenem for serous fluid described intraoperatively in excess of what was anticipated. E coli and pseudomonas cultured. DARCIE's are now resulted showing lower DARCIE w/ Meropenem compared to Zosyn. Continue Diflucan for culture finding of probable Jordan. Sodium remains low 131-->130. Continues on PPN and clear liquids. 11/09/17 POD #7 Patient looking and feeling much better today. Has had NG tube clamped off and on and has tolerated it well thus far. Patient has passed some stool and continues to pass gas. KUB films pending this am. White count has improved. Day #2 of meropenem (converted from Zosyn (11/02 - 11/08) due to DARCIE) for e coli and pseudomonas in peritoneal fluid. Day #7 of Diflucan for jordan in peritoneal fluid. Sodium still low but improving 130-->132. Continues on PPN and ice chips. Would like to go to IRU on d/c 11/10/2017 surgery She experienced significantly increase in pain late evening, NG advanced and pain meds given, she feel better this am. WBC with increase to 24.3 (17.7 yesterday) with bandemia Llanos removed yesterday Still on oxygen, sat drops to upper 80's on room air Low grade fever of 100.3 during the nite.\ Will further evaluate leukocytosis, fever, weakness with CXR, blood cultures and u/a. Dr. Ramirez eval the patient as well, also getting CT abd/pelvis and serum lactate. 11/10/17-POD #8. OP day for second surgery due to possible microperforation by Dr. Ramirez. Patient with increasing abdominal pain, abdominal distention, and increase in white count and development of fever. CT abdomen/pelvis resulting in possibility of microperforation leading to emergent surgery with Dr. Ramirez at the present time. Patient continues on meropenem. Today is day #3. (Converted from Zosyn (11/02 - 11/08) due to DARCIE) for e coli and pseudomonas in peritoneal fluid. Day #8 of Diflucan for jordan in peritoneal fluid. Sodium still low but currently stable 130-->132-->132. Continues on PPN and ice chips. Blood pressure and pulse are stable. Patient is requiring 2 L oxygen. There is question on chest x-ray of lower lobe atelectasis versus pneumonia. Blood cultures are pending. Lactate was normal. Sputum culture has been ordered. Given that she's been on broad coverage antibiotics and she has been breathing shallow due to pain in the abdomen, suspect findings on x-ray are more apt to be atelectasis. Add Acapella and DuoNeb treatments for pulmonary toilet. Patient has been having liquid stools - c diff neg. Will discuss case with Dr. Ramirez following surgery and continue to monitor pt closely.
[2017-11-15] MEDS: MORPHINE SULFATE 4mg INJECTION IVP PRN (10:53)
--- NOTE | 2017-11-15 13:22 | Wound Care Progress Note ---
Wound Center Progress Note: Pt seen for ostomy follow up r/t new colostomy. Pt resting in bed, family at bedside, no complaints of pain. Radha KHAN left education materials r/t new ostomy at bedside on Wednesday. Pt reports she started to read thru material, but soon tired. She states her had a temporary colostomy 30 years ago, so she is familiar with ostomies. Discussed goals in ostomy care before discharge from hospital: how and when to change appliance, bathing, dressings, diet, activity, and ordering supplies. Pt reports she will have the colostomy for about 6 months , then it will be reversed. Ostomy, as seen thru pouch, appears red and moist. Unable to assess peristomal skin at this time. Small amount of liquid serosanguineous drainage in pouch. Will revisit pt Wednesday/Wednesday with additional educational materials and practice stoma board. All questions answered. Pt has a good attitude concerning ostomy and ostomy care.
[2017-11-15] MEDS: NS IV SCH (16:54)
[2017-11-15] MEDS: FAT EMULSION 20% 250 ML IV SCH (16:54)
[2017-11-15] MEDS: MICAFUNGIN IV SCH (16:54)
--- NOTE | 2017-11-15 18:12 | Progress Note ---
DATE 11/15/2017 FINDINGS Mrs. Tafoya was seen earlier today on rounds. She was in good spirits. She states that she was feeling better. OBJECTIVE VITALS: Afebrile. Normotensive. Please refer to EMR. CHEST: Clear to auscultation bilaterally. HEART: Regular rate and rhythm. Normal S1, S2, without gallops, murmurs or clicks. ABDOMEN: The patient is still without any air or stool within her colostomy. Palpation of the abdomen reveals it to be soft and nontender. Stoma is viable. Minimal serosanguineous drainage noted within ALEX bulb. LABORATORY/RADIOGRAPHIC EVALUATION Patient had a CBC today and her white count overall is stable at 14.9. Hemoglobin is stable at 10.1. BMP obtained found to be without marked abnormalities. Potassium is slightly low at 3.2. 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 Overall patient clinically improving. PLAN Will continue with current care. Hopefully within the next 24-48 hours, we will begin to see some return of GI activity with air or stool being noted within her colostomy and will be able to DC her NG at that time and begin enteral nutrition. In the meantime, will continue with current care. ANGELICA
[2017-11-15] MEDS ORDERED: Bisacodyl EC TAB 5 MG TABLET PO ONE (20:12)
[2017-11-16] MEDS: PIPERACILLIN/TAZOBACTAM 3.375 GM in D5W 100 ML IV SCH ×5 (00:07→23:17)
[2017-11-16] MEDS: MORPHINE SULFATE 4mg INJECTION IVP PRN ×2 (03:24→21:29)
[2017-11-16] MEDS: METOCLOPRAMIDE 10mg/2ml INJECTION IVP PRN ×2 (03:29→21:07)
[2017-11-16] MEDS: ALBUTEROL/IPRATROPIUM 2.5mg-0.5mg/3ml NEB AEROSOL SCH ×4 (07:20→19:44)
[2017-11-16] MEDS: D5-1/2NS with KCL 20mEq 1,000 ML IV SCH (07:25)
[2017-11-16] MEDS: KETOROLAC 15 MG/ML INJECTION IVP PRN ×2 (08:58→16:35)
[2017-11-16] MEDS: LOSARTAN 50 MG TABLET PO SCH ×2 (08:58→19:32)
[2017-11-16] MEDS: METHIMAZOLE 5 MG TABLET PO SCH (08:58)
[2017-11-16] MEDS: PANTOPRAZOLE 40 MG INJECTION IVP SCH ×2 (08:58→20:54)
[2017-11-16] MEDS: SALINE FLUSH 10ml SYRINGE IVF PRN (08:59)
[2017-11-16] MEDS: ENOXAPARIN 40 MG/0.4 ML INJECTION SQ SCH (08:59)
--- NOTE | 2017-11-16 09:33 | Pharmacy Consult-TPN/PPN ---
Pharmacy Consult-TPN/PPN - Laboratory Information Chemistry Turbidity < 20 (0-20) 11/16/17 08:02 Sodium 135 MEQ/L (136-146) L 11/16/17 08:02 Potassium 4.4 MEQ/L (3.6-5) D 11/16/17 08:02 Chloride 101 MEQ/L (98-107) 11/16/17 08:02 Carbon Dioxide 28 MEQ/L (22-30) 11/16/17 08:02 Anion Gap 6 meq/L (5-15) 11/16/17 08:02 BUN 18.0 MG/DL (7-17) H 11/16/17 08:02 Creatinine 0.5 mg/dL (0.7-1.2) L 11/16/17 08:02 GFR Calculation 122 11/16/17 08:02 BUN/Creatinine Ratio 36 RATIO (6-26) H 11/16/17 08:02 Glucose 94 MG/DL (65-110) 11/16/17 08:02 Glucometer 97 mg/dL (65-110) 11/10/17 16:04 Calculated Osmolality 262 MOSM/KG (261-280) 11/16/17 08:02 Calcium 8.0 MG/DL (8.4-10.2) L 11/16/17 08:02 Phosphorus 2.5 MG/DL (2.5-4.5) 11/15/17 04:18 Magnesium 1.8 MG/DL (1.6-2.3) 11/15/17 04:18 Conjugated Bilirubin 0.00 mg/dL (0.00-0.30) 11/01/17 03:35 Unconjugated Bilirubin 0.30 mg/dL (0.00-1.1) 11/01/17 03:35 Total Bilirubin 0.40 MG/DL (0.20-1.30) 11/16/17 08:02 Icterus Index < 2 (0-7) 11/16/17 08:02 AST 49 U/L (14-36) H 11/16/17 08:02 ALT 27 U/L (1-35) 11/16/17 08:02 Alkaline Phosphatase 135 U/L (38-126) H 11/16/17 08:02 Troponin I < 0.012 ng/ml (0-0.12) 11/11/17 04:38 C-Reactive Protein 267.3 mg/L (0-9) H D 11/11/17 09:24 Total Protein 5.3 g/dL (6.3-8.2) L 11/16/17 08:02 Albumin 2.7 g/dL (3.5-5.0) L 11/16/17 08:02 Globulin 2.6 G/DL (2.4-3.6) 11/16/17 08:02 Albumin/Globulin Ratio 1.0 RATIO (1.1-2.2) L 11/16/17 08:02 Lipase 53 U/L (23-300) 10/28/17 14:57 Plasma Lactate 1.0 MMOL/L (0.6-2.2) 11/12/17 11:19 Procalcitonin 0.55 NG/ML 11/13/17 03:47 TSH 31.90 mIU/L (0.47-4.68) H 11/10/17 08:43 Free T4 0.09 ng/dL (0.78-2.19) L 11/10/17 08:43 Specimen Hemolysis < 15 (0-25) 11/16/17 08:02 - Consult Information TPN Consult: Day 21 Will continue the TPN as currently ordered. Thanks, Baldo Bragg, Pharmacist
[2017-11-16] MEDS: POTASSIUM CHLORIDE IV SCH (11:41)
[2017-11-16] MEDS: SODIUM CHLORIDE IV SCH (11:41)
[2017-11-16] MEDS: [UNRECOGNIZED DRUG - OTHER] IV SCH (11:41)
[2017-11-16] MEDS: ACETAMINOPHEN 500 MG TABLET PO PRN (14:06)
[2017-11-16] MEDS: MICAFUNGIN IV SCH (16:28)
[2017-11-16] MEDS: NS IV SCH (16:28)
[2017-11-16] MEDS: FAT EMULSION 20% 250 ML IV SCH (16:29)
[2017-11-16] MEDS: SORE THROAT SPRAY 20ml PO PRN (19:36)
[2017-11-16] MEDS: Bisacodyl EC TAB 5 MG TABLET PO SCH (20:54)
[2017-11-17] MEDS: LOSARTAN 50 MG TABLET PO SCH ×3 (05:42→21:24)
[2017-11-17] MEDS: PIPERACILLIN/TAZOBACTAM 3.375 GM in D5W 100 ML IV SCH ×4 (05:49→23:51)
[2017-11-17] MEDS: KETOROLAC 15 MG/ML INJECTION IVP PRN (07:22)
--- NOTE | 2017-11-17 07:27 | Progress Note ---
- Date 11/16/17 Subjective: Seen ambulating the floor with physical therapy. Patient appears moderately antalgic with this. On 10 system review the patient has no new complaints. Feels that she is making some moderate improvement. And would appreciate Llanos out. She denies any significant hunger however states that she is never a good eater Objective Vital signs: Temperature 98.1 F 11/16/17 16:09 Pulse Rate 78 11/17/17 06:00 Respiratory Rate 11 11/17/17 06:00 Blood Pressure 139/73 11/17/17 06:00 Pulse Oximetry 94 11/17/17 06:00 Rhythm: Normal Sinus Rhythm Height/Weight/BMI: Height 5 ft 1 in Weight 46.1 kg Body Mass Index 19.8 - Constitutional Present: well nourished, well developed - Routine HEENT Exam Eye: Present: EOMI ENT: Present: mucous membranes moist, dentition normal - Routine Respiratory Exam Present: CTA bilaterally. Absent: wheezes - Routine Cardiovascular Exam Present: RRR. Absent: murmur - Routine Abdominal Exam Present: soft, normoactive bowel sounds, non distended, ostomy - Routine Extremities Exam Present: normal capillary refill - Routine Skin Exam Present: dry, warm - Routine Neurological Exam Present: alert, oriented X3, CN II-XII intact - Routine Lymphatic Exam Lymphatic: Absent: adenopathy - Routine Psychiatric Exam Present: normal affect Results - Labs CBC & Chem 7: 11/16/17 08:02 11/16/17 08:02 Microbiology Results: Microbiology 11/13/17 21:07 Sputum, Expectorated Gram Stain - Final 11/13/17 21:07 Sputum, Expectorated Sputum Culture - Final Normal Resp Tamie incl. Yeast 11/10/17 08:45 Port/Picc Blood Culture - Final No Growth After 5 Days 11/10/17 08:50 Port/Picc Blood Culture - Final No Growth After 5 Days 11/10/17 13:17 Peritoneum Gram Stain - Final 11/10/17 13:17 Peritoneum Surgical Culture - Final Jordan albicans Streptococcus viridans group 11/02/17 15:12 Peritoneal Fluid Gram Stain - Final 11/02/17 15:12 Peritoneal Fluid Body Fluid Culture - Final Escherichia coli Jordan albicans Pseudomonas aeruginosa Other Tamie Observed Assessment and Plan (1) Peritonitis, spontaneous bacterial Current visit: Yes Status: Acute (2) SBO (small bowel obstruction) Current visit: Yes Status: Acute Assessment and Plan: Assessment peritonitis diverticulitis with microperforations Small bowel obstruction - release of incarcerated internal hernia by adhesiolysis by Dr. Bryant 11/02/17 cardiac arrhythmias Abdominal pain, n/v Leukocytosis - POA Hyponatremia - POA Hyperthyroidism - RA iodine ablation 07/18 (Follows with Dr. Bianchi) Anxiety Migraine GERD Dyslipidemia Hypertension Diverticulosis with history of recurrent diverticulitis H/o gastritis/+h pylori Mild metabolic acidosis-resolved Plan -POD #6 for partial colostomy and #14 for lysis of adhesions. Telemetry has remained sinus rhythm at a regular rate since postop day 2. White blood cell count has fallen everyday consecutively since postop day. No fevers since day of surgery. Continuing the Diflucan and Zosyn that this time as set by Dr. Rios. Remove the Llanos. Focus on physical therapy at this time. Case discussed with Dr. Ramirez. He is an agreement for Llanos removal but the patient will likely remain in the ICU for an extended time. Unlikely to have any benefit of eggs advance her diet until the patient has better output from the ostomy. - Physician Narrative Narrative: Date: 11/17/17 Time: 07 Hospital Course Summary Disclaimer: The visit summary below is not to be considered part of the above Progress Note. Hospital Course: 10/28/17 Admit, IP. Stay expected to exceed 2 overnights for tx of enteritis and resolution of SBO. Consult Dr. Nixon. Zosyn and Solumedrol for tx of enteritis. NPO. NG tube. (Pt declines at present. If n/v/pain persists despite current pain/nausea tx, will proceed.) IVF's - 1L bolused in ER. Continue NS at 125cc/hr. This should address her hyponatremia as well. Repeat labs in am to follow blood counts and electrolytes. Protonix IV for GERD and GI ppx. Lovenox for VTE ppx. Full code. PCP - MADAI Gage 10/29/17 Patient's pain is less. Leukocytosis improved from 18.7--> 14.5. Continues on Zosyn and Solumedrol. Consider decreasing Solumedrol dose later today. Remains NPO. IVF's running at 125cc's/hr. Electrolytes stable. Hyponatremia resolved 130-->136. Continue IV pain meds and antiemetics PRN. (Hasn't required since 1800 last shereen. ) Continue IV pantoprazole for GI ppx/GERD. 10/30/17 Patient did have a small bowel movement this morning. No significant flatus. Abdomen feels a little more distended, full and uncomfortable today. She appears in no distress and has not required any pain medication since receiving IV acetaminophen yesterday afternoon. She has not had any nausea or vomiting. She does not have an NG in place. NG placement was attempted on the evening of admission but was difficult, and the patient refused further attempts. We'll continue Solu-Medrol for possible Crohn's disease. Continue Zosyn for now. Discussed with Dr. Nixon, he will see the patient later today. Abdominal films look about the same today. We'll start IV nutrition. Discussed with the pharmacist today, we do not have any TPN. Will start PPN today. 10/31/17 Patient continues to have abdominal discomfort, distention, and continued dilated loops of small bowel on abdominal x-rays. Pain is tolerable. She had 2 small bowel movements this morning. IV Tylenol does help her pain. Continue with IV Solu-Medrol for suspected Crohn's. Continue Zosyn for now. White count is elevated, at this point likely secondary to steroids. The patient has remained afebrile. Regarding nutrition, TPN is not available due to a shortage, PPN was started yesterday and is being given in the midline since she had pain with infusion in a peripheral site. CBC, CMP, and phosphorus tomorrow Repeat C-reactive protein today We'll discuss today with Dr. Nixon 11/01/17 Patient continues to have abdominal discomfort, distention, and continued dilated loops of small bowel on abdominal x-rays. Patient agreed to attempt placement of NG tube again which was successful. Will continue NG tube with low suction. Maintain NPO status. Patient disclosed her father and 2 cousins had a history of lymphoma of the ileum while discussing treatment options with Dr. Nixon. Patient is now more open to idea of surgical intervention if needed. Will re- evaluate pain and distention in AM with possible surgery tomorrow afternoon. Will hold lovenox in AM in anticipation of surgery tomorrow, 11/02/17. Continue with IV Solu-Medrol for suspected Crohn's. Continue Zosyn for now. White count is trending up, at this point likely secondary to steroids. The patient has remained afebrile. PPN was started 10/30/17 and is being given in the midline since she had pain with infusion in a peripheral site. CBC, CMP, and phosphorus tomorrow CRP trending down. Discussed with Dr. Nixon, family and Dr. Duckworth. 11/02/17 Patient continues to have abdominal discomfort and distention. See by Dr. Nixon yesterday and probable surgical intervention today at 1430. Will continue NG tube with low suction. Maintain NPO status. Lovenox held this morning in preparation for anticipated surgery. Continue with IV Solu-Medrol for suspected Crohn's. Continue Zosyn for now. WBC trending down. Patient remains afebrile. New hyponatremia (Na 135) with hypokalemia (K 3.4). Pharmacy managing PPN. Patient given KCl 20 mEq IV yesterday in addition to additional KCl added to PPN per pharmacy. Will given additional KCl 20 mEq IV today and continue to monitor closely. PPN was started 10/30/17 and is being given in the midline since she had pain with infusion in a peripheral site. Mag slightly decreased at 2.4. Will discuss with pharmacy. CRP trending up - 34.5 on 10/31/17 -->87.4 today. Continue to monitor. 11/03/17 POD #1 S/p release of incarcerated internal hernia by adhesiolysis by Dr. Nixon NG tube with low suction. Continues NPO. IV Solu-Medrol and Zosyn were DC'd yesterday following surgery as there was no evidence of Crohn's. WBC up today - likely post-op elevation. LFT's just slightly elevated. Na 133. Will follow. Continues on PPN (started 10/30/17). Blood noted in llanos - check UA. Peritoneal culture revealed E.coli, few gram positive cocci and yeast. Rocephin and Diflucan initiated. 11/04/17 POD #2 NG tube with low suction--> clamps later in the day with good tolerance. Continues NPO. Hopeful bowels will begin moving and NG can be removed in the near future with slow initiation of oral intake. No BM at time of exam. WBC trending down. Bandemia improving. Remains afebrile. LFTs returned to normal range. Continue to monitor closely. Persistent hyponatremia (Na 133). Continue to monitor. Continues on PPN (started 10/30/17). Hopeful to start oral intake in the near future. Surgery managing. UA unremarkable. Will discontinue Llanos and monitor patient closely. 11/05/17 POD #3 NG tube removed last night. Advanced to clear liquids -not wanting to take in much po d/t abd bloating/no appetite. Continue PPN per pharmacy for nutrition. Received dilaudid last night and had nausea, headache and dizziness. Headache and nausea persisting. Will give Tylenol po and Reglan now. Use Toradol and/or Tylenol for pain and avoid narcs if possible. Persistent hyponatremia (Na 131). Continue to monitor. 02 requirement down to 1L from 3L. Using IS. Ambulating. Day #3 of Rocephin and Diflucan for peritoneal culture w/ E.coli, few gram positive cocci and yeast. WBC 18.8-->22.4. Afebrile. Home Losartan and methimazole resumed last night. 7 POD #4 White count continues to trend up, currently at 23.3. Bands have also increased to 9%. She has having increased abdominal symptoms with indigestion, nausea and bloating. Discussed with Dr. Collins. Will obtain CT abdomen and pelvis with IV contrast. Expand Antibiotics to Zosyn. Continue Diflucan. Peritoneal fluid culture showed moderate growth of Escherichia coli and light growth of Jordan albicans. Continue PPN. Hyponatremia persists, stable at 131. Patient is off oxygen this morning. She is afebrile and hemodynamically stable. NG replaced due to recurrent GI symptoms and CT findings suggesting ileus but no abscess. 11/07/17 POD #5 White count remains elevated but slightly lower than yesterday with decreased percent bands. Afebrile. More comfortable overall following replacement of NG; continues to have active bowel sounds and pass gas. Repeat flat/upright KUBs in a.m. Continue Zosyn, serous fluid described intraoperatively in excess of what was anticipated prompting decision to send sample for culture. Continue Diflucan for culture finding of probable Jordan. Blood pressure stable. Remains on low-dose methimazole after radioactive iodine ablation in July; will clarify with Endo if appropriate to recheck thyroid levels. Hemoglobin stable as are electrolytes although sodium remains borderline low. 11/08/17 POD #6 Replacement of NG overnight; continues to have active bowel sounds and passing gas, no BM since prior to surgery. KUB films pending this am. White count remains elevated. Dc Zosyn and start Meropenem for serous fluid described intraoperatively in excess of what was anticipated. E coli and pseudomonas cultured. DARCIE's are now resulted showing lower DARCIE w/ Meropenem compared to Zosyn. Continue Diflucan for culture finding of probable Jordan. Sodium remains low 131-->130. Continues on PPN and clear liquids. 11/09/17 POD #7 Patient looking and feeling much better today. Has had NG tube clamped off and on and has tolerated it well thus far. Patient has passed some stool and continues to pass gas. KUB films pending this am. White count has improved. Day #2 of meropenem (converted from Zosyn (11/02 - 11/08) due to DARCIE) for e coli and pseudomonas in peritoneal fluid. Day #7 of Diflucan for jordan in peritoneal fluid. Sodium still low but improving 130-->132. Continues on PPN and ice chips. Would like to go to IRU on d/c 11/10/2017 surgery She experienced significantly increase in pain late evening, NG advanced and pain meds given, she feel better this am. WBC with increase to 24.3 (17.7 yesterday) with bandemia Llanos removed yesterday Still on oxygen, sat drops to upper 80's on room air Low grade fever of 100.3 during the nite.\ Will further evaluate leukocytosis, fever, weakness with CXR, blood cultures and u/a. Dr. Ramirez eval the patient as well, also getting CT abd/pelvis and serum lactate. 11/10/17-POD #8. OP day for second surgery due to possible microperforation by Dr. Ramirez. Patient with increasing abdominal pain, abdominal distention, and increase in white count and development of fever. CT abdomen/pelvis resulting in possibility of microperforation leading to emergent surgery with Dr. Ramirez at the present time. Patient continues on meropenem. Today is day #3. (Converted from Zosyn (11/02 - 7) due to DARCIE) for e coli and pseudomonas in peritoneal fluid. Day #8 of Diflucan for jordan in peritoneal fluid. Sodium still low but currently stable 130-->132-->132. Continues on PPN and ice chips. Blood pressure and pulse are stable. Patient is requiring 2 L oxygen. There is question on chest x-ray of lower lobe atelectasis versus pneumonia. Blood cultures are pending. Lactate was normal. Sputum culture has been ordered. Given that she's been on broad coverage antibiotics and she has been breathing shallow due to pain in the abdomen, suspect findings on x-ray are more apt to be atelectasis. Add Acapella and DuoNeb treatments for pulmonary toilet. Patient has been having liquid stools - c diff neg. Will discuss case with Dr. Ramirez following surgery and continue to monitor pt closely.
[2017-11-17] MEDS: ALBUTEROL/IPRATROPIUM 2.5mg-0.5mg/3ml NEB AEROSOL SCH ×4 (07:30→19:18)
[2017-11-17] MEDS: ENOXAPARIN 40 MG/0.4 ML INJECTION SQ SCH (08:44)
[2017-11-17] MEDS: Bisacodyl EC TAB 5 MG TABLET PO SCH ×2 (08:44→21:24)
[2017-11-17] MEDS: PANTOPRAZOLE 40 MG INJECTION IVP SCH ×2 (08:44→21:25)
[2017-11-17] MEDS: METHIMAZOLE 5 MG TABLET PO SCH (08:53)
[2017-11-17] MEDS: SORE THROAT SPRAY 20ml PO PRN ×2 (08:57→21:26)
--- NOTE | 2017-11-17 09:55 | Progress Note ---
DATE 11/16/2017 FINDINGS Mrs. Tafoya was seen earlier this morning on rounds as well as this evening. She has been afebrile and normotensive. The patient did develop some bleeding along her midline incision following removal of her "noa. OBJECTIVE VITALS: Afebrile. Normotensive. Please refer to EMR. CHEST: Clear to auscultation bilaterally. HEART: Regular rate and rhythm. Normal S1, S2, without gallops, murmurs or clicks. ABDOMEN: Her abdomen this morning is soft and nontender. The small pieces of Telfa that I had placed between her karlie were removed this morning. I was notified in the evening by the nurse that the lower aspect of her incision was bleeding. Upon examination this evening, the patient was found have a bleeding site along the most caudad aspect of her incision. Her abdomen was soft and nontender today. Unfortunately, I still see very little air or stool within her colostomy appliance. LABORATORY/RADIOGRAPHIC EVALUATION Patient had a CBC today and her white count was 13,000. Hemoglobin is stable at 10.1. CMP obtained and reviewed. ASSESSMENT 72-year-old female status post exploratory laparotomies x2 with lysis of adhesions, sigmoid resection with creation of end colostomy and Julius's pouch secondary to ruptured diverticulitis. Patient showing ongoing improvement. PLAN This evening a rcebfy-wz-vbcod suture was placed at the bleeding site along the caudad aspect of the incision. This area was prepped in a sterile fashion and injected with 1% lidocaine. Two [id number]-ny-[id number] sutures of 3-0 Prolene were then placed along the caudad aspect of the incision, resulting in complete hemostasis. We will add Dulcolax tablets to her medical regimen on a b.i.d. basis. Hopefully this will promote bowel activity. Otherwise will continue with current care. ANGELICA
--- NOTE | 2017-11-17 10:00 | Pharmacy Consult-TPN/PPN ---
Pharmacy Consult-TPN/PPN - Laboratory Information Chemistry Turbidity < 20 (0-20) 11/17/17 07:15 Sodium 132 MEQ/L (136-146) L 11/17/17 07:15 Potassium 4.7 MEQ/L (3.6-5) 11/17/17 07:15 Chloride 102 MEQ/L (98-107) 11/17/17 07:15 Carbon Dioxide 26 MEQ/L (22-30) 11/17/17 07:15 Anion Gap 4 meq/L (5-15) L 11/17/17 07:15 BUN 18.0 MG/DL (7-17) H 11/17/17 07:15 Creatinine 0.5 mg/dL (0.7-1.2) L 11/17/17 07:15 GFR Calculation 122 11/17/17 07:15 BUN/Creatinine Ratio 36 RATIO (6-26) H 11/17/17 07:15 Glucose 92 MG/DL (65-110) 11/17/17 07:15 Glucometer 97 mg/dL (65-110) 11/10/17 16:04 Calculated Osmolality 257 MOSM/KG (261-280) L 11/17/17 07:15 Calcium 8.0 MG/DL (8.4-10.2) L 11/17/17 07:15 Phosphorus 2.5 MG/DL (2.5-4.5) 11/15/17 04:18 Magnesium 1.8 MG/DL (1.6-2.3) 11/15/17 04:18 Conjugated Bilirubin 0.00 mg/dL (0.00-0.30) 11/01/17 03:35 Unconjugated Bilirubin 0.30 mg/dL (0.00-1.1) 11/01/17 03:35 Total Bilirubin 0.40 MG/DL (0.20-1.30) 11/16/17 08:02 Icterus Index < 2 (0-7) 11/17/17 07:15 AST 49 U/L (14-36) H 11/16/17 08:02 ALT 27 U/L (1-35) 11/16/17 08:02 Alkaline Phosphatase 135 U/L (38-126) H 11/16/17 08:02 Troponin I < 0.012 ng/ml (0-0.12) 11/11/17 04:38 C-Reactive Protein 267.3 mg/L (0-9) H D 11/11/17 09:24 Total Protein 5.3 g/dL (6.3-8.2) L 11/16/17 08:02 Albumin 2.7 g/dL (3.5-5.0) L 11/16/17 08:02 Globulin 2.6 G/DL (2.4-3.6) 11/16/17 08:02 Albumin/Globulin Ratio 1.0 RATIO (1.1-2.2) L 11/16/17 08:02 Lipase 53 U/L (23-300) 10/28/17 14:57 Plasma Lactate 1.0 MMOL/L (0.6-2.2) 11/12/17 11:19 Procalcitonin 0.55 NG/ML 11/13/17 03:47 TSH 31.90 mIU/L (0.47-4.68) H 11/10/17 08:43 Free T4 0.09 ng/dL (0.78-2.19) L 11/10/17 08:43 Specimen Hemolysis < 15 (0-25) 11/17/17 07:15 - Consult Information TPN Protocol: Day 18 I will continue the TPN as ordered. Thanks, Baldo Bragg, Pharmacist.
--- NOTE | 2017-11-17 10:13 | Wound Care Progress Note ---
Wound Center Progress Note: Pt seen for ostomy follow up/education. Pt resting in chair, no complaints of pain. Son at bedside. Pt has a LLQ colostomy. Observing thru ostomy pouch; stoma appears red, beefy, edematous. Pouch has scant serosanguineous drainage. Pt has given permission, signed privacy statement, to enroll and receive products from [employer] from their [employer] services. Additional education materials reviewed with pt. Discussed different types of pouching systems, when and how to change pouching system, diet, gas and odor control, use of barrier rings, activity, bathing, care of peristomal skin, and how to cut wafer. Pt used practice stoma board to fit and cut wafer, and apply pouch to wafer. All questions answered. Will visit with pt or Wednesday to take off existing pouch, assess stoma and peristomal skin, and have pt practice applying wafer and pouch.
[2017-11-17] MEDS: SODIUM CHLORIDE IV SCH (12:07)
[2017-11-17] MEDS: [UNRECOGNIZED DRUG - OTHER] IV SCH (12:07)
[2017-11-17] MEDS: POTASSIUM CHLORIDE IV SCH (12:07)
--- NOTE | 2017-11-17 14:26 | Progress Note ---
- Date 11/17/17 Subjective: Mrs. Tafoya was resting in bed comfortably when seen this morning. She denied dyspnea but has occasional cough productive of thick sputum. She's had no fever or chills and denies lightheadedness. She continues to walk in the unit regularly. She had a sore throat earlier in the week but it's improved with the addition of a mouth spray. She denies palpitations and reports that overall she feels pretty good. She continues to have some abdominal discomfort being managed by Toradol and occasionally morphine. There's been no output per the ostomy since her second surgery a week ago. Llanos catheter removed yesterday and patient is voiding spontaneously. Objective Vital signs: Temperature 97.9 F 11/17/17 12:00 Pulse Rate 80 11/17/17 12:00 Respiratory Rate 15 11/17/17 12:00 Blood Pressure 153/80 H 11/17/17 12:00 Pulse Oximetry 95 - RA 11/17/17 12:00 I/O 2601/3775 NAD, alert, fluent speech Conjugate gaze, conjunctiva clear, sclera anicteric, white plaque on tongue Respirations nonlabored, good airflow, breath sounds clear Regular rhythm, S1-S2 Abdomen soft, mildly distended and slightly tender to palpation in a generalized manner, sparse bowel sounds present Extremities without edema Moving all extremities well Skin without rashes, midline abdominal incision healing well-karlie in place Rhythm: Normal Sinus Rhythm Height/Weight/BMI: Height 1.55 m Weight 47.8 kg Body Mass Index 19.8 Results - Labs CBC & Chem 7: 11/17/17 07:15 11/17/17 07:15 Labs: S58 B6 L13 M3 E4 Baso3 Meta6 Myleo6 Microbiology Results: Microbiology 11/13/17 21:07 Sputum, Expectorated Sputum Culture - Final Normal Resp Tamie incl. Yeast 11/10/17 08:45 Port/Picc Blood Culture - Final No Growth After 5 Days 11/10/17 08:50 Port/Picc Blood Culture - Final No Growth After 5 Days 11/10/17 13:17 Peritoneum Surgical Culture - Final Jordan albicans Streptococcus viridans group 11/02/17 15:12 Peritoneal Fluid Body Fluid Culture - Final Escherichia coli Jordan albicans Pseudomonas aeruginosa Other Tamie Observed Assessment and Plan (1) SBO (small bowel obstruction) Current visit: Yes Status: Acute Assessment and Plan: Assessment Small bowel obstruction - s/p release of incarcerated internal hernia by adhesiolysis by Dr. 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 Ramirez Ileus, prolonged Bradycardia with 2-3 second pauses, 11/11/17 Abdominal pain, n/v Leukocytosis - POA Hyponatremia - POA Hyperthyroidism - CARBAJAL ablation 07/18-->hypothyroidism (Follows with Dr. Bianchi) Anxiety Migraine GERD Dyslipidemia Hypertension Diverticulosis with history of recurrent diverticulitis H/o gastritis/+h pylori Mild metabolic acidosis-resolved Plan: Day 7 following drainage of pelvic abscess and sigmoid resection; no output per colostomy and NG tube remains in place. Dr. Rios recommended 2 weeks postop antibiotics with repeat CT imaging of abdomen prior to discontinuation of antibiotics. On Zosyn/micafungin. Remains on TPN with good fluid balance. Blood pressure is borderline, patient reports she previously took 50 mg losartan once daily and would like to try daily dosing again. TSH elevated-methimazole discontinued. I later received a call from her circuit clerk (Dr. Bianchi) who recommended starting levothyroxine at 50 g daily and he will reassess levels when he sees her in December. Leukocytosis improving progressively however patient has immature cells on smear ; will require continued follow-up. Has been on IV Toradol prn since 11/03-using 1-3 times daily. Discussed with pharmacy, discontinue and substitute IV acetaminophen. DVT Prophylaxis: Lovenox GI Prophylaxis: Protonix Resuscitation Status: Full Code - Physician Narrative Narrative: Date: 11/17/17 Time: 1416 Hospital Course Summary Disclaimer: The visit summary below is not to be considered part of the above Progress Note. Hospital Course: 10/28/17 Admit, IP. Stay expected to exceed 2 overnights for tx of enteritis and resolution of SBO. Consult Dr. Nixon. Zosyn and Solumedrol for tx of enteritis. NPO. NG tube. (Pt declines at present. If n/v/pain persists despite current pain/nausea tx, will proceed.) IVF's - 1L bolused in ER. Continue NS at 125cc/hr. This should address her hyponatremia as well. Repeat labs in am to follow blood counts and electrolytes. Protonix IV for GERD and GI ppx. Lovenox for VTE ppx. Full code. PCP - MADAI Gage 10/29/17 Patient's pain is less. Leukocytosis improved from 18.7--> 14.5. Continues on Zosyn and Solumedrol. Consider decreasing Solumedrol dose later today. Remains NPO. IVF's running at 125cc's/hr. Electrolytes stable. Hyponatremia resolved 130-->136. Continue IV pain meds and antiemetics PRN. (Hasn't required since 1799 last shereen. ) Continue IV pantoprazole for GI ppx/GERD. 10/30/17 Patient did have a small bowel movement this morning. No significant flatus. Abdomen feels a little more distended, full and uncomfortable today. She appears in no distress and has not required any pain medication since receiving IV acetaminophen yesterday afternoon. She has not had any nausea or vomiting. She does not have an NG in place. NG placement was attempted on the evening of admission but was difficult, and the patient refused further attempts. We'll continue Solu-Medrol for possible Crohn's disease. Continue Zosyn for now. Discussed with Dr. Nixon, he will see the patient later today. Abdominal films look about the same today. We'll start IV nutrition. Discussed with the pharmacist today, we do not have any TPN. Will start PPN today. 10/31/17 Patient continues to have abdominal discomfort, distention, and continued dilated loops of small bowel on abdominal x-rays. Pain is tolerable. She had 2 small bowel movements this morning. IV Tylenol does help her pain. Continue with IV Solu-Medrol for suspected Crohn's. Continue Zosyn for now. White count is elevated, at this point likely secondary to steroids. The patient has remained afebrile. Regarding nutrition, TPN is not available due to a shortage, PPN was started yesterday and is being given in the midline since she had pain with infusion in a peripheral site. CBC, CMP, and phosphorus tomorrow Repeat C-reactive protein today We'll discuss today with Dr. Nixon 11/01/17 Patient continues to have abdominal discomfort, distention, and continued dilated loops of small bowel on abdominal x-rays. Patient agreed to attempt placement of NG tube again which was successful. Will continue NG tube with low suction. Maintain NPO status. Patient disclosed her father and 2 cousins had a history of lymphoma of the ileum while discussing treatment options with Dr. Nixon. Patient is now more open to idea of surgical intervention if needed. Will re- evaluate pain and distention in AM with possible surgery tomorrow afternoon. Will hold lovenox in AM in anticipation of surgery tomorrow, 11/02/17. Continue with IV Solu-Medrol for suspected Crohn's. Continue Zosyn for now. White count is trending up, at this point likely secondary to steroids. The patient has remained afebrile. PPN was started 10/30/17 and is being given in the midline since she had pain with infusion in a peripheral site. CBC, CMP, and phosphorus tomorrow CRP trending down. Discussed with Dr. Nixon, family and Dr. Duckworth. 11/02/17 Patient continues to have abdominal discomfort and distention. See by Dr. Nixon yesterday and probable surgical intervention today at 1430. Will continue NG tube with low suction. Maintain NPO status. Lovenox held this morning in preparation for anticipated surgery. Continue with IV Solu-Medrol for suspected Crohn's. Continue Zosyn for now. WBC trending down. Patient remains afebrile. New hyponatremia (Na 135) with hypokalemia (K 3.4). Pharmacy managing PPN. Patient given KCl 20 mEq IV yesterday in addition to additional KCl added to PPN per pharmacy. Will given additional KCl 20 mEq IV today and continue to monitor closely. PPN was started 10/30/17 and is being given in the midline since she had pain with infusion in a peripheral site. Mag slightly decreased at 2.4. Will discuss with pharmacy. CRP trending up - 34.5 on 10/31/17 -->87.4 today. Continue to monitor. 11/03/17 POD #1 S/p release of incarcerated internal hernia by adhesiolysis by Dr. Nixon NG tube with low suction. Continues NPO. IV Solu-Medrol and Zosyn were DC'd yesterday following surgery as there was no evidence of Crohn's. WBC up today - likely post-op elevation. LFT's just slightly elevated. Na 133. Will follow. Continues on PPN (started 10/30/17). Blood noted in llanos - check UA. Peritoneal culture revealed E.coli, few gram positive cocci and yeast. Rocephin and Diflucan initiated. 11/04/17 POD #2 NG tube with low suction--> clamps later in the day with good tolerance. Continues NPO. Hopeful bowels will begin moving and NG can be removed in the near future with slow initiation of oral intake. No BM at time of exam. WBC trending down. Bandemia improving. Remains afebrile. LFTs returned to normal range. Continue to monitor closely. Persistent hyponatremia (Na 133). Continue to monitor. Continues on PPN (started 10/30/17). Hopeful to start oral intake in the near future. Surgery managing. UA unremarkable. Will discontinue Llanos and monitor patient closely. 11/05/17 POD #3 NG tube removed last night. Advanced to clear liquids -not wanting to take in much po d/t abd bloating/no appetite. Continue PPN per pharmacy for nutrition. Received dilaudid last night and had nausea, headache and dizziness. Headache and nausea persisting. Will give Tylenol po and Reglan now. Use Toradol and/or Tylenol for pain and avoid narcs if possible. Persistent hyponatremia (Na 131). Continue to monitor. 02 requirement down to 1L from 3L. Using IS. Ambulating. Day #3 of Rocephin and Diflucan for peritoneal culture w/ E.coli, few gram positive cocci and yeast. WBC 18.8-->22.4. Afebrile. Home Losartan and methimazole resumed last night. 11/06/17 POD #4 White count continues to trend up, currently at 23.3. Bands have also increased to 9%. She has having increased abdominal symptoms with indigestion, nausea and bloating. Discussed with Dr. Collins. Will obtain CT abdomen and pelvis with IV contrast. Expand Antibiotics to Zosyn. Continue Diflucan. Peritoneal fluid culture showed moderate growth of Escherichia coli and light growth of Jordan albicans. Continue PPN. Hyponatremia persists, stable at 131. Patient is off oxygen this morning. She is afebrile and hemodynamically stable. NG replaced due to recurrent GI symptoms and CT findings suggesting ileus but no abscess. 7 POD #5 White count remains elevated but slightly lower than yesterday with decreased percent bands. Afebrile. More comfortable overall following replacement of NG; continues to have active bowel sounds and pass gas. Repeat flat/upright KUBs in a.m. Continue Zosyn, serous fluid described intraoperatively in excess of what was anticipated prompting decision to send sample for culture. Continue Diflucan for culture finding of probable Jordan. Blood pressure stable. Remains on low-dose methimazole after radioactive iodine ablation in July; will clarify with Endo if appropriate to recheck thyroid levels. Hemoglobin stable as are electrolytes although sodium remains borderline low. 7 POD #6 Replacement of NG overnight; continues to have active bowel sounds and passing gas, no BM since prior to surgery. KUB films pending this am. White count remains elevated. Dc Zosyn and start Meropenem for serous fluid described intraoperatively in excess of what was anticipated. E coli and pseudomonas cultured. DARCIE's are now resulted showing lower DARCIE w/ Meropenem compared to Zosyn. Continue Diflucan for culture finding of probable Jordan. Sodium remains low 131-->130. Continues on PPN and clear liquids. 11/09/17 POD #7 Patient looking and feeling much better today. Has had NG tube clamped off and on and has tolerated it well thus far. Patient has passed some stool and continues to pass gas. KUB films pending this am. White count has improved. Day #2 of meropenem (converted from Zosyn (11/02 - 11/08) due to DARCIE) for e coli and pseudomonas in peritoneal fluid. Day #7 of Diflucan for jordan in peritoneal fluid. Sodium still low but improving 130-->132. Continues on PPN and ice chips. Would like to go to IRU on d/c 11/10/2017 surgery She experienced significantly increase in pain late evening, NG advanced and pain meds given, she feel better this am. WBC with increase to 24.3 (17.7 yesterday) with bandemia Llanos removed yesterday Still on oxygen, sat drops to upper 80's on room air Low grade fever of 100.3 during the nite.\ Will further evaluate leukocytosis, fever, weakness with CXR, blood cultures and u/a. Dr. Ramirez eval the patient as well, also getting CT abd/pelvis and serum lactate. 11/10/17-POD #8. OP day for second surgery due to possible microperforation by Dr. Ramirez. Patient with increasing abdominal pain, abdominal distention, and increase in white count and development of fever. CT abdomen/pelvis resulting in possibility of microperforation leading to emergent surgery with Dr. Ramirez at the present time. Patient continues on meropenem. Today is day #3. (Converted from Zosyn (11/02 - 11/08) due to DARCIE) for e coli and pseudomonas in peritoneal fluid. Day #8 of Diflucan for jordan in peritoneal fluid. Sodium still low but currently stable 130-->132-->132. Continues on PPN and ice chips. Blood pressure and pulse are stable. Patient is requiring 2 L oxygen. There is question on chest x-ray of lower lobe atelectasis versus pneumonia. Blood cultures are pending. Lactate was normal. Sputum culture has been ordered. Given that she's been on broad coverage antibiotics and she has been breathing shallow due to pain in the abdomen, suspect findings on x-ray are more apt to be atelectasis. Add Acapella and DuoNeb treatments for pulmonary toilet. Patient has been having liquid stools - c diff neg. Will discuss case with Dr. Ramirez following surgery and continue to monitor pt closely. 11/16/17 Telemetry has remained sinus rhythm at a regular rate since postop day 2. White blood cell count has fallen everyday consecutively since postop day. No fevers since day of surgery. Continuing the Diflucan and Zosyn that this time as set by Dr. Rios. Remove the Llanos. Focus on physical therapy at this time. Case discussed with Dr. Ramirez. He is an agreement for Llanos removal but the patient will likely remain in the ICU for an extended time. Unlikely to have any benefit of eggs advance her diet until the patient has better output from the ostomy. 11/17/17 Day 7 following drainage of pelvic abscess and sigmoid resection; no output per colostomy and NG tube remains in place. Dr. Rios recommended 2 weeks postop antibiotics with repeat CT imaging of abdomen prior to discontinuation of antibiotics. On Zosyn/micafungin. Remains on TPN with good fluid balance. Blood pressure is borderline, patient reports she previously took 50 mg losartan once daily and would like to try daily dosing again. TSH elevated-methimazole discontinued. I later received a call from her circuit clerk (Dr. Bianchi) who recommended starting levothyroxine at 50 g daily and he will reassess levels when he sees her in December. Leukocytosis improving progressively however patient has immature cells on smear ; will require continued follow-up. Has been on IV Toradol prn since 11/03-using 1-3 times daily. Discussed with pharmacy, discontinue and substitute IV acetaminophen.
[2017-11-17] MEDS: MICAFUNGIN IV SCH (15:34)
[2017-11-17] MEDS: NS IV SCH (15:34)
[2017-11-17] MEDS: FAT EMULSION 20% 250 ML IV SCH (15:34)
--- NOTE | 2017-11-17 17:45 | Progress Note ---
DATE OF SERVICE 11/17/2017 FINDINGS Ms. Tafoya was seen earlier today on rounds. She denied significant abdominal pain. She still has been without any stool or air from her colostomy. PHYSICAL EXAM VITAL SIGNS: Afebrile, normotensive. Please refer to EMR. CHEST: Clear to auscultation bilaterally. HEART: Regular rate and rhythm. Normal S1 and S2 without gallops, murmurs or clicks. ABDOMEN: Auscultation of the abdomen did reveal a few bowel sounds. Abdomen was soft and nontender. Dressing covering her midline incision was intact without evidence for bleeding. ALEX drainage was minimal and serosanguineous in nature. LABORATORY/RADIOGRAPHIC EVALUATION Patient had a CBC today and her white count continues on a downward trend at 12.8. Hemoglobin slightly down at 9.2. BMP obtained and found to be without marked abnormalities. ASSESSMENT 72-year-old female status post exploratory laparotomies x 2 with lysis of adhesions, sigmoid resection with creation of end colostomy and Julius's pouch. Overall patient doing well. PLAN Continuation of current care. I was hopeful that the patient would begin to show some ostomy output today. Will continue with current care at this time. Hopefully tomorrow the patient will have some stool or air within her colostomy. Tomorrow may consider placing Dulcolax suppository through stoma. ANGELICA
[2017-11-17] MEDS: METOCLOPRAMIDE 10mg/2ml INJECTION IVP PRN (18:24)
[2017-11-17] MEDS ORDERED: ACETAMINOPHEN IV 1,000 MG/100 ML VIAL IV PRN (21:00)
[2017-11-18] MEDS: PIPERACILLIN/TAZOBACTAM 3.375 GM in D5W 100 ML IV SCH ×3 (05:24→17:38)
[2017-11-18] MEDS: LEVOTHYROXINE 50 MCG TABLET PO SCH (05:30)
[2017-11-18] MEDS: SORE THROAT SPRAY 20ml PO PRN ×2 (05:31→13:34)
--- NOTE | 2017-11-18 08:30 | General Surgery Progress Note ---
Subjective Patient reports: feels better, flatus (in colostomy bag, had to be burped), bowel movement (small amount liquid dark in colostomy bag), afebrile Narrative: The NG is quite bothersome, 200 ml out in the last 12 hours. She is without nausea, denies chest pain. States the IV Tylenol is not as effective for pain control as the IV Toradol. - Vital Signs Last Vital Signs Temp 98.1 F 11/18/17 04:04 Pulse 83 11/18/17 05:00 Resp 16 11/18/17 05:00 BP 152/80 H 11/18/17 05:00 Pulse Ox 92 11/18/17 05:00 - Laboratory Result Diagrams: 11/18/17 04:53 11/18/17 04:53 - Normal Exam General: awake, alert, oriented, no acute distress Respiratory: no labored breathing Abdominal: soft, appropriately tender, other (colostomy nice and red, some dark liquid stool in bag) Psychiatric: normal affect (pleasant, positive attitude) Neurological: CN 2-12 grossly intact Assessment and Plan (1) SBO (small bowel obstruction) Current Visit: Yes Status: Acute (2) Anxiety Current Visit: No Status: Chronic (3) History of Crohn's disease Current Visit: No Status: Chronic (4) Leukocytosis Current Visit: Yes Status: Acute Qualifiers: Leukocytosis type: bandemia Qualified Code(s): D72.825 - Bandemia (5) Fever Current Visit: Yes Status: Acute Qualifiers: Fever type: unspecified Qualified Code(s): R50.9 - Fever, unspecified Plan: Starting to have some bowel activity, Dr. Ramirez notified, will clamp NG and start clear liquids. If still doing well on evening rounds will DC NG. Hospital Course Summary Disclaimer: The visit summary below is not to be considered part of the above Progress Note. Hospital Course: 10/28/17 Admit, IP. Stay expected to exceed 2 overnights for tx of enteritis and resolution of SBO. Consult Dr. Nixon. Zosyn and Solumedrol for tx of enteritis. NPO. NG tube. (Pt declines at present. If n/v/pain persists despite current pain/nausea tx, will proceed.) IVF's - 1L bolused in ER. Continue NS at 125cc/hr. This should address her hyponatremia as well. Repeat labs in am to follow blood counts and electrolytes. Protonix IV for GERD and GI ppx. Lovenox for VTE ppx. Full code. PCP - MADAI Gage 10/29/17 Patient's pain is less. Leukocytosis improved from 18.7--> 14.5. Continues on Zosyn and Solumedrol. Consider decreasing Solumedrol dose later today. Remains NPO. IVF's running at 125cc's/hr. Electrolytes stable. Hyponatremia resolved 130-->136. Continue IV pain meds and antiemetics PRN. (Hasn't required since 1799 last shereen. ) Continue IV pantoprazole for GI ppx/GERD. 10/30/17 Patient did have a small bowel movement this morning. No significant flatus. Abdomen feels a little more distended, full and uncomfortable today. She appears in no distress and has not required any pain medication since receiving IV acetaminophen yesterday afternoon. She has not had any nausea or vomiting. She does not have an NG in place. NG placement was attempted on the evening of admission but was difficult, and the patient refused further attempts. We'll continue Solu-Medrol for possible Crohn's disease. Continue Zosyn for now. Discussed with Dr. Nixon, he will see the patient later today. Abdominal films look about the same today. We'll start IV nutrition. Discussed with the pharmacist today, we do not have any TPN. Will start PPN today. 10/31/17 Patient continues to have abdominal discomfort, distention, and continued dilated loops of small bowel on abdominal x-rays. Pain is tolerable. She had 2 small bowel movements this morning. IV Tylenol does help her pain. Continue with IV Solu-Medrol for suspected Crohn's. Continue Zosyn for now. White count is elevated, at this point likely secondary to steroids. The patient has remained afebrile. Regarding nutrition, TPN is not available due to a shortage, PPN was started yesterday and is being given in the midline since she had pain with infusion in a peripheral site. CBC, CMP, and phosphorus tomorrow Repeat C-reactive protein today We'll discuss today with Dr. Nixon 11/01/17 Patient continues to have abdominal discomfort, distention, and continued dilated loops of small bowel on abdominal x-rays. Patient agreed to attempt placement of NG tube again which was successful. Will continue NG tube with low suction. Maintain NPO status. Patient disclosed her father and 2 cousins had a history of lymphoma of the ileum while discussing treatment options with Dr. Nixon. Patient is now more open to idea of surgical intervention if needed. Will re- evaluate pain and distention in AM with possible surgery tomorrow afternoon. Will hold lovenox in AM in anticipation of surgery tomorrow, 11/02/17. Continue with IV Solu-Medrol for suspected Crohn's. Continue Zosyn for now. White count is trending up, at this point likely secondary to steroids. The patient has remained afebrile. PPN was started 10/30/17 and is being given in the midline since she had pain with infusion in a peripheral site. CBC, CMP, and phosphorus tomorrow CRP trending down. Discussed with Dr. Nixon, family and Dr. Duckworth. 11/02/17 Patient continues to have abdominal discomfort and distention. See by Dr. Nixon yesterday and probable surgical intervention today at 1430. Will continue NG tube with low suction. Maintain NPO status. Lovenox held this morning in preparation for anticipated surgery. Continue with IV Solu-Medrol for suspected Crohn's. Continue Zosyn for now. WBC trending down. Patient remains afebrile. New hyponatremia (Na 135) with hypokalemia (K 3.4). Pharmacy managing PPN. Patient given KCl 20 mEq IV yesterday in addition to additional KCl added to PPN per pharmacy. Will given additional KCl 20 mEq IV today and continue to monitor closely. PPN was started 10/30/17 and is being given in the midline since she had pain with infusion in a peripheral site. Mag slightly decreased at 2.4. Will discuss with pharmacy. CRP trending up - 34.5 on 10/31/17 -->87.4 today. Continue to monitor. 11/03/17 POD #1 S/p release of incarcerated internal hernia by adhesiolysis by Dr. Nixon NG tube with low suction. Continues NPO. IV Solu-Medrol and Zosyn were DC'd yesterday following surgery as there was no evidence of Crohn's. WBC up today - likely post-op elevation. LFT's just slightly elevated. Na 133. Will follow. Continues on PPN (started 10/30/17). Blood noted in llanos - check UA. Peritoneal culture revealed E.coli, few gram positive cocci and yeast. Rocephin and Diflucan initiated. 11/04/17 POD #2 NG tube with low suction--> clamps later in the day with good tolerance. Continues NPO. Hopeful bowels will begin moving and NG can be removed in the near future with slow initiation of oral intake. No BM at time of exam. WBC trending down. Bandemia improving. Remains afebrile. LFTs returned to normal range. Continue to monitor closely. Persistent hyponatremia (Na 133). Continue to monitor. Continues on PPN (started 10/30/17). Hopeful to start oral intake in the near future. Surgery managing. UA unremarkable. Will discontinue Llanos and monitor patient closely. 11/05/17 POD #3 NG tube removed last night. Advanced to clear liquids -not wanting to take in much po d/t abd bloating/no appetite. Continue PPN per pharmacy for nutrition. Received dilaudid last night and had nausea, headache and dizziness. Headache and nausea persisting. Will give Tylenol po and Reglan now. Use Toradol and/or Tylenol for pain and avoid narcs if possible. Persistent hyponatremia (Na 131). Continue to monitor. 02 requirement down to 1L from 3L. Using IS. Ambulating. Day #3 of Rocephin and Diflucan for peritoneal culture w/ E.coli, few gram positive cocci and yeast. WBC 18.8-->22.4. Afebrile. Home Losartan and methimazole resumed last night. 11/06/17 POD #4 White count continues to trend up, currently at 23.3. Bands have also increased to 9%. She has having increased abdominal symptoms with indigestion, nausea and bloating. Discussed with Dr. Collins. Will obtain CT abdomen and pelvis with IV contrast. Expand Antibiotics to Zosyn. Continue Diflucan. Peritoneal fluid culture showed moderate growth of Escherichia coli and light growth of Jordan albicans. Continue PPN. Hyponatremia persists, stable at 131. Patient is off oxygen this morning. She is afebrile and hemodynamically stable. NG replaced due to recurrent GI symptoms and CT findings suggesting ileus but no abscess. 7 POD #5 White count remains elevated but slightly lower than yesterday with decreased percent bands. Afebrile. More comfortable overall following replacement of NG; continues to have active bowel sounds and pass gas. Repeat flat/upright KUBs in a.m. Continue Zosyn, serous fluid described intraoperatively in excess of what was anticipated prompting decision to send sample for culture. Continue Diflucan for culture finding of probable Jordan. Blood pressure stable. Remains on low-dose methimazole after radioactive iodine ablation in July; will clarify with Endo if appropriate to recheck thyroid levels. Hemoglobin stable as are electrolytes although sodium remains borderline low. 7 POD #6 Replacement of NG overnight; continues to have active bowel sounds and passing gas, no BM since prior to surgery. KUB films pending this am. White count remains elevated. Dc Zosyn and start Meropenem for serous fluid described intraoperatively in excess of what was anticipated. E coli and pseudomonas cultured. DARCIE's are now resulted showing lower DARCIE w/ Meropenem compared to Zosyn. Continue Diflucan for culture finding of probable Jordan. Sodium remains low 131-->130. Continues on PPN and clear liquids. 11/09/17 POD #7 Patient looking and feeling much better today. Has had NG tube clamped off and on and has tolerated it well thus far. Patient has passed some stool and continues to pass gas. KUB films pending this am. White count has improved. Day #2 of meropenem (converted from Zosyn (11/02 - 11/08) due to DARCIE) for e coli and pseudomonas in peritoneal fluid. Day #7 of Diflucan for jordan in peritoneal fluid. Sodium still low but improving 130-->132. Continues on PPN and ice chips. Would like to go to IRU on d/c 11/10/2017 surgery She experienced significantly increase in pain late evening, NG advanced and pain meds given, she feel better this am. WBC with increase to 24.3 (17.7 yesterday) with bandemia Llanos removed yesterday Still on oxygen, sat drops to upper 80's on room air Low grade fever of 100.3 during the nite.\ Will further evaluate leukocytosis, fever, weakness with CXR, blood cultures and u/a. Dr. Ramirez eval the patient as well, also getting CT abd/pelvis and serum lactate. 11/10/17-POD #8. OP day for second surgery due to possible microperforation by Dr. Ramirez. Patient with increasing abdominal pain, abdominal distention, and increase in white count and development of fever. CT abdomen/pelvis resulting in possibility of microperforation leading to emergent surgery with Dr. Ramirez at the present time. Patient continues on meropenem. Today is day #3. (Converted from Zosyn (11/02 - 7) due to DARCIE) for e coli and pseudomonas in peritoneal fluid. Day #8 of Diflucan for jordan in peritoneal fluid. Sodium still low but currently stable 130-->132-->132. Continues on PPN and ice chips. Blood pressure and pulse are stable. Patient is requiring 2 L oxygen. There is question on chest x-ray of lower lobe atelectasis versus pneumonia. Blood cultures are pending. Lactate was normal. Sputum culture has been ordered. Given that she's been on broad coverage antibiotics and she has been breathing shallow due to pain in the abdomen, suspect findings on x-ray are more apt to be atelectasis. Add Acapella and DuoNeb treatments for pulmonary toilet. Patient has been having liquid stools - c diff neg. Will discuss case with Dr. Ramirez following surgery and continue to monitor pt closely. 11/16/17 Telemetry has remained sinus rhythm at a regular rate since postop day 2. White blood cell count has fallen everyday consecutively since postop day. No fevers since day of surgery. Continuing the Diflucan and Zosyn that this time as set by Dr. Rios. Remove the Llanos. Focus on physical therapy at this time. Case discussed with Dr. Ramirez. He is an agreement for Llanos removal but the patient will likely remain in the ICU for an extended time. Unlikely to have any benefit of eggs advance her diet until the patient has better output from the ostomy. 11/17/17 Day 7 following drainage of pelvic abscess and sigmoid resection; no output per colostomy and NG tube remains in place. Dr. Rios recommended 2 weeks postop antibiotics with repeat CT imaging of abdomen prior to discontinuation of antibiotics. On Zosyn/micafungin. Remains on TPN with good fluid balance. Blood pressure is borderline, patient reports she previously took 50 mg losartan once daily and would like to try daily dosing again. TSH elevated-methimazole discontinued. I later received a call from her assembler molded frames (Dr. Bianchi) who recommended starting levothyroxine at 50 g daily and he will reassess levels when he sees her in December. Leukocytosis improving progressively however patient has immature cells on smear ; will require continued follow-up. Has been on IV Toradol prn since 11/03-using 1-3 times daily. Discussed with pharmacy, discontinue and substitute IV acetaminophen.
[2017-11-18] MEDS: ALBUTEROL/IPRATROPIUM 2.5mg-0.5mg/3ml NEB AEROSOL SCH ×4 (08:37→19:50)
--- NOTE | 2017-11-18 08:57 | Pharmacy Consult-TPN/PPN ---
Pharmacy Consult-TPN/PPN - Laboratory Information Chemistry Turbidity < 20 (0-20) 11/18/17 04:53 Sodium 133 MEQ/L (136-146) L 11/18/17 04:53 Potassium 4.6 MEQ/L (3.6-5) 11/18/17 04:53 Chloride 103 MEQ/L (98-107) 11/18/17 04:53 Carbon Dioxide 24 MEQ/L (22-30) 11/18/17 04:53 Anion Gap 6 meq/L (5-15) 11/18/17 04:53 BUN 20.0 MG/DL (7-17) H 11/18/17 04:53 Creatinine 0.5 mg/dL (0.7-1.2) L 11/18/17 04:53 GFR Calculation 122 11/18/17 04:53 BUN/Creatinine Ratio 40 RATIO (6-26) H 11/18/17 04:53 Glucose 71 MG/DL (65-110) 11/18/17 04:53 Glucometer 97 mg/dL (65-110) 11/10/17 16:04 Calculated Osmolality 257 MOSM/KG (261-280) L 11/18/17 04:53 Calcium 7.9 MG/DL (8.4-10.2) L 11/18/17 04:53 Phosphorus 3.2 MG/DL (2.5-4.5) 11/18/17 04:53 Magnesium 2.2 MG/DL (1.6-2.3) 11/18/17 04:53 Conjugated Bilirubin 0.00 mg/dL (0.00-0.30) 11/01/17 03:35 Unconjugated Bilirubin 0.30 mg/dL (0.00-1.1) 11/01/17 03:35 Total Bilirubin 0.30 MG/DL (0.20-1.30) 11/18/17 04:53 Icterus Index < 2 (0-7) 11/18/17 04:53 AST 43 U/L (14-36) H 11/18/17 04:53 ALT 30 U/L (1-35) 11/18/17 04:53 Alkaline Phosphatase 132 U/L (38-126) H 11/18/17 04:53 Troponin I < 0.012 ng/ml (0-0.12) 11/11/17 04:38 C-Reactive Protein 267.3 mg/L (0-9) H D 11/11/17 09:24 Total Protein 5.4 g/dL (6.3-8.2) L 11/18/17 04:53 Albumin 3.0 g/dL (3.5-5.0) L 11/18/17 04:53 Globulin 2.4 G/DL (2.4-3.6) 11/18/17 04:53 Albumin/Globulin Ratio 1.3 RATIO (1.1-2.2) 11/18/17 04:53 Lipase 53 U/L (23-300) 10/28/17 14:57 Plasma Lactate 1.0 MMOL/L (0.6-2.2) 11/12/17 11:19 Procalcitonin 0.55 NG/ML 11/13/17 03:47 TSH 31.90 mIU/L (0.47-4.68) H 11/10/17 08:43 Free T4 0.09 ng/dL (0.78-2.19) L 11/10/17 08:43 Specimen Hemolysis < 15 (0-25) 11/18/17 04:53 Intake and Output 11/17/17 11/18/17 11/19/17 06:59 06:59 06:59 Intake Total 2601.0827 / 2601.0827 4469.967 / 4469.967 Output Total 3775 / 3775 2120 / 2120 Balance -1173.9173 / -1173.9173 2349.967 / 2349.967 Weight 46.1 kg 47.8 kg Intake: IV 2601.0827 / 2601.0827 4319.967 / 4319.967 Acetaminophen IV 1,000 mg In 100 / 100 100 ml @ 400 mls/hr IV BID PRN Rx#:[id number] Fat Emulsion 20% 250 ml @ 50 250 / 250 250.000 / 250.000 mls/hr IV 1600 JUDI Rx#: [id number] Micafungin 100 mg In Ns 100 ml 100 / 100 100 / 100 @ 100 mls/hr IV 1600 JUDI Rx#: [id number] Piperacillin/Tazobactam 3.375 500 / 500 400 / 400 gm In D5w 100 ml @ 200 mls/hr IV Q6H JUDI Rx#:[id number] Sodium Chloride Conc 140 meq 951.0827 / 951.0827 3469.967 / 3469.967 Potassium Chloride Inj 80 meq POTASSIUM PHOSPHATE (mEq) 40 meq Magnesium Sulfate Inj 16 meq Calcium Chloride 13 meq Multi-Vit Infusion 10 ml Multi -Trace Elements 1 ml In TPN - Custom Formula 2,000 ml @ 82 mls/hr IV .Q24H [facility] Rx#: [id number] Oral 120 / 120 Intake, Gastric Tube Irrigant 30 / 30 Amount Left Nare 30 / 30 Output: Urine 300 / 300 1500 / 1500 Stool 5 / 5 Urine Amount (Catheter) 3270 / 3270 Gastric Drainage 350 / 350 Left Nare 350 / 350 Wound Drainage 205 / 205 265 / 265 Right Lower Lateral Abdomen 135 / 135 75 / 75 Right Upper Lateral Abdomen 70 / 70 190 / 190 Other: Urine Appearance Clear Clear Urine Color Yellow Yellow Urine Odor Normal Normal Stool Color Brown Dark Red Blood Blood Tinged Stool Consistency Liquid Drain Type Right Lower Lateral Abdomen Bulb [place] Bulb [place] Right Upper Lateral Abdomen Bulb [place] Bulb [place] - Consult Information Serum sodium is 133 and up from yesterday. Continue same TPN formula and rate. Will consider adding more NaCl to TPN formula in a.m. Thanks
[2017-11-18] MEDS: Bisacodyl EC TAB 5 MG TABLET PO SCH ×2 (09:12→22:04)
[2017-11-18] MEDS: ENOXAPARIN 40 MG/0.4 ML INJECTION SQ SCH (09:12)
[2017-11-18] MEDS: LOSARTAN 50 MG TABLET PO SCH (09:12)
[2017-11-18] MEDS: PANTOPRAZOLE 40 MG INJECTION IVP SCH ×2 (09:13→22:04)
[2017-11-18] MEDS: ACETAMINOPHEN 500 MG TABLET PO PRN ×2 (10:46→22:04)
[2017-11-18] MEDS: SODIUM CHLORIDE IV SCH (12:30)
[2017-11-18] MEDS: [UNRECOGNIZED DRUG - OTHER] IV SCH (12:30)
[2017-11-18] MEDS: POTASSIUM CHLORIDE IV SCH (12:30)
--- NOTE | 2017-11-18 13:16 | Wound Care Progress Note ---
Wound Center Progress Note: Pt seen for ostomy follow up. Pt resting in bed, reports she has been cramping in her abdomen a little bit, but not having a great amount of pain. Pt has a LLQ end colostomy with Julius's pouch. Pouching system changed today with pt watching procedure and asking questions. Pouch removed had small amount of dk sanguineous semi-liquid drainage. Stoma is moist, upright, beefy red, above skin level, sutures visible, edematous, round. Stoma measures 4.5 cm x 4.5 cm. Peristomal skin: WDNL. Pt has abdominal incision to the R of the stoma. Incision is approximated with karlie, intact, with no drainage. Ostomy supplies used: [employer] 2 pc system, flat wafer # [id number], drainable pouch # [id number]. Stoma and peristomal area cleaned with water, stoma guide used to size stomal wafer opening, wafer cut, fitted, and pouch applied. Education given r/t : sizing and cutting wafer, crusting technique for denuded peristomal skin, pouch application, how and when to change pouching system, and use of ostomy belt. All questions answered. Continue to provide education PRN, encourage pt to empty and change pouch PRN.
[2017-11-18] MEDS: TRAMADOL 50 MG TABLET PO PRN (13:31)
[2017-11-18] MEDS: NS FLUSH BAG 500ml IV PRN (13:34)
--- NOTE | 2017-11-18 14:24 | Progress Note ---
- Date 11/18/17 Subjective: Mrs. Tafoya reports having fecal output through the ostomy this morning in a moderate amount in addition to flatus per ostomy. She's had minor abdominal crampy pain in conjunction with recovery of bowel function. NG has been clamped most of the day and she is tolerated clear liquids although she's been sparing in resuming them. She denied dyspnea, lightheadedness, or palpitations. She has had a headache which she attributes to being in bed for so long. She also notes that she's had some episodic cramps in her legs and is getting an IV medication to control the cramps as needed. Objective Vital signs: Temperature 98 F 11/18/17 12:00 Pulse Rate 80 11/18/17 12:09 Respiratory Rate 33 H 11/18/17 12:09 Blood Pressure 174/90 H 11/18/17 12:09 Pulse Oximetry 95 11/18/17 12:09 I/O 4470/2120 NAD, fatigue, fluent speech Conjunctiva clear, sclera anicteric Respirations nonlabored, good airflow, breath sounds clear Regular rhythm, S1-S2 Abdomen soft, sparse bowel sounds, midline incision without erythema or drainage , sparse loose stool in ostomy bag; NG present but clamped Extremities without edema MAEW; neck supple but there is tenderness to palpation along the trapezius or spasm is palpable and there is tenderness to palpation at muscle insertion sites at the base of the skull posteriorly Rhythm: Normal Sinus Rhythm Height/Weight/BMI: Height 1.55 m Weight 46.9 kg Body Mass Index 19.8 Results - Labs CBC & Chem 7: 11/18/17 04:53 11/18/17 04:53 Labs: S69 B3 L12 M5 E3 Meta3 Myelo5 Minor elevations of AST/alkaline phosphatase; bilirubin and ALT normal Albumin 3.0-improving Magnesium/phosphorus normal Microbiology Results: Microbiology 11/13/17 21:07 Sputum, Expectorated Gram Stain - Final 11/13/17 21:07 Sputum, Expectorated Sputum Culture - Final Normal Resp Tamie incl. Yeast 11/10/17 08:45 Port/Picc Blood Culture - Final No Growth After 5 Days 11/10/17 08:50 Port/Picc Blood Culture - Final No Growth After 5 Days 11/10/17 13:17 Peritoneum Gram Stain - Final 11/10/17 13:17 Peritoneum Surgical Culture - Final Jordan albicans Streptococcus viridans group 11/02/17 15:12 Peritoneal Fluid Gram Stain - Final 11/02/17 15:12 Peritoneal Fluid Body Fluid Culture - Final Escherichia coli Jordan albicans Pseudomonas aeruginosa Other Tamie Observed Assessment and Plan (1) SBO (small bowel obstruction) Current visit: Yes Status: Acute Assessment and Plan: Assessment Small bowel obstruction - s/p release of incarcerated internal hernia by adhesiolysis by Dr. 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 Ramirez Ileus, prolonged Bradycardia with 2-3 second pauses, 11/11/17 Abdominal pain, n/v Leukocytosis - POA Hyponatremia - POA Hyperthyroidism - CARBAJAL ablation 07/18-->hypothyroidism (Follows with Dr. Bianchi) Anxiety Migraine GERD Dyslipidemia Hypertension Diverticulosis with history of recurrent diverticulitis H/o gastritis/+h pylori Mild metabolic acidosis-resolved Headaches/muscle spasm Plan: Day 8 following drainage of pelvic abscess and sigmoid resection; initial return of bowel function evident this morning; clear liquids initiated, and she clamped. Dr. Rios recommended 2 weeks postop antibiotics with repeat CT imaging of abdomen prior to discontinuation of antibiotics. On Zosyn/micafungin. Remains on TPN. Converted to losartan once daily, blood pressure remains elevated-anticipate improvement with increased activity. Levothyroxine initiated this morning after identification of hypothyroid state following CARBAJAL ablation earlier this year. Spasm present in the upper back/neck with associated headache. Ice packs/warm packs initiated, tramadol ordered as alternate pain medication due to patient intolerances of multiple meds. Flexeril added if muscle relaxant desired. Discussed with Dr. Ramirez and nursing. DVT Prophylaxis: Lovenox Resuscitation Status: Full Code - Physician Narrative Narrative: Date: 11/18/17 Time: 1420 Hospital Course Summary Disclaimer: The visit summary below is not to be considered part of the above Progress Note. Hospital Course: 10/28/17 Admit, IP. Stay expected to exceed 2 overnights for tx of enteritis and resolution of SBO. Consult Dr. Nixon. Zosyn and Solumedrol for tx of enteritis. NPO. NG tube. (Pt declines at present. If n/v/pain persists despite current pain/nausea tx, will proceed.) IVF's - 1L bolused in ER. Continue NS at 125cc/hr. This should address her hyponatremia as well. Repeat labs in am to follow blood counts and electrolytes. Protonix IV for GERD and GI ppx. Lovenox for VTE ppx. Full code. PCP - MADAI Gage 10/29/17 Patient's pain is less. Leukocytosis improved from 18.7--> 14.5. Continues on Zosyn and Solumedrol. Consider decreasing Solumedrol dose later today. Remains NPO. IVF's running at 125cc's/hr. Electrolytes stable. Hyponatremia resolved 130-->136. Continue IV pain meds and antiemetics PRN. (Hasn't required since 1800 last shereen. ) Continue IV pantoprazole for GI ppx/GERD. 10/30/17 Patient did have a small bowel movement this morning. No significant flatus. Abdomen feels a little more distended, full and uncomfortable today. She appears in no distress and has not required any pain medication since receiving IV acetaminophen yesterday afternoon. She has not had any nausea or vomiting. She does not have an NG in place. NG placement was attempted on the evening of admission but was difficult, and the patient refused further attempts. We'll continue Solu-Medrol for possible Crohn's disease. Continue Zosyn for now. Discussed with Dr. Nixon, he will see the patient later today. Abdominal films look about the same today. We'll start IV nutrition. Discussed with the pharmacist today, we do not have any TPN. Will start PPN today. 10/31/17 Patient continues to have abdominal discomfort, distention, and continued dilated loops of small bowel on abdominal x-rays. Pain is tolerable. She had 2 small bowel movements this morning. IV Tylenol does help her pain. Continue with IV Solu-Medrol for suspected Crohn's. Continue Zosyn for now. White count is elevated, at this point likely secondary to steroids. The patient has remained afebrile. Regarding nutrition, TPN is not available due to a shortage, PPN was started yesterday and is being given in the midline since she had pain with infusion in a peripheral site. CBC, CMP, and phosphorus tomorrow Repeat C-reactive protein today We'll discuss today with Dr. Nixon 11/01/17 Patient continues to have abdominal discomfort, distention, and continued dilated loops of small bowel on abdominal x-rays. Patient agreed to attempt placement of NG tube again which was successful. Will continue NG tube with low suction. Maintain NPO status. Patient disclosed her father and 2 cousins had a history of lymphoma of the ileum while discussing treatment options with Dr. Nixon. Patient is now more open to idea of surgical intervention if needed. Will re- evaluate pain and distention in AM with possible surgery tomorrow afternoon. Will hold lovenox in AM in anticipation of surgery tomorrow, 11/02/17. Continue with IV Solu-Medrol for suspected Crohn's. Continue Zosyn for now. White count is trending up, at this point likely secondary to steroids. The patient has remained afebrile. PPN was started 10/30/17 and is being given in the midline since she had pain with infusion in a peripheral site. CBC, CMP, and phosphorus tomorrow CRP trending down. Discussed with Dr. Nixon, family and Dr. Duckworth. 11/02/17 Patient continues to have abdominal discomfort and distention. See by Dr. Nixon yesterday and probable surgical intervention today at 1430. Will continue NG tube with low suction. Maintain NPO status. Lovenox held this morning in preparation for anticipated surgery. Continue with IV Solu-Medrol for suspected Crohn's. Continue Zosyn for now. WBC trending down. Patient remains afebrile. New hyponatremia (Na 135) with hypokalemia (K 3.4). Pharmacy managing PPN. Patient given KCl 20 mEq IV yesterday in addition to additional KCl added to PPN per pharmacy. Will given additional KCl 20 mEq IV today and continue to monitor closely. PPN was started 10/30/17 and is being given in the midline since she had pain with infusion in a peripheral site. Mag slightly decreased at 2.4. Will discuss with pharmacy. CRP trending up - 34.5 on 10/31/17 -->87.4 today. Continue to monitor. 7/4/18 S/p release of incarcerated internal hernia by adhesiolysis by Dr. Nixon NG tube with low suction. Continues NPO. IV Solu-Medrol and Zosyn were DC'd yesterday following surgery as there was no evidence of Crohn's. WBC up today - likely post-op elevation. LFT's just slightly elevated. Na 133. Will follow. Continues on PPN (started 10/30/17). Blood noted in llanos - check UA. Peritoneal culture revealed E.coli, few gram positive cocci and yeast. Rocephin and Diflucan initiated. 11/04/17 NG tube with low suction--> clamps later in the day with good tolerance. Continues NPO. Hopeful bowels will begin moving and NG can be removed in the near future with slow initiation of oral intake. No BM at time of exam. WBC trending down. Bandemia improving. Remains afebrile. LFTs returned to normal range. Continue to monitor closely. Persistent hyponatremia (Na 133). Continue to monitor. Continues on PPN (started 10/30/17). Hopeful to start oral intake in the near future. Surgery managing. UA unremarkable. Will discontinue Llanos and monitor patient closely. 11/05/17 NG tube removed last night. Advanced to clear liquids -not wanting to take in much po d/t abd bloating/no appetite. Continue PPN per pharmacy for nutrition. Received dilaudid last night and had nausea, headache and dizziness. Headache and nausea persisting. Will give Tylenol po and Reglan now. Use Toradol and/or Tylenol for pain and avoid narcs if possible. Persistent hyponatremia (Na 131). Continue to monitor. 02 requirement down to 1L from 3L. Using IS. Ambulating. Day #3 of Rocephin and Diflucan for peritoneal culture w/ E.coli, few gram positive cocci and yeast. WBC 18.8-->22.4. Afebrile. Home Losartan and methimazole resumed last night. 11/06/17 White count continues to trend up, currently at 23.3. Bands have also increased to 9%. She has having increased abdominal symptoms with indigestion, nausea and bloating. Discussed with Dr. Collins. Will obtain CT abdomen and pelvis with IV contrast. Expand Antibiotics to Zosyn. Continue Diflucan. Peritoneal fluid culture showed moderate growth of Escherichia coli and light growth of Jordan albicans. Continue PPN. Hyponatremia persists, stable at 131. Patient is off oxygen this morning. She is afebrile and hemodynamically stable. NG replaced due to recurrent GI symptoms and CT findings suggesting ileus but no abscess. 11/07/17 White count remains elevated but slightly lower than yesterday with decreased percent bands. Afebrile. More comfortable overall following replacement of NG; continues to have active bowel sounds and pass gas. Repeat flat/upright KUBs in a.m. Continue Zosyn, serous fluid described intraoperatively in excess of what was anticipated prompting decision to send sample for culture. Continue Diflucan for culture finding of probable Jordan. Blood pressure stable. Remains on low-dose methimazole after radioactive iodine ablation in July; will clarify with Endo if appropriate to recheck thyroid levels. Hemoglobin stable as are electrolytes although sodium remains borderline low. 11/08/17 Replacement of NG overnight; continues to have active bowel sounds and passing gas, no BM since prior to surgery. KUB films pending this am. White count remains elevated. Dc Zosyn and start Meropenem for serous fluid described intraoperatively in excess of what was anticipated. E coli and pseudomonas cultured. DARCIE's are now resulted showing lower DARCIE w/ Meropenem compared to Zosyn. Continue Diflucan for culture finding of probable Jordan. Sodium remains low 131-->130. Continues on PPN and clear liquids. 11/09/17 Patient looking and feeling much better today. Has had NG tube clamped off and on and has tolerated it well thus far. Patient has passed some stool and continues to pass gas. KUB films pending this am. White count has improved. Day #2 of meropenem (converted from Zosyn (11/02 - 11/08) due to DARCIE) for e coli and pseudomonas in peritoneal fluid. Day #7 of Diflucan for jordan in peritoneal fluid. Sodium still low but improving 130-->132. Continues on PPN and ice chips. Would like to go to IRU on d/c 11/10/17 Patient with increasing abdominal pain, abdominal distention, and increase in white count and development of fever. CT abdomen/pelvis resulting in possibility of microperforation leading to emergent surgery with Dr. Ramirez at the present time. Patient continues on meropenem. Today is day #3. (Converted from Zosyn (11/02 - 11/08) due to DARCIE) for e coli and pseudomonas in peritoneal fluid. Day #8 of Diflucan for jordan in peritoneal fluid. Sodium still low but currently stable 130-->132-->132. Continues on PPN and ice chips. Blood pressure and pulse are stable. Patient is requiring 2 L oxygen. There is question on chest x-ray of lower lobe atelectasis versus pneumonia. Blood cultures are pending. Lactate was normal. Sputum culture has been ordered. Given that she's been on broad coverage antibiotics and she has been breathing shallow due to pain in the abdomen, suspect findings on x-ray are more apt to be atelectasis. Add Acapella and DuoNeb treatments for pulmonary toilet. Patient has been having liquid stools - c diff neg. 11/11/17 Cardiology is seeing for cardiac arrhythmias-bradycardia with pauses. She shows clinical improvement after surgery yesterday for the peritonitis secondary to what is presumptively leaky diverticuli and a developing phlegmon. White blood cell count has yet to fall significantly but lactate does not have a significant climb despite the stress of surgery. I would disregard the raise in C-reactive protein on the surgical circumstances alone. Patient continues on meropenem. Today is day #4. (Converted from Zosyn (11/02 - 11/08) due to DARCIE) for e coli and pseudomonas in peritoneal fluid. Diflucan was stopped with last night's dose at day number 8 and after conversation with Dr. Rios and infectious disease the patient is being switched Micafungin Continues on PPN and ice chips. Blood pressure and pulse are stable. 11/16/17 Telemetry has remained sinus rhythm at a regular rate since postop day 2. White blood cell count has fallen everyday consecutively since postop day. No fevers since day of surgery. Continuing the Diflucan and Zosyn that this time as set by Dr. Rios. Remove the Llanos. Focus on physical therapy at this time. Case discussed with Dr. Ramirez. He is an agreement for Llanos removal but the patient will likely remain in the ICU for an extended time. Unlikely to have any benefit of eggs advance her diet until the patient has better output from the ostomy. 11/17/17 Day 7 following drainage of pelvic abscess and sigmoid resection; no output per colostomy and NG tube remains in place. Dr. Rios recommended 2 weeks postop antibiotics with repeat CT imaging of abdomen prior to discontinuation of antibiotics. On Zosyn/micafungin. Remains on TPN with good fluid balance. Blood pressure is borderline, patient reports she previously took 50 mg losartan once daily and would like to try daily dosing again. TSH elevated-methimazole discontinued. I later received a call from her sample stitcher (Dr. Bianchi) who recommended starting levothyroxine at 50 g daily and he will reassess levels when he sees her in December. Leukocytosis improving progressively however patient has immature cells on smear ; will require continued follow-up. Has been on IV Toradol prn since 11/03-using 1-3 times daily. Discussed with pharmacy, discontinue and substitute IV acetaminophen. 11/18/17 Bowel function returning, output per ostomy; NG clamped and clear liquids initiated with good tolerance thus far. Converted to losartan once daily, blood pressure remains elevated-anticipate improvement with increased activity. Levothyroxine initiated this morning after identification of hypothyroid state following CARBAJAL ablation earlier this year. Spasm present in the upper back/neck with associated headache. Ice packs/warm packs initiated, tramadol ordered as alternate pain medication due to patient intolerances of multiple meds. Flexeril added if muscle relaxant desired.
[2017-11-18] MEDS ORDERED: CYCLOBENZAPRINE 5 MG TABLET PO PRN (14:29)
[2017-11-18] MEDS: FAT EMULSION 20% 250 ML IV SCH (15:31)
[2017-11-18] MEDS: NS IV SCH (15:31)
[2017-11-18] MEDS: MICAFUNGIN IV SCH (15:31)
[2017-11-18] MEDS: METOCLOPRAMIDE 10mg/2ml INJECTION IVP PRN (15:48)
--- NOTE | 2017-11-18 16:08 | Progress Note ---
DATE 11/18/2017 FINDINGS Mrs. Tafoya was seen this morning on rounds. She was doing well. She fortunately now has some stool present within her colostomy. Denied significant abdominal pain. OBJECTIVE VITALS: Afebrile. Normotensive. Please refer to EMR. ABDOMEN: Soft. Minimal incisional tenderness. One can now see some liquidy stool within her colostomy. Her abdomen was without any evidence for guarding or rebound upon palpation. LABORATORY/RADIOGRAPHIC EVALUATION Patient had a CBC today and her white count is stable at 12.2. Hemoglobin is stable at 8.9. CMP obtained and found to be without marked abnormalities. LFTs are slightly elevated, likely a result of hyperalimentation. ASSESSMENT 72-year-old female status post exploratory laparotomies x2 with lysis of adhesions, sigmoid resection with creation of Julius's pouch and end colostomy secondary to ruptured diverticulitis. Patient showing good improvement. PLAN Will clamp NG. Begin clear liquids. If patient tolerates this today, will DC NG and advance diet slowly as tolerated. I am pleased with the patient's progress. It is my intuition the patient will likely be able to be transferred to rehab facility within the next couple of days. Will have Discharge Planning/ [place] Tender evaluate the patient to prepare for the next phase of her healing process. Again I am pleased with the patient's progress at this time. Additionally, Dr. Nixon will assume care of patient as of tomorrow for I will be leaving town. [facility]
[2017-11-18 16:23] VITALS: BMI 19.5
[2017-11-18] MEDS: SALINE FLUSH 10ml SYRINGE IVF PRN (18:27)
[2017-11-19] MEDS: PIPERACILLIN/TAZOBACTAM 3.375 GM in D5W 100 ML IV SCH ×5 (01:00→17:25)
[2017-11-19] MEDS: LEVOTHYROXINE 50 MCG TABLET PO SCH ×2 (05:21→05:30)
[2017-11-19] MEDS: ALBUTEROL/IPRATROPIUM 2.5mg-0.5mg/3ml NEB AEROSOL SCH ×4 (07:15→20:39)
[2017-11-19] MEDS: PANTOPRAZOLE 40 MG INJECTION IVP SCH ×2 (08:28→20:29)
[2017-11-19] MEDS: ENOXAPARIN 40 MG/0.4 ML INJECTION SQ SCH (08:28)
[2017-11-19] MEDS: LOSARTAN 50 MG TABLET PO SCH (08:29)
[2017-11-19] MEDS: Bisacodyl EC TAB 5 MG TABLET PO SCH ×2 (08:32→20:27)
--- NOTE | 2017-11-19 09:19 | Pharmacy Consult-TPN/PPN ---
Pharmacy Consult-TPN/PPN - Laboratory Information Chemistry Turbidity < 20 (0-20) 11/19/17 04:03 Sodium 132 MEQ/L (136-146) L 11/19/17 04:03 Potassium 4.8 MEQ/L (3.6-5) 11/19/17 04:03 Chloride 103 MEQ/L (98-107) 11/19/17 04:03 Carbon Dioxide 22 MEQ/L (22-30) 11/19/17 04:03 Anion Gap 7 meq/L (5-15) 11/19/17 04:03 BUN 20.0 MG/DL (7-17) H 11/19/17 04:03 Creatinine 0.6 mg/dL (0.7-1.2) L 11/19/17 04:03 GFR Calculation 99 11/19/17 04:03 BUN/Creatinine Ratio 33 RATIO (6-26) H 11/19/17 04:03 Glucose 65 MG/DL (65-110) 11/19/17 04:03 Glucometer 97 mg/dL (65-110) 11/10/17 16:04 Calculated Osmolality 256 MOSM/KG (261-280) L 11/19/17 04:03 Calcium 8.1 MG/DL (8.4-10.2) L 11/19/17 04:03 Phosphorus 3.2 MG/DL (2.5-4.5) 11/18/17 04:53 Magnesium 2.2 MG/DL (1.6-2.3) 11/18/17 04:53 Conjugated Bilirubin 0.00 mg/dL (0.00-0.30) 11/01/17 03:35 Unconjugated Bilirubin 0.30 mg/dL (0.00-1.1) 11/01/17 03:35 Total Bilirubin 0.30 MG/DL (0.20-1.30) 11/18/17 04:53 Icterus Index < 2 (0-7) 11/19/17 04:03 AST 43 U/L (14-36) H 11/18/17 04:53 ALT 30 U/L (1-35) 11/18/17 04:53 Alkaline Phosphatase 132 U/L (38-126) H 11/18/17 04:53 Troponin I < 0.012 ng/ml (0-0.12) 11/11/17 04:38 C-Reactive Protein 267.3 mg/L (0-9) H D 11/11/17 09:24 Total Protein 5.4 g/dL (6.3-8.2) L 11/18/17 04:53 Albumin 3.0 g/dL (3.5-5.0) L 11/18/17 04:53 Globulin 2.4 G/DL (2.4-3.6) 11/18/17 04:53 Albumin/Globulin Ratio 1.3 RATIO (1.1-2.2) 11/18/17 04:53 Lipase 53 U/L (23-300) 10/28/17 14:57 Plasma Lactate 1.0 MMOL/L (0.6-2.2) 11/12/17 11:19 Procalcitonin 0.55 NG/ML 11/13/17 03:47 TSH 31.90 mIU/L (0.47-4.68) H 11/10/17 08:43 Free T4 0.09 ng/dL (0.78-2.19) L 11/10/17 08:43 Specimen Hemolysis < 15 (0-25) 11/19/17 04:03 Intake and Output 11/18/17 11/19/17 11/20/17 06:59 06:59 06:59 Intake Total 4469.967 / 4469.967 2724.333 / 2724.333 182 / 182 Output Total 2120 / 2120 2380 / 2380 250 / 250 Balance 2349.967 / 2349.967 344.333 / 344.333 -68 / -68 Weight 47.8 kg 46.9 kg Intake: IV 4319.967 / 4319.967 2604.333 / 2604.333 182 / 182 Acetaminophen IV 1,000 mg In 100 / 100 100 ml @ 400 mls/hr IV BID PRN Rx#:[id number] Fat Emulsion 20% 250 ml @ 50 250.000 / 250.000 250.000 / 250.000 mls/hr IV 1600 JUDI Rx#: [id number] Micafungin 100 mg In Ns 100 ml 100 / 100 100 / 100 @ 100 mls/hr IV 1600 JUDI Rx#: [id number] Piperacillin/Tazobactam 3.375 400 / 400 300 / 300 100 / 100 gm In D5w 100 ml @ 200 mls/hr IV Q6H COUNT INCLUDES THE [facility] Rx#:[id number] Sodium Chloride Conc 140 meq 3469.967 / 3469.967 1954.333 / 1954.333 82 / 82 Potassium Chloride Inj 80 meq POTASSIUM PHOSPHATE (mEq) 40 meq Magnesium Sulfate Inj 16 meq Calcium Chloride 13 meq Multi-Vit Infusion 10 ml Multi -Trace Elements 1 ml In TPN - Custom Formula 2,000 ml @ 82 mls/hr IV .Q24H COUNT INCLUDES THE [facility] Rx#: [id number] Oral 120 / 120 120 / 120 Intake, Gastric Tube Irrigant 30 / 30 Amount Left Nare 30 / 30 Output: Urine 1500 / 1500 0 / 0 250 / 250 Stool 5 / 5 135 / 135 Gastric Drainage 350 / 350 Left Nare 350 / 350 Wound Drainage 265 / 265 195 / 195 Right Lower Lateral Abdomen 75 / 75 90 / 90 Right Upper Lateral Abdomen 190 / 190 105 / 105 Other: Urine Appearance Clear Clear Clear Urine Color Yellow Bright Yellow Dark Yellow Urine Odor Normal Stool Characteristics Mucoid Stool Color Brown Green Dark Red Blood Blood Tinged Stool Consistency Liquid Liquid Drain Type Right Lower Lateral Abdomen Bulb [place] Bulb [place] Right Upper Lateral Abdomen Bulb [place] Bulb [place] # Voids 1 1 - Consult Information Serum sodium is remaining in low normal range and is acceptable. Serum potassium is trending up so we will reduce the KCl in each TPN bag to 40mEq ( down from 80mEq per bag). Continue the same rate. Thanks
--- NOTE | 2017-11-19 10:56 | General Surgery Progress Note ---
Subjective Patient reports: feels better (now that the NG is out), pain is less, tolerating liquids well (fulls), voiding w/o difficulty, flatus (in colostomy bag), bowel movement (liquid dark in colostomy bag, 135 ml documented today.), afebrile Narrative: son Peter present, asks about Dulcolax and labs. Karina has been in to start colostomy teaching, patient very receptive to learning. Excavator Operator has been in and suggested staying away from ice cream, pudding, etc. for now. Patient has headache "in the back of the neck" and has a cold pack there now and states Tylenol has helped. - Vital Signs Last Vital Signs Temp 98.4 F 11/19/17 08:00 Pulse 88 11/19/17 08:45 Resp 25 H 11/19/17 08:45 BP 119/64 11/19/17 08:00 Pulse Ox 91 11/19/17 08:45 - Laboratory Result Diagrams: 11/19/17 04:03 11/19/17 04:03 - Normal Exam General: awake, alert, oriented, no acute distress Cardiovascular: regular rhythm, regular rate Respiratory: clear bilaterally, no labored breathing Abdominal: soft, appropriately tender (midline incision and at ALEX insertion sites), incision(s) (CDI karlie in tact, no erythema. Caudad most corner with a suture that was placed to treat some superficial bleeding, gauze is dry.), other (ALEX clear lightly yellow fluid in both) Psychiatric: normal affect (pleasant, appreciative, receptive to learning) Assessment and Plan (1) SBO (small bowel obstruction) Current Visit: Yes Status: Acute (2) Anxiety Current Visit: No Status: Chronic (3) History of Crohn's disease Current Visit: No Status: Chronic (4) Leukocytosis Current Visit: Yes Status: Acute Qualifiers: Leukocytosis type: bandemia Qualified Code(s): D72.825 - Bandemia (5) Fever Current Visit: Yes Status: Acute Qualifiers: Fever type: unspecified Qualified Code(s): R50.9 - Fever, unspecified Plan: POD #9 from 2nd exploratory laparotomy sigmoid resection and creation of colostomy NG is out, no nausea and tolerating full liquids. Some liquid stool in ostomy bag, will advance to regular diet 1/2 portions, continue TPN. Add a multivitamin. Continue daily labs. Hospital Course Summary Disclaimer: The visit summary below is not to be considered part of the above Progress Note. Hospital Course: 10/28/17 Admit, IP. Stay expected to exceed 2 overnights for tx of enteritis and resolution of SBO. Consult Dr. Nixon. Zosyn and Solumedrol for tx of enteritis. NPO. NG tube. (Pt declines at present. If n/v/pain persists despite current pain/nausea tx, will proceed.) IVF's - 1L bolused in ER. Continue NS at 125cc/hr. This should address her hyponatremia as well. Repeat labs in am to follow blood counts and electrolytes. Protonix IV for GERD and GI ppx. Lovenox for VTE ppx. Full code. PCP - MADAI Gage 10/29/17 Patient's pain is less. Leukocytosis improved from 18.7--> 14.5. Continues on Zosyn and Solumedrol. Consider decreasing Solumedrol dose later today. Remains NPO. IVF's running at 125cc's/hr. Electrolytes stable. Hyponatremia resolved 130-->136. Continue IV pain meds and antiemetics PRN. (Hasn't required since 1800 last shereen. ) Continue IV pantoprazole for GI ppx/GERD. 10/30/17 Patient did have a small bowel movement this morning. No significant flatus. Abdomen feels a little more distended, full and uncomfortable today. She appears in no distress and has not required any pain medication since receiving IV acetaminophen yesterday afternoon. She has not had any nausea or vomiting. She does not have an NG in place. NG placement was attempted on the evening of admission but was difficult, and the patient refused further attempts. We'll continue Solu-Medrol for possible Crohn's disease. Continue Zosyn for now. Discussed with Dr. Nixon, he will see the patient later today. Abdominal films look about the same today. We'll start IV nutrition. Discussed with the pharmacist today, we do not have any TPN. Will start PPN today. 10/31/17 Patient continues to have abdominal discomfort, distention, and continued dilated loops of small bowel on abdominal x-rays. Pain is tolerable. She had 2 small bowel movements this morning. IV Tylenol does help her pain. Continue with IV Solu-Medrol for suspected Crohn's. Continue Zosyn for now. White count is elevated, at this point likely secondary to steroids. The patient has remained afebrile. Regarding nutrition, TPN is not available due to a shortage, PPN was started yesterday and is being given in the midline since she had pain with infusion in a peripheral site. CBC, CMP, and phosphorus tomorrow Repeat C-reactive protein today We'll discuss today with Dr. Nixon 11/01/17 Patient continues to have abdominal discomfort, distention, and continued dilated loops of small bowel on abdominal x-rays. Patient agreed to attempt placement of NG tube again which was successful. Will continue NG tube with low suction. Maintain NPO status. Patient disclosed her father and 2 cousins had a history of lymphoma of the ileum while discussing treatment options with Dr. Nixon. Patient is now more open to idea of surgical intervention if needed. Will re- evaluate pain and distention in AM with possible surgery tomorrow afternoon. Will hold lovenox in AM in anticipation of surgery tomorrow, 11/02/17. Continue with IV Solu-Medrol for suspected Crohn's. Continue Zosyn for now. White count is trending up, at this point likely secondary to steroids. The patient has remained afebrile. PPN was started 10/30/17 and is being given in the midline since she had pain with infusion in a peripheral site. CBC, CMP, and phosphorus tomorrow CRP trending down. Discussed with Dr. Nixon, family and Dr. Duckworth. 11/02/17 Patient continues to have abdominal discomfort and distention. See by Dr. Nixon yesterday and probable surgical intervention today at 1430. Will continue NG tube with low suction. Maintain NPO status. Lovenox held this morning in preparation for anticipated surgery. Continue with IV Solu-Medrol for suspected Crohn's. Continue Zosyn for now. WBC trending down. Patient remains afebrile. New hyponatremia (Na 135) with hypokalemia (K 3.4). Pharmacy managing PPN. Patient given KCl 20 mEq IV yesterday in addition to additional KCl added to PPN per pharmacy. Will given additional KCl 20 mEq IV today and continue to monitor closely. PPN was started 10/30/17 and is being given in the midline since she had pain with infusion in a peripheral site. Mag slightly decreased at 2.4. Will discuss with pharmacy. CRP trending up - 34.5 on 10/31/17 -->87.4 today. Continue to monitor. 11/03/17 S/p release of incarcerated internal hernia by adhesiolysis by Dr. Nixon NG tube with low suction. Continues NPO. IV Solu-Medrol and Zosyn were DC'd yesterday following surgery as there was no evidence of Crohn's. WBC up today - likely post-op elevation. LFT's just slightly elevated. Na 133. Will follow. Continues on PPN (started 10/30/17). Blood noted in llanos - check UA. Peritoneal culture revealed E.coli, few gram positive cocci and yeast. Rocephin and Diflucan initiated. 11/04/17 NG tube with low suction--> clamps later in the day with good tolerance. Continues NPO. Hopeful bowels will begin moving and NG can be removed in the near future with slow initiation of oral intake. No BM at time of exam. WBC trending down. Bandemia improving. Remains afebrile. LFTs returned to normal range. Continue to monitor closely. Persistent hyponatremia (Na 133). Continue to monitor. Continues on PPN (started 10/30/17). Hopeful to start oral intake in the near future. Surgery managing. UA unremarkable. Will discontinue Llanos and monitor patient closely. 11/05/17 NG tube removed last night. Advanced to clear liquids -not wanting to take in much po d/t abd bloating/no appetite. Continue PPN per pharmacy for nutrition. Received dilaudid last night and had nausea, headache and dizziness. Headache and nausea persisting. Will give Tylenol po and Reglan now. Use Toradol and/or Tylenol for pain and avoid narcs if possible. Persistent hyponatremia (Na 131). Continue to monitor. 02 requirement down to 1L from 3L. Using IS. Ambulating. Day #3 of Rocephin and Diflucan for peritoneal culture w/ E.coli, few gram positive cocci and yeast. WBC 18.8-->22.4. Afebrile. Home Losartan and methimazole resumed last night. 11/06/17 White count continues to trend up, currently at 23.3. Bands have also increased to 9%. She has having increased abdominal symptoms with indigestion, nausea and bloating. Discussed with Dr. Collins. Will obtain CT abdomen and pelvis with IV contrast. Expand Antibiotics to Zosyn. Continue Diflucan. Peritoneal fluid culture showed moderate growth of Escherichia coli and light growth of Jordan albicans. Continue PPN. Hyponatremia persists, stable at 131. Patient is off oxygen this morning. She is afebrile and hemodynamically stable. NG replaced due to recurrent GI symptoms and CT findings suggesting ileus but no abscess. 11/07/17 White count remains elevated but slightly lower than yesterday with decreased percent bands. Afebrile. More comfortable overall following replacement of NG; continues to have active bowel sounds and pass gas. Repeat flat/upright KUBs in a.m. Continue Zosyn, serous fluid described intraoperatively in excess of what was anticipated prompting decision to send sample for culture. Continue Diflucan for culture finding of probable Jordan. Blood pressure stable. Remains on low-dose methimazole after radioactive iodine ablation in July; will clarify with Endo if appropriate to recheck thyroid levels. Hemoglobin stable as are electrolytes although sodium remains borderline low. 11/08/17 Replacement of NG overnight; continues to have active bowel sounds and passing gas, no BM since prior to surgery. KUB films pending this am. White count remains elevated. Dc Zosyn and start Meropenem for serous fluid described intraoperatively in excess of what was anticipated. E coli and pseudomonas cultured. DARCIE's are now resulted showing lower DARCIE w/ Meropenem compared to Zosyn. Continue Diflucan for culture finding of probable Jordan. Sodium remains low 131-->130. Continues on PPN and clear liquids. 11/09/17 Patient looking and feeling much better today. Has had NG tube clamped off and on and has tolerated it well thus far. Patient has passed some stool and continues to pass gas. KUB films pending this am. White count has improved. Day #2 of meropenem (converted from Zosyn (11/02 - 11/08) due to DARCIE) for e coli and pseudomonas in peritoneal fluid. Day #7 of Diflucan for jordan in peritoneal fluid. Sodium still low but improving 130-->132. Continues on PPN and ice chips. Would like to go to IRU on d/c 11/10/17 Patient with increasing abdominal pain, abdominal distention, and increase in white count and development of fever. CT abdomen/pelvis resulting in possibility of microperforation leading to emergent surgery with Dr. Ramirez at the present time. Patient continues on meropenem. Today is day #3. (Converted from Zosyn (11/02 - 11/08) due to DARCIE) for e coli and pseudomonas in peritoneal fluid. Day #8 of Diflucan for jordan in peritoneal fluid. Sodium still low but currently stable 130-->132-->132. Continues on PPN and ice chips. Blood pressure and pulse are stable. Patient is requiring 2 L oxygen. There is question on chest x-ray of lower lobe atelectasis versus pneumonia. Blood cultures are pending. Lactate was normal. Sputum culture has been ordered. Given that she's been on broad coverage antibiotics and she has been breathing shallow due to pain in the abdomen, suspect findings on x-ray are more apt to be atelectasis. Add Acapella and DuoNeb treatments for pulmonary toilet. Patient has been having liquid stools - c diff neg. 11/11/17 Cardiology is seeing for cardiac arrhythmias-bradycardia with pauses. She shows clinical improvement after surgery yesterday for the peritonitis secondary to what is presumptively leaky diverticuli and a developing phlegmon. White blood cell count has yet to fall significantly but lactate does not have a significant climb despite the stress of surgery. I would disregard the raise in C-reactive protein on the surgical circumstances alone. Patient continues on meropenem. Today is day #4. (Converted from Zosyn (11/02 - 11/08) due to DARCIE) for e coli and pseudomonas in peritoneal fluid. Diflucan was stopped with last night's dose at day number [address] and after conversation with Dr. Rios and infectious disease the patient is being switched Micafungin Continues on PPN and ice chips. Blood pressure and pulse are stable. 11/16/17 Telemetry has remained sinus rhythm at a regular rate since postop day 2. White blood cell count has fallen everyday consecutively since postop day. No fevers since day of surgery. Continuing the Diflucan and Zosyn that this time as set by Dr. Rios. Remove the Llanos. Focus on physical therapy at this time. Case discussed with Dr. Ramirez. He is an agreement for Llanos removal but the patient will likely remain in the ICU for an extended time. Unlikely to have any benefit of eggs advance her diet until the patient has better output from the ostomy. 11/17/17 Day 7 following drainage of pelvic abscess and sigmoid resection; no output per colostomy and NG tube remains in place. Dr. Rios recommended 2 weeks postop antibiotics with repeat CT imaging of abdomen prior to discontinuation of antibiotics. On Zosyn/micafungin. Remains on TPN with good fluid balance. Blood pressure is borderline, patient reports she previously took 50 mg losartan once daily and would like to try daily dosing again. TSH elevated-methimazole discontinued. I later received a call from her periodontal assistant (Dr. Bianchi) who recommended starting levothyroxine at 50 g daily and he will reassess levels when he sees her in December. Leukocytosis improving progressively however patient has immature cells on smear ; will require continued follow-up. Has been on IV Toradol prn since 11/03-using 1-3 times daily. Discussed with pharmacy, discontinue and substitute IV acetaminophen. 11/18/17 Bowel function returning, output per ostomy; NG clamped and clear liquids initiated with good tolerance thus far. Converted to losartan once daily, blood pressure remains elevated-anticipate improvement with increased activity. Levothyroxine initiated this morning after identification of hypothyroid state following CARBAJAL ablation earlier this year. Spasm present in the upper back/neck with associated headache. Ice packs/warm packs initiated, tramadol ordered as alternate pain medication due to patient intolerances of multiple meds. Flexeril added if muscle relaxant desired.
[2017-11-19] MEDS: TRAMADOL 50 MG TABLET PO PRN ×2 (12:33→18:58)
[2017-11-19] MEDS: POTASSIUM CHLORIDE IV SCH ×2 (13:57→19:42)
[2017-11-19] MEDS: SODIUM CHLORIDE IV SCH ×2 (13:57→19:42)
[2017-11-19] MEDS: [UNRECOGNIZED DRUG - OTHER] IV SCH (13:57)
[2017-11-19] MEDS: NS IV SCH (16:07)
[2017-11-19] MEDS: FAT EMULSION 20% 250 ML IV SCH (16:07)
[2017-11-19] MEDS: MICAFUNGIN IV SCH (16:07)
[2017-11-19] MEDS: [UNRECOGNIZED DRUG - OTHER] IV SCH (19:42)
--- NOTE | 2017-11-19 20:09 | Progress Note ---
DATE OF VISIT 11/19/2017 REASON FOR VISIT Postoperative followup following laparotomies x 2. SUBJECTIVE Steffi says that she is gradually feeling better. Her pain is slowly subsiding. She has been eating a little more by mouth but still has a fairly poor appetite. Her nurse reports slight improvement in her ostomy output. She has already walked twice today. She has no other significant complaints. Her son also had no specific concerns this afternoon but did want to make sure that the plan was still for slow resumption of diet and transition to rehab. OBJECTIVE VITAL SIGNS: Afebrile with stable vitals on room air. GENERAL: The patient is awake and alert, in no acute distress. ABDOMEN: Soft, appropriately tender. Her midline incision shows no evidence of infection. There is some minimal drainage of old blood at the inferior aspect of the incision with her suture in place. There is also some ecchymosis extending down towards the left groin from this region. Her ostomy is pink and perfused with minimal liquid stool output. LABORATORY DATA White blood cell count is stable at 12.2. Hemoglobin is stable at 8.9. IMPRESSION 1. Postop day #17 status post exploratory laparotomy with release of small bowel obstruction, postop day #9 status post exploratory laparotomy, sigmoid resection, mobilization of the splenic flexure and Julius's procedure - appropriate clinical progress. 2. Expected postoperative ileus - some signs of return of bowel function. PLAN 1. Continue IV Zosyn and micafungin for two weeks postoperatively. 2. Continue parenteral nutrition. 3. Continue Tylenol and tramadol for pain control. 4. I encouraged Steffi to gradually increase her oral intake as she is able to tolerate more by mouth. 5. She is doing an excellent job of ambulation and I encouraged her to continue this. [facility]
[2017-11-19] MEDS: SALINE FLUSH 10ml SYRINGE IVF PRN (20:29)
--- NOTE | 2017-11-19 20:35 | Progress Note ---
- Date 11/19/17 Subjective: Mrs. Tafoya was seen late in the day with several children at bedside. She reports that she napped several times today and subsequently feels improved compared to earlier in the day when she felt very fatigued after having a lot of activity yesterday. She continues to have some headache and neck pain/ stiffness although it's better than yesterday. She denies dyspnea, palpitations , or lightheadedness. She is ambulating in the unit intermittently. She's had some minor nausea today and is taking oral intake slowly. She reports increased cramping along the left side of the abdomen and has had increased fecal output per the ostomy. Objective Vital signs: Temperature 98.2 F 11/19/17 16:00 Pulse Rate 85 11/19/17 17:30 Respiratory Rate 24 11/19/17 18:58 Blood Pressure 145/73 H 11/19/17 17:00 Pulse Oximetry 95 11/19/17 17:30 I/O 2724/2380 NAD, alert, fluent speech Conjunctiva clear, sclera anicteric Respirations nonlabored, good airflow, breath sounds clear anteriorly Regular rhythm, S1-S2 Abdomen soft, mild tenderness to palpation left lateral abdomen, bowel sounds present, brown stool in ostomy Extremities without edema Rhythm: Normal Sinus Rhythm (no bradycardia/pauses) Height/Weight/BMI: Height 1.55 m Weight 46.9 kg Body Mass Index 19.5 Results - Labs CBC & Chem 7: 11/19/17 04:03 11/19/17 04:03 Labs: S79 B10 L11 M5 E2 Meta1 myelo1 Microbiology Results: Microbiology 11/13/17 21:07 Sputum, Expectorated Gram Stain - Final 11/13/17 21:07 Sputum, Expectorated Sputum Culture - Final Normal Resp Tamie incl. Yeast 11/10/17 08:45 Port/Picc Blood Culture - Final No Growth After 5 Days 11/10/17 08:50 Port/Picc Blood Culture - Final No Growth After 5 Days 11/10/17 13:17 Peritoneum Gram Stain - Final 11/10/17 13:17 Peritoneum Surgical Culture - Final Jordan albicans Streptococcus viridans group 11/02/17 15:12 Peritoneal Fluid Gram Stain - Final 11/02/17 15:12 Peritoneal Fluid Body Fluid Culture - Final Escherichia coli Jordan albicans Pseudomonas aeruginosa Other Tamie Observed Assessment and Plan (1) SBO (small bowel obstruction) Current visit: Yes Status: Acute Assessment and Plan: Assessment Small bowel obstruction - s/p release of incarcerated internal hernia by adhesiolysis by Dr. 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 Ramirez Ileus, prolonged Bradycardia with 2-3 second pauses, 11/11/17 Abdominal pain, n/v Leukocytosis - POA Hyponatremia - POA Hyperthyroidism - CARBAJAL ablation 07/18-->hypothyroidism (Follows with Dr. Bianchi) Anxiety Migraine GERD Dyslipidemia Hypertension Diverticulosis with history of recurrent diverticulitis H/o gastritis/+h pylori Mild metabolic acidosis-resolved Headaches/muscle spasm Plan: Day 9 following drainage of pelvic abscess and sigmoid resection; NG out, diet advanced to regular but patient reports she tolerates only a few bites at a time ; continue TPN until oral intake improved. Dr. Rios recommended 2 weeks postop antibiotics with repeat CT imaging of abdomen prior to discontinuation of antibiotics (approximately 11/23). On Zosyn/ micafungin. Converted to losartan once daily yesterday, blood pressure improved overall- continue to monitor. Levothyroxine initiated 11/18 after identification of hypothyroid state following CARBAJAL ablation earlier this year. Spasm present in the upper back/neck with associated headache. Ice packs/warm packs initiated, tramadol ordered as alternate pain medication due to patient intolerances of multiple meds. Flexeril added if muscle relaxant desired. DVT Prophylaxis: Lovenox GI Prophylaxis: Protonix Resuscitation Status: Full Code - Physician Narrative Narrative: Date: 11/19/17 Time: 2030 Hospital Course Summary Disclaimer: The visit summary below is not to be considered part of the above Progress Note. Hospital Course: 10/28/17 Admit, IP. Stay expected to exceed 2 overnights for tx of enteritis and resolution of SBO. Consult Dr. Nixon. Zosyn and Solumedrol for tx of enteritis. NPO. NG tube. (Pt declines at present. If n/v/pain persists despite current pain/nausea tx, will proceed.) IVF's - 1L bolused in ER. Continue NS at 125cc/hr. This should address her hyponatremia as well. Repeat labs in am to follow blood counts and electrolytes. Protonix IV for GERD and GI ppx. Lovenox for VTE ppx. Full code. PCP - MADAI Gage 10/29/17 Patient's pain is less. Leukocytosis improved from 18.7--> 14.5. Continues on Zosyn and Solumedrol. Consider decreasing Solumedrol dose later today. Remains NPO. IVF's running at 125cc's/hr. Electrolytes stable. Hyponatremia resolved 130-->136. Continue IV pain meds and antiemetics PRN. (Hasn't required since 1800 last shereen. ) Continue IV pantoprazole for GI ppx/GERD. 10/30/17 Patient did have a small bowel movement this morning. No significant flatus. Abdomen feels a little more distended, full and uncomfortable today. She appears in no distress and has not required any pain medication since receiving IV acetaminophen yesterday afternoon. She has not had any nausea or vomiting. She does not have an NG in place. NG placement was attempted on the evening of admission but was difficult, and the patient refused further attempts. We'll continue Solu-Medrol for possible Crohn's disease. Continue Zosyn for now. Discussed with Dr. Nixon, he will see the patient later today. Abdominal films look about the same today. We'll start IV nutrition. Discussed with the pharmacist today, we do not have any TPN. Will start PPN today. 10/31/17 Patient continues to have abdominal discomfort, distention, and continued dilated loops of small bowel on abdominal x-rays. Pain is tolerable. She had 2 small bowel movements this morning. IV Tylenol does help her pain. Continue with IV Solu-Medrol for suspected Crohn's. Continue Zosyn for now. White count is elevated, at this point likely secondary to steroids. The patient has remained afebrile. Regarding nutrition, TPN is not available due to a shortage, PPN was started yesterday and is being given in the midline since she had pain with infusion in a peripheral site. CBC, CMP, and phosphorus tomorrow Repeat C-reactive protein today We'll discuss today with Dr. Nixon 11/01/17 Patient continues to have abdominal discomfort, distention, and continued dilated loops of small bowel on abdominal x-rays. Patient agreed to attempt placement of NG tube again which was successful. Will continue NG tube with low suction. Maintain NPO status. Patient disclosed her father and 2 cousins had a history of lymphoma of the ileum while discussing treatment options with Dr. Nxion. Patient is now more open to idea of surgical intervention if needed. Will re- evaluate pain and distention in AM with possible surgery tomorrow afternoon. Will hold lovenox in AM in anticipation of surgery tomorrow, 11/02/17. Continue with IV Solu-Medrol for suspected Crohn's. Continue Zosyn for now. White count is trending up, at this point likely secondary to steroids. The patient has remained afebrile. PPN was started 10/30/17 and is being given in the midline since she had pain with infusion in a peripheral site. CBC, CMP, and phosphorus tomorrow CRP trending down. Discussed with Dr. Nixon, family and Dr. Duckworth. 11/02/17 Patient continues to have abdominal discomfort and distention. See by Dr. Nixon yesterday and probable surgical intervention today at 1430. Will continue NG tube with low suction. Maintain NPO status. Lovenox held this morning in preparation for anticipated surgery. Continue with IV Solu-Medrol for suspected Crohn's. Continue Zosyn for now. WBC trending down. Patient remains afebrile. New hyponatremia (Na 135) with hypokalemia (K 3.4). Pharmacy managing PPN. Patient given KCl 20 mEq IV yesterday in addition to additional KCl added to PPN per pharmacy. Will given additional KCl 20 mEq IV today and continue to monitor closely. PPN was started 10/30/17 and is being given in the midline since she had pain with infusion in a peripheral site. Mag slightly decreased at 2.4. Will discuss with pharmacy. CRP trending up - 34.5 on 10/31/17 -->87.4 today. Continue to monitor. 11/03/17 S/p release of incarcerated internal hernia by adhesiolysis by Dr. Nixon NG tube with low suction. Continues NPO. IV Solu-Medrol and Zosyn were DC'd yesterday following surgery as there was no evidence of Crohn's. WBC up today - likely post-op elevation. LFT's just slightly elevated. Na 133. Will follow. Continues on PPN (started 10/30/17). Blood noted in llanos - check UA. Peritoneal culture revealed E.coli, few gram positive cocci and yeast. Rocephin and Diflucan initiated. 11/04/17 NG tube with low suction--> clamps later in the day with good tolerance. Continues NPO. Hopeful bowels will begin moving and NG can be removed in the near future with slow initiation of oral intake. No BM at time of exam. WBC trending down. Bandemia improving. Remains afebrile. LFTs returned to normal range. Continue to monitor closely. Persistent hyponatremia (Na 133). Continue to monitor. Continues on PPN (started 10/30/17). Hopeful to start oral intake in the near future. Surgery managing. UA unremarkable. Will discontinue Llanos and monitor patient closely. 11/05/17 NG tube removed last night. Advanced to clear liquids -not wanting to take in much po d/t abd bloating/no appetite. Continue PPN per pharmacy for nutrition. Received dilaudid last night and had nausea, headache and dizziness. Headache and nausea persisting. Will give Tylenol po and Reglan now. Use Toradol and/or Tylenol for pain and avoid narcs if possible. Persistent hyponatremia (Na 131). Continue to monitor. 02 requirement down to 1L from 3L. Using IS. Ambulating. Day #3 of Rocephin and Diflucan for peritoneal culture w/ E.coli, few gram positive cocci and yeast. WBC 18.8-->22.4. Afebrile. Home Losartan and methimazole resumed last night. 11/06/17 White count continues to trend up, currently at 23.3. Bands have also increased to 9%. She has having increased abdominal symptoms with indigestion, nausea and bloating. Discussed with Dr. Collins. Will obtain CT abdomen and pelvis with IV contrast. Expand Antibiotics to Zosyn. Continue Diflucan. Peritoneal fluid culture showed moderate growth of Escherichia coli and light growth of Jordan albicans. Continue PPN. Hyponatremia persists, stable at 131. Patient is off oxygen this morning. She is afebrile and hemodynamically stable. NG replaced due to recurrent GI symptoms and CT findings suggesting ileus but no abscess. 11/07/17 White count remains elevated but slightly lower than yesterday with decreased percent bands. Afebrile. More comfortable overall following replacement of NG; continues to have active bowel sounds and pass gas. Repeat flat/upright KUBs in a.m. Continue Zosyn, serous fluid described intraoperatively in excess of what was anticipated prompting decision to send sample for culture. Continue Diflucan for culture finding of probable Jordan. Blood pressure stable. Remains on low-dose methimazole after radioactive iodine ablation in July; will clarify with Endo if appropriate to recheck thyroid levels. Hemoglobin stable as are electrolytes although sodium remains borderline low. 11/08/17 Replacement of NG overnight; continues to have active bowel sounds and passing gas, no BM since prior to surgery. KUB films pending this am. White count remains elevated. Dc Zosyn and start Meropenem for serous fluid described intraoperatively in excess of what was anticipated. E coli and pseudomonas cultured. DARCIE's are now resulted showing lower DARCIE w/ Meropenem compared to Zosyn. Continue Diflucan for culture finding of probable Jordan. Sodium remains low 131-->130. Continues on PPN and clear liquids. 11/09/17 Patient looking and feeling much better today. Has had NG tube clamped off and on and has tolerated it well thus far. Patient has passed some stool and continues to pass gas. KUB films pending this am. White count has improved. Day #2 of meropenem (converted from Zosyn (11/02 - 11/08) due to DARCIE) for e coli and pseudomonas in peritoneal fluid. Day #7 of Diflucan for jordan in peritoneal fluid. Sodium still low but improving 130-->132. Continues on PPN and ice chips. Would like to go to IRU on d/c 11/10/17 Patient with increasing abdominal pain, abdominal distention, and increase in white count and development of fever. CT abdomen/pelvis resulting in possibility of microperforation leading to emergent surgery with Dr. Ramirez at the present time. Patient continues on meropenem. Today is day #3. (Converted from Zosyn (11/02 - 11/08) due to DARCIE) for e coli and pseudomonas in peritoneal fluid. Day #8 of Diflucan for jordan in peritoneal fluid. Sodium still low but currently stable 130-->132-->132. Continues on PPN and ice chips. Blood pressure and pulse are stable. Patient is requiring 2 L oxygen. There is question on chest x-ray of lower lobe atelectasis versus pneumonia. Blood cultures are pending. Lactate was normal. Sputum culture has been ordered. Given that she's been on broad coverage antibiotics and she has been breathing shallow due to pain in the abdomen, suspect findings on x-ray are more apt to be atelectasis. Add Acapella and DuoNeb treatments for pulmonary toilet. Patient has been having liquid stools - c diff neg. 11/11/17 Cardiology is seeing for cardiac arrhythmias-bradycardia with pauses. She shows clinical improvement after surgery yesterday for the peritonitis secondary to what is presumptively leaky diverticuli and a developing phlegmon. White blood cell count has yet to fall significantly but lactate does not have a significant climb despite the stress of surgery. I would disregard the raise in C-reactive protein on the surgical circumstances alone. Patient continues on meropenem. Today is day #4. (Converted from Zosyn (11/02 - 11/08) due to DARCIE) for e coli and pseudomonas in peritoneal fluid. Diflucan was stopped with last night's dose at day number 8 and after conversation with Dr. Rios and infectious disease the patient is being switched Micafungin Continues on PPN and ice chips. Blood pressure and pulse are stable. 11/16/17 Telemetry has remained sinus rhythm at a regular rate since postop day 2. White blood cell count has fallen everyday consecutively since postop day. No fevers since day of surgery. Continuing the Diflucan and Zosyn that this time as set by Dr. Rios. Remove the Llanos. Focus on physical therapy at this time. Case discussed with Dr. Ramirez. He is an agreement for Llanos removal but the patient will likely remain in the ICU for an extended time. Unlikely to have any benefit of eggs advance her diet until the patient has better output from the ostomy. 11/17/17 Day 7 following drainage of pelvic abscess and sigmoid resection; no output per colostomy and NG tube remains in place. Dr. Rios recommended 2 weeks postop antibiotics with repeat CT imaging of abdomen prior to discontinuation of antibiotics. On Zosyn/micafungin. Remains on TPN with good fluid balance. Blood pressure is borderline, patient reports she previously took 50 mg losartan once daily and would like to try daily dosing again. TSH elevated-methimazole discontinued. I later received a call from her lacquer maker (Dr. Bianchi) who recommended starting levothyroxine at 50 g daily and he will reassess levels when he sees her in December. Leukocytosis improving progressively however patient has immature cells on smear ; will require continued follow-up. Has been on IV Toradol prn since 11/03-using 1-3 times daily. Discussed with pharmacy, discontinue and substitute IV acetaminophen. 11/18/17 Bowel function returning, output per ostomy; NG clamped and clear liquids initiated with good tolerance thus far. Converted to losartan once daily, blood pressure remains elevated-anticipate improvement with increased activity. Levothyroxine initiated this morning after identification of hypothyroid state following CARBAJAL ablation earlier this year. Spasm present in the upper back/neck with associated headache. Ice packs/warm packs initiated, tramadol ordered as alternate pain medication due to patient intolerances of multiple meds. Flexeril added if muscle relaxant desired. 11/19/17 NG discontinued late yesterday; diet has been advanced progressively to regular. Poor oral intake, continue TPN at present.
[2017-11-19] MEDS: ACETAMINOPHEN 500 MG TABLET PO PRN (21:11)
[2017-11-20] MEDS: PIPERACILLIN/TAZOBACTAM 3.375 GM in D5W 100 ML IV SCH ×4 (00:09→19:00)
[2017-11-20] MEDS: SALINE FLUSH 10ml SYRINGE IVF PRN ×4 (00:10→20:39)
[2017-11-20] MEDS: NS FLUSH BAG 500ml IV PRN (00:10)
[2017-11-20] MEDS: LEVOTHYROXINE 50 MCG TABLET PO SCH (06:04)
[2017-11-20] MEDS ORDERED: [UNRECOGNIZED DRUG - OTHER] IV SCH (07:15)
[2017-11-20] MEDS ORDERED: SODIUM CHLORIDE IV SCH (07:15)
[2017-11-20] MEDS ORDERED: POTASSIUM CHLORIDE IV SCH (07:15)
--- NOTE | 2017-11-20 07:15 | Pharmacy Consult-TPN/PPN ---
Pharmacy Consult-TPN/PPN - Laboratory Information Chemistry Turbidity < 20 (0-20) 11/20/17 04:09 Sodium 130 MEQ/L (136-146) L 11/20/17 04:09 Potassium 4.4 MEQ/L (3.6-5) 11/20/17 04:09 Chloride 102 MEQ/L (98-107) 11/20/17 04:09 Carbon Dioxide 21 MEQ/L (22-30) L 11/20/17 04:09 Anion Gap 7 meq/L (5-15) 11/20/17 04:09 BUN 18.0 MG/DL (7-17) H 11/20/17 04:09 Creatinine 0.6 mg/dL (0.7-1.2) L 11/20/17 04:09 GFR Calculation 99 11/20/17 04:09 BUN/Creatinine Ratio 30 RATIO (6-26) H 11/20/17 04:09 Glucose 73 MG/DL (65-110) 11/20/17 04:09 Glucometer 97 mg/dL (65-110) 11/10/17 16:04 Calculated Osmolality 252 MOSM/KG (261-280) L 11/20/17 04:09 Calcium 7.9 MG/DL (8.4-10.2) L 11/20/17 04:09 Phosphorus 3.2 MG/DL (2.5-4.5) 11/18/17 04:53 Magnesium 2.2 MG/DL (1.6-2.3) 11/18/17 04:53 Conjugated Bilirubin 0.00 mg/dL (0.00-0.30) 11/01/17 03:35 Unconjugated Bilirubin 0.30 mg/dL (0.00-1.1) 11/01/17 03:35 Total Bilirubin 0.30 MG/DL (0.20-1.30) 11/18/17 04:53 Icterus Index < 2 (0-7) 11/20/17 04:09 AST 43 U/L (14-36) H 11/18/17 04:53 ALT 30 U/L (1-35) 11/18/17 04:53 Alkaline Phosphatase 132 U/L (38-126) H 11/18/17 04:53 Troponin I < 0.012 ng/ml (0-0.12) 11/11/17 04:38 C-Reactive Protein 267.3 mg/L (0-9) H D 11/11/17 09:24 Total Protein 5.4 g/dL (6.3-8.2) L 11/18/17 04:53 Albumin 3.0 g/dL (3.5-5.0) L 11/18/17 04:53 Globulin 2.4 G/DL (2.4-3.6) 11/18/17 04:53 Albumin/Globulin Ratio 1.3 RATIO (1.1-2.2) 11/18/17 04:53 Lipase 53 U/L (23-300) 10/28/17 14:57 Plasma Lactate 1.0 MMOL/L (0.6-2.2) 11/12/17 11:19 Procalcitonin 0.55 NG/ML 11/13/17 03:47 TSH 31.90 mIU/L (0.47-4.68) H 11/10/17 08:43 Free T4 0.09 ng/dL (0.78-2.19) L 11/10/17 08:43 Specimen Hemolysis < 15 (0-25) 11/20/17 04:09 - Consult Information TPH Conxult: Day 21 The sodium and acetate were a little low so I add Sodium Acetate for injectio 40 mEq/per bag. The pharmacy will continue to monitor and adjust the TPN as needed. Thanks, Baldo Bragg, Pharmacist.
[2017-11-20] MEDS: ALBUTEROL/IPRATROPIUM 2.5mg-0.5mg/3ml NEB AEROSOL SCH ×3 (07:40→19:58)
[2017-11-20] MEDS: ENOXAPARIN 40 MG/0.4 ML INJECTION SQ SCH (09:19)
[2017-11-20] MEDS: LOSARTAN 50 MG TABLET PO SCH (09:19)
[2017-11-20] MEDS: ACETAMINOPHEN 500 MG TABLET PO PRN ×3 (09:19→20:39)
[2017-11-20] MEDS: Bisacodyl EC TAB 5 MG TABLET PO SCH ×2 (09:22→20:40)
[2017-11-20] MEDS: PANTOPRAZOLE 40 MG INJECTION IVP SCH ×2 (09:23→20:39)
[2017-11-20] MEDS: MULTI-VIT + MINERAL (Opti-gen) TABLET PO SCH (09:33)
--- NOTE | 2017-11-20 12:03 | Progress Note ---
- Date 11/20/17 Subjective: Mrs. Tafoya reports resting well overnight and decreased headache/neck pain. She was able to eat a small amount of breakfast but oral intake remained limited. Nursing reports that her heart rate briefly dropped to 34 with a single junctional escape beat at 0541 this morning while the patient was sleeping; patient denies any awareness of palpitations or chest pain in the recent past. She becomes slightly dyspneic when she walks but has no respiratory symptoms at rest and denies cough or sputum production. She has no lightheadedness and has been afebrile. Objective Vital signs: Temperature 97.7 F 11/20/17 08:00 Pulse Rate 73 11/20/17 11:00 Respiratory Rate 19 11/20/17 11:00 Blood Pressure 131/60 11/20/17 10:00 Pulse Oximetry 96 - RA 11/20/17 11:00 I/O 2905/1635 Weight up approximate 4 kg from admission Decreased output per abdominal drains yesterday-30 mL reported per drain in the right upper and right lower drains each NAD, alert, fluent speech Conjunctiva clear, sclera anicteric, thick white coating on tongue Respirations nonlabored, good airflow, breath sounds clear Regular rhythm, S1-S2 Abdomen soft, mild generalized tenderness, incision healing well-karlie in place, minimal erythema at distal aspect of the incision Extremities without edema Moving all extremities well, ambulates with standby assistance Skin without rash Rhythm: Normal Sinus Rhythm (brief episode of sinus bradycardia with single junctional escape beat overnight; lasted no more than 15 seconds total) Height/Weight/BMI: Height 1.55 m Weight 50.6 kg Body Mass Index 19.5 Results - Labs CBC & Chem 7: 11/20/17 04:09 11/20/17 04:09 Labs: S71 B5 L10 M6 E6 Meta1 Myelo1 Microbiology Results: Microbiology 11/13/17 21:07 Sputum, Expectorated Gram Stain - Final 11/13/17 21:07 Sputum, Expectorated Sputum Culture - Final Normal Resp Tamie incl. Yeast 11/10/17 08:45 Port/Picc Blood Culture - Final No Growth After 5 Days 11/10/17 08:50 Port/Picc Blood Culture - Final No Growth After 5 Days 11/10/17 13:17 Peritoneum Gram Stain - Final 11/10/17 13:17 Peritoneum Surgical Culture - Final Jordan albicans Streptococcus viridans group Assessment and Plan (1) SBO (small bowel obstruction) Current visit: Yes Status: Acute Assessment and Plan: Assessment Small bowel obstruction - s/p release of incarcerated internal hernia by adhesiolysis by Dr. 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 Ramirez Ileus, prolonged Bradycardia with 2-3 second pauses, 11/11/17 Abdominal pain, n/v Leukocytosis - POA Hyponatremia - POA Hyperthyroidism - CARBAJAL ablation 07/18-->hypothyroidism (Follows with Dr. Bianchi) Anxiety Migraine GERD Dyslipidemia Hypertension Diverticulosis with history of recurrent diverticulitis H/o gastritis/+h pylori Mild metabolic acidosis-resolved Headaches/muscle spasm Plan: Doing well, sodium acetate increased in TPN today. Brief episode of bradycardia while sleeping overnight-rhythm strip faxed to cardiology for review. Continue telemetry. Day 10 following drainage of pelvic abscess and sigmoid resection; NG out, diet advanced to regular but patient reports she tolerates only a few bites at a time ; continue TPN until oral intake improved. Dr. Rios recommended 2 weeks postop antibiotics with repeat CT imaging of abdomen prior to discontinuation of antibiotics (approximately 11/23). On Zosyn/ micafungin. Converted to losartan once daily yesterday, blood pressure improved overall- continue to monitor. Levothyroxine initiated 11/18 after identification of hypothyroid state following CARBAJAL ablation earlier this year. Headaches/back spasm improving progressively-asked patient to mention symptoms to PT as modalities may help with management. DVT Prophylaxis: Lovenox GI Prophylaxis: Protonix Resuscitation Status: Full Code - Physician Narrative Narrative: Date: 11/20/17 Time: 1155 Hospital Course Summary Disclaimer: The visit summary below is not to be considered part of the above Progress Note. Hospital Course: 10/28/17 Admit, IP. Stay expected to exceed 2 overnights for tx of enteritis and resolution of SBO. Consult Dr. Nixon. Zosyn and Solumedrol for tx of enteritis. NPO. NG tube. (Pt declines at present. If n/v/pain persists despite current pain/nausea tx, will proceed.) IVF's - 1L bolused in ER. Continue NS at 125cc/hr. This should address her hyponatremia as well. Repeat labs in am to follow blood counts and electrolytes. Protonix IV for GERD and GI ppx. Lovenox for VTE ppx. Full code. PCP - MADAI Gage 10/29/17 Patient's pain is less. Leukocytosis improved from 18.7--> 14.5. Continues on Zosyn and Solumedrol. Consider decreasing Solumedrol dose later today. Remains NPO. IVF's running at 125cc's/hr. Electrolytes stable. Hyponatremia resolved 130-->136. Continue IV pain meds and antiemetics PRN. (Hasn't required since 1799 last shereen. ) Continue IV pantoprazole for GI ppx/GERD. 10/30/17 Patient did have a small bowel movement this morning. No significant flatus. Abdomen feels a little more distended, full and uncomfortable today. She appears in no distress and has not required any pain medication since receiving IV acetaminophen yesterday afternoon. She has not had any nausea or vomiting. She does not have an NG in place. NG placement was attempted on the evening of admission but was difficult, and the patient refused further attempts. We'll continue Solu-Medrol for possible Crohn's disease. Continue Zosyn for now. Discussed with Dr. Nixon, he will see the patient later today. Abdominal films look about the same today. We'll start IV nutrition. Discussed with the pharmacist today, we do not have any TPN. Will start PPN today. 10/31/17 Patient continues to have abdominal discomfort, distention, and continued dilated loops of small bowel on abdominal x-rays. Pain is tolerable. She had 2 small bowel movements this morning. IV Tylenol does help her pain. Continue with IV Solu-Medrol for suspected Crohn's. Continue Zosyn for now. White count is elevated, at this point likely secondary to steroids. The patient has remained afebrile. Regarding nutrition, TPN is not available due to a shortage, PPN was started yesterday and is being given in the midline since she had pain with infusion in a peripheral site. CBC, CMP, and phosphorus tomorrow Repeat C-reactive protein today We'll discuss today with Dr. Nixon 11/01/17 Patient continues to have abdominal discomfort, distention, and continued dilated loops of small bowel on abdominal x-rays. Patient agreed to attempt placement of NG tube again which was successful. Will continue NG tube with low suction. Maintain NPO status. Patient disclosed her father and 2 cousins had a history of lymphoma of the ileum while discussing treatment options with Dr. Nixon. Patient is now more open to idea of surgical intervention if needed. Will re- evaluate pain and distention in AM with possible surgery tomorrow afternoon. Will hold lovenox in AM in anticipation of surgery tomorrow, 11/02/17. Continue with IV Solu-Medrol for suspected Crohn's. Continue Zosyn for now. White count is trending up, at this point likely secondary to steroids. The patient has remained afebrile. PPN was started 10/30/17 and is being given in the midline since she had pain with infusion in a peripheral site. CBC, CMP, and phosphorus tomorrow CRP trending down. Discussed with Dr. Nixon, family and Dr. Duckworth. 11/02/17 Patient continues to have abdominal discomfort and distention. See by Dr. Nixon yesterday and probable surgical intervention today at 1430. Will continue NG tube with low suction. Maintain NPO status. Lovenox held this morning in preparation for anticipated surgery. Continue with IV Solu-Medrol for suspected Crohn's. Continue Zosyn for now. WBC trending down. Patient remains afebrile. New hyponatremia (Na 135) with hypokalemia (K 3.4). Pharmacy managing PPN. Patient given KCl 20 mEq IV yesterday in addition to additional KCl added to PPN per pharmacy. Will given additional KCl 20 mEq IV today and continue to monitor closely. PPN was started 10/30/17 and is being given in the midline since she had pain with infusion in a peripheral site. Mag slightly decreased at 2.4. Will discuss with pharmacy. CRP trending up - 34.5 on 10/31/17 -->87.4 today. Continue to monitor. 11/03/17 S/p release of incarcerated internal hernia by adhesiolysis by Dr. Nixon NG tube with low suction. Continues NPO. IV Solu-Medrol and Zosyn were DC'd yesterday following surgery as there was no evidence of Crohn's. WBC up today - likely post-op elevation. LFT's just slightly elevated. Na 133. Will follow. Continues on PPN (started 10/30/17). Blood noted in llanos - check UA. Peritoneal culture revealed E.coli, few gram positive cocci and yeast. Rocephin and Diflucan initiated. 11/04/17 NG tube with low suction--> clamps later in the day with good tolerance. Continues NPO. Hopeful bowels will begin moving and NG can be removed in the near future with slow initiation of oral intake. No BM at time of exam. WBC trending down. Bandemia improving. Remains afebrile. LFTs returned to normal range. Continue to monitor closely. Persistent hyponatremia (Na 133). Continue to monitor. Continues on PPN (started 10/30/17). Hopeful to start oral intake in the near future. Surgery managing. UA unremarkable. Will discontinue Llanos and monitor patient closely. 11/05/17 NG tube removed last night. Advanced to clear liquids -not wanting to take in much po d/t abd bloating/no appetite. Continue PPN per pharmacy for nutrition. Received dilaudid last night and had nausea, headache and dizziness. Headache and nausea persisting. Will give Tylenol po and Reglan now. Use Toradol and/or Tylenol for pain and avoid narcs if possible. Persistent hyponatremia (Na 131). Continue to monitor. 02 requirement down to 1L from 3L. Using IS. Ambulating. Day #3 of Rocephin and Diflucan for peritoneal culture w/ E.coli, few gram positive cocci and yeast. WBC 18.8-->22.4. Afebrile. Home Losartan and methimazole resumed last night. 11/06/17 White count continues to trend up, currently at 23.3. Bands have also increased to 9%. She has having increased abdominal symptoms with indigestion, nausea and bloating. Discussed with Dr. Collins. Will obtain CT abdomen and pelvis with IV contrast. Expand Antibiotics to Zosyn. Continue Diflucan. Peritoneal fluid culture showed moderate growth of Escherichia coli and light growth of Jordan albicans. Continue PPN. Hyponatremia persists, stable at 131. Patient is off oxygen this morning. She is afebrile and hemodynamically stable. NG replaced due to recurrent GI symptoms and CT findings suggesting ileus but no abscess. 11/07/17 White count remains elevated but slightly lower than yesterday with decreased percent bands. Afebrile. More comfortable overall following replacement of NG; continues to have active bowel sounds and pass gas. Repeat flat/upright KUBs in a.m. Continue Zosyn, serous fluid described intraoperatively in excess of what was anticipated prompting decision to send sample for culture. Continue Diflucan for culture finding of probable Jordan. Blood pressure stable. Remains on low-dose methimazole after radioactive iodine ablation in July; will clarify with Endo if appropriate to recheck thyroid levels. Hemoglobin stable as are electrolytes although sodium remains borderline low. 11/08/17 Replacement of NG overnight; continues to have active bowel sounds and passing gas, no BM since prior to surgery. KUB films pending this am. White count remains elevated. Dc Zosyn and start Meropenem for serous fluid described intraoperatively in excess of what was anticipated. E coli and pseudomonas cultured. DARCIE's are now resulted showing lower DARCIE w/ Meropenem compared to Zosyn. Continue Diflucan for culture finding of probable Jordan. Sodium remains low 131-->130. Continues on PPN and clear liquids. 11/09/17 Patient looking and feeling much better today. Has had NG tube clamped off and on and has tolerated it well thus far. Patient has passed some stool and continues to pass gas. KUB films pending this am. White count has improved. Day #2 of meropenem (converted from Zosyn (11/02 - 11/08) due to DARCIE) for e coli and pseudomonas in peritoneal fluid. Day #7 of Diflucan for jordan in peritoneal fluid. Sodium still low but improving 130-->132. Continues on PPN and ice chips. Would like to go to IRU on d/c 11/10/17 Patient with increasing abdominal pain, abdominal distention, and increase in white count and development of fever. CT abdomen/pelvis resulting in possibility of microperforation leading to emergent surgery with Dr. Ramirez at the present time. Patient continues on meropenem. Today is day #3. (Converted from Zosyn (11/02 - 11/08) due to DARCIE) for e coli and pseudomonas in peritoneal fluid. Day #8 of Diflucan for jordan in peritoneal fluid. Sodium still low but currently stable 130-->132-->132. Continues on PPN and ice chips. Blood pressure and pulse are stable. Patient is requiring 2 L oxygen. There is question on chest x-ray of lower lobe atelectasis versus pneumonia. Blood cultures are pending. Lactate was normal. Sputum culture has been ordered. Given that she's been on broad coverage antibiotics and she has been breathing shallow due to pain in the abdomen, suspect findings on x-ray are more apt to be atelectasis. Add Acapella and DuoNeb treatments for pulmonary toilet. Patient has been having liquid stools - c diff neg. 11/11/17 Cardiology is seeing for cardiac arrhythmias-bradycardia with pauses. She shows clinical improvement after surgery yesterday for the peritonitis secondary to what is presumptively leaky diverticuli and a developing phlegmon. White blood cell count has yet to fall significantly but lactate does not have a significant climb despite the stress of surgery. I would disregard the raise in C-reactive protein on the surgical circumstances alone. Patient continues on meropenem. Today is day #4. (Converted from Zosyn (11/02 - 11/08) due to DARCIE) for e coli and pseudomonas in peritoneal fluid. Diflucan was stopped with last night's dose at day number 8 and after conversation with Dr. Rios and infectious disease the patient is being switched Micafungin Continues on PPN and ice chips. Blood pressure and pulse are stable. 11/16/17 Telemetry has remained sinus rhythm at a regular rate since postop day 2. White blood cell count has fallen everyday consecutively since postop day. No fevers since day of surgery. Continuing the Diflucan and Zosyn that this time as set by Dr. Rios. Remove the Llanos. Focus on physical therapy at this time. Case discussed with Dr. Rmairez. He is an agreement for Llanos removal but the patient will likely remain in the ICU for an extended time. Unlikely to have any benefit of eggs advance her diet until the patient has better output from the ostomy. 11/17/17 Day 7 following drainage of pelvic abscess and sigmoid resection; no output per colostomy and NG tube remains in place. Dr. Rios recommended 2 weeks postop antibiotics with repeat CT imaging of abdomen prior to discontinuation of antibiotics. On Zosyn/micafungin. Remains on TPN with good fluid balance. Blood pressure is borderline, patient reports she previously took 50 mg losartan once daily and would like to try daily dosing again. TSH elevated-methimazole discontinued. I later received a call from her services rep (Dr. Bianchi) who recommended starting levothyroxine at 50 g daily and he will reassess levels when he sees her in December. Leukocytosis improving progressively however patient has immature cells on smear ; will require continued follow-up. Has been on IV Toradol prn since 11/03-using 1-3 times daily. Discussed with pharmacy, discontinue and substitute IV acetaminophen. 11/18/17 Bowel function returning, output per ostomy; NG clamped and clear liquids initiated with good tolerance thus far. Converted to losartan once daily, blood pressure remains elevated-anticipate improvement with increased activity. Levothyroxine initiated this morning after identification of hypothyroid state following CARBAJAL ablation earlier this year. Spasm present in the upper back/neck with associated headache. Ice packs/warm packs initiated, tramadol ordered as alternate pain medication due to patient intolerances of multiple meds. Flexeril added if muscle relaxant desired. 11/19/17 NG discontinued late yesterday; diet has been advanced progressively to regular. Poor oral intake, continue TPN at present. 11/20/17 Doing well, sodium acetate increased in TPN today. Brief episode of bradycardia while sleeping overnight-rhythm strip faxed to cardiology for review. Continue telemetry.
[2017-11-20] MEDS: POTASSIUM CHLORIDE IV SCH ×2 (14:02→14:10)
[2017-11-20] MEDS: SODIUM CHLORIDE IV SCH ×2 (14:02→14:10)
[2017-11-20] MEDS: [UNRECOGNIZED DRUG - OTHER] IV SCH (14:02)
[2017-11-20] MEDS: [UNRECOGNIZED DRUG - OTHER] IV SCH (14:10)
[2017-11-20] MEDS: SODIUM ACETATE IV SCH (14:10)
[2017-11-20] MEDS: NS IV SCH (17:13)
[2017-11-20] MEDS: MICAFUNGIN IV SCH (17:13)
[2017-11-20] MEDS: TRAMADOL 50 MG TABLET PO PRN (17:17)
[2017-11-20] MEDS: FAT EMULSION 20% 250 ML IV SCH (17:42)
--- NOTE | 2017-11-20 18:21 | Progress Note ---
DATE 11/20/2017 HISTORY OF PRESENT ILLNESS The patient is in the intensive care unit at this time. The patient has been tolerating a regular diet but is only eating a few bites of food at a time. She is receiving TPN. PHYSICAL EXAMINATION VITAL SIGNS: Temperature is 97.7 degrees Fahrenheit temporal. Pulse is 20. Blood pressure is 129/69. Oxygen saturation is 95% on room air. ABDOMEN: The midline vertically oriented abdominal incision looks good. No sign of infection at the incision. No sign of any wound-healing problems. There is a colostomy stoma at the left lower quadrant and the colostomy stoma looks good. There is some stool in the colostomy bag. Drain sites look good. LABORATORY DATA White blood cell count is 11,000 today with 5 bands. Hemoglobin is 8.3. Hematocrit is 26.3. Serum sodium is 130. Serum potassium is 4.4. Serum creatinine is 0.6. IMPRESSION Postop day #18 following exploratory laparotomy with release of small bowel obstruction and postop day #10 following exploratory laparotomy, sigmoid colon resection, mobilization of splenic flexure and creation of Julius's pouch. The patient does have some postoperative ileus which appears to be slowly resolving. PLAN 1. Continue TPN. 2. Continue intravenous Zosyn and micafungin for two weeks postoperatively. 3. Continue to advance diet and activity as tolerated. MTDD
[2017-11-21] MEDS: PIPERACILLIN/TAZOBACTAM 3.375 GM in D5W 100 ML IV SCH ×4 (00:09→18:37)
[2017-11-21] MEDS: NS FLUSH BAG 500ml IV PRN (00:10)
[2017-11-21] MEDS: TRAMADOL 50 MG TABLET PO PRN ×2 (02:40→19:29)
[2017-11-21] MEDS: MORPHINE SULFATE 4mg INJECTION IVP PRN (04:22)
[2017-11-21] MEDS: METOCLOPRAMIDE 10mg/2ml INJECTION IVP PRN (04:22)
[2017-11-21] MEDS: SALINE FLUSH 10ml SYRINGE IVF PRN ×3 (04:23→20:13)
[2017-11-21] MEDS: LEVOTHYROXINE 50 MCG TABLET PO SCH (06:20)
--- NOTE | 2017-11-21 07:12 | Pharmacy Consult-TPN/PPN ---
Pharmacy Consult-TPN/PPN - Laboratory Information Chemistry Turbidity < 20 (0-20) 11/21/17 04:19 Sodium 132 MEQ/L (136-146) L 11/21/17 04:19 Potassium 4.5 MEQ/L (3.6-5) 11/21/17 04:19 Chloride 103 MEQ/L (98-107) 11/21/17 04:19 Carbon Dioxide 23 MEQ/L (22-30) 11/21/17 04:19 Anion Gap 6 meq/L (5-15) 11/21/17 04:19 BUN 16.0 MG/DL (7-17) 11/21/17 04:19 Creatinine 0.5 mg/dL (0.7-1.2) L 11/21/17 04:19 GFR Calculation 122 11/21/17 04:19 BUN/Creatinine Ratio 32 RATIO (6-26) H 11/21/17 04:19 Glucose 77 MG/DL (65-110) 11/21/17 04:19 Glucometer 97 mg/dL (65-110) 11/10/17 16:04 Calculated Osmolality 255 MOSM/KG (261-280) L 11/21/17 04:19 Calcium 8.1 MG/DL (8.4-10.2) L 11/21/17 04:19 Phosphorus 2.8 MG/DL (2.5-4.5) 11/21/17 04:19 Magnesium 2.0 MG/DL (1.6-2.3) 11/21/17 04:19 Conjugated Bilirubin 0.00 mg/dL (0.00-0.30) 11/01/17 03:35 Unconjugated Bilirubin 0.30 mg/dL (0.00-1.1) 11/01/17 03:35 Total Bilirubin 0.30 MG/DL (0.20-1.30) 11/18/17 04:53 Icterus Index < 2 (0-7) 11/21/17 04:19 AST 43 U/L (14-36) H 11/18/17 04:53 ALT 30 U/L (1-35) 11/18/17 04:53 Alkaline Phosphatase 132 U/L (38-126) H 11/18/17 04:53 Troponin I < 0.012 ng/ml (0-0.12) 11/11/17 04:38 C-Reactive Protein 267.3 mg/L (0-9) H D 11/11/17 09:24 Total Protein 5.4 g/dL (6.3-8.2) L 11/18/17 04:53 Albumin 3.0 g/dL (3.5-5.0) L 11/18/17 04:53 Globulin 2.4 G/DL (2.4-3.6) 11/18/17 04:53 Albumin/Globulin Ratio 1.3 RATIO (1.1-2.2) 11/18/17 04:53 Lipase 53 U/L (23-300) 10/28/17 14:57 Plasma Lactate 1.0 MMOL/L (0.6-2.2) 11/12/17 11:19 Procalcitonin 0.55 NG/ML 11/13/17 03:47 TSH 31.90 mIU/L (0.47-4.68) H 11/10/17 08:43 Free T4 0.09 ng/dL (0.78-2.19) L 11/10/17 08:43 Specimen Hemolysis < 15 (0-25) 11/21/17 04:19 - Consult Information TPN Consult: Day 22 Will continue the TPN as currently ordered. Thanks, Baldo Bragg, Pharmacist.
[2017-11-21] MEDS: MULTI-VIT + MINERAL (Opti-gen) TABLET PO SCH (08:58)
[2017-11-21] MEDS: ENOXAPARIN 40 MG/0.4 ML INJECTION SQ SCH (08:58)
[2017-11-21] MEDS: ACETAMINOPHEN 500 MG TABLET PO PRN ×2 (08:58→14:50)
[2017-11-21] MEDS: Bisacodyl EC TAB 5 MG TABLET PO SCH ×2 (09:06→20:14)
[2017-11-21] MEDS: LOSARTAN 50 MG TABLET PO SCH (09:07)
[2017-11-21] MEDS: PANTOPRAZOLE 40 MG INJECTION IVP SCH ×2 (09:08→20:13)
[2017-11-21] MEDS: ALBUTEROL/IPRATROPIUM 2.5mg-0.5mg/3ml NEB AEROSOL SCH ×2 (09:30→16:18)
[2017-11-21] MEDS: [UNRECOGNIZED DRUG - OTHER] IV SCH (14:15)
[2017-11-21] MEDS: SODIUM CHLORIDE IV SCH (14:15)
[2017-11-21] MEDS: SODIUM ACETATE IV SCH (14:15)
[2017-11-21] MEDS: POTASSIUM CHLORIDE IV SCH (14:15)
--- NOTE | 2017-11-21 14:21 | Progress Note ---
- Date 11/21/17 Subjective: Mrs. Tafoya was resting when seen this morning. She reports having increased abdominal discomfort/cramping during the night prompting administration of morphine with metoclopramide to minimize nausea. Medications were administered at approximately 0420. At 0733 ~3.2 second cause on the monitor followed by 7 beats of junctional rhythm with a rate of 40. She was sleeping at the time. About 20 minutes later she had intermittent junctional beats while sleeping. Patient denies having any chest pain and has noted occasional palpitations since awakening. She denies dyspnea but does have occasional cough which she characterizes has clearing her throat. She continues to ambulate in the unit regularly and reports eating a little better yesterday than she had prior days. Continues to have some stiffness and tightness in her neck for which she is using ice packs this morning Objective Vital signs: Temperature 98.2 F 11/21/17 08:00 Pulse Rate 44 L 11/21/17 12:00 Respiratory Rate 11 11/21/17 11:00 Blood Pressure 133/64 11/21/17 11:00 Pulse Oximetry 92 11/21/17 10:00 I/O 3438/2830 NAD, alert, fluent speech Conjunctiva clear, sclera anicteric Respirations nonlabored, good airflow, breath sounds clear Regular rhythm, S1-S2 Abdomen soft, mildly tender to palpation L>R, bowel sounds present; incisions healing well Extremities without edema Skin without rash MAEW Rhythm: Normal Sinus Rhythm (3.2 second pause/occasional junctional rhythm or junctional beats as described previously) Height/Weight/BMI: Height 1.55 m Weight 50.6 kg Body Mass Index 19.5 Results - Labs CBC & Chem 7: 11/21/17 04:19 11/21/17 04:19 Labs: S73 B7 L16 M4 Microbiology Results: Microbiology 11/13/17 21:07 Sputum, Expectorated Gram Stain - Final 11/13/17 21:07 Sputum, Expectorated Sputum Culture - Final Normal Resp Tamie incl. Yeast Assessment and Plan (1) SBO (small bowel obstruction) Current visit: Yes Status: Acute Assessment and Plan: Assessment Small bowel obstruction - s/p release of incarcerated internal hernia by adhesiolysis by Dr. 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 Ramirez Ileus, prolonged Bradycardia with 2-3 second pauses, 11/11/17 Abdominal pain, n/v Leukocytosis - POA Hyponatremia - POA Hyperthyroidism - CARBAJAL ablation 07/18-->hypothyroidism (Follows with Dr. Bianchi) Anxiety Migraine GERD Dyslipidemia Hypertension Diverticulosis with history of recurrent diverticulitis H/o gastritis/+h pylori Mild metabolic acidosis-resolved Headaches/muscle spasm Plan: Recurrent sinus pauses/junctional rhythm overnight-occurred several hours after dose of metoclopramide and while asleep but 3.2 second cause difficult to ignore. Cardiology notified. Discontinue metoclopramide as associated with bradycardia; Zofran ordered as alternate antiemetics. CT abdomen/pelvis with contrast in a.m. given increase pain reported past 2 days although may reflect increased oral intake and increased bowel activity. Day 11 following drainage of pelvic abscess and sigmoid resection; NG out, 720 mL oral intake reported yesterday; continue TPN until oral intake improved. Dr. Rios recommended 2 weeks postop antibiotics with repeat CT imaging of abdomen prior to discontinuation of antibiotics (approximately 11/23). On Zosyn/ micafungin. Blood pressure stable on daily losartan. Levothyroxine initiated 11/18 after identification of hypothyroid state following CARBAJAL ablation earlier this year. Variable headaches/upper back spasm-being managed conservatively. Discussed with Dr. Rojo, discussed with nursing. DVT Prophylaxis: Lovenox GI Prophylaxis: Protonix Resuscitation Status: Full Code - Physician Narrative Narrative: Date: 11/21/17 Time: 1417 Hospital Course Summary Disclaimer: The visit summary below is not to be considered part of the above Progress Note. Hospital Course: 10/28/17 Admit, IP. Stay expected to exceed 2 overnights for tx of enteritis and resolution of SBO. Consult Dr. Nixon. Zosyn and Solumedrol for tx of enteritis. NPO. NG tube. (Pt declines at present. If n/v/pain persists despite current pain/nausea tx, will proceed.) IVF's - 1L bolused in ER. Continue NS at 125cc/hr. This should address her hyponatremia as well. Repeat labs in am to follow blood counts and electrolytes. Protonix IV for GERD and GI ppx. Lovenox for VTE ppx. Full code. PCP - MADAI Gage 10/29/17 Patient's pain is less. Leukocytosis improved from 18.7--> 14.5. Continues on Zosyn and Solumedrol. Consider decreasing Solumedrol dose later today. Remains NPO. IVF's running at 125cc's/hr. Electrolytes stable. Hyponatremia resolved 130-->136. Continue IV pain meds and antiemetics PRN. (Hasn't required since 1799 last shereen. ) Continue IV pantoprazole for GI ppx/GERD. 10/30/17 Patient did have a small bowel movement this morning. No significant flatus. Abdomen feels a little more distended, full and uncomfortable today. She appears in no distress and has not required any pain medication since receiving IV acetaminophen yesterday afternoon. She has not had any nausea or vomiting. She does not have an NG in place. NG placement was attempted on the evening of admission but was difficult, and the patient refused further attempts. We'll continue Solu-Medrol for possible Crohn's disease. Continue Zosyn for now. Discussed with Dr. Nixon, he will see the patient later today. Abdominal films look about the same today. We'll start IV nutrition. Discussed with the pharmacist today, we do not have any TPN. Will start PPN today. 10/31/17 Patient continues to have abdominal discomfort, distention, and continued dilated loops of small bowel on abdominal x-rays. Pain is tolerable. She had 2 small bowel movements this morning. IV Tylenol does help her pain. Continue with IV Solu-Medrol for suspected Crohn's. Continue Zosyn for now. White count is elevated, at this point likely secondary to steroids. The patient has remained afebrile. Regarding nutrition, TPN is not available due to a shortage, PPN was started yesterday and is being given in the midline since she had pain with infusion in a peripheral site. CBC, CMP, and phosphorus tomorrow Repeat C-reactive protein today We'll discuss today with Dr. Nixon 11/01/17 Patient continues to have abdominal discomfort, distention, and continued dilated loops of small bowel on abdominal x-rays. Patient agreed to attempt placement of NG tube again which was successful. Will continue NG tube with low suction. Maintain NPO status. Patient disclosed her father and 2 cousins had a history of lymphoma of the ileum while discussing treatment options with Dr. Nixon. Patient is now more open to idea of surgical intervention if needed. Will re- evaluate pain and distention in AM with possible surgery tomorrow afternoon. Will hold lovenox in AM in anticipation of surgery tomorrow, 11/02/17. Continue with IV Solu-Medrol for suspected Crohn's. Continue Zosyn for now. White count is trending up, at this point likely secondary to steroids. The patient has remained afebrile. PPN was started 10/30/17 and is being given in the midline since she had pain with infusion in a peripheral site. CBC, CMP, and phosphorus tomorrow CRP trending down. Discussed with Dr. Nixon, family and Dr. Duckworth. 11/02/17 Patient continues to have abdominal discomfort and distention. See by Dr. Nixon yesterday and probable surgical intervention today at 1430. Will continue NG tube with low suction. Maintain NPO status. Lovenox held this morning in preparation for anticipated surgery. Continue with IV Solu-Medrol for suspected Crohn's. Continue Zosyn for now. WBC trending down. Patient remains afebrile. New hyponatremia (Na 135) with hypokalemia (K 3.4). Pharmacy managing PPN. Patient given KCl 20 mEq IV yesterday in addition to additional KCl added to PPN per pharmacy. Will given additional KCl 20 mEq IV today and continue to monitor closely. PPN was started 10/30/17 and is being given in the midline since she had pain with infusion in a peripheral site. Mag slightly decreased at 2.4. Will discuss with pharmacy. CRP trending up - 34.5 on 10/31/17 -->87.4 today. Continue to monitor. 11/03/17 S/p release of incarcerated internal hernia by adhesiolysis by Dr. Nixon NG tube with low suction. Continues NPO. IV Solu-Medrol and Zosyn were DC'd yesterday following surgery as there was no evidence of Crohn's. WBC up today - likely post-op elevation. LFT's just slightly elevated. Na 133. Will follow. Continues on PPN (started 10/30/17). Blood noted in llanos - check UA. Peritoneal culture revealed E.coli, few gram positive cocci and yeast. Rocephin and Diflucan initiated. 11/04/17 NG tube with low suction--> clamps later in the day with good tolerance. Continues NPO. Hopeful bowels will begin moving and NG can be removed in the near future with slow initiation of oral intake. No BM at time of exam. WBC trending down. Bandemia improving. Remains afebrile. LFTs returned to normal range. Continue to monitor closely. Persistent hyponatremia (Na 133). Continue to monitor. Continues on PPN (started 10/30/17). Hopeful to start oral intake in the near future. Surgery managing. UA unremarkable. Will discontinue Llanos and monitor patient closely. 11/05/17 NG tube removed last night. Advanced to clear liquids -not wanting to take in much po d/t abd bloating/no appetite. Continue PPN per pharmacy for nutrition. Received dilaudid last night and had nausea, headache and dizziness. Headache and nausea persisting. Will give Tylenol po and Reglan now. Use Toradol and/or Tylenol for pain and avoid narcs if possible. Persistent hyponatremia (Na 131). Continue to monitor. 02 requirement down to 1L from 3L. Using IS. Ambulating. Day #3 of Rocephin and Diflucan for peritoneal culture w/ E.coli, few gram positive cocci and yeast. WBC 18.8-->22.4. Afebrile. Home Losartan and methimazole resumed last night. 11/06/17 White count continues to trend up, currently at 23.3. Bands have also increased to 9%. She has having increased abdominal symptoms with indigestion, nausea and bloating. Discussed with Dr. Collins. Will obtain CT abdomen and pelvis with IV contrast. Expand Antibiotics to Zosyn. Continue Diflucan. Peritoneal fluid culture showed moderate growth of Escherichia coli and light growth of Jordan albicans. Continue PPN. Hyponatremia persists, stable at 131. Patient is off oxygen this morning. She is afebrile and hemodynamically stable. NG replaced due to recurrent GI symptoms and CT findings suggesting ileus but no abscess. 11/07/17 White count remains elevated but slightly lower than yesterday with decreased percent bands. Afebrile. More comfortable overall following replacement of NG; continues to have active bowel sounds and pass gas. Repeat flat/upright KUBs in a.m. Continue Zosyn, serous fluid described intraoperatively in excess of what was anticipated prompting decision to send sample for culture. Continue Diflucan for culture finding of probable Jordan. Blood pressure stable. Remains on low-dose methimazole after radioactive iodine ablation in July; will clarify with Endo if appropriate to recheck thyroid levels. Hemoglobin stable as are electrolytes although sodium remains borderline low. 11/08/17 Replacement of NG overnight; continues to have active bowel sounds and passing gas, no BM since prior to surgery. KUB films pending this am. White count remains elevated. Dc Zosyn and start Meropenem for serous fluid described intraoperatively in excess of what was anticipated. E coli and pseudomonas cultured. DARCIE's are now resulted showing lower DARCIE w/ Meropenem compared to Zosyn. Continue Diflucan for culture finding of probable Jordan. Sodium remains low 131-->130. Continues on PPN and clear liquids. 11/09/17 Patient looking and feeling much better today. Has had NG tube clamped off and on and has tolerated it well thus far. Patient has passed some stool and continues to pass gas. KUB films pending this am. White count has improved. Day #2 of meropenem (converted from Zosyn (11/02 - 11/08) due to DARCIE) for e coli and pseudomonas in peritoneal fluid. Day #7 of Diflucan for jordan in peritoneal fluid. Sodium still low but improving 130-->132. Continues on PPN and ice chips. Would like to go to IRU on d/c 11/10/17 Patient with increasing abdominal pain, abdominal distention, and increase in white count and development of fever. CT abdomen/pelvis resulting in possibility of microperforation leading to emergent surgery with Dr. Ramirez at the present time. Patient continues on meropenem. Today is day #3. (Converted from Zosyn (11/02 - 11/08) due to DARCIE) for e coli and pseudomonas in peritoneal fluid. Day #8 of Diflucan for jordan in peritoneal fluid. Sodium still low but currently stable 130-->132-->132. Continues on PPN and ice chips. Blood pressure and pulse are stable. Patient is requiring 2 L oxygen. There is question on chest x-ray of lower lobe atelectasis versus pneumonia. Blood cultures are pending. Lactate was normal. Sputum culture has been ordered. Given that she's been on broad coverage antibiotics and she has been breathing shallow due to pain in the abdomen, suspect findings on x-ray are more apt to be atelectasis. Add Acapella and DuoNeb treatments for pulmonary toilet. Patient has been having liquid stools - c diff neg. 11/11/17 Cardiology is seeing for cardiac arrhythmias-bradycardia with pauses. She shows clinical improvement after surgery yesterday for the peritonitis secondary to what is presumptively leaky diverticuli and a developing phlegmon. White blood cell count has yet to fall significantly but lactate does not have a significant climb despite the stress of surgery. I would disregard the raise in C-reactive protein on the surgical circumstances alone. Patient continues on meropenem. Today is day #4. (Converted from Zosyn (11/02 - 11/08) due to DARCIE) for e coli and pseudomonas in peritoneal fluid. Diflucan was stopped with last night's dose at day number 8 and after conversation with Dr. Rios and infectious disease the patient is being switched Micafungin Continues on PPN and ice chips. Blood pressure and pulse are stable. 11/16/17 Telemetry has remained sinus rhythm at a regular rate since postop day 2. White blood cell count has fallen everyday consecutively since postop day. No fevers since day of surgery. Continuing the Diflucan and Zosyn that this time as set by Dr. Rios. Remove the Llanos. Focus on physical therapy at this time. Case discussed with Dr. Ramirez. He is an agreement for Llanos removal but the patient will likely remain in the ICU for an extended time. Unlikely to have any benefit of eggs advance her diet until the patient has better output from the ostomy. 11/17/17 Day 7 following drainage of pelvic abscess and sigmoid resection; no output per colostomy and NG tube remains in place. Dr. Rios recommended 2 weeks postop antibiotics with repeat CT imaging of abdomen prior to discontinuation of antibiotics. On Zosyn/micafungin. Remains on TPN with good fluid balance. Blood pressure is borderline, patient reports she previously took 50 mg losartan once daily and would like to try daily dosing again. TSH elevated-methimazole discontinued. I later received a call from her .net developer (Dr. Bianchi) who recommended starting levothyroxine at 50 g daily and he will reassess levels when he sees her in December. Leukocytosis improving progressively however patient has immature cells on smear ; will require continued follow-up. Has been on IV Toradol prn since 11/03-using 1-3 times daily. Discussed with pharmacy, discontinue and substitute IV acetaminophen. 11/18/17 Bowel function returning, output per ostomy; NG clamped and clear liquids initiated with good tolerance thus far. Converted to losartan once daily, blood pressure remains elevated-anticipate improvement with increased activity. Levothyroxine initiated this morning after identification of hypothyroid state following CARBAJAL ablation earlier this year. Spasm present in the upper back/neck with associated headache. Ice packs/warm packs initiated, tramadol ordered as alternate pain medication due to patient intolerances of multiple meds. Flexeril added if muscle relaxant desired. 11/19/17 NG discontinued late yesterday; diet has been advanced progressively to regular. Poor oral intake, continue TPN at present. 11/20/17 Doing well, sodium acetate increased in TPN today. Brief episode of bradycardia while sleeping overnight-rhythm strip faxed to cardiology for review. Continue telemetry. 11/21/17 Recurrent sinus pauses/junctional rhythm overnight-occurred several hours after dose of metoclopramide and while asleep but 3.2 second cause difficult to ignore. Cardiology notified. Discontinue metoclopramide as associated with bradycardia; Zofran ordered as alternate antiemetics. CT abdomen/pelvis with contrast in a.m. given increase pain reported past 2 days although may reflect increased oral intake and increased bowel activity. Day 11 following drainage of pelvic abscess and sigmoid resection; NG out, 720 mL oral intake reported yesterday; continue TPN until oral intake improved.
[2017-11-21] MEDS: FAT EMULSION 20% 250 ML IV SCH (15:36)
[2017-11-21] MEDS: NS IV SCH (17:01)
[2017-11-21] MEDS: MICAFUNGIN IV SCH (17:01)
[2017-11-21] MEDS ORDERED: ALBUTEROL/IPRATROPIUM 2.5mg-0.5mg/3ml NEB AEROSOL PRN (18:22)
[2017-11-21] MEDS ORDERED: DOPamine PREMIX 400 MG/250 ML BAG IV PRN (19:09)
[2017-11-22] MEDS: PIPERACILLIN/TAZOBACTAM 3.375 GM in D5W 100 ML IV SCH ×3 (00:11→12:09)
[2017-11-22] MEDS: ACETAMINOPHEN 500 MG TABLET PO PRN (00:11)
[2017-11-22] MEDS: NS FLUSH BAG 500ml IV PRN (00:12)
[2017-11-22] MEDS: TRAMADOL 50 MG TABLET PO PRN ×2 (01:24→11:05)
[2017-11-22] MEDS: ONDANSETRON 4 MG/2 ML INJECTION IVP PRN ×2 (02:27→11:44)
[2017-11-22] MEDS: SALINE FLUSH 10ml SYRINGE IVF PRN ×3 (02:27→12:47)
[2017-11-22] MEDS: LEVOTHYROXINE 50 MCG TABLET PO SCH (06:32)
[2017-11-22] MEDS ORDERED: SALINE FLUSH 10ml SYRINGE ONE (07:07)
[2017-11-22] MEDS ORDERED: IOHEXOL 300mg/ml 75ml INJECTION ONE (07:07)
--- NOTE | 2017-11-22 08:44 | XRay Report ---
Indication: chest pain PROCEDURE: XR chest 1V: Encounter: Initial Comparison: 11/14/2017 Findings: There are probable small bilateral pleural effusions with bibasilar dependent atelectasis. There is a right arm PICC line in place with its tip overlying the mid to lower SVC. Heart size is normal. Trachea is midline. No significant tortuosity of the descending thoracic aorta. Impression: Bilateral pleural effusions with probably passive bibasilar dependent atelectasis, similar in size and severity to previous exams. .
--- NOTE | 2017-11-22 08:47 | Progress Note ---
DATE 11/21/2017 HISTORY OF PRESENT ILLNESS The patient remains in the Intensive Care Unit at this time. The patient has had some cardiac pauses which are a matter of concern this morning. Dr. Collins is evaluating these. The patient is also followed by Dr. Huertas. The patient continues to tolerate a regular diet in small amounts. She did have some oatmeal and applesauce for breakfast this morning. She is receiving TPN. She is ambulating in the Intensive Care Unit. She is making gradual progress. PHYSICAL EXAMINATION VITAL SIGNS: Pulse is 82. Respiratory rate is 10. Blood pressure is 126/66. Oxygen saturation is 93% on room air. ABDOMEN: The midline vertically oriented abdominal incision looks good. There is no sign of any infection. No sign of any wound healing problems at the incision. The colostomy stoma at the left lower quadrant looks good. Drain sites look good. LABORATORY DATA White blood cell count is 12,300 with 7 bands today. Hemoglobin is 9.1. Hematocrit is 28.8. Serum sodium is 132. Serum potassium is 4.5. Serum creatinine is 0.5. IMPRESSION Postop day #19 following exploratory laparotomy with release of small bowel obstruction and postoperative day #11 following exploratory laparotomy, sigmoid colon resection, mobilization of splenic flexure of colon, and creation of Julius's pouch. PLAN 1. Continue TPN. 2. Continue intravenous Zosyn and Micafungin for two weeks postoperatively. 3. Continue to advance diet and activity as tolerated. 4. Cardiac evaluation and treatment by Dr. Collins and Dr. Huertas. [facility]
--- NOTE | 2017-11-22 09:42 | ID Progress Note ---
Subjective Date: 11/22/17 Subjective: She reports that she was feeling better up until yesterday when she had a cardiac pause and felt lightheaded and fatigued. She also reports that she had increased abdominal pain. Today her abdominal pain is better. She is eating some, but not alot. Has been up walking until yesterday. Exam Vital Signs: Temperature 98.7 F 11/22/17 04:00 Pulse Rate 85 11/22/17 07:00 Respiratory Rate 12 11/22/17 07:00 Blood Pressure 107/59 11/22/17 07:00 Pulse Oximetry 95 11/22/17 07:00 Height/Weight/BMI: Height 1.55 m Weight 51.3 kg Body Mass Index 19.5 - Constitutional Present: no acute distress, well nourished, well developed - Routine HEENT Exam Head: Present: normocephalic, atraumatic Eye: Present: EOMI, PERRL ENT: Present: mucous membranes moist, oropharynx clear, dentition normal - Routine Neck Exam Present: supple - Routine Respiratory Exam Present: decreased breath sounds (at bases) Comments: on O2 by NC - Routine Cardiovascular Exam Present: RRR - Routine Abdominal Exam Present: soft, normoactive bowel sounds, non distended, drain (x 2 on R side of abdomen), ostomy - Routine Extremities Exam Absent: cyanosis, clubbing, edema, joint swelling - Routine Skin Exam Present: intact. Absent: rash Comments: RUE PICC site ok - Routine Neurological Exam Present: alert, oriented X3, CN II-XII intact, normal speech. Absent: motor deficit - Routine Psychiatric Exam Present: normal affect, normal thought process Results - Labs CBC & Chem 7: 11/22/17 04:08 11/22/17 04:08 Microbiology Results: Microbiology 11/21/17 16:51 Port/Picc Blood Culture - Preliminary Culture Initiated - Results Pending 11/21/17 16:46 Port/Picc Blood Culture - Preliminary Culture Initiated - Results Pending 11/13/17 21:07 Sputum, Expectorated Gram Stain - Final 11/13/17 21:07 Sputum, Expectorated Sputum Culture - Final Normal Resp Lilliana incl. Yeast 11/10/17 08:45 Port/Picc Blood Culture - Final No Growth After 5 Days 11/10/17 08:50 Port/Picc Blood Culture - Final No Growth After 5 Days 11/10/17 13:17 Peritoneum Gram Stain - Final 11/10/17 13:17 Peritoneum Surgical Culture - Final Jeimy albicans Streptococcus viridans group 11/02/17 15:12 Peritoneal Fluid Gram Stain - Final 11/02/17 15:12 Peritoneal Fluid Body Fluid Culture - Final Escherichia coli Jeimy albicans Pseudomonas aeruginosa Other Lilliana Observed - Impressions CT A/P done this am, some fluid noted R base, no obvious intra-abdominal fluid collections by my read. Await radiology report Impression: Sepsis secondary to GI source Pelvic abscess associated with sigmoid inflammation, s/p sigmoid resection, creation of end colostomy with Julius's pouch, drainage of abscess 11/10/17. Surgical cultures with scant growth of C. albicans and S. viridans. S/p exploratory laparoscopy with CECILLE on 11/02/17, with peritoneal fluid cultures growing isaac-sensitive E. coli, Pseudomonas aeruginosa, C. albicans, and small amounts of other lilliana Leukocytosis Bradycardia with 2-3 second pauses 11/11/17 HTN Acute hypoxic respiratory failure Recommendation: I would continue the Zosyn and micafungin for at least 2 weeks after her surgery on 11/10. Await radiology report from her CT today. She needs to continue to work on advancing her diet and walking more.
[2017-11-22] MEDS: ENOXAPARIN 40 MG/0.4 ML INJECTION SQ SCH (09:43)
[2017-11-22] MEDS: Bisacodyl EC TAB 5 MG TABLET PO SCH (09:43)
[2017-11-22] MEDS: LOSARTAN 50 MG TABLET PO SCH (09:43)
[2017-11-22] MEDS: MULTI-VIT + MINERAL (Opti-gen) TABLET PO SCH (09:43)
[2017-11-22] MEDS: PANTOPRAZOLE 40 MG INJECTION IVP SCH (09:44)
--- NOTE | 2017-11-22 10:11 | Cardiology Progress Note ---
Subjective Principal diagnosis: bradycardia Interval history: Steffi is seen in follow up for bradycardia. Telemetry is reviewed and had a 3.2 second pause yesterday morning at 0733 folloed by some junctional bradycardia. She later reported some sharp "heart pain" per RN. EKG and troponin unremarkable. This morning while visiting her she has pauses and junctional bradycardia which she reports she feels lightheaded and nauseous. Family and RN at the bedside. Exam Vital signs: Temperature 98.7 F 11/22/17 04:00 Pulse Rate 86 11/22/17 08:00 Respiratory Rate 12 11/22/17 07:00 Blood Pressure 107/59 11/22/17 07:00 Pulse Oximetry 95 11/22/17 07:00 Inpatient Medications: Generic Name Dose Route Start Last Admin Trade Name Freq PRN Reason Stop Dose Admin Acetaminophen 500 - 1,000 mg 11/16/17 13:59 11/22/17 00:11 Tylenol PO 1,000 mg Q6H PRN Administration Discomfort Albuterol/Ipratropium 3 ml 11/21/17 18:22 Duoneb AEROSOL RTTID PRN Bisacodyl 10 mg 11/16/17 21:00 11/22/17 09:43 Dulcolax PO 10 mg BID JUDI Administration Cyclobenzaprine HCl 5 mg 11/18/17 14:29 11/18/17 15:39 Flexeril PO 5 mg TID PRN Administration Muscle spasm Enoxaparin Sodium 40 mg 10/29/17 09:00 11/22/17 09:43 Lovenox SQ 40 mg DAILY JUDI Administration Fat Emulsion Intravenous 250 mls @ 50 mls/hr 11/08/17 16:00 11/21/17 21:00 Intralipid 20% IV Infused 1600 JUDI Infusion Micafungin Sodium 100 mg/ 100 mls @ 100 mls/hr 11/12/17 16:00 11/21/17 18:37 Sodium Chloride IV Infused 1600 JUDI Infusion Piperacillin Sod/Tazobactam 100 mls @ 200 mls/hr 11/12/17 18:00 11/22/17 07: 00 Sod 3.375 gm/ Dextrose IV Infused Q6H JUDI Infusion Acetaminophen 1,000 mg in 100 mls @ 400 mls/hr 11/17/17 21:00 11/17/17 17:00 Ofirmev 1 Gm IV Infused BID PRN Infusion Sodium Chloride 140 meq/ 2,108.6497 mls @ 82 mls/hr 11/20/17 13:00 11/22/17 07:00 Sodium Acetate 40 meq/ IV 82 mls/hr Potassium Chloride 40 meq/ .Q24H JUDI Infusion Potassium Phosphate 40 meq/ Magnesium Sulfate 16 meq/ Calcium Chloride 13 meq/ Protocol Multivitamins/Minerals 10 ml/ Chromium/Copper/Manganese/Zinc 1 ml/ Amino Acids/ Electrolytes Dopamine HCl/Dextrose 400 mg in 250 mls @ 9.619 mls/hr 11/21/17 19:09 Dopamine Drip IV .Q24H PRN Bradycardia Protocol 5 MCG/KG/MIN Levothyroxine Sodium 50 mcg 11/18/17 06:30 11/22/17 06:32 Synthroid PO 50 mcg ACB JUDI Administration Lorazepam 0.5 mg 11/22/17 00:49 Ativan Inj IVP Q4H PRN Losartan Potassium 50 mg 11/18/17 09:00 11/22/17 09:43 Cozaar PO 50 mg DAILY JUDI Administration Multivitamins/Minerals 1 tab 11/20/17 09:00 11/22/17 09:43 Vision PO 1 tab DAILY JUDI Administration Ondansetron HCl 4 mg 11/21/17 11:34 11/22/17 02:27 Zofran IVP 4 mg Q6H PRN Administration Nausea &/or vomiting Pantoprazole Sodium 40 mg 10/28/17 21:00 11/22/17 09:44 Protonix Iv IVP 40 mg BID JUDI Administration Sodium Chloride 10 - 80 ml 10/28/17 14:40 11/22/17 02:27 Iv Flush IVF 20 ml PRN PRN Administration Flushing Sodium Chloride 500 ml 10/28/17 18:29 11/22/17 00:12 Normal Saline IV 500 ml PRN PRN Administration FLUSH Throat Lozenges 3 spray 11/01/17 11:52 11/18/17 13:34 Chloraseptic [place] PO 3 spray Q2H PRN Administration Tramadol HCl 25 - 50 mg 11/18/17 13:05 11/22/17 01:24 Ultram PO 50 mg Q4H PRN Administration Pain Discontinued Medications Generic Name Dose Route Start Last Admin Trade Name Freq PRN Reason Stop Dose Admin Acetaminophen 650 mg 11/05/17 09:18 11/09/17 10:39 Tylenol PO 650 mg Q5HR PRN Administration Pain Albuterol Sulfate 2.5 mg 11/10/17 15:48 11/10/17 15:44 Proventil Neb (0.083%) AEROSOL 11/10/17 15:49 2.5 mg ONE TIME ONE Administration Albuterol/Ipratropium 3 ml 11/10/17 19:00 11/20/17 13:00 Duoneb AEROSOL 3 ml RTQID JUDI Administration Albuterol/Ipratropium 3 ml 11/20/17 19:00 11/21/17 16:18 Duoneb AEROSOL Not Given RTTID JUDI Amino Acids 1 each 10/30/17 14:07 10/30/17 16:41 Pharmacy Consult - Ppn 10/30/17 14:08 Not Given O ONE Amino Acids/Electrolytes/Dextrose 1 each 10/30/17 14:04 Pharmacy Consult - Tpn 10/30/17 14:05 O ONE Amino Acids/Electrolytes/Dextrose 1 each 11/11/17 07:44 11/11/17 11:06 Pharmacy Consult - Tpn 11/11/17 07:45 1 each O ONE Administration Amlodipine Besylate 5 mg 11/01/17 03:41 11/01/17 03:44 Norvasc PO 11/01/17 03:42 5 mg DAILY ONE Administration Bisacodyl 10 mg 11/05/17 10:00 11/05/17 11:20 Dulcolax RECTALLY 11/05/17 10:01 10 mg O ONE Administration Bisacodyl 10 mg 11/08/17 10:00 11/10/17 10:02 Dulcolax RECTALLY Not Given BID [facility] Bisacodyl 10 mg 11/09/17 09:27 11/09/17 10:40 Dulcolax PO 11/09/17 09:28 10 mg O ONE Administration Bisacodyl 10 mg 11/15/17 20:12 11/15/17 20:28 Dulcolax PO 11/15/17 20:13 10 mg O ONE Administration Fentanyl 25 mcg 10/28/17 14:40 10/28/17 15:18 Fentanyl IVP 10/28/17 14:41 25 mcg O ONE Administration Fentanyl 25 mcg 10/28/17 18:02 11/10/17 09:43 Fentanyl IVP 25 mcg Q30M PRN Administration Pain Fentanyl 0 mcg 11/10/17 16:37 11/10/17 16:40 Fentanyl IVP 25 mcg Q5M PRN Administration Furosemide 20 mg 11/01/17 03:40 11/01/17 03:44 Lasix 20 Mg/2 Ml IVP 11/01/17 03:41 20 mg ONCE ONE Administration Furosemide 40 mg 11/13/17 10:06 11/13/17 20:22 Lasix 40 Mg/4 Ml IVP 11/13/17 21:01 40 mg Q12HR JUDI Administration Furosemide 40 mg 11/14/17 19:15 11/14/17 19:50 Lasix 40 Mg/4 Ml IVP 11/14/17 19:16 40 mg ONE TIME JUDI Administration Hydralazine HCl 5 mg 11/01/17 07:06 11/05/17 23:19 Apresoline IVP 5 mg Q6H PRN Administration elevated blood pressure Hydralazine HCl 10 mg 11/06/17 00:50 11/06/17 00:56 Apresoline IVP 11/06/17 00:51 10 mg O ONE Administration Hydralazine HCl 10 mg 11/06/17 00:52 Apresoline IVP Q6H PRN elevated blood pressure Hydromorphone HCl 0 mg 11/02/17 17:32 11/02/17 17:37 Dilaudid IVP 0.5 mg Q10M PRN Administration Hydromorphone HCl 0.2 - 1 mg 11/02/17 18:35 11/04/17 21:18 Dilaudid IVP 1 mg Q2H PRN Administration Pain Hydromorphone HCl 0.5 - 1 mg 11/10/17 17:48 11/10/17 17:59 Dilaudid IVP 1 mg Q2H PRN Administration Pain Sodium Chloride 1,000 mls @ 1,000 mls/hr 10/28/17 14:40 10/28/17 16:24 Normal Saline IV 10/28/17 15:39 Infused .Q1H ONE Infusion Piperacillin Sod/Tazobactam 100 mls @ 200 mls/hr 10/28/17 17:45 11/02/17 17: 35 Sod 3.375 gm/ Sodium Chloride IV Infused Q6H JUDI Infusion Sodium Chloride 1,000 mls @ 100 mls/hr 10/28/17 19:15 10/30/17 09:19 Normal Saline IV Infused .Q10H JUDI Infusion Acetaminophen 1,000 mg in 100 mls @ 400 mls/hr 10/29/17 15:52 11/01/17 23:15 Ofirmev 1 Gm IV Infused Q8H PRN Infusion Lactated Ringer's 1,000 mls @ 100 mls/hr 10/30/17 07:30 10/30/17 15:05 Lactated Ringers IV 10/30/17 16:00 Infused .Q10H JUDI Infusion Multivitamins/Minerals 10 ml/ 2,011 mls @ 100 mls/hr 10/30/17 16:00 11/02/17 05:10 Chromium/Copper/Manganese/Zinc IV 11/02/17 04:59 Infused 1 ml/ Amino Acids/ .Q20H7M JUDI Infusion Electrolytes/Dextrose Protocol Fat Emulsion Intravenous 500 mls @ 125 mls/hr 10/31/17 16:00 11/07/17 19:14 Intralipid 20% IV Infused 1600 JUDI Infusion Potassium Chloride 10 meq in 100 mls @ 100 mls/hr 11/01/17 07:30 11/01/17 09: 52 Potassium Chloride Premix IV 11/01/17 09:29 Infused Q1H JUDI Infusion Potassium Chloride 20 meq/ 2,021 mls @ 100 mls/hr 11/02/17 05:00 11/03/17 01: 44 Multivitamins/Minerals 10 ml/ IV 11/03/17 00:59 Infused Chromium/Copper/Manganese/Zinc .[id number] JUDI Infusion 1 ml/ Amino Acids/ Electrolytes/Dextrose Protocol Potassium Chloride 10 meq in 100 mls @ 100 mls/hr 11/02/17 08:00 11/02/17 13: 29 Potassium Chloride Premix IV 11/02/17 09:59 Infused Q1H JUDI Infusion Potassium Chloride 40 meq/ 2,031 mls @ 100 mls/hr 11/03/17 01:00 11/03/17 22: 49 Multivitamins/Minerals 10 ml/ IV 11/03/17 21:19 Infused Chromium/Copper/Manganese/Zinc .[id number] JUDI Infusion 1 ml/ Amino Acids/ Electrolytes/Dextrose Protocol Lactated Ringer's 1,000 mls @ 30 mls/hr 11/02/17 14:00 11/02/17 18:53 Lactated Ringers IV Infused .Q24H JUDI Infusion Multivitamins/Minerals 10 ml/ 2,011 mls @ 100 mls/hr 11/03/17 21:20 11/04/17 18:25 Chromium/Copper/Manganese/Zinc IV 11/04/17 16:59 Infused 1 ml/ Amino Acids/ .Q20H7M JUDI Infusion Electrolytes/Dextrose Protocol Ceftriaxone Sodium 1 g/ Sodium 100 mls @ 200 mls/hr 11/03/17 17:00 11/05/17 19:03 Chloride IV Infused Q24H JUDI Infusion Fluconazole 200 mg in 100 mls @ 100 mls/hr 11/03/17 17:00 11/10/17 19:50 Diflucan 200 Mg Premix IV Not Given Q24H JUDI Multivitamins/Minerals 10 ml/ 2,011 mls @ 82 mls/hr 11/04/17 17:00 11/05/17 15:58 Chromium/Copper/Manganese/Zinc IV 11/05/17 16:59 Infused 1 ml/ Amino Acids/ .Q24H JUDI Infusion Electrolytes/Dextrose Protocol Multivitamins/Minerals 10 ml/ 2,015.5455 mls @ 82 mls/hr 11/05/17 15:30 11/07 16:22 Chromium/Copper/Manganese/Zinc IV 11/07/17 15:29 Infused 1 ml/ Sodium Phosphate 20 meq .Q24H JUDI Infusion / Amino Acids/Electrolytes/ Dextrose Protocol Piperacillin Sod/Tazobactam 100 mls @ 200 mls/hr 11/06/17 10:30 11/08/17 10: 33 Sod 3.375 gm/ Dextrose IV Not Given Q6H JUDI Multivitamins/Minerals 10 ml/ 2,021 mls @ 82 mls/hr 11/07/17 08:30 Chromium/Copper/Manganese/Zinc IV 1 ml/ Sodium Chloride 40 meq/ .Q24H JUDI Amino Acids/Electrolytes/ Dextrose Protocol Multivitamins/Minerals 10 ml/ 2,021 mls @ 82 mls/hr 11/07/17 16:00 11/08/17 17:14 Chromium/Copper/Manganese/Zinc IV 11/08/17 15:59 Infused 1 ml/ Sodium Chloride 40 meq/ .Q24H JUDI Infusion Amino Acids/Electrolytes/ Dextrose Protocol Azithromycin 250 mg/ Sodium 100 mls @ 100 mls/hr 11/08/17 08:45 11/08/17 09: 06 Chloride IV Not Given Q24H JUDI Azithromycin 250 mg/ Sodium 250 mls @ 250 mls/hr 11/08/17 10:00 11/10/17 16: 02 Chloride IV Infused Q24H JUDI Infusion Multivitamins/Minerals 10 ml/ 2,031 mls @ 82 mls/hr 11/08/17 16:00 11/09/17 16:24 Chromium/Copper/Manganese/Zinc IV 11/09/17 15:59 Infused 1 ml/ Sodium Chloride 80 meq/ .Q24H JUDI Infusion Amino Acids/Electrolytes/ Dextrose Protocol Meropenem 1 gm/ Sodium 100 mls @ 200 mls/hr 11/08/17 10:45 11/08/17 12:46 Chloride IV Not Given Q8HR JUDI Meropenem 1 gm/ Sodium 50 mls @ 100 mls/hr 11/08/17 11:15 11/11/17 01:02 Chloride IV Not Given Q8HR JUDI Multivitamins/Minerals 10 ml/ 2,036 mls @ 82 mls/hr 11/09/17 08:00 11/10/17 23:31 Chromium/Copper/Manganese/Zinc IV 11/10/17 15:59 Infused 1 ml/ Sodium Chloride 100 meq .Q24H JUDI Infusion / Amino Acids/Electrolytes/ Dextrose Protocol Multivitamins/Minerals 10 ml/ 2,041 mls @ 82 mls/hr 11/10/17 16:00 11/10/17 19:49 Chromium/Copper/Manganese/Zinc IV Not Given 1 ml/ Sodium Chloride 120 meq .Q24H JUDI / Amino Acids/Electrolytes/ Dextrose Lactated Ringer's 1,000 mls @ 50 mls/hr 11/10/17 12:30 11/10/17 15:35 Lactated Ringers IV Infused .Q20H JUDI Infusion Lactated Ringer's 1,000 mls @ 0 mls/hr 11/10/17 13:19 11/16/17 07:26 Lactated Ringers IV Infused .Q0M JUDI Infusion As Directed Potassium Chloride/Dextrose/Sod Cl 1,000 mls @ 125 mls/hr 11/10/17 17:48 07:25 D5-1/2ns With Kcl 20meq Premix IV Not Given .Q8H JUDI Fluconazole 400 mg in 200 mls @ 100 mls/hr 11/10/17 18:00 11/10/17 21:35 Diflucan 400 Mg Premix IV Infused Q24H JUDI Infusion Albumin Human 25 g/ IV 100 mls @ 50 mls/hr 11/11/17 01:01 11/11/17 01:26 Solution IV 11/11/17 03:00 Not Given O ONE Albumin Human 12.5 g/ IV 50 mls @ 50 mls/hr 11/11/17 02:18 11/11/17 02:49 Solution IV 11/11/17 03:17 Infused O ONE Infusion Albumin Human 12.5 g/ IV 50 mls @ 50 mls/hr 11/11/17 01:17 11/11/17 03:56 Solution IV 11/11/17 02:16 Infused O ONE Infusion Meropenem 1 gm/ Sodium 50 mls @ 100 mls/hr 11/11/17 07:00 11/12/17 09:00 Chloride IV Infused Q8H JUDI Infusion Multivitamins/Minerals 10 ml/ 2,041 mls @ 82 mls/hr 11/11/17 10:00 11/12/17 07:50 Chromium/Copper/Manganese/Zinc IV 11/12/17 09:59 Infused 1 ml/ Sodium Chloride 120 meq .Q24H JUDI Infusion / Amino Acids/Electrolytes/ Dextrose Protocol Micafungin Sodium 100 mg/ 100 mls @ 100 mls/hr 11/12/17 09:00 Sodium Chloride IV DAILY JUDI Multivitamins/Minerals 10 ml/ 2,041 mls @ 82 mls/hr 11/12/17 10:00 11/14/17 08:26 Chromium/Copper/Manganese/Zinc IV 11/14/17 09:00 Infused 1 ml/ Sodium Chloride 120 meq .Q24H JUDI Infusion / Amino Acids/Electrolytes/ Dextrose Protocol Micafungin Sodium 100 mg/ 100 mls @ 100 mls/hr 11/11/17 20:00 11/11/17 21:20 Sodium Chloride IV Infused 2000 JUDI Infusion Piperacillin Sod/Tazobactam 100 mls @ 200 mls/hr 11/12/17 10:00 11/12/17 12: 06 Sod 3.375 gm/ Dextrose IV 11/12/17 12:30 Infused Q6H JUDI Infusion Multivitamins/Minerals 10 ml/ 2,041 mls @ 82 mls/hr 11/14/17 09:00 11/15/17 09:53 Chromium/Copper/Manganese/Zinc IV 11/15/17 08:59 Infused 1 ml/ Sodium Chloride 80 meq/ .Q24H JUDI Infusion Potassium Acetate 20 meq/ Amino Acids/Electrolytes/ Dextrose Protocol Sodium Chloride 140 meq/ 2,108.6497 mls @ 82 mls/hr 11/15/17 09:00 11/19/17 19:42 Potassium Chloride 80 meq/ IV 11/19/17 12:00 Not Given Potassium Phosphate 40 meq/ .Q24H JUDI Magnesium Sulfate 16 meq/ Calcium Chloride 13 meq/ Multivitamins/Minerals 10 ml/ Protocol Chromium/Copper/Manganese/Zinc 1 ml/ Amino Acids/ Electrolytes Potassium Chloride 10 meq in 100 mls @ 100 mls/hr 11/15/17 05:40 11/15/17 08: 15 Potassium Chloride Premix IV 11/15/17 06:39 Infused O ONE Infusion Potassium Chloride 10 meq in 100 mls @ 100 mls/hr 11/15/17 05:40 11/15/17 06: 57 Potassium Chloride Premix IV 11/15/17 06:39 Infused O ONE Infusion Sodium Chloride 140 meq/ 2,088.6497 mls @ 82 mls/hr 11/19/17 12:01 11/20/17 14:10 Potassium Chloride 40 meq/ IV 11/20/17 13:00 Infused Potassium Phosphate 40 meq/ .Q24H JUDI Infusion Magnesium Sulfate 16 meq/ Calcium Chloride 13 meq/ Multivitamins/Minerals 10 ml/ Protocol Chromium/Copper/Manganese/Zinc 1 ml/ Amino Acids/ Electrolytes Ketorolac Tromethamine 15 mg 11/02/17 18:35 11/17/17 07:22 Toradol Inj IVP 15 mg Q6H PRN Administration Pain Labetalol HCl 10 mg 11/02/17 17:06 11/02/17 17:09 Trandate IVP 11/02/17 17:07 10 mg O ONE Administration Lorazepam 0.5 mg 11/01/17 11:53 11/21/17 21:02 Ativan Inj IVP 0.5 mg O PRN Administration Losartan Potassium 25 mg 11/04/17 21:00 11/17/17 21:24 Cozaar PO 11/17/17 23:00 25 mg BID JUDI Administration Methimazole 2.5 mg 11/05/17 09:00 11/17/17 08:53 Tapazole PO 2.5 mg DAILY JUDI Administration Methylprednisolone Sodium Succinate 80 mg 10/28/17 17:45 11/02/17 18:36 Solu-Medrol IVP Not Given Q8HR JUDI Metoclopramide HCl 10 mg 10/28/17 17:39 11/07/17 08:04 Reglan IVP 10 mg Q6H PRN Administration Nausea Metoclopramide HCl 10 mg 11/08/17 08:45 Reglan IVP Q6H PRN Metoclopramide HCl 10 mg 11/08/17 09:25 11/10/17 19:49 Reglan IVP Not Given Q6HR JUDI Metoclopramide HCl 10 mg 11/10/17 17:48 11/21/17 04:22 Reglan IVP 10 mg Q6H PRN Administration Metoprolol Tartrate 5 mg 10/29/17 00:33 11/01/17 05:53 Lopressor IVP 5 mg Q6H PRN Administration Hypertension Morphine Sulfate 2 mg 10/28/17 18:43 Morphine Sulfate Inj IVP Q2HR PRN Pain Morphine Sulfate 1 - 4 mg 11/10/17 22:16 11/21/17 04:22 Morphine Sulfate Inj IVP 2 mg Q1H PRN Administration Pain Ondansetron HCl 4 mg 10/28/17 14:40 10/28/17 15:04 Zofran IVP 10/28/17 14:41 4 mg O ONE Administration Ondansetron HCl 4 mg 10/28/17 16:39 10/28/17 16:40 Zofran IVP 10/28/17 16:40 4 mg O ONE Administration Ondansetron HCl 4 mg 10/28/17 18:44 11/10/17 16:25 Zofran IVP 4 mg Q6H PRN Administration Nausea &/or vomiting Ondansetron HCl 4 mg 11/03/17 13:34 11/11/17 06:00 Zofran IVP 4 mg Q6H PRN Administration Nausea &/or vomiting Scopolamine 1 mg 11/02/17 15:07 11/02/17 14:08 Transderm-Scop Patch TD 11/05/17 15:06 1 mg Q3D JUDI Administration Scopolamine 1 removal 11/05/17 15:06 11/05/17 15:41 Transderm-Scop Patch Removal TD 11/05/17 15:07 1 removal Q3D JUDI Administration Sodium Chloride 500 ml 11/10/17 21:27 11/10/17 21:29 Normal Saline IV 11/10/17 21:28 500 ml PRN ONE Administration - Constitutional no acute distress, thin, cooperative - Routine HEENT Exam Head: Present: normocephalic - Routine Neck Exam Absent: JVD - Routine Chest/Breast/Axilla Exam Chest wall: Absent: tenderness - Routine Respiratory Exam Present: diminished air movement. Absent: dyspnea - Routine Cardiovascular Exam Present: no murmur, bradycardia, irregular rhythm - Routine Abdominal Exam Present: soft, tenderness - Routine Extremities Exam Present: no edema - Routine Skin Exam Present: intact, dry, warm - Routine Neurological Exam Present: alert, oriented X3 - Routine Psychiatric Exam Present: normal affect, normal thought process - Urinary Catheter Management Urethral Cath placed during this visit: yes, but has since been removed by the nurse Insertion date: 11/10/17 Insertion time: 13:00 Removal date: 11/09/17 Removal time: 09:51 Results 11/22/17 04:08 11/22/17 04:08 Cardiac Enzymes 11/21/17 11/22/17 Range/Units 16:51 04:08 AST 59 H (14-36) U/L Troponin I < 0.012 (0-0.12) ng/ml CBC 11/22/17 Range/Units 04:08 WBC 12.0 H (4.5-11.0) T/MM3 RBC 2.87 L (4.00-5.20) M/MM3 Hgb 8.6 L (12-16) GM/DL Hct 26.9 L (36-46) % Plt Count 424 H (130-400) T/MM3 Neut # (Auto) Not performed Lymph # (Auto) Not performed [place] # (Auto) Not performed Eos # (Auto) Not performed Baso # (Auto) Not performed Comprehensive Metabolic Panel 11/22/17 Range/Units 04:08 Sodium 128 L (136-146) MEQ/L Potassium 4.3 (3.6-5) MEQ/L Chloride 100 (98-107) MEQ/L Carbon Dioxide 22 (22-30) MEQ/L BUN 15.0 (7-17) MG/DL Creatinine 0.5 L (0.7-1.2) mg/dL Glucose 82 (65-110) MG/DL Calcium 7.7 L (8.4-10.2) MG/DL AST 59 H (14-36) U/L ALT 40 H (1-35) U/L Alkaline Phosphatase 123 (38-126) U/L Total Protein 5.5 L (6.3-8.2) g/dL Albumin 2.9 L (3.5-5.0) g/dL Intake and Output 11/21/17 11/22/17 11/22/17 22:59 06:59 14:59 Intake Total 1085.500 / 1085.500 996 / 996 182 / 182 Output Total 635 / 635 735 / 735 Balance 450.500 / 450.500 261 / 261 182 / 182 Intake: IV 1085.500 / 1085.500 756 / 756 182 / 182 Fat Emulsion 20% 250 ml @ 50 250.000 / 250.000 mls/hr IV 1600 [facility] Rx#: [id number] Micafungin 100 mg In Ns 100 ml 100.000 / 100.000 @ 100 mls/hr IV 1600 [facility] Rx#: [id number] Piperacillin/Tazobactam 3.375 100.000 / 100.000 100 / 100 100 / 100 gm In D5w 100 ml @ 200 mls/hr IV Q6H [facility] Rx#:[id number] Sodium Chloride Conc 140 meq 635.5 / 635.5 656 / 656 82 / 82 Sodium Acetate 40 meq Potassium Chloride Inj 40 meq POTASSIUM PHOSPHATE (mEq) 40 meq Magnesium Sulfate Inj 16 meq Calcium Chloride 13 meq Multi- Vit Infusion 10 ml Multi-Trace Elements 1 ml In TPN - Custom Formula 2,000 ml @ 82 mls/hr IV .Q24H [facility] Rx#:[id number] Oral 240 / 240 Output: Urine 550 / 550 650 / 650 Stool 35 / 35 25 / 25 Wound Drainage 50 / 50 60 / 60 Right Lower Lateral Abdomen 20 / 20 20 / 20 Right Upper Lateral Abdomen 30 / 30 40 / 40 Other: Urine Appearance Clear Clear Urine Color Yellow Dark Yellow Stool Color Green Green Stool Consistency Soft Soft Liquid Liquid Drain Type Right Lower Lateral Abdomen Bulb Landen Bulb Landen Right Upper Lateral Abdomen Bulb Landen Bulb Landen Weight 114 lb 3.191 oz Patient Weight 11/23/17 06:59 Weight 114 lb 3.191 oz - Imaging and Cardiology Imaging & Cardiology Narrative: Date of Exam: 11/21/17 Ordering Provider: Bettie Collins MD Type of Exam(s): XR chest 1V Reason for Exam(s): chest pain Indication: chest pain PROCEDURE: XR chest 1V: Encounter: Initial Comparison: 11/14/2017 Findings: There are probable small bilateral pleural effusions with bibasilar dependent atelectasis. There is a right arm PICC line in place with its tip overlying the mid to lower SVC. Heart size is normal. Trachea is midline. No significant tortuosity of the descending thoracic aorta. Impression: Bilateral pleural effusions with probably passive bibasilar dependent atelectasis, similar in size and severity to previous exams. 11/22/17 10:17 11/22/17 13:29 Date of Exam: 11/22/17 Ordering Provider: Bettie Collins MD Type of Exam(s): CT abdomen pelvis w con Reason for Exam(s): pelvic abscess/abdominal pain Indication: pelvic abscess/abdominal pain PROCEDURE: CT abdomen pelvis w con: Encounter: Initial Comparison: 11/10/2017 Technique: Helical imaging was performed through the abdomen and pelvis with three-dimensional volume rendered reconstructions performed on the helically acquired data. Automated Exposure Control and Iterative Reconstruction dose reducing techniques were utilized. FINDINGS: Are small bilateral pleural effusions with probably passive bibasilar dependent atelectasis. Heart size is normal. No pericardial effusion. Abdomen: There is no free fluid or free air. There are surgical drains entering the right upper abdomen and crossing the midline with skin karlie in the midline of the anterior abdomen so drain in the right lower quadrant. The liver is homogeneous in appearance without evidence of enhancing lesion or mass. Gallbladder is surgically absent. No intrahepatic or extra hepatic biliary ductal dilatation. The spleen, pancreas, bilateral adrenals and kidneys are within normal limits. The abdominal aorta is nonaneurysmal with extensive calcific there is chronic disease. No definite retroperitoneal or mesenteric adenopathy. No definite bowel distention or bowel wall thickening. There is no free fluid or intra-abdominal mass seen. No aggressive lytic or blastic bony lesions are noted. Pelvis: There is an ostomy in the left lower quadrant. The urinary bladder is not distended. There is no free pelvic fluid. There is no inguinal or pelvic lymphadenopathy. No gross lytic or blastic bony lesions are identified. IMPRESSION: Persistent bilateral pleural effusion with bibasilar atelectasis. No evidence for mass lesion or adenopathy. No infectious or inflammatory process. Assessment and Plan - Assessment and Plan (1) Bradycardia Current visit: Yes Status: Acute (2) Dyslipidemia Current visit: No Status: Chronic (3) Hypertension Current visit: No Status: Chronic - Assessment and Plan 11/11/17 Bradycardia Current visit: Yes Status: Acute - 3.7 and 2.9 second pauses followed by junctional bradycardia. - felt dizzy and nausea and could feel her heart was not beating as usual - denies chest pain, pressure, tightness, dyspnea. - Has a history of syncope - currently SR, HR 80s - EKG SR, sinus arrhythmia, possible RV conduction delay - Azithromycin, Fluconazole and Ondansetron are discontinued - Continue to monitor cardiac telemetry - 2D echo - Probably will need PPM in future once current illness is resolved - Will continue to watch closely Dyslipidemia Current visit: No Status: Chronic - currently NPO, home meds are held Hypertension Current visit: No Status: Chronic - BP stable, has had hypotension - currently NPO, home meds are held Thank you for allowing us to participate in the care of this patient 11/12/17 No further pauses seen on telemetry. Continue to monitor telemetry. 11/22/17 3.2 second pause and multiple episodes of junctional bradycardia yesterday on tele. - reported chest pain, EKG and troponin negative - Pauses and junctional now with [id number] and nausea - Start Dopamine 5mcg/kg/hr as needed - Dr. Wolfe would be available tomorrow am for PPM insertion if family decides Hospital Course Summary Disclaimer: The visit summary below is not to be considered part of the above Progress Note. Hospital Course: 10/28/17 Admit, IP. Stay expected to exceed 2 overnights for tx of enteritis and resolution of SBO. Consult Dr. Nixon. Zosyn and Solumedrol for tx of enteritis. NPO. NG tube. (Pt declines at present. If n/v/pain persists despite current pain/nausea tx, will proceed.) IVF's - 1L bolused in ER. Continue NS at 125cc/hr. This should address her hyponatremia as well. Repeat labs in am to follow blood counts and electrolytes. Protonix IV for GERD and GI ppx. Lovenox for VTE ppx. Full code. PCP - MADAI Gage 10/29/17 Patient's pain is less. Leukocytosis improved from 18.7--> 14.5. Continues on Zosyn and Solumedrol. Consider decreasing Solumedrol dose later today. Remains NPO. IVF's running at 125cc's/hr. Electrolytes stable. Hyponatremia resolved 130-->136. Continue IV pain meds and antiemetics PRN. (Hasn't required since 1799 last shereen. ) Continue IV pantoprazole for GI ppx/GERD. 10/30/17 Patient did have a small bowel movement this morning. No significant flatus. Abdomen feels a little more distended, full and uncomfortable today. She appears in no distress and has not required any pain medication since receiving IV acetaminophen yesterday afternoon. She has not had any nausea or vomiting. She does not have an NG in place. NG placement was attempted on the evening of admission but was difficult, and the patient refused further attempts. We'll continue Solu-Medrol for possible Crohn's disease. Continue Zosyn for now. Discussed with Dr. Nixon, he will see the patient later today. Abdominal films look about the same today. We'll start IV nutrition. Discussed with the pharmacist today, we do not have any TPN. Will start PPN today. 10/31/17 Patient continues to have abdominal discomfort, distention, and continued dilated loops of small bowel on abdominal x-rays. Pain is tolerable. She had 2 small bowel movements this morning. IV Tylenol does help her pain. Continue with IV Solu-Medrol for suspected Crohn's. Continue Zosyn for now. White count is elevated, at this point likely secondary to steroids. The patient has remained afebrile. Regarding nutrition, TPN is not available due to a shortage, PPN was started yesterday and is being given in the midline since she had pain with infusion in a peripheral site. CBC, CMP, and phosphorus tomorrow Repeat C-reactive protein today We'll discuss today with Dr. Nixon 11/01/17 Patient continues to have abdominal discomfort, distention, and continued dilated loops of small bowel on abdominal x-rays. Patient agreed to attempt placement of NG tube again which was successful. Will continue NG tube with low suction. Maintain NPO status. Patient disclosed her father and 2 cousins had a history of lymphoma of the ileum while discussing treatment options with Dr. Nixon. Patient is now more open to idea of surgical intervention if needed. Will re- evaluate pain and distention in AM with possible surgery tomorrow afternoon. Will hold lovenox in AM in anticipation of surgery tomorrow, 11/02/17. Continue with IV Solu-Medrol for suspected Crohn's. Continue Zosyn for now. White count is trending up, at this point likely secondary to steroids. The patient has remained afebrile. PPN was started 10/30/17 and is being given in the midline since she had pain with infusion in a peripheral site. CBC, CMP, and phosphorus tomorrow CRP trending down. Discussed with Dr. Nixon, family and Dr. Duckworth. 11/02/17 Patient continues to have abdominal discomfort and distention. See by Dr. Nixon yesterday and probable surgical intervention today at 1430. Will continue NG tube with low suction. Maintain NPO status. Lovenox held this morning in preparation for anticipated surgery. Continue with IV Solu-Medrol for suspected Crohn's. Continue Zosyn for now. WBC trending down. Patient remains afebrile. New hyponatremia (Na 135) with hypokalemia (K 3.4). Pharmacy managing PPN. Patient given KCl 20 mEq IV yesterday in addition to additional KCl added to PPN per pharmacy. Will given additional KCl 20 mEq IV today and continue to monitor closely. PPN was started 10/30/17 and is being given in the midline since she had pain with infusion in a peripheral site. Mag slightly decreased at 2.4. Will discuss with pharmacy. CRP trending up - 34.5 on 10/31/17 -->87.4 today. Continue to monitor. 11/03/17 S/p release of incarcerated internal hernia by adhesiolysis by Dr. Nixon NG tube with low suction. Continues NPO. IV Solu-Medrol and Zosyn were DC'd yesterday following surgery as there was no evidence of Crohn's. WBC up today - likely post-op elevation. LFT's just slightly elevated. Na 133. Will follow. Continues on PPN (started 10/30/17). Blood noted in llanos - check UA. Peritoneal culture revealed E.coli, few gram positive cocci and yeast. Rocephin and Diflucan initiated. 11/04/17 NG tube with low suction--> clamps later in the day with good tolerance. Continues NPO. Hopeful bowels will begin moving and NG can be removed in the near future with slow initiation of oral intake. No BM at time of exam. WBC trending down. Bandemia improving. Remains afebrile. LFTs returned to normal range. Continue to monitor closely. Persistent hyponatremia (Na 133). Continue to monitor. Continues on PPN (started 10/30/17). Hopeful to start oral intake in the near future. Surgery managing. UA unremarkable. Will discontinue Llanos and monitor patient closely. 11/05/17 NG tube removed last night. Advanced to clear liquids -not wanting to take in much po d/t abd bloating/no appetite. Continue PPN per pharmacy for nutrition. Received dilaudid last night and had nausea, headache and dizziness. Headache and nausea persisting. Will give Tylenol po and Reglan now. Use Toradol and/or Tylenol for pain and avoid narcs if possible. Persistent hyponatremia (Na 131). Continue to monitor. 02 requirement down to 1L from 3L. Using IS. Ambulating. Day #3 of Rocephin and Diflucan for peritoneal culture w/ E.coli, few gram positive cocci and yeast. WBC 18.8-->22.4. Afebrile. Home Losartan and methimazole resumed last night. 11/06/17 White count continues to trend up, currently at 23.3. Bands have also increased to 9%. She has having increased abdominal symptoms with indigestion, nausea and bloating. Discussed with Dr. Collins. Will obtain CT abdomen and pelvis with IV contrast. Expand Antibiotics to Zosyn. Continue Diflucan. Peritoneal fluid culture showed moderate growth of Escherichia coli and light growth of Jordan albicans. Continue PPN. Hyponatremia persists, stable at 131. Patient is off oxygen this morning. She is afebrile and hemodynamically stable. NG replaced due to recurrent GI symptoms and CT findings suggesting ileus but no abscess. 11/07/17 White count remains elevated but slightly lower than yesterday with decreased percent bands. Afebrile. More comfortable overall following replacement of NG; continues to have active bowel sounds and pass gas. Repeat flat/upright KUBs in a.m. Continue Zosyn, serous fluid described intraoperatively in excess of what was anticipated prompting decision to send sample for culture. Continue Diflucan for culture finding of probable Jordan. Blood pressure stable. Remains on low-dose methimazole after radioactive iodine ablation in July; will clarify with Endo if appropriate to recheck thyroid levels. Hemoglobin stable as are electrolytes although sodium remains borderline low. 11/08/17 Replacement of NG overnight; continues to have active bowel sounds and passing gas, no BM since prior to surgery. KUB films pending this am. White count remains elevated. Dc Zosyn and start Meropenem for serous fluid described intraoperatively in excess of what was anticipated. E coli and pseudomonas cultured. DARCIE's are now resulted showing lower DARCIE w/ Meropenem compared to Zosyn. Continue Diflucan for culture finding of probable Jordan. Sodium remains low 131-->130. Continues on PPN and clear liquids. 11/09/17 Patient looking and feeling much better today. Has had NG tube clamped off and on and has tolerated it well thus far. Patient has passed some stool and continues to pass gas. KUB films pending this am. White count has improved. Day #2 of meropenem (converted from Zosyn (11/02 - 11/08) due to DARCIE) for e coli and pseudomonas in peritoneal fluid. Day #7 of Diflucan for jordan in peritoneal fluid. Sodium still low but improving 130-->132. Continues on PPN and ice chips. Would like to go to IRU on d/c 11/10/17 Patient with increasing abdominal pain, abdominal distention, and increase in white count and development of fever. CT abdomen/pelvis resulting in possibility of microperforation leading to emergent surgery with Dr. Ramirez at the present time. Patient continues on meropenem. Today is day #3. (Converted from Zosyn (11/02 - 11/08) due to DARCIE) for e coli and pseudomonas in peritoneal fluid. Day #8 of Diflucan for jordan in peritoneal fluid. Sodium still low but currently stable 130-->132-->132. Continues on PPN and ice chips. Blood pressure and pulse are stable. Patient is requiring 2 L oxygen. There is question on chest x-ray of lower lobe atelectasis versus pneumonia. Blood cultures are pending. Lactate was normal. Sputum culture has been ordered. Given that she's been on broad coverage antibiotics and she has been breathing shallow due to pain in the abdomen, suspect findings on x-ray are more apt to be atelectasis. Add Acapella and DuoNeb treatments for pulmonary toilet. Patient has been having liquid stools - c diff neg. 11/11/17 Cardiology is seeing for cardiac arrhythmias-bradycardia with pauses. She shows clinical improvement after surgery yesterday for the peritonitis secondary to what is presumptively leaky diverticuli and a developing phlegmon. White blood cell count has yet to fall significantly but lactate does not have a significant climb despite the stress of surgery. I would disregard the raise in C-reactive protein on the surgical circumstances alone. Patient continues on meropenem. Today is day #4. (Converted from Zosyn (11/02 - 11/08) due to DARCIE) for e coli and pseudomonas in peritoneal fluid. Diflucan was stopped with last night's dose at day number 8 and after conversation with Dr. Rios and infectious disease the patient is being switched Micafungin Continues on PPN and ice chips. Blood pressure and pulse are stable. 11/16/17 Telemetry has remained sinus rhythm at a regular rate since postop day 2. White blood cell count has fallen everyday consecutively since postop day. No fevers since day of surgery. Continuing the Diflucan and Zosyn that this time as set by Dr. Rios. Remove the Llanos. Focus on physical therapy at this time. Case discussed with Dr. Ramirez. He is an agreement for Llanos removal but the patient will likely remain in the ICU for an extended time. Unlikely to have any benefit of eggs advance her diet until the patient has better output from the ostomy. 11/17/17 Day 7 following drainage of pelvic abscess and sigmoid resection; no output per colostomy and NG tube remains in place. Dr. Rios recommended 2 weeks postop antibiotics with repeat CT imaging of abdomen prior to discontinuation of antibiotics. On Zosyn/micafungin. Remains on TPN with good fluid balance. Blood pressure is borderline, patient reports she previously took 50 mg losartan once daily and would like to try daily dosing again. TSH elevated-methimazole discontinued. I later received a call from her assistant librarian (Dr. Bianchi) who recommended starting levothyroxine at 50 g daily and he will reassess levels when he sees her in December. Leukocytosis improving progressively however patient has immature cells on smear ; will require continued follow-up. Has been on IV Toradol prn since 11/03-using 1-3 times daily. Discussed with pharmacy, discontinue and substitute IV acetaminophen. 11/18/17 Bowel function returning, output per ostomy; NG clamped and clear liquids initiated with good tolerance thus far. Converted to losartan once daily, blood pressure remains elevated-anticipate improvement with increased activity. Levothyroxine initiated this morning after identification of hypothyroid state following CARBAJAL ablation earlier this year. Spasm present in the upper back/neck with associated headache. Ice packs/warm packs initiated, tramadol ordered as alternate pain medication due to patient intolerances of multiple meds. Flexeril added if muscle relaxant desired. 11/19/17 NG discontinued late yesterday; diet has been advanced progressively to regular. Poor oral intake, continue TPN at present. 11/20/17 Doing well, sodium acetate increased in TPN today. Brief episode of bradycardia while sleeping overnight-rhythm strip faxed to cardiology for review. Continue telemetry. 11/21/17 Recurrent sinus pauses/junctional rhythm overnight-occurred several hours after dose of metoclopramide and while asleep but 3.2 second cause difficult to ignore. Cardiology notified. Discontinue metoclopramide as associated with bradycardia; Zofran ordered as alternate antiemetics. CT abdomen/pelvis with contrast in a.m. given increase pain reported past 2 days although may reflect increased oral intake and increased bowel activity. Day 11 following drainage of pelvic abscess and sigmoid resection; NG out, 720 mL oral intake reported yesterday; continue TPN until oral intake improved.
[2017-11-22 10:19] VITALS: TEMP 98.3
--- NOTE | 2017-11-22 11:35 | CT Scan Report ---
Indication: pelvic abscess/abdominal pain PROCEDURE: CT abdomen pelvis w con: Encounter: Initial Comparison: 11/10/2017 Technique: Helical imaging was performed through the abdomen and pelvis with three-dimensional volume rendered reconstructions performed on the helically acquired data. Automated Exposure Control and Iterative Reconstruction dose reducing techniques were utilized. FINDINGS: Are small bilateral pleural effusions with probably passive bibasilar dependent atelectasis. Heart size is normal. No pericardial effusion. Abdomen: There is no free fluid or free air. There are surgical drains entering the right upper abdomen and crossing the midline with skin karlie in the midline of the anterior abdomen so drain in the right lower quadrant. The liver is homogeneous in appearance without evidence of enhancing lesion or mass. Gallbladder is surgically absent. No intrahepatic or extra hepatic biliary ductal dilatation. The spleen, pancreas, bilateral adrenals and kidneys are within normal limits. The abdominal aorta is nonaneurysmal with extensive calcific there is chronic disease. No definite retroperitoneal or mesenteric adenopathy. No definite bowel distention or bowel wall thickening. There is no free fluid or intra-abdominal mass seen. No aggressive lytic or blastic bony lesions are noted. Pelvis: There is an ostomy in the left lower quadrant. The urinary bladder is not distended. There is no free pelvic fluid. There is no inguinal or pelvic lymphadenopathy. No gross lytic or blastic bony lesions are identified. IMPRESSION: Persistent bilateral pleural effusion with bibasilar atelectasis. No evidence for mass lesion or adenopathy. No infectious or inflammatory process. .
--- NOTE | 2017-11-22 13:34 | History & Physical Report ---
- History and Physical History and Physical: Recurrent sinus pauses of 3-3.4 seconds this morning followed by junctional rhythm; increasing frequency-symptomatic and patient aware of rhythm, nauseated/ lightheaded with episodes; some associated left-sided chest pain. Dopamine started a couple of hours ago; had at least one episode of junctional rhythm on 4 g dopamine after coughing with following nausea/retching. On dopamine typically has low-grade tachycardia with systolic pressures 160-190. Repeat CT abdomen pelvis obtained today demonstrates small bilateral pleural effusions right greater than left, adjacent compressive atelectasis; ostomy in the left lower quadrant, no free pelvic fluid, no evidence of abscess/phlegmon. Study reviewed with radiology. Blood cultures drawn yesterday are negative overnight but less than 24 hours. WBC 12.0 today with 13% bands-increased from yesterday, 2% metas CRP pending Uncomfortable female, retching intermittently,mild generalize abd tenderness, breath sounds clear, generalized pallor. Sodium 128-sodium acetate increased in TPN 2 days ago when sodium was 130, will require further adjustment-pharmacy notified. Multiple discussions with associated consulting physicians and family/patient at bedside. Additionally have discussed with Dr. Thao was not scheduled to be in [place] this week. Increasingly appears patient will require pacemaker in the immediate future due to increasing cardiac instability; Supplier Development Manager close to her tomorrow for maintenance and no covering data communications technician here place pacemakers. Dr. Huertas on vacation until early December. Family has requested transfer to [place] said Dr. Thao can see her there. Arrangements being made-cardiology/surgery/Dr. Rios aware. 95 min in pt care/care coordination. Critically ill, care provided in ICU.
[2017-11-22] MEDS ORDERED: [UNRECOGNIZED DRUG - OTHER] IV SCH (14:00)
[2017-11-22] MEDS ORDERED: POTASSIUM CHLORIDE IV SCH (14:00)
[2017-11-22] MEDS ORDERED: SODIUM ACETATE IV SCH (14:00)
[2017-11-22] MEDS ORDERED: SODIUM CHLORIDE IV SCH (14:00)
--- NOTE | 2017-11-22 14:08 | Pharmacy Consult-TPN/PPN ---
Pharmacy Consult-TPN/PPN - Laboratory Information Chemistry Turbidity < 20 (0-20) 11/22/17 04:08 Sodium 128 MEQ/L (136-146) L 11/22/17 04:08 Potassium 4.3 MEQ/L (3.6-5) 11/22/17 04:08 Chloride 100 MEQ/L (98-107) 11/22/17 04:08 Carbon Dioxide 22 MEQ/L (22-30) 11/22/17 04:08 Anion Gap 6 meq/L (5-15) 11/22/17 04:08 BUN 15.0 MG/DL (7-17) 11/22/17 04:08 Creatinine 0.5 mg/dL (0.7-1.2) L 11/22/17 04:08 GFR Calculation 122 11/22/17 04:08 BUN/Creatinine Ratio 30 RATIO (6-26) H 11/22/17 04:08 Glucose 82 MG/DL (65-110) 11/22/17 04:08 Glucometer 97 mg/dL (65-110) 11/10/17 16:04 Calculated Osmolality 247 MOSM/KG (261-280) L 11/22/17 04:08 Calcium 7.7 MG/DL (8.4-10.2) L 11/22/17 04:08 Phosphorus 2.8 MG/DL (2.5-4.5) 11/21/17 04:19 Magnesium 2.0 MG/DL (1.6-2.3) 11/21/17 04:19 Conjugated Bilirubin 0.00 mg/dL (0.00-0.30) 11/01/17 03:35 Unconjugated Bilirubin 0.30 mg/dL (0.00-1.1) 11/01/17 03:35 Total Bilirubin 0.30 MG/DL (0.20-1.30) 11/22/17 04:08 Icterus Index < 2 (0-7) 11/22/17 04:08 AST 59 U/L (14-36) H 11/22/17 04:08 ALT 40 U/L (1-35) H 11/22/17 04:08 Alkaline Phosphatase 123 U/L (38-126) 11/22/17 04:08 Troponin I < 0.012 ng/ml (0-0.12) 11/22/17 12:45 C-Reactive Protein 267.3 mg/L (0-9) H D 11/11/17 09:24 Total Protein 5.5 g/dL (6.3-8.2) L 11/22/17 04:08 Albumin 2.9 g/dL (3.5-5.0) L 11/22/17 04:08 Globulin 2.6 G/DL (2.4-3.6) 11/22/17 04:08 Albumin/Globulin Ratio 1.1 RATIO (1.1-2.2) 11/22/17 04:08 Lipase 53 U/L (23-300) 10/28/17 14:57 Plasma Lactate 1.0 MMOL/L (0.6-2.2) 11/12/17 11:19 Procalcitonin 0.55 NG/ML 11/13/17 03:47 TSH 31.90 mIU/L (0.47-4.68) H 11/10/17 08:43 Free T4 0.09 ng/dL (0.78-2.19) L 11/10/17 08:43 Specimen Hemolysis < 15 (0-25) 11/22/17 12:45 Intake and Output 11/21/17 11/22/17 11/23/17 06:59 06:59 06:59 Intake Total 3437.9987 / 3437.9987 3448.000 / 3448.000 594.200 / 594.200 Output Total 2830 / 2830 1780 / 1780 875 / 875 Balance 607.9987 / 607.9987 1668.000 / 1668.000 -280.800 / -280.800 Weight 50.6 kg 51.3 kg 51.8 kg Intake: IV 2717.9987 / 2717.9987 2718.000 / 2718.000 594.200 / 594.200 DOPamine PREMIX 400 mg In 250 11.767 / 11.767 ml @ 5 MCG/KG/MIN 9.619 mls/hr IV .Q24H PRN Rx#:[id number] Fat Emulsion 20% 250 ml @ 50 250 / 250 250.000 / 250.000 mls/hr IV 1600 [facility]I Rx#: [id number] Micafungin 100 mg In Ns 100 ml 100.000 / 100.000 100.000 / 100.000 @ 100 mls/hr IV 1600 [facility] Rx#: [id number] Piperacillin/Tazobactam 3.375 400.000 / 400.000 400.000 / 400.000 100 / 100 gm In D5w 100 ml @ 200 mls/hr IV Q6H [facility] Rx#:[id number] Sodium Chloride Conc 140 meq 669.6657 / 669.6657 Potassium Chloride Inj 40 meq POTASSIUM PHOSPHATE (mEq) 40 meq Magnesium Sulfate Inj 16 meq Calcium Chloride 13 meq Multi-Vit Infusion 10 ml Multi -Trace Elements 1 ml In TPN - Custom Formula 2,000 ml @ 82 mls/hr IV .Q24H [facility] Rx#: [id number] Sodium Chloride Conc 140 meq 1298.333 / 9098.009 6129.0 / 1968.0 482.433 / 482.433 Sodium Acetate 40 meq Potassium Chloride Inj 40 meq POTASSIUM PHOSPHATE (mEq) 40 meq Magnesium Sulfate Inj 16 meq Calcium Chloride 13 meq Multi- Vit Infusion 10 ml Multi-Trace Elements 1 ml In TPN - Custom Formula 2,000 ml @ 82 mls/hr IV .Q24H [facility] Rx#:[id number] Oral 720 / 720 730 / 730 Output: Urine 2450 / 2450 1575 / 1575 875 / 875 Stool 250 / 250 60 / 60 Wound Drainage 130 / 130 145 / 145 Right Lower Lateral Abdomen 75 / 75 65 / 65 Right Upper Lateral Abdomen 55 / 55 80 / 80 Other: Urine Appearance Clear Clear Clear Urine Color Yellow Dark Yellow Yellow Urine Odor Normal Stool Color Brown Green Green Stool Consistency Soft Soft Liquid Liquid Drain Type Right Lower Lateral Abdomen Bulb Neibert Bulb Neibert Right Upper Lateral Abdomen Bulb Neibert Bulb Neibert # Voids 1 - Consult Information TPN CONSULT: DAY 24 Patient currently on the Clinimix 5%/20% Custom Formula TPN at 82 ml/hr. Patient is eating a little now and complains of no appetite. TPN rate will be cut from 82 ml/hr to 70 ml/hr and the lipids decreased from 250 ml 20% lipids to 100 ml bag. At 70 ml/hr the patient will receive 1680 ml fluid which will provide 1142 non-protein kcal from the dextrose. The lipids provide an additional 200 non-protein kcal. Total = 1342 non-protein kcal. The Sodium Acetate was increased to 80 mEq per bag and the NaCl remains at 140 mEq per bag. Thank you. Nita Arteaga, PharmD
[2017-11-22 15:01] VITALS: BP 139/70; PULSE 104; RESP 22; O2SAT 91
[2017-11-22] MEDS ORDERED: FAT EMULSION 20% 100 ML IV SCH (16:00)
--- NOTE | 2017-11-22 18:56 | Progress Note ---
DATE OF VISIT 11/22/2017 REASON FOR VISIT Postoperative followup. LULI Kapadia says that she is having some worsening abdominal pain today. Her son is concerned since she is taking minimal oral intake and has been having worsening discomfort. A CT scan was performed this morning. The patient is also having some cardiac issues today with sinus pauses of 3 seconds that have been associated with nausea and lightheadedness. She is now on dopamine. She has had minimal ostomy output per the nurse. PHYSICAL EXAM VITAL SIGNS: Afebrile. Pulse 106, blood pressure 152/71, respiratory rate 23, oxygen saturation 90% on 4 L/nasal cannula. GENERAL: The patient is awake and alert. She is seated in bed in no acute distress. ABDOMEN: Soft, more distended than last week and tender. Her midline incision is clean, dry and intact. Her ostomy is pink and perfused with minimal output. Drains have serosanguineous output and are in place. There is ecchymosis of the lower abdominal wall extending out into the left groin. She has tenderness over the left iliac crest and greater trochanter as well as over the abdomen. LABORATORY DATA White blood cell count 12.0 with 13% bands. IMAGING Report from the CT of the abdomen and pelvis from this morning was reviewed. Please see the EMR. There was no infectious or inflammatory process noted. IMPRESSION 1. Postop day #20/12 status post exploratory laparotomy with release of small bowel obstruction due to incarcerated internal hernia/exploratory laparotomy with sigmoid resection, mobilization of the splenic flexure, and Julius's procedure. 2. Worsening abdominal pain. I think this is most likely from increased abdominal distention from an ongoing ileus as well as abdominal wall ecchymosis since her pain continues out over the greater trochanter and there is ecchymosis noted. 3. Postoperative ileus - likely related to the inflammatory process at her second procedure. She does not seem to be able to take adequate oral intake. PLAN 1. Continue IV Zosyn micafungin. Infectious Disease is consulting and recommends at least a few more days of antimicrobial coverage. 2. Continue parenteral nutrition. 3. Based on her cardiac issues lately and need for pacemaker placement she is going to be transferred to [place] today. 4. I will be happy to discuss the case with the consulting surgeon in [place] once the name of the surgeon is available. 5. I did discuss the situation with the patient and her son, Peter, as well as some other family members. I did discuss my suspicions of worsening abdominal pain from increased distention related to her ileus and the abdominal wall ecchymosis. I explained that there would be no way to know for certain that there was not an intraabdominal process without a repeat trip to the operating room since her body habitus limited the effectiveness of the CT scan and identification of inflammation. I explained that given her current cardiac situation I did not feel that a return trip to the operating room would be in her best interest since it was my suspicion that there was not a new intraabdominal process. MTDD
--- NOTE | 2017-11-23 10:30 | Discharge Summary ---
Discharge Information Date of admission: 10/28/17 16:49 Anticipated date of discharge: 11/22/17 Attending Physician: Bettie Collins MD Primary care physician: MADAI Bernal Consults: Consulting Provider: Haseeb Nixon Reason For Exam: small bowel obstruction, ?crohns Consulting Provider: Roslyn Rios Reason For Exam: ABX treatment Consulting Provider: Brendan Huertas Reason For Exam: bradycardia, pauses - Discharge Diagnosis (1) SBO (small bowel obstruction) Status: Acute Small bowel obstruction - s/p release of incarcerated internal hernia by adhesiolysis by Dr. 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 Ramirez Ileus, prolonged Junctional rhythm with 2-3 second sinus pauses, 11/11/17; recurrent 11/21/17 and Abdominal pain, n/v Leukocytosis - POA Hyponatremia - POA hx Hyperthyroidism - CARBAJAL ablation 07/18-->hypothyroidism (Follows with Dr. Bianchi) Anxiety Migraine hx Crohn's-dx uncertain GERD Dyslipidemia Hypertension Diverticulosis H/o gastritis/+h pylori Mild metabolic acidosis-resolved Headaches/muscle spasm - Procedures Procedures: PICC line placed right upper extremity 11/02/17 11/02/17-Dr. Haseeb Nixon M.D. Exploratory laparotomy with release of incarcerated internal hernia by adhesiolysis. POSTOPERATIVE DIAGNOSES 1. Incarcerated internal hernia due to an omental adhesion to the anterior pelvis. 2. Small bowel obstruction secondary to incarcerated internal hernia. 11/10/17-Haseeb Ramirez M.D. Exploratory laparotomy, sigmoid resection, creation of end colostomy with Julius's pouch, mobilization of splenic flexure. POSTOPERATIVE DIAGNOSES Surgical abdomen, abnormal CT scan revealing small foci of air raising concern for possible microperforation, phlegmonous process involving sigmoid colon, rectum with associated developing abscess. Echocardiogram on 11/11/17 Two-dimensional echo with spectral Doppler, color-flow and M-mode. It was obtained in a patient with arrhythmias. Left atrial dimension is normal. Left ventricle end-diastolic dimension is normal. Left ventricle wall thickness is normal. LV systolic function is normal with ejection fraction of about 65%. Right atrium is normal. Right ventricle is normal. Aortic root dimension is normal. Mitral valve is morphologically normal with mild mitral regurgitation. Aortic valve appears to be normal. Tricuspid valve shows mild tricuspid regurgitation with mild pulmonary hypertension with estimated pulmonary artery systolic pressure of 36. Pulmonary valve shows trace of pulmonary insufficiency. There is no pericardial effusion. IMPRESSION 1. Normal LV systolic function with ejection fraction of 65%. 2. Mild mitral regurgitation. 3. Trace of pulmonary insufficiency. 4. Mild tricuspid regurgitation with mild pulmonary hypertension with estimated pulmonary artery systolic pressure of 36. - Laboratory Labs: 11/22/17 04:08 11/22/17 04:08 Differential on date of discharge: S68 B13 L10 M3 E4 Meta2 CRP on 11/22/17-38.9 Bilirubin 0.3, AST 59, ALT 40, alkaline phosphatase 123 on 11/22/17 Troponin <0.012 x 2 11/21/17 and 11/22/17 TSH is 31.9, free T4 0.09 on 11/10/17 - Microbiology Microbiology 11/21/17 16:46 Port/Picc Blood Culture - Preliminary No Growth After 1 Day 11/21/17 16:51 Port/Picc Blood Culture - Preliminary No Growth After 1 Day 11/13/17 21:07 Sputum, Expectorated Gram Stain - Final 11/13/17 21:07 Sputum, Expectorated Sputum Culture - Final Normal Resp Tamie incl. Yeast 11/10/17 08:45 Port/Picc Blood Culture - Final No Growth After 5 Days 11/10/17 08:50 Port/Picc Blood Culture - Final No Growth After 5 Days 11/10/17 13:17 Peritoneum Gram Stain - Final 11/10/17 13:17 Peritoneum Surgical Culture - Final Jordan albicans Streptococcus viridans group 11/02/17 15:12 Peritoneal Fluid Gram Stain - Final 11/02/17 15:12 Peritoneal Fluid Body Fluid Culture - Final Escherichia coli Jordan albicans Pseudomonas aeruginosa Other Tamie Observed - Radiology Radiology: CT abdomen and pelvis on 10/28/17: Findings: There is moderate dilation of the small bowel with a decompressed large bowel suggesting small bowel obstruction. There is moderate thickening and edema of the distal terminal ileum which is circumferential and long segment suggesting Crohn's disease. There is also moderate distal colonic diverticulosis without definite diverticulitis. There is no free perforation or peridiverticular abscess. There is a small amount of free fluid around the liver extending along the right paracolic gutter into the pelvic cul-de-sac. The included portions of the lung bases are mildly emphysematous. No pleural effusion. Heart size is normal. No pericardial effusion. The liver, spleen, kidneys, pancreas, and adrenal glands are normal. Incidental note is made of a retroaortic left renal vein. The gallbladder is thin walled and nondistended, without stones. The abdominal aorta is nonaneurysmal, with dense circumferential calcific atherosclerotic disease. There is no retroperitoneal or mesenteric adenopathy. CT PELVIS: The urinary bladder is not distended. No definite pelvic sidewall adenopathy.. IMPRESSION: Multiple functional small bowel obstruction with long segment circumferential distal small bowel thickening suggesting Crohn's disease or other enteritis. Moderate free fluid which is probably sympathetic. No definite free perforation or abscess. Moderate distal colonic diverticulosis without definite diverticulitis. ----- Multiple KUBs obtained between dates of 10/29-11/10 demonstrating dilatation of small bowel loops suspicious for small bowel obstruction, small pleural effusions noted intermittently; generalized ileus pattern in the large and small bowel reported following initial surgery 11/02 With small bowel loops dilated up to 4.9 cm in the left abdomen on 11/09 at which time slight improvement was reported. Further decrease in SBO reported 11/10. ----- Portable chest x-rays on 11/02, 11/10, 11/21 demonstrated appropriate PICC line placement; emphysema, and trace pleural effusions. Changes consistent with SBO reported initially but no evidence of free air; lower lobe atelectasis described on later films. ----- CT abdomen and pelvis with contrast on 11/06/17: Findings: Bilateral breast implants. Small pleural effusions with lower lobe compressive atelectasis. Small volume ascites. The liver shows mild periportal edema without focal mass or bile duct dilatation. The spleen, pancreas and adrenal glands are within normal limits. Kidneys are normal. Arterial atherosclerotic plaque. Bladder shows nondependent gas probably related to recent instrumentation. Small amount of free pelvic fluid. Extensive sigmoid diverticulosis without evidence of acute diverticulitis. Persistent small bowel wall thickening in the small bowel in the pelvis, however the fecalization has resolved. Dilated small bowel loops remain up to 3.5 cm in diameter. No free intraperitoneal air identified. The appendix is mildly thickened and fluid-filled the diameter of 8 mm. No rim-enhancing abscess appreciated. Impression: 1. Postoperative changes with evidence of an improving partial small bowel obstruction and a residual postoperative ileus. No rim-enhancing abscess identified. 2. Continued wall thickening and inflammation within the distal ileum raising concern for inflammatory bowel disease versus bowel ischemia or enteritis. 3. Mildly enlarged fluid-filled appendix probably reactive to the postoperative and inflammatory small bowel changes rather than a superimposed acute appendicitis. ------- CT abdomen and pelvis with contrast on 11/10/17: Findings: Increasing small bilateral pleural effusions with lower lobe compressive atelectasis. Slight increase in small to moderate volume ascites with more fluid in the pelvis. Slight increase in hepatic and perisplenic fluid. No liver mass or bile duct dilatation. The spleen is normal in size. Pancreas appears normal. The adrenal glands are stable. Kidneys are normal. Scattered arterial atherosclerotic plaque. Bladder is mildly distended. Sigmoid diverticulosis without focal inflammation to suggest an acute diverticulitis. There is oral contrast within the proximal to mid jejunum. Nasogastric tube is seen extending the tip in the second portion of the duodenum. This is tenting the duodenum. Consider retraction. Proximal small bowel dilatation is slightly improved from the prior study with gas and fluid-filled proximal small bowel loops measuring up to 3.5 cm in diameter. There is new mucosal and wall thickening seen in several left upper quadrant small bowel loops, best appreciated on coronal image #18 near the inferior margin of the spleen. Persistent wall thickening within the distal and terminal ileum as seen on the prior study. No discrete transition point is identified although there is gradual transition from moderately dilated proximal to mid jejunum to normal caliber distal jejunum and ileum. There are 4 tiny punctate foci of free air seen in the right pelvic fluid adjacent to the distal sigmoid colon, seen on axial images 69 and 71. Bony structures are unchanged. Impression: 1. New tiny foci of free air in the pelvis and slight increase in pelvic fluid raising concern for development of a bowel microperforation. The exact site of perforation is not clearly visualized. 2. Persistent small bowel wall thickening in the distal ileum with new areas of wall thickening or inflammation in the left upper quadrant proximal small bowel. This could be due to an infectious or inflammatory enteritis or inflammatory bowel disease. 3. Nasogastric tube tip in the second portion of the duodenum. Recommend retraction. ----- Bilateral lower extremity venous Doppler on 11/13/17: No evidence of DVT in either lower extremity. ----- CT abdomen and pelvis with contrast on 11/22/17: FINDINGS: Are small bilateral pleural effusions with probably passive bibasilar dependent atelectasis. Heart size is normal. No pericardial effusion. Abdomen: There is no free fluid or free air. There are surgical drains entering the right upper abdomen and crossing the midline with skin karlie in the midline of the anterior abdomen so drain in the right lower quadrant. The liver is homogeneous in appearance without evidence of enhancing lesion or mass. Gallbladder is surgically absent. No intrahepatic or extra hepatic biliary ductal dilatation. The spleen, pancreas, bilateral adrenals and kidneys are within normal limits. The abdominal aorta is nonaneurysmal with extensive calcific there is chronic disease. No definite retroperitoneal or mesenteric adenopathy. No definite bowel distention or bowel wall thickening. There is no free fluid or intra-abdominal mass seen. No aggressive lytic or blastic bony lesions are noted. Pelvis: There is an ostomy in the left lower quadrant. The urinary bladder is not distended. There is no free pelvic fluid. There is no inguinal or pelvic lymphadenopathy. No gross lytic or blastic bony lesions are identified. IMPRESSION: Persistent bilateral pleural effusion with bibasilar atelectasis. No evidence for mass lesion or adenopathy. No infectious or inflammatory process. History of Present Illness HPI: "Steffi" is a 72 yo female patient of MADAI Gage who presents to the ED due to abd pain, n/v. She states her last nl BM was 6 days ago. 3 days ago she started having abd pain which she thought was r/t constipation. She started a "natural" cleansing medication for constipation (not a stimulant laxative) when her abd pain started and took it daily x 3 days resulted in a loose stool yesterday evening. She had an "explosive diarrheal" stool today. She vomited today and noted corn in the emesis which concerned her b/c she ate the corn 4 days ago. In ED, her CT abd showed multiple functional small bowel obstruction with long segment circumferential distal small bowel thickening suggesting Crohn's disease or other enteritis. She does have Crohn's listed on her problem list with her PCP, but she reports she had had multiple colonoscopies (last one was "awhile ago") and never was treated for Crohn's. States she saw a GI doctor who diagnosed her with H. Pylori and this was treated. She had 2 doses of Zofran in the ER w/ little relief. She had Fentanyl with improvement in sxs. She doesn't like narcotics b/c she feels they make her nausea worse. She is declining NG tube at this point, but understands if she isn't improving, it will need to be inserted. Pain is currently 10/10. Last Fentanyl was over several hours ago. Objective Vital signs: Temperature 98.3 F 11/22/17 08:00 Pulse Rate 104 H 11/22/17 14:30 Respiratory Rate 22 11/22/17 14:30 Blood Pressure 139/70 11/22/17 14:30 Pulse Oximetry 91 11/22/17 14:30 Uncomfortable female, retching intermittently,mild generalize abd tenderness, breath sounds clear, generalized pallor. Abdominal incision clean and dry. Karlie intact. Rhythm: Normal Sinus Rhythm (episodic 3.0-3.4 second sinus pauses followed by junctional rhythm for brief period; scattered junctional beats ; increased frequency arrhythmia compared to yesterday) Height/Weight/BMI: Height 1.55 m Weight 51.8 kg Body Mass Index 19.5 Hospital Course This is a general summary of the patient's hospital course. For more details refer to the complete medical record. Hospital course: 10/28/17 Admit, IP. Stay expected to exceed 2 overnights for tx of enteritis and resolution of SBO. Consult Dr. Nixon. Zosyn and Solumedrol for tx of enteritis. NPO. NG tube. (Pt declines at present. If n/v/pain persists despite current pain/nausea tx, will proceed.) IVF's - 1L bolused in ER. Continue NS at 125cc/hr. This should address her hyponatremia as well. Protonix IV for GERD and GI ppx. Lovenox for VTE ppx. Full code. PCP - MADAI Gage 10/29/17 Patient's pain is less. Leukocytosis improved from 18.7--> 14.5. Continues on Zosyn and Solumedrol. Consider decreasing Solumedrol dose later today. Remains NPO. IVF's running at 125cc's/hr. Electrolytes stable. Hyponatremia resolved 130-->136. Continue IV pain meds and antiemetics PRN. (Hasn't required since 1799 last shereen. ) Continue IV pantoprazole for GI ppx/GERD. 10/30/17 Patient did have a small bowel movement this morning. No significant flatus. Abdomen feels a little more distended, full and uncomfortable today. She appears in no distress and has not required any pain medication since receiving IV acetaminophen yesterday afternoon. She has not had any nausea or vomiting. She does not have an NG in place. NG placement was attempted on the evening of admission but was difficult, and the patient refused further attempts. We'll continue Solu-Medrol for possible Crohn's disease. Continue Zosyn for now. Discussed with Dr. Nixon, he will see the patient later today. Abdominal films look about the same today. Will start IV nutrition. 10/31/17 Patient continues to have abdominal discomfort, distention, and continued dilated loops of small bowel on abdominal x-rays. Pain is tolerable. She had 2 small bowel movements this morning. IV Tylenol does help her pain. Continue with IV Solu-Medrol for suspected Crohn's. Continue Zosyn for now. White count is elevated, at this point likely secondary to steroids. The patient has remained afebrile. Regarding nutrition, PPN was started yesterday and is being given in the midline since she had pain with infusion in a peripheral site. 11/01/17 Patient continues to have abdominal discomfort, distention, and continued dilated loops of small bowel on abdominal x-rays. Patient agreed to attempt placement of NG tube again which was successful. Will continue NG tube with low suction. Maintain NPO status. Patient disclosed her father and 2 cousins had a history of lymphoma of the ileum while discussing treatment options with Dr. Nixon. Patient is now more open to idea of surgical intervention if needed. Will re- evaluate pain and distention in AM with possible surgery tomorrow afternoon. Will hold lovenox in AM in anticipation of surgery tomorrow, 11/02/17. Continue with IV Solu-Medrol for suspected Crohn's. Continue Zosyn for now. White count is trending up-17.1- at this point likely secondary to steroids. The patient has remained afebrile. PPN was started 10/30/17 and is being given in the midline since she had pain with infusion in a peripheral site. CRP trending down 162.3-->34.5. 11/02/17 Patient continues to have abdominal discomfort and distention. Seen by Dr. Nixon yesterday and probable surgical intervention today at 1430. Will continue NG tube with low suction. Maintain NPO status. Lovenox held this morning in preparation for anticipated surgery. Continue with IV Solu-Medrol for suspected Crohn's. Continue Zosyn for now. WBC trending down12.8 today. Patient remains afebrile. New hyponatremia (Na 135) with hypokalemia (K 3.4). Pharmacy managing PPN. CRP trending up - 34.5 on 10/31/17 -->87.4 today. Continue to monitor. 11/03/17 S/p release of incarcerated internal hernia by adhesiolysis by Dr. Nixon. NG tube with low suction. Continues NPO. IV Solu-Medrol and Zosyn were DC'd yesterday following surgery as there was no evidence of Crohn's. WBC up today - likely post-op elevation. LFT's just slightly elevated. Na 133. Will follow. Continues on PPN (started 10/30/17). Blood noted in llanos - check UA. Peritoneal culture revealed E.coli, few gram positive cocci and yeast. Rocephin and Diflucan initiated. Peritoneal culture sent due to excess serous fluid in abdomen per surgical note. 11/04/17 NG tube with low suction--> clamped later in the day with good tolerance. Continues NPO. Hopeful bowels will begin moving and NG can be removed in the near future with slow initiation of oral intake. No BM at time of exam. WBC trending down-18.8, 3% bands. Remains afebrile. LFTs returned to normal range. Continue to monitor closely. Continues on PPN (started 10/30/17). Hopeful to start oral intake in the near future. Surgery managing. UA unremarkable. Will discontinue Llanos and monitor patient closely. 11/05/17 NG tube removed last night. Advanced to clear liquids -not wanting to take in much po d/t abd bloating/no appetite. Continue PPN per pharmacy for nutrition. Received dilaudid last night and had nausea, headache and dizziness. Headache and nausea persisting. Will give Tylenol po and Reglan now. Use Toradol and/or Tylenol for pain and avoid narcs if possible. Persistent hyponatremia (Na 131). Continue to monitor. 02 requirement down to 1L from 3L. Using IS. Ambulating. Day #3 of Rocephin and Diflucan for peritoneal culture w/ E.coli, few gram positive cocci and yeast. WBC 18.8-->22.4. Afebrile. Home Losartan and methimazole resumed last night. 11/06/17 White count continues to trend up, currently at 23.3. Bands have also increased to 9%. Increased abdominal symptoms with indigestion, nausea and bloating. CT abdomen and pelvis with IV contrast obtained-->ileus but no abscess. Expand Antibiotics to Zosyn. Continue Diflucan. Peritoneal fluid culture showed moderate growth of Escherichia coli and light growth of Jordan albicans. Continue PPN. Patient is off oxygen this morning. She is afebrile and hemodynamically stable. NG replaced due to recurrent GI symptoms. 11/07/17 White count remains elevated at 22.8 but slightly lower than yesterday (24.3) with decreased percent bands. Afebrile. More comfortable overall following replacement of NG; continues to have active bowel sounds and pass gas. Continue Zosyn, serous fluid described intraoperatively in excess of what was anticipated prompting decision to send sample for culture. Continue Diflucan for culture finding of probable Jordan. Blood pressure stable. Remains on low-dose methimazole after radioactive iodine ablation in July; will clarify with Endo if necessary after CARBAJAL. 11/08/17 No BM since prior to surgery. KUB was increased distention of small bowel loops worrisome for developing SBO. White count remains elevated. Dc Zosyn and start Meropenem for E coli and pseudomonas cultured intraoperatively. Continue Diflucan for culture finding of probable Jordan. Continues on PPN and clear liquids. 11/09/17 Patient looking and feeling much better today. Has had NG tube clamped off and on and has tolerated it well thus far. Patient has passed some stool and continues to pass gas. White count has improved. Day #2 of meropenem (converted from Zosyn (11/02 - 11/08) due to DARCIE) for e coli and pseudomonas in peritoneal fluid. Day #7 of Diflucan for jordan in peritoneal fluid. Continues on PPN and ice chips. 11/10/17 Patient with increasing abdominal pain, abdominal distention, and increase in white count (17.7-->24.3) and development of fever. CT abdomen/pelvis resulting in possibility of microperforation leading to emergent surgery with Dr. Ramirez at the present time. Patient continues on meropenem. Today is day #3. (Converted from Zosyn (11/02 - 11/08) due to DARCIE) for e coli and pseudomonas in peritoneal fluid. Day #8 of Diflucan for jordan in peritoneal fluid. Blood pressure and pulse are stable. Patient is requiring 2 L oxygen. Blood cultures are pending. Lactate was normal. Sputum culture has been ordered. Add Acapella and DuoNeb treatments for pulmonary toilet. Patient has been having liquid stools - c diff neg. 11/11/17 Cardiology-Dr. Huertas-is seeing for cardiac arrhythmias-bradycardia with pauses post-op. She shows clinical improvement after surgery yesterday for the peritonitis secondary to what is presumptively diverticulitis and a developing phlegmon. White blood cell count has yet to fall significantly but lactate does not have a significant climb despite the stress of surgery. I would disregard the raise in C-reactive protein on the surgical circumstances alone (83.3 on 11/07/17--> 267.3 on 11/11/17). Patient continues on meropenem. Today is day #4. (Converted from Zosyn (11/02 - 11/08) due to DARCIE) for e coli and pseudomonas in peritoneal fluid. Diflucan was stopped with last night's dose at day number 8 and after conversation with Dr. Rios and infectious disease the patient is being switched Micafungin Continues on PPN and ice chips. Blood pressure and pulse are stable. TSH rechecked-31.9--will address with patient's smoke eater. 11/12/17 Abdominal distention improving, clinically patient describes feeling stronger than she did prior to for surgery. Seen in consultation by ID. Remains on Zosyn and micafungin for treatment of intra-abdominal infectious process. WBC drifting down slowly-16.3. No further cardiac arrhythmias. Remains on parenteral nutrition. 11/13/17 Right calf pain-venous Doppler negative for DVT. Likely third spacing postoperatively. Weight up 8 kg from admission. Requiring 2 L supplemental oxygen. Status unchanged. 11/14/17 Clinically stable, pathology from second surgery revealed diverticular disease of the colon with evidence of rupture and focal abscess formation with inflammation extending to the serosal surface; both resection margins were viable. Persistent ileus, NG remains in/to suction. Diuresed gently for volume overload; continue Zosyn/micafungin. WBC improving slowly-15.0 although 5% bands persist. 11/15/17 Has been ambulating in the ICU, breathing more comfortably after diuresis yesterday. No additional changes inpatient status; persistent ileus, continue parenteral nutrition. 11/16/17 Telemetry has remained sinus rhythm at a regular rate since postop day 2. White blood cell count has fallen everyday consecutively since postop day. No fevers since day of surgery. Continuing the Diflucan and Zosyn that this time as set by Dr. Rios. Remove the Llanos. Focus on physical therapy at this time. 11/17/17 Day 7 following drainage of pelvic abscess and sigmoid resection; no output per colostomy and NG tube remains in place. Dr. Rios recommended 2 weeks postop antibiotics with repeat CT imaging of abdomen prior to discontinuation of antibiotics. On Zosyn/micafungin. Remains on TPN with good fluid balance. Blood pressure is borderline, patient reports she previously took 50 mg losartan once daily and would like to try daily dosing again. TSH elevated-methimazole discontinued. I later received a call from her smoke eater (Dr. Bianchi) who recommended starting levothyroxine at 50 g daily and he will reassess levels when he sees her in December. Leukocytosis improving progressively however patient has immature cells on smear ; will require continued follow-up. Has been on IV Toradol prn since 11/03-using 1-3 times daily. Discussed with pharmacy, discontinue and substitute IV acetaminophen. 11/18/17 Bowel function returning, output per ostomy; NG clamped and clear liquids initiated with good tolerance thus far. Converted to losartan once daily, blood pressure remains elevated-anticipate improvement with increased activity. Levothyroxine initiated this morning after identification of hypothyroid state following CARBAJAL ablation earlier this year. Spasm present in the upper back/neck with associated headache. Ice packs/warm packs initiated, tramadol ordered as alternate pain medication due to patient intolerances of multiple meds. Flexeril added if muscle relaxant desired. 11/19/17 NG discontinued late yesterday; diet has been advanced progressively to regular. Poor oral intake, continue TPN at present. 11/20/17 Doing well, sodium acetate increased in TPN today. Brief episode of bradycardia while sleeping overnight-rhythm strip faxed to cardiology for review. Continue telemetry. 11/21/17 Recurrent sinus pauses/junctional rhythm overnight-occurred several hours after dose of metoclopramide and while asleep but 3.2 second cause difficult to ignore. Cardiology notified. Discontinue metoclopramide as associated with bradycardia; Zofran ordered as alternate antiemetics. CT abdomen/pelvis with contrast in a.m. given increase pain reported past 2 days although may reflect increased oral intake and increased bowel activity. Day 11 following drainage of pelvic abscess and sigmoid resection; NG out, 720 mL oral intake reported yesterday; continue TPN until oral intake improved. 11/22/17 Recurrent sinus pauses followed by junctional rhythm with increasing frequency; symptomatic. Scattered random junctional beats noted as well. Cardiology now believes pacemaker will be needed, possibly urgently. All center receptionist who placed pacemakers routinely in [place] are on vacation. Patient is more symptomatic today with nausea and increased abdominal discomfort as well. Becomes very nauseated in conjunction with sinus pauses/ junctional rhythm. After lengthy discussion decision was made to transfer to [facility] where interventional cardiology capacity is available. Repeat CT this morning without evidence of acute intra-abdominal process. Arrangements made to transfer to CCU at [place] under the care of the hospitalist service with cardiology and surgical consultations. All involved consultants at [facility] aware of plans. Time spent with patient: discharge greater than 30 minutes Resuscitation Status: Full Code Discharge Plan - Discharge Disposition Discharge Date: 11/22/17 Disposition: 02 To [facility] Acute Care *Condition: Stable Reason For Visit (Visit label in EMR): small bowel obstruction - Discharge Medications *Discharge Medications: New Acetaminophen [Tylenol] 500 - 1,000 mg PO Q6H PRN tab PRN Reason: Discomfort Ondansetron Inj [Zofran] 4 mg IVP Q6H PRN vial PRN Reason: Nausea &/Or Vomiting Piperacillin/Tazobactam [Zosyn 3.375 gm] 3.375 gm IV Q6H vial Bisacodyl EC TAB [Dulcolax] 10 mg PO BID tab Cyclobenzaprine [Flexeril] 5 mg PO TID PRN tab PRN Reason: Muscle Spasm DOPamine PREMIX [DOPamine DRIP] 400 mg IV .Q24H PRN bag PRN Reason: Bradycardia Enoxaparin Sodium [Lovenox] 40 mg SQ DAILY syringe Fat Emulsion 20% [Intralipid 20%] 100 ml IV 1600 bag Levothyroxine Sodium [Synthroid] 50 mcg PO ACB tab Losartan [Cozaar] 50 mg PO DAILY tab Micafungin [Mycamine] 100 mg IV 1600 ml MULTI-VIT + MINERAL (Opti-gen) [Vision] 1 tab PO DAILY tab NS FLUSH BAG 500ml [Normal Saline] 500 ml IV PRN PRN iv.soln PRN Reason: FLUSH Pantoprazole IV [Protonix IV] 40 mg IVP BID vial Sore Throat [place] [Chloraseptic [place]] 3 spray PO Q2H PRN bottle PRN Reason: Sore Throat TPN - Custom Formula [TPN - Custome Formula] 2,129 ml IV .Q24H iv.soln Tramadol [Ultram] 25 - 50 mg PO Q4H PRN tab PRN Reason: Pain Albuterol/Ipratropium [Duoneb] 3 ml AEROSOL RTTID PRN each PRN Reason: Shortness Of Air/Wheezing LORazepam INJ [Ativan Inj] 0.5 mg IVP Q4H PRN vial PRN Reason: Agitation/Restlessness Saline Flush [IV Flush] 10 - 80 ml IVF PRN PRN syringe PRN Reason: .Downtime Continue DiphenhydrAMINE [Benadryl] 25 mg PO Q4H PRN PRN Reason: Prn Orders Albuterol HFA Inhaler [Ventolin Hfa 90 mcg/actuation] 2 puff INH Q6H PRN PRN Reason: Prn Orders guaiFENesin [Mucinex] 600 mg PO Q12H PRN PRN Reason: Prn Orders Discontinued Losartan [Cozaar] 25 mg PO BID MethIMAzole [Tapazole] 2.5 mg PO DAILY Ranitidine [Zantac] 150 mg PO BID - Discharge Packet/Instructions *Diet: regular *Activity: up with assistance, ambulate frequently as tolerates *Pain Management/Treatment: see orders *Wound Care: Ostomy supplies used: DIY system, flat wafer # [id number], drainable pouch # [id number]. Stoma and peristomal area cleaned with water, stoma guide used to size stomal wafer opening, wafer cut, fitted, and pouch applied. Incision open to air; 4x4 inferior aspect wound. Additional Instructions: N/A *Expected Signs/Symptoms: abdominal pain, nausea, lightheadedness *Notify Physician if: anything changes *During Business Hours Contact: notify nursing *After Business Hours Contact: notify nursing *Pending Lab/Results: Will be notified - Referrals/Follow Up *Referrals/Follow Up: Saima Coto PA [Primary Care Provider] - - Patient Handouts - Dismissal Complete Discharge Instructions are:: Complete Physician Narrative - Narrative Attestation Narrative: Date: 11/23/17 Time: 4781
== END 2017-11-22 14:38 | disposition short-term general hospital (02) | DRG 329 ==
LOC: ED 14:18 → EDHOLD 16:49 → SUATTDRO 16:49 → SRG 17:05 → CCU 11-10 14:29
PROVIDERS: ADMIT Internal Medicine; ATTEND Internal Medicine